=== PATIENT | male | born 1990 | race Caucasian/White ===

== ENCOUNTER 2021-01-02 14:28 | Observation (INO) ==
[2021-01-02 15:22] LABS: Appearance Urine Clear (Clear); Bilirubin Urine Negative (Negative); Blood Urine Negative (Negative); Color Urine Yellow; Glucose Urine UA Negative (Negative); Ketones Urine Trace (Negative); Leukocyte Esterase Urine Negative (Negative); Nitrite Urine Negative (Negative); Protein Urine Negative (Negative); Specific Gravity Urine 1.026 (1.000-1.030); Urobilinogen Urine Negative (Negative)
[2021-01-02 15:42] LABS: Basophils # (auto) 0.02 K/uL (0-0.2); Basophils % (auto) 0.4 %; Eosinophils # (auto) 0.08 K/uL (0-0.5); Eosinophils % (auto) 1.5 %; Hematocrit (blood only) 41.9 % (42-52); Hemoglobin 14.7 g/dL (14.0-18.0); Immature Granulocytes # (auto) 0.01 K/uL (0.00-0.02); Immature Granulocytes % (auto) 0.2 %; Lymphocytes # (auto) 1.57 K/uL (1.2-3.4); Lymphocytes % (auto) 28.7 %; Mean Corpuscular Hemoglobin 30.2 pg (25-34); Mean Corpuscular Hgb Conc 35.1 g/dL (32-36); Mean Corpuscular Volume 86.2 fL (80-100); Mean Platelet Volume 9.2 fL (7.4-10.4); Monocytes # (auto) 0.87 K/uL (0.11-0.59); Monocytes % (auto) 15.9 %; Neutrophils # (auto) 2.92 K/uL (1.4-6.5); Neutrophils % (auto) 53.3 %; Platelet Count 277 K/uL (130-400); RDW Coefficient of Variation 12.8 % (11.5-14.5); RDW Standard Deviation 40.9 fL (36.4-46.3); Red Blood Count 4.86 M/uL (4.7-6.1); White Blood Count 5.47 K/uL (4.8-10.8)
[2021-01-02 16:04] LABS: Acetaminophen < 2 ug/ml (10-30); Albumin Level 3.9 gm/dl (3.4-5.0); BUN Creatinine Ratio 17.7 (10-20); Calcium 8.7 mg/dl (8.5-10.1); Creatinine Clr Calc Pharmacy 104.3 ml/min; Est GFR (African American) 115.4; Est GFR (Non-African American) 99.6; Potassium 3.7 mmol/L (3.5-5.1); Salicylate < 1.7 mg/dl (2.8-20)
[2021-01-02 16:14] LABS: Albumin Globulin Ratio 1.2 (0.9-2); Bilirubin,Total 0.6 mg/dl (0.2-1); Globulin 3.2 gm/dl (2.5-4.0); Thyroid Stimulating Hormone 1.73 uIu/ml (0.300-4.500); Total Protein 7.1 gm/dl (6.4-8.2)
[2021-01-02 16:17] LABS: Amphetamines+Metham, Urine Neg (Neg); Barbiturates, Urine Neg (Neg); Benzodiazepine, Urine Neg (Neg); Cocaine, Urine Neg (Neg); MDMA (Ecstacy), Urine Neg (Neg); Methadone, Urine Neg (Neg); Opiate, Urine Neg (Neg); Phencyclidine, Urine Neg (Neg)
[2021-01-02 16:59] LABS: Influenza A virus by PCR Negative (Neg); Influenza B virus by PCR Negative (Neg); RSV by PCR Negative (Neg)
[2021-01-02 17:05] LABS: SARS CoV2 RNA(COVID-19) InHosp POSITIVE (Negative)
[2021-01-02] MEDS ORDERED: POLYETHYLENE (MIRALAX) 17 GM PACK PO PRN (22:43)
[2021-01-02] MEDS ORDERED: ONDANSETRON INJ 2 MG/ML 2 ML VIAL IV PRN (22:43)
[2021-01-02] MEDS ORDERED: LORazepam 1 MG/2 ML VIAL IV PRN (22:43)
[2021-01-02] MEDS ORDERED: ACETAMINOPHEN 325 MG TAB PO PRN (22:43)
[2021-01-03] MEDS: DOXYCYCLINE HYCLATE 100 MG CAP PO SCH ×2 (05:54→08:35)
--- NOTE | 2021-01-03 05:57 | History and Physical Report ---
DATE OF ADMISSION: 01/02/2021 CHIEF COMPLAINT: COVID-19 and improper behavior. HISTORY OF PRESENT ILLNESS: This is a 30-year-old male with past medical history significant for schizoaffective disorder bipolar type, altered thought process was brought in because he was exposing himself on the streets and in the hospital, he was found to be COVID positive. The patient is currently resting comfortably and hemodynamically stable. Denies any chest pain. No cough, no fever, no chills, no shortness of breath, no headache, no blurred vision, no earache, no runny nose, no sore throat, no nausea, no abdominal pain, no diarrhea. Appetite is okay. Denies any complaints. The patient does not know how he got COVID. No known exposures. Afebrile. ALLERGIES: RISPERIDONE, BEE VENOM. PAST MEDICAL HISTORY: As mentioned above. PAST SURGICAL HISTORY: None. MEDICATIONS: Currently the patient is not taking any medications. FAMILY HISTORY: No significant family history on file. SOCIAL HISTORY: Lives with his parents. No smoking as per the records. A 0.8 standard drinks of alcohol per week as per records. No drug use as per records. REVIEW OF SYSTEMS: As per HPI. Rest of the review of systems negative. PHYSICAL EXAMINATION: GENERAL: The patient is of moderate build, not in acute distress. VITAL SIGNS: Temperature 36.8, pulse 75, respiratory rate 20, blood pressure 103/65, oxygen 97% on room air. HEENT: Head atraumatic. Oral mucosa moist. NECK: No neck masses. Supple. CARDIOVASCULAR: S1, S2 heard. Regular rate and rhythm. No murmur, no gallop. RESPIRATORY SYSTEM: Normal AP diameter. No accessory muscle use. No wheezing, no crackles. ABDOMEN: Soft, bowel sounds present, nontender. No distention. CENTRAL NERVOUS SYSTEM: Cranial nerves II-XII grossly intact. Nonfocal. EXTREMITIES: No edema, no erythema. LABORATORY DATA: WBC 5.4, hemoglobin 14.7, hematocrit 41.9, platelets 277. Sodium 139, potassium 3.7, chloride 108, bicarbonate 29, BUN 18, creatinine 1.02, serum glucose 97, calcium 8.7, total bilirubin 0.6, AST 19, ALT 23, alkaline phosphatase 73. TSH 1.7. Urinalysis negative, salicylates less than 1.7, acetaminophen less than 2, ethyl alcohol less than 3. SARS-CoV-2 PCR positive. Influenza A and B PCR negative. RSV PCR negative. ASSESSMENT AND PLAN: This is a 30-year-old male, who was brought in because of improper behavior and found to be COVID positive. 1. COVID positive on the PCR: The patient is asymptomatic, hemodynamically stable, saturating fine on room air. We will follow chest x-ray. Follow in the medical floor. COVID precautions, air-borne precautions. 2. Improper behavior: One-on-one for now. Psych consult in the a.m. 3. History of schizoaffective bipolar disorder and altered thought process: Currently not taking any medications. Await psych input. 4. Deep venous thrombosis prophylaxis: We will place on Lovenox. 5. Disposition: Monitor in the hospital. Once stable, further management as per psychiatry. Level 1 full code. Addendum: On the floor patient complained of tick on his penile shaft. Tick was taken out and doesn't seemed engorged. Patient seems to have rolled on grass naked. Ordered lyme test most likely will be negative unless he had any more tick bites in the recent past. Empirically started on Doxycycline. MTDD
[2021-01-03 06:10] LABS: Basophils # (auto) 0.03 K/uL (0-0.2); Basophils % (auto) 0.7 %; Eosinophils # (auto) 0.09 K/uL (0-0.5); Eosinophils % (auto) 2.1 %; Hematocrit (blood only) 40.8 % (42-52); Hemoglobin 14.3 g/dL (14.0-18.0); Immature Granulocytes # (auto) 0.01 K/uL (0.00-0.02); Immature Granulocytes % (auto) 0.2 %; Lymphocytes # (auto) 1.72 K/uL (1.2-3.4); Lymphocytes % (auto) 39.6 %; Mean Corpuscular Hemoglobin 30.7 pg (25-34); Mean Corpuscular Volume 87.6 fL (80-100); Mean Platelet Volume 8.8 fL (7.4-10.4); Monocytes % (auto) 16.1 %; Neutrophils # (auto) 1.79 K/uL (1.4-6.5); Neutrophils % (auto) 41.3 %; Platelet Count 232 K/uL (130-400); RDW Coefficient of Variation 12.9 % (11.5-14.5); RDW Standard Deviation 41.4 fL (36.4-46.3); Red Blood Count 4.66 M/uL (4.7-6.1); White Blood Count 4.34 K/uL (4.8-10.8)
[2021-01-03 06:20] LABS: D Dimer 310 ug/L FEU (0-500)
[2021-01-03 06:42] LABS: BUN Creatinine Ratio 14.7 (10-20); Blood Urea Nitrogen 14 mg/dl (7-18); Calcium 8.4 mg/dl (8.5-10.1); Carbon Dioxide 30 mmol/L (21-32); Chloride 108 mmol/L (98-107); Creatinine Clr Calc Pharmacy 112.2 ml/min; Est GFR (African American) 125.8; Est GFR (Non-African American) 108.5; Glucose 86 mg/dl (70-99); Magnesium 2.2 mg/dl (1.8-2.4); Sodium 139 mmol/L (136-145)
[2021-01-03 06:47] LABS: C Reactive Protein < 0.29 mg/dl (0-0.29); Ferritin 140.9 ng/ml (8-388); Troponin I < 0.015 ng/ml (0-0.045)
[2021-01-03 07:14] LABS: Lyme Ab IgG w/WB Rflx Negative (Negative); Lyme Ab IgM w/WB Rflx Negative (Negative)
--- NOTE | 2021-01-03 08:30 | XRay Report ---
XR chest 1V portable HISTORY: 30 years-old Male covid acute cough with shortness of breath. COVID Positive. COMPARISON: None TECHNIQUE: Portable AP view of the chest FINDINGS: Cardiomediastinal and hilar silhouettes are within normal limits. No pneumothorax, pleural effusion, airspace consolidation or overt pulmonary edema. Bones of the chest appear grossly intact. IMPRESSION: No acute process. ACT 112: Negative or not required by law. The above report was generated using voice recognition software. It may contain grammatical, syntax o r spelling errors. Electronically signed by: Fadi Eubanks M.D. 01/03/2021 8:28 AM
[2021-01-03] MEDS: ENOXAPARIN INJ 40 MG/0.4 ML SYR SQ SCH (08:35)
--- NOTE | 2021-01-03 09:27 | Psychiatric Consultation ---
Date of Consultation January 03, 2021 Impression / Recommendations Impression 30-year-old single male who lives with parents in [place], has a history of psychosis NOS and substance abuse, who presented on a 302 yesterday after he was found in public, nude, and masturbating. He is endorsing psychotic symptoms including command auditory hallucinations and delusions and demonstrates extremely poor insight and judgment. He does not believe he has a mental illness or needs treatment, despite just being released from a psychiatric facility in [place] within the past couple of weeks, and multiple previous hospitalizations. He reports he has been noncompliant with medications and is a very poor historian and we will need additional information from the facility in [place] as well as his outpatient psychiatrist. Inpatient treatment is medically necessary due to the severity of symptoms and risk of harm to both himself and others as a result, as he is unable to provide for his own basic needs without the care and assistance of others, and those around him are at risk of sexual assault given his sexual preoccupation, acting out behavior, and disinhibition. He has already engaged in sexually inappropriate behavior in the community. We will give consideration to the need for long-term hospitalization at the [facility] versus an involuntary outpatient commitment, and I have filed for 303 hearing to be held on Thursday. (1) Acute psychosis: 01/03 -patient is a poor historian, reports indicate he may have been started on Abilify Maintena while hospitalized in [place], but timeline unknown. He is agreed to sign a release and I have asked the nurse on the floor to obtain that so that we can get those records. We will also attempt to get records from his outpatient psychiatrist, Dr. Price. -If he is refusing to take antipsychotic medications, recommend medications over objection, as he has responded to antipsychotic medication in the past, and psychotic symptoms are unlikely to remit without antipsychotic treatment. Additionally, he is severely disabled as a result of his psychosis, is unable to provide for his own basic needs, and places both himself and others at risk of harm if his symptoms remain untreated. -Given his history of nonadherence and severity of symptoms with untreated mental illness, will recommend ongoing involuntary commitment with transition to an IOC at discharge. He would benefit from case management and therapy as well. -Offer olanzapine 10 mg p.o./IM as needed for acute psychosis, as he has been on this medication before and tolerated it. -Consider initiation of a mood stabilizer such as Depakote, which can be given IV over objection if he remains unwilling for medications. (2) Noncompliance with medication regimen: Recommend an [facility] [place] due to nonadherence with oral medication, need to obtain additional information about recent treatment before we can explore options. 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 He was placed on a 302 involuntary commitment in the ER, and was then found to be Covid positive, so was admitted to the Covid unit. Chief Complaint "I started having these strange feelings". History of Present Illness Patient is known to us from a previous hospitalization on our unit in 2013, also on an involuntary commitment for psychosis. He was confused, disorganized, hallucinating, with ideas of reference, thought insertion and withdrawal, and thought blocking. He had a brain MRI which was negative, and was started on risperidone. He was a senior in college at the time, and was at home living with parents over the summer break. He was discharged to outpatient treatment at [facility]. He presented to the ER after he was found outside naked, masturbating, with hypersexual thoughts and behavior. He said he was not taking medications because he does not need them, and did not feel he needed inpatient treatment. His parents state that he was recently discharged from [facility] in [place] after he "took off" and police were looking for him. He returned home and was living with his parents on their farm, but left the farm yesterday and was found in town, openly masturbating in front of a neighbor, who called the police. His mother reported he had exposed himself to her that morning, and said he was told that she wanted him to do that. She believes he was having command auditory hallucinations, although he denied them. He had not been sleeping and had demonstrated poor appetite, was extremely impulsive and appeared to be responding to internal stimuli. Parents believe his psychiatric symptoms started years ago when he was in college after he was diagnosed with Lyme's disease. He was placed on an involuntary commitment, and was then found to be Covid +, so was admitted to the Covid unit. He has been sexually preoccupied and inappropriate with hospital staff, asking them if they need semen samples, and a tick was found embedded in the side of his penis and was removed. Lovenox and doxycycline were ordered, but he is refusing to take them. My assessment was done by phone due to patient's COVID + status and lack of appropriate PPE for [facility] staff. He reports he started having "strange feelings" that he "needed to open myself back up," referencing his anus and needing to be naked. Yesterday he was "feeling extreme tightness in my body, and felt the need to be outside doing that." He states he "went outside, took my pants off, went out and masturbated in the street" in "[facility] in the middle of the street." He says a bystander saw him and "called for help," during which time he continued to masturbate. He says he was hospitalized psychiatrically in [place] "for a similar thing" in December, because of "an idea came up, that I had to do it again, that I didn't do it quite right." He says he understands that masturbating in public is illegal but denies that he has any criminal charges. Says he was prescribed Zyprexa and Abilify in [place] and received an "Abilify shot," but thinks he is allergic to Abilify. He doesn't know if he has any outpatient providers, then says he "decided not to" follow up with outpatient treatment. He says he heard someone telling him to expose himself, but denies AVH currently. He reports good sleep, appetite and denies depressive and anxiety symptoms. He says he "messed up my understanding of who am I and what I want to do with myself, I still feel capable of being off medications." Staff contacted his father for collateral and he reported that the patient was relatively stable from [id number] while on aripiprazole. He returned to college and was able to complete his degree, and was seeing a psychiatrist named Dr. Jenkins. He decompensated in 2019, and was started on lithium. He was noncompliant with treatment and ultimately stopped all of his medications, and was discharged from care due to nonadherence. He later started seeing Dr. Price, who started him on Latuda. He often become sleep deprived and then psychotic, often with paranoia involving his parents, and often travels across the country while psychotic. In April 2020, he went to [place], abandoned his car, and was trying to break into homes. In November 2020 he wound up in [place], and then [place]. Parents filed a missing persons report and were ultimately able to locate him based on his debit card use. At some point he went to [place], was found walking naked in the [place], and was then hospi talized there from 12/04/2020-12/21/2020. They were told that he received Abilify Maintena on 12/19/2020, but question whether he actually got it, as he does not appear to be medicated and continues to have psychotic symptoms. Past Psychiatric History Previous Psych History: History of psychosis not otherwise specified and canna bis abuse (diagnoses during 2014 hospitalization here). At that time, he denied any previous psychiatric treatment, but reported a history of concussions from playing football and treatment for Lyme disease 1-2 years prior. Current Psychiatric Diagnosis: Schizoaffective disorder; depressed type per patient Outpatient Services: Parents report he has an appointment with Dr. Price for outpatient treatment. Previously saw Dr. Gonzales at [facility] after 2014 hospitalization here, but was only seen briefly before he left the area to return to college. Previous Psych Admissions: [facility] 2014 for psychosis NOS on an involuntary commitment Reportedly released from an inpatient facility in [place] last week Patient reports multiple other inpatient hospitalizations in various states History of Previous Suicide Attempt: No Describe Attempts in the Past: Admits to "beliving I don't deserve to live" in the past Past Medication Trials: Per EMR: Haloperidol -used as needed when in the hospital in the past Risperidone -Per outpatient records this was stopped shortly after hospital discharge due to fatigue, allergy list states it caused a rash (although patient was on it while in the hospital in 2013 and appeared to tolerate it well) Lamotrigine -started in [address] Gonzales after discharge from the hospital, and was stopped after his acne worsened Abilify -reportedly the patient was stable on this medication for several years [place] -nonadherent Latuda-nonadherent Abilify Maintena - possibly started in [place] ?Zyprexa in [place] Allergies Allergy/AdvReac Type Severity Reaction Status Date / Time bee venom protein (honey bee) Allergy Severe ANAPHYLAXIS Verified 01/02/21 15:46 risperidone Allergy Rash Verified 01/02/21 15:46 Home Medications Medication Instructions Recorded Confirmed Type No Known Home Medications 03/18/20 01/02/21 History Family History The patient's father reports that both his mother and maternal uncle have bipolar disorder. Substance Abuse History History of cannabis and shroom use, recent use unknown Personal History Living Arrangements: Home Living Arrangements Comments: with parents in [place] Employment Status: Unemployed Marital Status: Single Beliefs That Will Affect Care: None Patient History Medical History (Updated 01/03/21 @ 12:04 by Saskia Russ MD) Schizoaffective disorder Social History Smoking Status: Current some day smoker Tobacco Type: Cigarettes Second Hand Exposure: No; Do You Dip or Chew Tobacco: No; Tobacco Cessation Education Requested by Patient: No Hx Alcohol Use: Yes Alcohol type: beer, wine and hard liquor Hx Substance Use: No Communication Ability: Effective Fabrication Operator Required: No Beliefs That Will Affect Care: None Current Living Situation: Parent Other Information That Helps Us Care for You: No Feels Safe at Home: Yes Safety Concerns: Feels Safe At This Time Assistive Devices: Glasses Physical Exam Psychiatric: MSE limited due to phone interview. Patient's voice is slightly slowed, delayed responses, rambling quality to speech, vague and difficult to understand answers. He endorses auditory hallucinations of a command nature telling him to expose himself to others. He reports what may be somatic delusions of tightness in his anus, and thought processes are rational and not reality based. Denies SI and HI. Very poor insight and judgment. Vital Signs (Past 24 Hours): Last Vital Signs Temp 36.5 C 01/03/21 07:15 Pulse 74 01/03/21 07:15 Resp 16 01/03/21 07:15 BP 102/65 01/03/21 07:15 Pulse Ox 96 01/03/21 07:15 Review of Systems All systems reviewed & are unremarkable except as noted in Subjective Results & Data (PSY) Medications Administered Doxycycline Hyclate (Doxycycline Hyclate 100 Mg Cap) 100 mg PO BID MATT Stop: 01/13/21 05:09 Last Admin: 01/03/21 08:35 Dose: Not Given Documented by: [id number] Admin: 01/03/21 05:54 Dose: 100 mg Documented by: [id number] Enoxaparin Sodium (Enoxaparin Inj 40 Mg/0.4 Ml Syr) 40 mg SQ Q24H MATT Stop: 02/02/21 08:59 Last Admin: 01/03/21 08:35 Dose: Not Given Documented by: [id number] Coding Level of Care Code 91101 [facility] Intl Hosp Care Lvl 3 Diagnoses Acute psychosis F23 Noncompliance with medication regimen Z91.14
[2021-01-03] MEDS ORDERED: OLANZapine 10 MG/2.1 ML SDV IM PRN (09:45)
[2021-01-03] MEDS ORDERED: OLANZapine 10 MG TAB PO PRN (09:45)
--- NOTE | 2021-01-03 11:46 | Emergency Department Note ---
History of Present Illness General Chief complaint: Mental Health Evaluation Stated complaint: ANXIETY/MENTAL HEALTH EVALUATION Time Seen by Provider: 01/02/21 15:22 Source: patient Mode of arrival: other (Police) Limitations: no limitations History of Present Illness Provider complaint: Public nudity, public masturbation, exposure of genitals to his mother This pt is a 30 yo male who presents to the ED by police after walking in [facility] nude and masturbating. Pt apparently exposed his genitals to his mother this morning and told her that he "got the idea that she wanted him to do that.". PT was in a facility in [place], [place] last week and was recently released to his parents. Pt states he was arrested in [place] and inpt in [place] for similar public nudity and indecent behaviors. He has refused medications as he feels they are poison. He has denied command hallucinations, although his parents have concerns that this maybe the case. Pt states he "was previously sexually active with his rectum" and was unable to "open" the rectum. He was "feeling tight" in his body, and this is the way he feels he needs to release. He denies recent illness, ETOG, substance abuse. He denies SI, HI. Home Medications Medication Instructions Recorded Confirmed Type No Known Home Medications 03/18/20 01/02/21 History Allergies Allergy/AdvReac Type Severity Reaction Status Date / Time bee venom protein (honey bee) Allergy Severe ANAPHYLAXIS Verified 01/02/21 15:46 risperidone Allergy Rash Verified 01/02/21 15:46 Past Med/Surg History Medical History Schizoaffective disorder Social History Smoking Status: Current some day smoker Tobacco Type: Cigarettes Second Hand Exposure: No; Do You Dip or Chew Tobacco: No; Tobacco Cessation Education Requested by Patient: No Hx Alcohol Use: Yes Alcohol type: beer, wine and hard liquor Hx Substance Use: No Communication Ability: Effective Post Manager Required: No Beliefs That Will Affect Care: None Current Living Situation: Parent Other Information That Helps Us Care for You: No Feels Safe at Home: Yes Safety Concerns: Feels Safe At This Time Assistive Devices: Glasses Review of Systems A total of 10 systems reviewed and were otherwise negative Physical Exam Vital Signs Vital Signs - 24 hr 01/02/21 14:40 Temperature 36.5 C Temperature Source Oral Pulse Rate 97 H Pulse Rhythm Regular Pulse Strength Normal Respiratory Rate 18 Respiratory Effort / Characteristics Non-Labored Respiratory Depth Normal Respiratory Pattern Regular Blood Pressure 125/81 Blood Pressure Mean 95 Blood Pressure Position Sitting Pulse Oximetry 97 Oxygen Delivery Method Room Air Sepsis Recent Fever Within 48 Hours No Sepsis New/Unexplained Change in Mental Status No Sepsis Action Taken by Nursing No Action Required Vital signs reviewed. General: Well-appearing 30 yo male, in no significant distress. HEENT: No scleral icterus, PERRLA, neck supple. Atraumatic. Cardiovascular: Regular rate and rhythm, no extra sounds. Pulmonary: Clear to auscultation bilaterally, normal work of breathing. Abdomen: Soft, nontender, nondistended, positive bowel sounds. Musculoskeletal: Atraumatic, no peripheral edema. Neurologic: Patient awake alert and oriented x 3 Psych: Neg SI, neg HI Skin: Warm, dry, no rash Course Administered Medications Doxycycline Hyclate (Doxycycline Hyclate 100 Mg Cap) 100 mg PO BID [facility] Stop: 01/13/21 05:09 Last Admin: 01/03/21 08:35 Dose: Not Given Documented by: [id number] Admin: 01/03/21 05:54 Dose: 100 mg Documented by: [id number] Enoxaparin Sodium (Enoxaparin Inj 40 Mg/0.4 Ml Syr) 40 mg SQ Q24H [facility] Stop: 02/02/21 08:59 Last Admin: 01/03/21 08:35 Dose: Not Given Documented by: [id number] Medical Decision Making Differential Diagnosis Mood disorder, infection, hypoglycemia, electrolyte abnormalities, cardiac sources, intracerebral event, toxicologic, trauma, neurologic, as well as other pathologies. Home Medications Current Medication List: was personally reviewed by me (Noncompliant) Laboratory Data Attestation: I reviewed the patient's lab results. Result diagrams: 01/03/21 05:52 01/03/21 05:52 Lab Results 01/02/21 01/02/21 01/02/21 Range/Units 15:03 15:03 15:21 WBC 5.47 (4.8-10.8) K/uL RBC 4.86 (4.7-6.1) M/uL Hgb 14.7 (14.0-18.0) g/dL Hct 41.9 L (42-52) % MCV 86.2 (80-100) fL MCH 30.2 (25-34) pg MCHC 35.1 (32-36) g/dL RDW Std Deviation 40.9 (36.4-46.3) fL RDW Coeff of [place] 12.8 (11.5-14.5) % Plt Count 277 (130-400) K/uL MPV 9.2 (7.4-10.4) fL Immature Gran % (Auto) 0.2 % Neut % (Auto) 53.3 % Lymph % (Auto) 28.7 % [place] % (Auto) 15.9 % Eos % (Auto) 1.5 % Baso % (Auto) 0.4 % Neut # (Auto) 2.92 (1.4-6.5) K/uL Lymph # (Auto) 1.57 (1.2-3.4) K/uL [place] # (Auto) 0.87 H (0.11-0.59) K/uL Eos # (Auto) 0.08 (0-0.5) K/uL Baso # (Auto) 0.02 (0-0.2) K/uL Immature Gran # (Auto) 0.01 (0.00-0.02) K/uL Sodium (136-145) mmol/L Potassium (3.5-5.1) mmol/L Chloride (98-107) mmol/L Carbon Dioxide (21-32) mmol/L Anion Gap (3-11) BUN (7-18) mg/dl Creatinine (0.6-1.4) mg/dl Est Cr Clr Drug Dosing ml/min Est GFR ( Amer) Est GFR (Non-Af Amer) BUN/Creatinine Ratio (10-20) Glucose (70-99) mg/dl Calcium (8.5-10.1) mg/dl Total Bilirubin (0.2-1) mg/dl AST (15-37) U/L ALT (12-78) U/L Alkaline Phosphatase (45-117) U/L Total Protein (6.4-8.2) gm/dl Albumin (3.4-5.0) gm/dl Globulin (2.5-4.0) gm/dl Albumin/Globulin Ratio (0.9-2) TSH (0.300-4.500) uIu/ml Urine Color Yellow Urine Appearance Clear (Clear) Urine pH 7.0 (4.5-7.5) Ur Specific [place] 1.026 (1.000-1.030) Urine Protein Negative (Negative) Urine Glucose (UA) Negative (Negative) Urine Ketones Trace H (Negative) Urine Blood Negative (Negative) Urine Nitrite Negative (Negative) Urine Bilirubin Negative (Negative) Urine Urobilinogen Negative (Negative) Ur Leukocyte Esterase Negative (Negative) Salicylates (2.8-20) mg/dl Urine Opiates Screen Neg (Neg) Ur Methadone, Qual Neg (Neg) Acetaminophen (10-30) ug/ml Urine Barbiturates Neg (Neg) Ur Phencyclidine (PCP) Neg (Neg) U Amphetamin/Meth Scrn Neg (Neg) MDMA (Ecstasy) Screen Neg (Neg) U Benzodiazepines Scrn Neg (Neg) Ur Cocaine Metabolite Neg (Neg) U Marijuana (THC) Screen Neg (Neg) Ethyl Alcohol mg/dL (0-3) mg/dl COVID-19 Eval Order SARS-CoV-2 (PCR) (Negative) Influenza Type A (PCR) (Neg) Influenza Type B (PCR) (Neg) RSV (RT-PCR) (Neg) 01/02/21 01/02/21 01/02/21 Range/Units 15:21 15:21 15:21 WBC (4.8-10.8) K/uL RBC (4.7-6.1) M/uL Hgb (14.0-18.0) g/dL Hct (42-52) % MCV (80-100) fL MCH (25-34) pg MCHC (32-36) g/dL RDW Std Deviation (36.4-46.3) fL RDW Coeff of [place] (11.5-14.5) % Plt Count (130-400) K/uL MPV (7.4-10.4) fL Immature Gran % (Auto) % Neut % (Auto) % Lymph % (Auto) % [place] % (Auto) % Eos % (Auto) % Baso % (Auto) % Neut # (Auto) (1.4-6.5) K/uL Lymph # (Auto) (1.2-3.4) K/uL [place] # (Auto) (0.11-0.59) K/uL Eos # (Auto) (0-0.5) K/uL Baso # (Auto) (0-0.2) K/uL Immature Gran # (Auto) (0.00-0.02) K/uL Sodium 139 (136-145) mmol/L Potassium 3.7 (3.5-5.1) mmol/L Chloride 108 H (98-107) mmol/L Carbon Dioxide 29 (21-32) mmol/L Anion Gap 2.0 L (3-11) BUN 18 (7-18) mg/dl Creatinine 1.02 (0.6-1.4) mg/dl Est Cr Clr Drug Dosing 104.3 ml/min Est GFR ( Amer) 115.4 Est GFR (Non-Af Amer) 99.6 BUN/Creatinine Ratio 17.7 (10-20) Glucose 97 (70-99) mg/dl Calcium 8.7 (8.5-10.1) mg/dl Total Bilirubin 0.6 (0.2-1) mg/dl AST 19 (15-37) U/L ALT 23 (12-78) U/L Alkaline Phosphatase 73 (45-117) U/L Total Protein 7.1 (6.4-8.2) gm/dl Albumin 3.9 (3.4-5.0) gm/dl Globulin 3.2 (2.5-4.0) gm/dl Albumin/Globulin Ratio 1.2 (0.9-2) TSH 1.730 (0.300-4.500) uIu/ml Urine Color Urine Appearance (Clear) Urine pH (4.5-7.5) Ur Specific [place] (1.000-1.030) Urine Protein (Negative) Urine Glucose (UA) (Negative) Urine Ketones (Negative) Urine Blood (Negative) Urine Nitrite (Negative) Urine Bilirubin (Negative) Urine Urobilinogen (Negative) Ur Leukocyte Esterase (Negative) Salicylates < 1.7 L (2.8-20) mg/dl Urine Opiates Screen (Neg) Ur Methadone, Qual (Neg) Acetaminophen < 2 L (10-30) ug/ml Urine Barbiturates (Neg) Ur Phencyclidine (PCP) (Neg) U Amphetamin/Meth Scrn (Neg) MDMA (Ecstasy) Screen (Neg) U Benzodiazepines Scrn (Neg) Ur Cocaine Metabolite (Neg) U Marijuana (THC) Screen (Neg) Ethyl Alcohol mg/dL < 3.0 (0-3) mg/dl COVID-19 Eval Order SARS-CoV-2 (PCR) (Negative) Influenza Type A (PCR) (Neg) Influenza Type B (PCR) (Neg) RSV (RT-PCR) (Neg) 01/02/21 01/02/21 Range/Units 15:45 15:45 WBC (4.8-10.8) K/uL RBC (4.7-6.1) M/uL Hgb (14.0-18.0) g/dL Hct (42-52) % MCV (80-100) fL MCH (25-34) pg MCHC (32-36) g/dL RDW Std Deviation (36.4-46.3) fL RDW Coeff of [place] (11.5-14.5) % Plt Count (130-400) K/uL MPV (7.4-10.4) fL Immature Gran % (Auto) % Neut % (Auto) % Lymph % (Auto) % [place] % (Auto) % Eos % (Auto) % Baso % (Auto) % Neut # (Auto) (1.4-6.5) K/uL Lymph # (Auto) (1.2-3.4) K/uL [place] # (Auto) (0.11-0.59) K/uL Eos # (Auto) (0-0.5) K/uL Baso # (Auto) (0-0.2) K/uL Immature Gran # (Auto) (0.00-0.02) K/uL Sodium (136-145) mmol/L Potassium (3.5-5.1) mmol/L Chloride (98-107) mmol/L Carbon Dioxide (21-32) mmol/L Anion Gap (3-11) BUN (7-18) mg/dl Creatinine (0.6-1.4) mg/dl Est Cr Clr Drug Dosing ml/min Est GFR ( Amer) Est GFR (Non-Af Amer) BUN/Creatinine Ratio (10-20) Glucose (70-99) mg/dl Calcium (8.5-10.1) mg/dl Total Bilirubin (0.2-1) mg/dl AST (15-37) U/L ALT (12-78) U/L Alkaline Phosphatase (45-117) U/L Total Protein (6.4-8.2) gm/dl Albumin (3.4-5.0) gm/dl Globulin (2.5-4.0) gm/dl Albumin/Globulin Ratio (0.9-2) TSH (0.300-4.500) uIu/ml Urine Color Urine Appearance (Clear) Urine pH (4.5-7.5) Ur Specific [place] (1.000-1.030) Urine Protein (Negative) Urine Glucose (UA) (Negative) Urine Ketones (Negative) Urine Blood (Negative) Urine Nitrite (Negative) Urine Bilirubin (Negative) Urine Urobilinogen (Negative) Ur Leukocyte Esterase (Negative) Salicylates (2.8-20) mg/dl Urine Opiates Screen (Neg) Ur Methadone, Qual (Neg) Acetaminophen (10-30) ug/ml Urine Barbiturates (Neg) Ur Phencyclidine (PCP) (Neg) U Amphetamin/Meth Scrn (Neg) MDMA (Ecstasy) Screen (Neg) U Benzodiazepines Scrn (Neg) Ur Cocaine Metabolite (Neg) U Marijuana (THC) Screen (Neg) Ethyl Alcohol mg/dL (0-3) mg/dl COVID-19 Eval Order [facility] at [facility] SARS-CoV-2 (PCR) POSITIVE A* (Negative) Influenza Type A (PCR) Negative (Neg) Influenza Type B (PCR) Negative (Neg) RSV (RT-PCR) Negative (Neg) MDM Narrative Pt was medically cleared and referred to the medical case manager for evaluation. He tested COVID positive. Information was gathered from family, apparently patient seems to be responding to external stimuli at some points. He refuses medication and states he has been poisoned, but also admits he feels better in an 'institutionalized' situation. Pt has been petitioned and is felt to be in able to care for himself safely. The nudity and indecent behavior is recurrent and will require advanced psych consult, case management and outpatient coordination for patient and community safety. Hospitalist has been consulted d/t to COVID positive status w psych consult on a 302. Impression & Plan Schizoaffective disorder, Noncompliance with medication regimen, Exhibitionist behavior Discharge Plan Visit Data Chief Complaint: Mental Health Evaluation Stated Complaint: ANXIETY/MENTAL HEALTH EVALUATION ED Provider: Saskia Russ Discharge Problem: Schizoaffective disorder, Noncompliance with medication regimen, Exhibitionist behavior Patient Disposition: Admitted As Inpatient Discharge Instructions Interventions: ED Discharge Assessment Last Done: 01/02/21 21:53 Discharge Problem: Schizoaffective disorder Qualifiers: Schizoaffective disorder type: unspecified Qualified Code(s): F25.9 - Schizoaffective disorder, unspecified
--- NOTE | 2021-01-03 15:09 | Hospitalist Progress Note ---
Date of Service January 03, 2021 Assessment & Plan (1) Bipolar mood disorder: (2) Schizoaffective disorder: disorganized Schizoaffective disorder-acute episode with bipolar mood disorder -main reason for hospital admission hx of Psychiatric illness -Schizophrenia /Bipolar mood disorder -not currently taking any medications hx of inpatient psych admissions in past admits of auditory hallucination Psych consult appreciated pt is ordered Zyprexa -PRN 302 for involuntary commitment ordered -as pt is not safe to be discharged to home needs inpatient Psych admission for continued care and therapy (3) SARS-CoV-2 positive: asymptomatic -no cough , SOB , no hypoxia , no GI complain no active treatment needed monitor contact and airborne isolation per protocol hx of Lyme disease : noted to have a tick bite lyme titer negative d/c PO Doxycycline\ Disposition : 302 petition will be ordered pt can not sign out AMA at present no active medical issues noted will remain under hospitalist service till appropriate inpatient Psych admission is available Admission and Anticipated Discharge Date Admission Date: January 02, 2021 Subjective Follow up visit for Schizophrenia /abnormal /bizarre behavior /auditory hallucination /COVID 19 positive status : pt slept most part of the day -per nursing calm and co operative no agitation or combativeness denies of any discomfort no fever or chills , no cough or SOB Review of Systems Review of Systems: All systems reviewed & are unremarkable except as noted in Subjective Physical Exam Physical Exam: Physical exam: General: No acute distress, alert awake oriented x3 HEENT: PERRLA, EOMI, Heart: Regular S1-S2, no carotid bruit, no JVD, no lower extremity edema Lungs: Clear to auscultate, no wheeze or rales Abdomen: Soft nontender, no organomegaly Extremity: No cyanosis, no deformity, normal strength 5 out of 5 with upper and lower Neuro: No focal neurological deficit normal speech, normal visual field, Motor strength : normal both upper and lower extremity, sensation intact Psych: Alert awake oriented x3, normal affect Results & Data Results & Data ([facility]) Vital Signs (Past 12 Hours) Vital Signs Temp Pulse Resp BP Pulse Ox 01/03/21 11:17 36.6 C 82 16 99/65 L 97 01/03/21 07:15 36.5 C 74 16 102/65 96 01/03/21 03:14 37.1 C 71 12 105/71 98 (1) Schizoaffective disorder Schizoaffective disorder type: unspecified Qualified Code(s): F25.9 - Schizoaffective disorder, unspecified
[2021-01-04] MEDS: ENOXAPARIN INJ 40 MG/0.4 ML SYR SQ SCH (08:19)
--- NOTE | 2021-01-04 12:50 | Psychiatric Progress Note ---
Date of Service January 04, 2021 Impression / Recommendations Impression 30-year-old single male who lives with parents in [place], has a history of psychosis NOS and substance abuse, who presented on a 302 yesterday after he was found in public, nude, and masturbating. He is endorsing psychotic symptoms including command auditory hallucinations and delusions and demonstrates extremely poor insight and judgment. He does not believe he has a mental illness or needs treatment, despite just being released from a psychiatric facility in [place] within the past couple of weeks, and multiple previous hospitalizations. He reports he has been noncompliant with medications and is a very poor historian and we will need additional information from the facility in [place] as well as his outpatient psychiatrist. Inpatient treatment is medically necessary due to the severity of symptoms and risk of harm to both himself and others as a result, as he is unable to provide for his own basic needs without the care and assistance of others, and those around him are at risk of sexual assault given his sexual preoccupation, acting out behavior, and disinhibition. He has already engaged in sexually inappropriate behavior in the community. We will give consideration to the need for long-term hospitalization at [facility] versus an involuntary outpatient commitment, and I have filed for 303 hearing to be held on Thursday. (1) Acute psychosis: 01/03 -patient is a poor historian, reports indicate he may have been started on Abilify Maintena while hospitalized in [place], but timeline unknown. He is agreed to sign a release and I have asked the nurse on the floor to obtain that so that we can get those records. We will also attempt to get records from his outpatient psychiatrist, Dr. Price. -If he is refusing to take antipsychotic medications, recommend medications over objection, as he has responded to antipsychotic medication in the past, and psychotic symptoms are unlikely to remit without antipsychotic treatment. Add itionally, he is severely disabled as a result of his psychosis, is unable to provide for his own basic needs, and places both himself and others at risk of harm if his symptoms remain untreated. -Given his history of nonadherence and severity of symptoms with untreated mental illness, will recommend ongoing involuntary commitment with transition to an IOC at discharge. He would benefit from case management and therapy as well. -Offer olanzapine 10 mg p.o./IM as needed for acute psychosis, as he has been on this medication before and tolerated it. -Consider initiation of a mood stabilizer such as Depakote, which can be given IV over objection if he remains unwilling for medications. 01/04 -The patient has stated that he was given Abilify Maintena intramuscularly fairly recently, but there is some reason to believe that this may not be accurate. It is noted that the patient's father said that he has not observed any changes in the patient's behaviors and other symptoms subsequent to the reported dose of Abilify. -Although the patient says that he has not been using neither cannabis nor hallucinogenic mushrooms recently, he is not considered a reliable sustainability manager. His tox screen at admission was negative for occult blood, but the test was not specific for hallucinogens. Accordingly, while I would doubt that the entire constellation of problems observed are related to substance use, this cannot be ruled out as a mitigating factor. -Today, the patient reports that he will refuse to take Abilify because he says that he is "allergic" to it. When asked to describe the allergy, he replied by saying that Abilify makes him feel "weird," and he says that he feels certain that it interferes with his sleep. The patient reports that he has taken olanzapine (Zyprexa) and has tolerated that well. He also suggest that he thinks that it "helps." However, he cannot exactly say how it helps. -Today, the patient says that he is embarrassed about the fact that he was "running around outside" while naked, and that he was masturbating in public. However, he has difficulty saying why that should be an issue, other than to repeatedly say, "it is bad." At the same time, and the period of time that immediately proceeded our telephonic contact the patient was reportedly openly masturbating in front of his one-to-one education administrative assistant and, also reportedly, the patient had invited the one-to-one education administrative assistant to either masturbate together with the patient or to allow the patient to masturbate him. Furthermore, the patient indicated that he felt this behavior was reconciled because he had awakened in a "sexual place." Accordingly, what initially had suggested improving insight is abrogated by his ongoing inappropriate and dyscontrol behaviors. -Given the fact the patient may have an unspecified dose of Abilify Maintena on board, reportedly administered on 12/19/2020, and given that the patient may need to receive his olanzapine by intramuscular injection if he continues to periodic ally refused to take it voluntarily (see med over objection first and second opinions), will reduce the dose of olanzapine from 10 mg 3 times a day to olanzapine 10 mg twice a day by mouth, and will order medications over objection in the form of olanzapine 10 mg IM twice a day. The dose can be titrated as indicated. (2) Noncompliance with medication regimen: Recommend an DE [facility] due to nonadherence with oral medication, need to obtain additional information about recent treatment before we can explore options. Father reports they were told he got Abilify Maintena on 12/19/2020, and due to tight receptor binding it may be difficult to get an adequate response from other dopaminergic medications until it is out of his system 01/04/21 -The patient is saying that he will refuse to take Abilify either orally or by injection of a depot form of aripiprazole. The plan is to stabilize the patient on olanzapine, and at that point we may be able to asked the patient to reconsider Abilify given reports that he has responded favorably to Abilify in the past. 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 I forgot that I was naked." Subjective Subjective Patient was evaluated telephonically due to safety concerns within the context of the patient's active COVID-19 infection. He was assessed assessed and interval progress reviewed with the treatment team. After speaking at some length with the nurse that has been assigned to his care on the COVID-19 unit, [place], I spoke individually with the patient by telephone in order to assess his current mental status, evaluate his response to treatment, coordinate any necessary changes in his treatment regimen with the patient, and address questions issues and concerns that may arise. The patient began by telling me that he is not sure why he is in the hospital, but when I mentioned that I had heard that there were some concerns because he was masturbating in public the patient acknowledges that he had been doing this and said that he understood that it was an appropriate. He also reports that he had forgotten that he was naked when he went outside. Eventually, he revealed that he believes that God, or one of God's "intermediaries" had instructed him to do so. Reports from the individual who has been assigned to provide one-to-one observation with the patient include a report that the patient has been masturbating in the one-to-one's presence off and on all morning and, in fact, the patient reportedly asked the one-to-one if he [the one-to-one] would like to masturbate or be masturbated while the patient continued to masturbate. As part of today's assessment, I asked the patient about that reported circumstance, and the patient replied, "I woke up this morning and a sexual place." He was asked if he thought there was any particular problem with masturbating openly in the hospital setting in the presence of a staff member, and he replied, "not really. I was feeling sexual." When the patient was asked how he came to understand that God wanted him to go outside and masturbate (in public) he replied that he hears the voice of God speaking to him and giving him commands, although he adds that he suspects that the voice he hears may not actually be God, himself, but, instead, one of God's intermediaries; i.e., an individual who has been assigned by God to relay messages and to serve as God's surrogate. The patient also said that he had, in fact, received an injection of Abilify Maintena approximately a week ago, but then explained that he does not want to take Abilify either orally or through intramuscular injection because it causes him to feel "strange," and because he is convinced that it prevents him from sleeping. When asked if he had been having trouble sleeping, he said that was having trouble falling to sleep and staying asleep immediately after receiving the Abilify Maintena dose, but that this problem seems to have resolved in the hospital and he is sleeping better. The patient was also ask about his response to Zyprexa (olanzapine), and he responded by saying that he does not seem to have any adverse effects from it and spontaneously adds that he thinks he is feeling "better" today than he had been feeling yesterday. He was ask about reports that he had been r efusing certain doses of medications here in the hospital and that he had been nonadherent with outpatient treatment, including outpatient medications and he responded by explaining that he does not believe that he truly has a psychiatric problem and does not really think he needs to take medications. Today, the patient added some additional information about his drug/alcohol use. He acknowledges that he has continued to periodically use alcohol and, for example, says that he had recently had "a Ernst (beer)." He also acknowledges that he has had a history of fairly regular use of marijuana, hallucinogenic mushrooms, and alcohol. His report today is that he has not used marijuana or "shrooms" recently, but, he has continued to drink periodically. Today, the patient reports that he does not have a history of flight of ideas when this was described to him in some detail. He also notes that he does not feel that his mood swings particularly, although he notes that sometimes he does get depressed. Currently, he does not report increased energy, but acknowledges his hypersexuality. Physical Exam Psychiatric Orientation: alert, oriented to person, oriented to place and oriented to time Appearance was not directly observed because this was a telephonic encounter made necessary due to safety concerns related to the patient's COVID-19 status. Eye contact was not directly observed. See above. Motor activity was not directly observed. See above. The patient's speech was somewhat soft, slowed, and slightly monotonous. However, he did answer questions in complete sentences, and he responded to follow-up questions as well. The patient's affect is not observed. His voice came across as subdued. Of note is the fact that nurse today, a male, observes that the patient tends to be much more animated with female staff members that he is with male staff members. "Kind of sad that I am here. My mood is okay." Thought Process: + concrete thought process Thought Content: + delusions (The patient believes that God had directed him to go outside and masturbate) The patient also believes that God must of intended for him to go outside naked and walk around in public because the aural command the patient heard was to go outside, immediately, and at the time the patient was indoors and naked so he simply walked outside and continue masturbating. Suicidal Thoughts: denies suicidal thoughts Homicidal Thoughts: denies homicidal thoughts Hallucinations: + auditory hallucinations References to the voice of God, or the voice of God's "intermediares." The patient is not considered a reliable sustainability manager with regard to memory. He is able to tell me that he had been recently living in [place], [place], and had also temporarily lived in several other places across the [facility]. When asked towards the end of our conversation if he remembered my role here at the hospital he remembered that I am a psychiatrist. Estimated Intelligence: + above average estimated intelligence Insight: + poor insight Judgement: + severely impaired judgement Vital Signs (Past 24 Hours) Last Vital Signs Temp 36.5 C 01/04/21 11:07 Pulse 75 01/04/21 11:07 Resp 14 01/04/21 11:07 BP 103/65 01/04/21 11:07 Pulse Ox 97 01/04/21 11:07 Results & Data ([facility]) Current Inpatient Medications Current Inpatient Medications: Current Inpatient Medications Acetaminophen (Acetaminophen 325 Mg Tab) 650 mg PO Q4H PRN PRN Reason: pain/fever Stop: 02/01/21 22:42 Enoxaparin Sodium (Enoxaparin Inj 40 Mg/0.4 Ml Syr) 40 mg SQ Q24H MATT Stop: 02/02/21 08:59 Last Admin: 01/04/21 08:19 Dose: 40 mg Documented by: Olanzapine (Olanzapine 10 Mg Tab) 10 mg PO TID PRN PRN Reason: psychosis Stop: 02/02/21 09:44 Last Admin: 01/04/21 08:20 Dose: 10 mg Documented by: Olanzapine (Olanzapine 10 Mg/2.1 Ml Sdv) 10 mg IM Q8H PRN PRN Reason: psychosis Stop: 02/02/21 09:44 Ondansetron HCl (Ondansetron Inj 2 Mg/Ml 2 Ml Vial) 4 mg IV Q6H PRN PRN Reason: Nausea Stop: 02/01/21 22:42 Polyethylene Glycol (Polyethylene (Miralax) 17 Gm Pack) 17 gm PO DAILY PRN PRN Reason: Constipation Stop: 02/01/21 22:42 Mental Health & Subst Abuse Tx Therapist Name of Therapist: None Assembling Machine Operator Name of Assembling Machine Operator: None Post Discharge Appointments Primary Care Physician Name Of Family Doctor: Dr. Penn
--- NOTE | 2021-01-04 13:18 | Communication Note ---
Date of Service: January 04, 2021 MEDICATIONS OVER OBJECTION SECOND OPINION: I have personally examined the patient today and, in addition, have carefully reviewed his medical record. I have also consulted with other members of his treatment team, including his treatment team on the [place] [id number] unit as well as his inpatient psychiatric providers. It is my finding that the patient is suffering from a mental illness which, at this point, is best diagnosed as unspecified psychosis. He is floridly psychotic and, within the context of his psychosis, represents an immediate danger to self and, potentially to others, as a function of his belief that God has commanded (either directly or indirectly through "intermediaries") that he should masturbate publicly. There is also noted that the patient has a recent history of wandering naked in the [facility] without provisions. He has no functional insight into his illness, has stated that he does not believe that he has a mental illness, and has indicated that his intent is to "not take them (psychiatric) medications." Accordingly, with a reasonable degree of medical certainty I conclude that the patient is mentally ill, p sychotic, dangerous to self and others as a function of his mental illness, and is in need of treatment with antipsychotic medications, if necessary against the patient's expressed well. No less restrictive or intrusive form of treatment can be expected to treat the patient's psychiatric illness.
[2021-01-04] MEDS ORDERED: OLANZapine 10 MG/2.1 ML SDV IM PRN ×2 (13:21→13:25)
[2021-01-04] MEDS ORDERED: OLANZapine 10 MG TAB PO PRN (13:30)
--- NOTE | 2021-01-04 16:18 | Hospitalist Progress Note ---
Date of Service January 04, 2021 Assessment & Plan (1) Bipolar mood disorder: (2) Schizoaffective disorder: disorganized Schizoaffective disorder-acute episode with bipolar mood disorder -main reason for hospital admission hx of Psychiatric illness -Schizophrenia /Bipolar mood disorder was not taking any medications ( due to mental illness -per Psych : he had voice commanding not to take any meds ) presented with disorganized /disinhibited Psychosis / auditory hallucination hx of inpatient psych admissions in past Psych consulted /Psychiatry been following patient closely since admission pt is ordered Zyprexa -PRN for agitation , adjustment of meds for Schizophrenia per Psych 302 for involuntary commitment ordered -as pt is not safe to be discharged to home needs inpatient Psych admission for continued care and therapy (3) SARS-CoV-2 positive: incidental finding during routine testing on admission remains asymptomatic from COVID 19 illness -no cough , SOB , no hypoxia , no GI complain no active treatment needed monitor contact and airborne isolation per protocol hx of Lyme disease : reports of tick bite lyme titer negative d/c PO Doxycycline\\ Disposition : 302 petition placed , appreciate help and input from Psych team pt can not sign out AMA at present no active medical issues noted will remain under hospitalist service till appropriate inpatient Psych admission is available Admission and Anticipated Discharge Date Admission Date: January 02, 2021 Subjective Follow up visit for Schizophrenia /abnormal /bizarre behavior /auditory hallucination /COVID 19 positive status : offers no new complain no fever or chills no cough or SOB or hypoxia no GI or issues calm and co operative during my interview , says he " feels fine " 1:1 observer present Review of Systems Review of Systems: All systems reviewed & are unremarkable except as noted in Subjective Physical Exam Physical Exam: Physical exam: General: No acute distress, alert awake oriented x3 HEENT: PERRLA, EOMI, Heart: Regular S1-S2, no carotid bruit, no JVD, no lower extremity edema Lungs: Clear to auscultate, no wheeze or rales Abdomen: Soft nontender, no organomegaly Extremity: No cyanosis, no deformity, normal strength 5 out of 5 with upper and lower Neuro: No focal neurological deficit normal speech, normal visual field, Motor strength : normal both upper and lower extremity, sensation intact Psych: Alert awake oriented x3, normal affect Results & Data Results & Data ([facility]) Vital Signs (Past 12 Hours) Vital Signs Temp Pulse Resp BP Pulse Ox 01/04/21 15:10 36.5 C 68 16 114/66 99 01/04/21 11:07 36.5 C 75 14 103/65 97 01/04/21 07:23 36.4 C L 69 16 101/69 99 (1) Schizoaffective disorder Schizoaffective disorder type: unspecified Qualified Code(s): F25.9 - Schizoaffective disorder, unspecified
[2021-01-04] MEDS: OLANZapine 10 MG TAB PO SCH (20:46)
[2021-01-05] MEDS: ENOXAPARIN INJ 40 MG/0.4 ML SYR SQ SCH (08:21)
[2021-01-05] MEDS: OLANZapine 10 MG TAB PO SCH ×2 (08:21→20:51)
--- NOTE | 2021-01-05 11:39 | Psychiatric Progress Note ---
Date of Service January 05, 2021 Impression / Recommendations Impression 30-year-old single male who lives with parents in [place], has a history of psychosis NOS and substance abuse, who presented on a 302 yesterday after he was found in public, nude, and masturbating. He is endorsing psychotic symptoms including command auditory hallucinations and delusions and demonstrates extremely poor insight and judgment. He does not believe he has a mental illness or needs treatment, despite just being released from a psychiatric facility in [place] within the past couple of weeks, and multiple previous hospitalizations. He reports he has been noncompliant with medications and is a very poor historian and we will need additional information from the facility in [place] as well as his outpatient psychiatrist. Inpatient treatment is medically necessary due to the severity of symptoms and risk of harm to both himself and others as a result, as he is unable to provide for his own basic needs without the care and assistance of others, and those around him are at risk of sexual assault given his sexual preoccupation, acting out behavior, and disinhibition. He has already engaged in sexually inappropriate behavior in the community. We will give consideration to the need for long-term hospitalization at the [facility] versus an involuntary outpatient commitment, and I have filed for 303 hearing to be held on Thursday. 01/05--reviewed. (1) Acute psychosis: 01/03 -patient is a poor historian, reports indicate he may have been started on Abilify Maintena while hospitalized in [place], but timeline unknown. He is agreed to sign a release and I have asked the nurse on the floor to obtain that so that we can get those records. We will also attempt to get records from his outpatient psychiatrist, Dr. Price. -If he is refusing to take antipsychotic medications, recommend medications over objection, as he has responded to antipsychotic medication in the past, and psychotic symptoms are unlikely to remit without antipsychotic treatment. Additionally, he is severely disabled as a result of his psychosis, is unable to provide for his own basic needs, and places both himself and others at risk of harm if his symptoms remain untreated. -Given his history of nonadherence and severity of symptoms with untreated mental illness, will recommend ongoing involuntary commitment with transition to an IOC at discharge. He would benefit from case management and therapy as well. -Offer olanzapine 10 mg p.o./IM as needed for acute psychosis, as he has been on this medication before and tolerated it. -Consider initiation of a mood stabilizer such as Depakote, which can be given IV over objection if he remains unwilling for medications. 01/04 -The patient has stated that he was given Abilify Maintena intramuscularly fairly recently, but there is some reason to believe that this may not be accurate. It is noted that the patient's father said that he has not observed any changes in the patient's behaviors and other symptoms subsequent to the reported dose of Abilify. 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 His tox screen at admission was negative for occult blood, but the test was not specific for hallucinogens. Accordingly, while I would doubt that the entire constellation of problems observed are related to substance use, this cannot be ruled out as a mitigating factor. -Today, the patient reports that he will refuse to take Abilify because he says that he is "allergic" to it. When asked to describe the allergy, he replied by saying that Abilify makes him feel "weird," and he says that he feels certain that it interferes with his sleep. The patient reports that he has taken olanzapine (Zyprexa) and has tolerated that well. He also suggest that he thinks that it "helps." However, he cannot exactly say how it helps. -Today, the patient says that he is embarrassed about the fact that he was "running around outside" while naked, and that he was masturbating in public. However, he has difficulty saying why that should be an issue, other than to repeatedly say, "it is bad." At the same time, and the period of time that immediately proceeded our telephonic contact the patient was reportedly openly masturbating in front of his one-to-one product development assistant and, also reportedly, the patient had invited the one-to-one product development assistant to either masturbate together with the patient or to allow the patient to masturbate him. Furthermore, the patient indicated that he felt this behavior was reconciled because he had awakened in a "sexual place." Accordingly, what initially had suggested improving insight is abrogated by his ongoing inappropriate and dyscontrol behaviors. -Given the fact the patient may have an unspecified dose of Abilify Maintena on board, reportedly administered on 12/19/2020, and given that the patient may need to receive his olanzapine by intramuscular injection if he continues to periodically refused to take it voluntarily (see med over objection first and second opinions), will reduce the dose of olanzapine from 10 mg 3 times a day to olanzapine 10 mg twice a day by mouth, and will order medications over objection in the form of olanzapine 10 mg IM twice a day. The dose can be titrated as indicated. 01/05--review of available records (most recent [place] pending) note dx of bipolar and/or schizoaffective bipolar type. Records state concussion/no head injuries so family was contacted as amount of preoccupation with masturbating seemed out of proportion to hypersexuality from becca. No hx of hyperorality so doubt [facility] Dean. Had multiple concussions in high school had to leave football and switched to soccer. symptom onset in college so doubt orbitofrontal syndrome. (2) Noncompliance with medication regimen: Recommend an DE [facility] due to nonadherence with oral medication, need to obtain additional information about recent treatment before we can explore options. Father reports they were told he got Abilify Maintena on 12/19/2020, and due to tight receptor binding it may be difficult to get an adequate response from other dopaminergic medications until it is out of his system 01/04/21 -The patient is saying that he will refuse to take Abilify either orally or by injection of a depot form of aripiprazole. The plan is to stabilize the patient on olanzapine, and at that point we may be able to asked the patient to reconsider Abilify given reports that he has responded favorably to Abilify in the past. Alternatively, he could be converted to Invega Sustenna or Haldol decanoate, in view of his acknowledge long history of medication nonadherence 01/05/21--offered zydus, prefers pills and is compliant last 2 doses. 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 Chief Complaint "I guess I screwed up but I didn't know things were wrong until someone told me they were wrong, I said too much". additional time spent in records review and discussion with staff (liaison and floor nurse) 25 minutes. Review of Systems Notes patient unable to complete due to MS, denies muscle tightness. Telehealth Telehealth Telehealth Options: Telephone only For the duration of the visit, provider was performing the assessment from: The same facility as the patient After establishing a telemedicine visit, patient was: Patient was verified with two unique identifiers and Patient/authorized rep acknowledged consent and understanding Total Time Spent (minutes): 15 Subjective Subjective Patient was seen & assessed and interval progress reviewed with nursing and social work. Patient did take 2 doses of oral Zyprexa. He has been calmer and only masturbated once last night. The patient is rather short in answers and it's not clear how much he recalls re: behavior vs thought blocking. Reviewed family concerns re: his past lyme, he clearly states he doesn't want additional lyme titers or blood work at this time. Voiced understanding of his 302 status but only misunderstands why on medical f tre, feels it is a punishment. Physical Exam Psychiatric Orientation: oriented to place, oriented to time and + guarded non-sponatneous Mood: + depressed mood Thought Process: + concrete thought process Thought Content: + delusions Suicidal Thoughts: denies suicidal thoughts Homicidal Thoughts: denies homicidal thoughts Hallucinations: no auditory hallucinations and no visual hallucinations Cognition: language grossly intact Insight: + poor insight Judgement: + poor judgement Vital Signs (Past 24 Hours) Last Vital Signs Temp 36.3 C L 01/05/21 08:19 Pulse 54 L 01/05/21 08:19 Resp 14 01/05/21 08:19 BP 94/57 L 01/05/21 08:19 Pulse Ox 99 01/05/21 08:19 Results & Data (U) Current Inpatient Medications Current Inpatient Medications: Current Inpatient Medications Acetaminophen (Acetaminophen 325 Mg Tab) 650 mg PO Q4H PRN PRN Reason: pain/fever Stop: 02/01/21 22:42 Enoxaparin Sodium (Enoxaparin Inj 40 Mg/0.4 Ml Syr) 40 mg SQ Q24H MATT Stop: 02/02/21 08:59 Last Admin: 01/05/21 08:21 Dose: 40 mg Documented by: Olanzapine (Olanzapine 10 Mg Tab) 10 mg PO BID MATT Stop: 02/03/21 20:59 Last Admin: 01/05/21 08:21 Dose: 10 mg Documented by: Olanzapine (Olanzapine 10 Mg/2.1 Ml Sdv) 10 mg IM Q8H PRN PRN Reason: agitation or dyscontrolled behavior Stop: 02/03/21 13:29 Olanzapine (Olanzapine 10 Mg Tab) 10 mg PO Q8H PRN PRN Reason: agitation or dyscontrolled beh Stop: 02/03/21 13:29 Ondansetron HCl (Ondansetron Inj 2 Mg/Ml 2 Ml Vial) 4 mg IV Q6H PRN PRN Reason: Nausea Stop: 02/01/21 22:42 Polyethylene Glycol (Polyethylene (Miralax) 17 Gm Pack) 17 gm PO DAILY PRN PRN Reason: Constipation Stop: 02/01/21 22:42 Mental Health & Subst Abuse Tx Therapist Name of Therapist: None Hay Stacker Operator Name of Hay Stacker Operator: None Post Discharge Appointments Primary Care Physician Name Of Family Doctor: Dr. Penn
[2021-01-05] MEDS ORDERED: PROMETHAZINE HCL 12.5 MG in SODIUM CHLORIDE 0.9% 50 ML IV PRN (16:43)
--- NOTE | 2021-01-05 18:42 | Hospitalist Progress Note ---
Date of Service January 05, 2021 Assessment & Plan (1) Bipolar mood disorder: (2) Schizoaffective disorder: disorganized Schizoaffective disorder-acute episode with bipolar mood disorder -main reason for hospital admission hx of Psychiatric illness -Schizophrenia /Bipolar mood disorder was not taking any medications ( due to mental illness -per Psych : he had voice commanding not to take any meds ) presented with disorganized /disinhibited Psychosis / auditory hallucination hx of inpatient psych admissions in past Psych consulted /Psychiatry been following patient closely since admission pt is ordered Zyprexa -PRN for agitation , adjustment of meds for Schizophrenia per Psych 302 for involuntary commitment ordered -as pt is not safe to be discharged to home needs inpatient Psych admission for continued care and therapy (3) SARS-CoV-2 positive: incidental finding during routine testing on admission remains asymptomatic from COVID 19 illness -no cough , SOB , no hypoxia , no GI complain no active treatment needed monitor contact and airborne isolation per protocol hx of Lyme disease : reports of tick bite lyme titer negative d/c PO Doxycycline\\ Disposition : 302 petition placed , appreciate help and input from Psych team pt can not sign out AMA at present no active medical issues noted will remain under hospitalist service till appropriate inpatient Psych admission is available Admission and Anticipated Discharge Date Admission Date: January 02, 2021 Subjective Follow up visit for Schizophrenia /abnormal /bizarre behavior /auditory hallucination /COVID 19 positive status : stable vitals , no fever no cough or SOB asymptomatic from COVID 19 infection pt states " he feels fine , offers no complain Physical Exam Physical Exam: Physical exam: General: No acute distress, alert awake oriented x3 HEENT: PERRLA, EOMI, Heart: Regular S1-S2, no carotid bruit, no JVD, no lower extremity edema Lungs: Clear to auscultate, no wheeze or rales Abdomen: Soft nontender, no organomegaly Extremity: No cyanosis, no deformity, normal strength 5 out of 5 with upper and lower Neuro: No focal neurological deficit normal speech, normal visual field, Motor strength : normal both upper and lower extremity, sensation intact Psych: Alert awake oriented x3, normal affect Results & Data Results & Data ([facility]) Vital Signs (Past 12 Hours) Vital Signs Temp Pulse Resp BP Pulse Ox 01/05/21 08:19 36.3 C L 54 L 14 94/57 L 99 (1) Schizoaffective disorder Schizoaffective disorder type: unspecified Qualified Code(s): F25.9 - Schizoaffective disorder, unspecified
[2021-01-06] MEDS: ENOXAPARIN INJ 40 MG/0.4 ML SYR SQ SCH (08:09)
[2021-01-06] MEDS: OLANZapine 10 MG TAB PO SCH ×2 (08:10→21:04)
--- NOTE | 2021-01-06 11:35 | Communication Note ---
Date of Service: January 06, 2021 seen by phone due to technical issues with zoom meeting/holiday. patient remains on COVID isolation. No acute issues overnight. No longer sexually inappropriate and denies urge to masturbate, "I know what's appropriate". less slowing of thought processes today, states "I took a trip to find work" re: his abrupt behavior/hospitalization in [place]. Related his parents picking him up and desire to live with them after hospitalization. "I'm OK with staying here a bit longer but I know what to do now". Reviewed that need family session, outpatient care, likely conversion to long acting injectable (different from Zyprexa) and repeated info re: 303 hearing tomorrow. Although patient denies hyperreligiosity and behavior is improving in the structure of the hospital, he has a history of impulsive and grossly inappropriate behaviors and needs ongoing care for stabilization as above.
--- NOTE | 2021-01-06 12:58 | Hospitalist Progress Note ---
Date of Service January 06, 2021 Assessment & Plan (1) Bipolar mood disorder: (2) Schizoaffective disorder: disorganized Schizoaffective disorder-acute episode with bipolar mood disorder -main reason for hospital admission hx of Psychiatric illness -Schizophrenia /Bipolar mood disorder was not taking any medications ( due to mental illness -per Psych : he had voice commanding not to take any meds ) presented with disorganized Schizophrenia /disinhibited Psychosis / auditory hallucination hx of inpatient psych admissions in past for similar episodes Psychiatry been following patient closely since admission pt is ordered Zyprexa 10 mg PO BID scheduled and 8 hrs -PRN for agitation , has 1:1 sitter for safety concern pt has been in stable mood so far 302 involuntary commitment ordered -as pt is not safe to be discharged to home needs inpatient Psych admission for continued care and therapy (3) SARS-CoV-2 positive: incidental finding during routine testing on admission remains asymptomatic from COVID 19 illness -no cough , SOB , no hypoxia , no GI complain no active treatment needed monitor contact and airborne isolation per protocol Disposition : 302 petition placed , appreciate help and input from Psych team pt can not sign out AMA at present no active medical issues noted will remain under hospitalist service till appropriate inpatient Psych admission is available Admission and Anticipated Discharge Date Admission Date: January 02, 2021 Subjective Follow up visit for Schizophrenia /abnormal /bizarre behavior /auditory hallucination /COVID 19 positive status : pt remains asymptomatic from COVID 19 infection offers no new complain stable vitals, no fever , no cough or SOB Physical Exam Physical Exam: Physical exam: General: No acute distress, alert awake oriented x3 HEENT: PERRLA, EOMI, Heart: Regular S1-S2, no carotid bruit, no JVD, no lower extremity edema Lungs: Clear to auscultate, no wheeze or rales Abdomen: Soft nontender, no organomegaly Extremity: No cyanosis, no deformity, normal strength 5 out of 5 with upper and lower Neuro: No focal neurological deficit normal speech, normal visual field, Motor strength : normal both upper and lower extremity, sensation intact Psych: Alert awake oriented x3, normal affect Results & Data Results & Data ([facility]) Vital Signs (Past 12 Hours) Vital Signs Temp Pulse Resp BP Pulse Ox 01/06/21 07:00 36.6 C 69 18 104/69 98 (1) Schizoaffective disorder Schizoaffective disorder type: unspecified Qualified Code(s): F25.9 - Schizoaffective disorder, unspecified
[2021-01-07] MEDS: ENOXAPARIN INJ 40 MG/0.4 ML SYR SQ SCH (08:53)
[2021-01-07] MEDS: OLANZapine 10 MG TAB PO SCH ×2 (11:01→21:28)
--- NOTE | 2021-01-07 12:22 | Psychiatric Progress Note ---
Date of Service January 07, 2021 Impression / Recommendations Impression 30-year-old single male who lives with parents in [place], has a history of psychosis NOS and substance abuse, who presented on a 302 yesterday after he was found in public, nude, and masturbating. He is endorsing psychotic symptoms including command auditory hallucinations and delusions and demonstrates extremely poor insight and judgment. He does not believe he has a mental illness or needs treatment, despite just being released from a psychiatric facility in [place] within the past couple of weeks, and multiple previous hospitalizations. He reports he has been noncompliant with medications and is a very poor historian and we will need additional information from the facility in [place] as well as his outpatient psychiatrist. Inpatient treatment is medically necessary due to the severity of symptoms and risk of harm to both himself and others as a result, as he is unable to provide for his own basic needs without the care and assistance of others, and those around him are at risk of sexual assault given his sexual preoccupation, acting out behavior, and disinhibition. He has already engaged in sexually inappropriate behavior in the community. We will give consideration to the need for long-term hospitalization at the [facility] versus an involuntary outpatient commitment, 01/06--303 hearing granted. (1) Acute psychosis: 01/03 -patient is a poor historian, reports indicate he may have been started on Abilify Maintena while hospitalized in [place], but timeline unknown. He is agreed to sign a release and I have asked the nurse on the floor to obtain that so that we can get those records. We will also attempt to get records from his outpatient psychiatrist, Dr. Price. -If he is refusing to take antipsychotic medications, recommend medications over objection, as he has responded to antipsychotic medication in the past, and psychotic symptoms are unlikely to remit without antipsychotic treatment. Jarret tionally, he is severely disabled as a result of his psychosis, is unable to provide for his own basic needs, and places both himself and others at risk of harm if his symptoms remain untreated. -Given his history of nonadherence and severity of symptoms with untreated mental illness, will recommend ongoing involuntary commitment with transition to an IOC at discharge. He would benefit from case management and therapy as well. -Offer olanzapine 10 mg p.o./IM as needed for acute psychosis, as he has been on this medication before and tolerated it. -Consider initiation of a mood stabilizer such as Depakote, which can be given IV over objection if he remains unwilling for medications. 01/04 -The patient has stated that he was given Abilify Maintena intramuscularly fairly recently, but there is some reason to believe that this may not be accurate. It is noted that the patient's father said that he has not observed any changes in the patient's behaviors and other symptoms subsequent to the reported dose of Abilify. 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 His tox screen at admission was negative for occult blood, but the test was not specific for hallucinogens. Accordingly, while I would doubt that the entire constellation of problems observed are related to substance use, this cannot be ruled out as a mitigating factor. -Today, the patient reports that he will refuse to take Abilify because he says that he is "allergic" to it. When asked to describe the allergy, he replied by saying that Abilify makes him feel "weird," and he says that he feels certain that it interferes with his sleep. The patient reports that he has taken olanzapine (Zyprexa) and has tolerated that well. He also suggest that he thinks that it "helps." However, he cannot exactly say how it helps. -Today, the patient says that he is embarrassed about the fact that he was "running around outside" while naked, and that he was masturbating in public. However, he has difficulty saying why that should be an issue, other than to repeatedly say, "it is bad." At the same time, and the period of time that immediately proceeded our telephonic contact the patient was reportedly openly masturbating in front of his one-to-one anesthesia assistant and, also reportedly, the patient had invited the one-to-one anesthesia assistant to either masturbate together with the patient or to allow the patient to masturbate him. Furthermore, the patient indicated that he felt this behavior was reconciled because he had awakened in a "sexual place." Accordingly, what initially had suggested improving insight is abrogated by his ongoing inappropriate and dyscontrol behaviors. -Given the fact the patient may have an unspecified dose of Abilify Maintena on board, reportedly administered on 12/19/2020, and given that the patient may need to receive his olanzapine by intramuscular injection if he continues to periodically refused to take it voluntarily (see med over objection first and second opinions), will reduce the dose of olanzapine from 10 mg 3 times a day to olanzapine 10 mg twice a day by mouth, and will order medications over objection in the form of olanzapine 10 mg IM twice a day. The dose can be titrated as indicated. 01/05--review of available records (most recent [place] pending) note dx of bipolar and/or schizoaffective bipolar type. Records state concussion/no head injuries so family was contacted as amount of preoccupation with masturbating seemed out of proportion to hypersexuality from becca. No hx of hyperorality so doubt [facility]. Had multiple concussions in high school had to leave football and switched to soccer. symptom onset in college so doubt orbitofrontal syndrome. 01/06--303 granted. still trying to confirm date of Abilify injection (or if received). Invega seemed more amenable option than Haldol dec but family confirms poor response to Risperdal and preference toward Abilify. For now Zyprexa is stabilizing patient. Reviewed with family that no local clinics administer the IM. (2) Noncompliance with medication regimen: Recommend an [facility] due to nonadherence with oral medication, need to obtain additional information about recent treatment before we can explore options. Father reports they were told he got Abilify Maintena on 12/19/2020, and due to tight receptor binding it may be difficult to get an adequate response from other dopaminergic medications until it is out of his system 01/04/21 -The patient is saying that he will refuse to take Abilify either orally or by injection of a depot form of aripiprazole. The plan is to stabilize the patient on olanzapine, and at that point we may be able to asked the patient to reconsider Abilify given reports that he has responded favorably to Abilify in the past. Alternatively, he could be converted to Invega Sustenna or Haldol decanoate, in view of his acknowledge long history of medication nonadherence 01/05/21--offered zydus, prefers pills and is compliant last 2 doses. 01/06--father states that he was trying to put Abilify in patient's cereal in days leading up to admission. 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 Chief Complaint "I'm getting better but I think most of this was related to COVID-19". Review of Systems Notes patient denied across 10 systems other than stated above. states eating and sleeping well. Telehealth Telehealth Telehealth Options: Telephone only For the duration of the visit, provider was performing the assessment from: The same facility as the patient After establishing a telemedicine visit, patient was: Patient was verified with two unique identifiers Subjective Subjective Patient was seen & assessed and interval progress reviewed with treatment team. Patient has been cooperative on med floor, no longer masturbating, and is taking his medication as ordered. Willing to continue treatment but also minimizing his psychiatric condition stating that "COVID made me do it." He participated in 303 hearing, seemed to have some thought blocking in expressing himself around needs. Hearing was 15 min, additional 15 min in staff coordination/review and 15 min on phone with father ([phone]). Father expressed family desire to see a Lyme specialist in [place] following discharge and was hoping that son would be well enough to sign into hospital. Reviewed that symptoms have only improved for past 2 days and that continues to lack insight into treatment needs/severity of symptoms and is not on a secure floor as not in U due to COVID. He added that Risperdal was not helpful for patient and Abilify did help until "it didn't", hoping he can resume care with Dr. Price. Still awaiting records from [place] treatment do determine Abilify injection. Father does not feel received it. They do not want haldol dec. Physical Exam Psychiatric Speech: normal rate/rhythm/volume of speech Mood: + anxious mood Thought Process: + concrete thought process Thought Content: + delusions Suicidal Thoughts: denies suicidal thoughts Homicidal Thoughts: denies homicidal thoughts Hallucinations: no auditory hallucinations and no visual hallucinations Cognition: language grossly intact Estimated Intelligence: consistent with education level Insight: + poor insight Judgement: + poor judgement Vital Signs (Past 24 Hours) Last Vital Signs Temp 36.4 C L 01/07/21 08:17 Pulse 74 01/07/21 08:17 Resp 16 01/07/21 08:17 BP 100/65 01/07/21 08:17 Pulse Ox 97 01/07/21 08:17 Results & Data ([facility]) Current Inpatient Medications Current Inpatient Medications: Current Inpatient Medications Acetaminophen (Acetaminophen 325 Mg Tab) 650 mg PO Q4H PRN PRN Reason: pain/fever Stop: 02/01/21 22:42 Enoxaparin Sodium (Enoxaparin Inj 40 Mg/0.4 Ml Syr) 40 mg SQ Q24H MATT Stop: 02/02/21 08:59 Last Admin: 01/07/21 08:53 Dose: Not Given Documented by: Promethazine HCl 12.5 mg/ (Sodium Chloride) 50.5 mls @ 202 mls/hr IV Q6H PRN PRN Reason: Nausea And Vomiting Stop: 02/04/21 16:42 Olanzapine (Olanzapine 10 Mg Tab) 10 mg PO BID [facility] Stop: 02/03/21 20:59 Last Admin: 01/07/21 11:01 Dose: 10 mg Documented by: Olanzapine (Olanzapine 10 Mg/2.1 Ml Sdv) 10 mg IM Q8H PRN PRN Reason: agitation or dyscontrolled behavior Stop: 02/03/21 13:29 Olanzapine (Olanzapine 10 Mg Tab) 10 mg PO Q8H PRN PRN Reason: agitation or dyscontrolled beh Stop: 02/03/21 13:29 Polyethylene Glycol (Polyethylene (Miralax) 17 Gm Pack) 17 gm PO DAILY PRN PRN Reason: Constipation Stop: 02/01/21 22:42 Mental Health & Subst Abuse Tx Psychiatrist Name of Psychiatrist: Dr. Price - [facility] Psychiatrist's Date of Appointment with Psychiatrist: 01/28/21 Time of Appointment with Psychiatrist: 4:20 pm Psychiatrist Release of Information: Obtained, Reviewed and Signed Therapist Name of Therapist: None Truck Shop Supervisor Name of Truck Shop Supervisor: None Post Discharge Appointments Primary Care Physician Name Of Family Doctor: Dr. Penn
--- NOTE | 2021-01-07 16:40 | Communication Note ---
Date of Service: January 07, 2021 pt is positive for COVID 19 pn 01/02/21 -as a part of screening process during admission -remains asymptomatic had no S/S of viral infection since admission STRICT QUARANTINE( DC AIRBORNE AND CONTACT PRECAUTION ) CAN BE DISCONTINUED 10 DAYS FROM POSITIVE COVID 19 TEST DATE : 01/12/21 if pt remains asymptomatic -no fever for 24 hrs without fever reducing meds,no cough Tiffani Cai MD
[2021-01-08] MEDS: ENOXAPARIN INJ 40 MG/0.4 ML SYR SQ SCH ×2 (08:35→08:39)
[2021-01-08] MEDS: OLANZapine 10 MG TAB PO SCH ×2 (08:35→21:15)
--- NOTE | 2021-01-08 13:58 | Psychiatric Progress Note ---
Date of Service January 08, 2021 Impression / Recommendations Impression 30-year-old single male who lives with parents in [place], has a history of psychosis NOS and substance abuse, who presented on a 302 after he was found in public, nude, and masturbating. He endorsed psychotic symptoms including command auditory hallucinations and delusions and demonstrates extremely poor insight and judgment. He does not believe he has a mental illness or needs treatment, despite just being released from a psychiatric facility in [place] within the past couple of weeks, and multiple previous hospitalizations. He reports he has been noncompliant with medications and is a very poor historian and we will need additional information from the facility in [place] as well as his outpatient psychiatrist. Inpatient treatment is medically necessary due to the severity of symptoms and risk of harm to both himself and others as a result, as he is unable to provide for his own basic needs without the care and assistance of others, and those around him are at risk of sexual assault given his sexual preoccupation, acting out behavior, and disinhibition. He has already engaged in sexually inappropriate behavior in the community. We will give consideration to the need for long-term hospitalization at the [facility] versus an involuntary outpatient commitment. (1) Acute psychosis: 01/03 -patient is a poor historian, reports indicate he may have been started on Abilify Maintena while hospitalized in [place], but timeline unknown. He is agreed to sign a release and I have asked the nurse on the floor to obtain that so that we can get those records. We will also attempt to get records from his outpatient psychiatrist, Dr. Price. -If he is refusing to take antipsychotic medications, recommend medications over objection, as he has responded to antipsychotic medication in the past, and psychotic symptoms are unlikely to remit without antipsychotic treatment. Additionally, he is severely disabled as a result of his psychosis, is unable to provide for his own basic needs, and places both himself and others at risk of harm if his symptoms remain untreated. -Given his history of nonadherence and severity of symptoms with untreated mental illness, will recommend ongoing involuntary commitment with transition to an IOC at discharge. He would benefit from case management and therapy as well. -Offer olanzapine 10 mg p.o./IM as needed for acute psychosis, as he has been on this medication before and tolerated it. -Consider initiation of a mood stabilizer such as Depakote, which can be given IV over objection if he remains unwilling for medications. 01/04 -The patient has stated that he was given Abilify Maintena intramuscularly fairly recently, but there is some reason to believe that this may not be accurate. It is noted that the patient's father said that he has not observed any changes in the patient's behaviors and other symptoms subsequent to the reported dose of Abilify. 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 His tox screen at admission was negative for occult blood, but the test was not specific for hallucinogens. Accordingly, while I would doubt that the entire constellation of problems observed are related to substance use, this cannot be ruled out as a mitigating factor. -Today, the patient reports that he will refuse to take Abilify because he says that he is "allergic" to it. When asked to describe the allergy, he replied by saying that Abilify makes him feel "weird," and he says that he feels certain that it interferes with his sleep. The patient reports that he has taken olanzapine (Zyprexa) and has tolerated that well. He also suggest that he thinks that it "helps." However, he cannot exactly say how it helps. -Today, the patient says that he is embarrassed about the fact that he was "running around outside" while naked, and that he was masturbating in public. However, he has difficulty saying why that should be an issue, other than to repeatedly say, "it is bad." At the same time, and the period of time that immediately proceeded our telephonic contact the patient was reportedly openly masturbating in front of his one-to-one medical administrative assistant and, also reportedly, the patient had invited the one-to-one medical administrative assistant to either masturbate together with the patient or to allow the patient to masturbate him. Furthermore, the patient indicated that he felt this behavior was reconciled because he had awakened in a "sexual place." Accordingly, what initially had suggested improving insight is abrogated by his ongoing inappropriate and dyscontrol behaviors. -Given the fact the patient may have an unspecified dose of Abilify Maintena on board, reportedly administered on 12/19/2020, and given that the patient may need to receive his olanzapine by intramuscular injection if he continues to periodically refused to take it voluntarily (see med over objection first and second opinions), will reduce the dose of olanzapine from 10 mg 3 times a day to olanzapine 10 mg twice a day by mouth, and will order medications over objection in the form of olanzapine 10 mg IM twice a day. The dose can be titrated as indicated. 01/05--review of available records (most recent [place] pending) note dx of bipolar and/or schizoaffective bipolar type. Records state concussion/no head injuries so family was contacted as amount of preoccupation with masturbating seemed out of proportion to hypersexuality from becca. No hx of hyperorality so doubt [facility]. Had multiple concussions in high school had to leave football and switched to soccer. symptom onset in college so doubt orbitofrontal syndrome. 01/06--303 granted. still trying to confirm date of Abilify injection (or if received). Invega seemed more amenable option than Haldol dec but family confirms poor response to Risperdal and preference toward Abilify. For now Zyprexa is stabilizing patient. Reviewed with family that no local clinics administer the IM. 01/08 - Pt is religiously preoccupied and reporting thoughts that are consistent with ongoing delusions. He is now reporting he thinks he can "do things on my own" and is not particularly interested in outpatient treatment - Pt is declining medication changes. Although it is helpful that he is tolerating olanzapine and denies concerning side effects, he is unfortunately very resistant to adjusting medications to allow for an DE LOS SANTOS option. He is unable to formulate a plan for how he plans to ensure compliance with an oral medication and therefore remains at risk of noncompliance, destabilization, frequent hospitalizations or injury/ as a result of psychosis. - Pt strongly encouraged to consider therapy and case management services. (2) Noncompliance with medication regimen: Recommend an DE [place] SANTOS due to nonadherence with oral medication, need to obtain additional information about recent treatment before we can explore options. Father reports they were told he got Abilify Maintena on 12/19/2020, and due to tight receptor binding it may be difficult to get an adequate response from other dopaminergic medications until it is out of his system 01/04/21 -The patient is saying that he will refuse to take Abilify either orally or by injection of a depot form of aripiprazole. The plan is to stabilize the patient on olanzapine, and at that point we may be able to asked the patient to reconsider Abilify given reports that he has responded favorably to Abilify in the past. Alternatively, he could be converted to Invega Sustenna or Haldol decanoate, in view of his acknowledge long history of medication nonadherence 01/05/21--offered zydus, prefers pills and is compliant last 2 doses. 01/06--father states that he was trying to put Abilify in patient's cereal in days leading up to admission. 01/08 - Has been taking scheduled doses of olanzapine BID; however, unwilling for medication changes or to explore options for Suraj. Protective Factors Assessment Employed: No (works on [employer]; invests in stocks) Interval History Identifying Information 30 yo male with 1 prior admit to [facility] behavioral health 2014 for psychosis, currently on 303 on medical floor as COVID+. Chief Complaint "Um, I'm ok. Feeling pretty good." Review of Systems Notes Constitutional: denied Cardiovascular: denied Respiratory: denied Gastrointestinal: denied Neurological: denied Psychiatric: denies symptoms other than stated above Total of at least 10 systems reviewed, pertinent positives as above and in HPI. Telehealth Telehealth Telehealth Options: Telephone only For the duration of the visit, provider was performing the assessment from: The same facility as the patient After establishing a telemedicine visit, patient was: Patient/authorized rep acknowledged consent and understanding and Gave permission to continue telehealth session Subjective Subjective Patient's case was reviewed and discussed during morning report with supervising psychiatrist, nurse liaison and social work team. Staff report the patient has been compliant with oral medications, but goal is to work toward changes that would allow for an DE LOS SANTOS. Pt reportedly did not respond to risperidone in the past. We are still awaiting records from his recent psychiatric hospitalization in [place] despite numerous attempts, so it remains unclear if patient received Abilify Maintena. Pt agreed to telephone call to assess progress since admission. he reports he is feeling "ok. Feeling pretty good." Pt shares that "I initially did not want to have medication of part of my daily routine, but I like the way I feel on this stuff better than anything else I tried." This provider express that she was happy to hear this, but that she was also concerned with inability to receive olanzapine in an DE LOS SANTOS. We reviewed history of concern for medication noncompliance. Pt was asked how he felt compliance would be different this time, and he states only "I think I can do it." In attempts to illustrate patient's pattern of noncompliance, this provider refe renced his numerous psychiatric admissions and concern that this pattern would continue. Pt states that he does not feel lack of medications played a role in his behavior prior to admission. Pt states "my past was just catching up to me. I need to deal with the past and find appropriate ways to deal with it." When this provider attempted again to suggest an DE [place] SANTOS, the patient states "It's just t hat I can tell that God's not wanting me to do that right now. I'm trying to get more in touch with the person God wants me to be, and that's not going to help. I really don't think I'm going to act out again." Pt continued to be unable to explain how he felt he could achieve this, and is now also declining to consider therapy or case management services. Pt denies SI/HI and hallucinations, but does not seem to have insight into the severity of his current condition. Pt denied other questions or concerns at this time and is agreeable with continuing to engage with our service. Physical Exam Psychiatric Orientation: alert, oriented x 3 and + guarded (superficially cooperative ) Mood: no depressed mood and no anxious mood "pretty good" Thought Process: + looseness of associations; + thought process not clear or coherent Thought Content: + preoccupation (restoration) and + delusions Suicidal Thoughts: denies suicidal thoughts and denies suicidal intent Homicidal Thoughts: denies homicidal thoughts Hallucinations: no auditory hallucinations and no visual hallucinations Cognition: attention grossly intact and language grossly intact Insight: + impaired insight Judgement: + impaired judgement Unable to assess visual portions of physical examination - assessment took place via phone call as patient is positive for COVID-19. Vital Signs (Past 24 Hours) Last Vital Signs Temp 36.4 C L 01/08/21 07:18 Pulse 65 01/08/21 07:18 Resp 16 01/08/21 07:18 BP 107/67 01/08/21 07:18 Pulse Ox 98 01/08/21 07:18 Results & Data ([facility]) Current Inpatient Medications Current Inpatient Medications: Current Inpatient Medications Acetaminophen (Acetaminophen 325 Mg Tab) 650 mg PO Q4H PRN PRN Reason: pain/fever Stop: 02/01/21 22:42 Enoxaparin Sodium (Enoxaparin Inj 40 Mg/0.4 Ml Syr) 40 mg SQ Q24H MATT Stop: 02/02/21 08:59 Last Admin: 01/08/21 08:39 Dose: Not Given Documented by: Promethazine HCl 12.5 mg/ (Sodium Chloride) 50.5 mls @ 202 mls/hr IV Q6H PRN PRN Reason: Nausea And Vomiting Stop: 02/04/21 16:42 Olanzapine (Olanzapine 10 Mg Tab) 10 mg PO BID [facility] Stop: 02/03/21 20:59 Last Admin: 01/08/21 08:35 Dose: 10 mg Documented by: Olanzapine (Olanzapine 10 Mg/2.1 Ml Sdv) 10 mg IM Q8H PRN PRN Reason: agitation or dyscontrolled behavior Stop: 02/03/21 13:29 Olanzapine (Olanzapine 10 Mg Tab) 10 mg PO Q8H PRN PRN Reason: agitation or dyscontrolled beh Stop: 02/03/21 13:29 Polyethylene Glycol (Polyethylene (Miralax) 17 Gm Pack) 17 gm PO DAILY PRN PRN Reason: Constipation Stop: 02/01/21 22:42 Mental Health & Subst Abuse Tx Psychiatrist Name of Psychiatrist: Dr. Price - [facility] Psychiatry Psychiatrist's Date of Appointment with Psychiatrist: 01/28/21 Time of Appointment with Psychiatrist: 4:20 pm Psychiatrist Release of Information: Obtained, Reviewed and Signed Therapist Name of Therapist: None Housekeeping Lead Name of Housekeeping Lead: None Post Discharge Appointments Primary Care Physician Name Of Family Doctor: Dr. Penn
--- NOTE | 2021-01-08 15:24 | Hospitalist Progress Note ---
Date of Service January 08, 2021 Assessment & Plan (1) Bipolar mood disorder: (2) Schizoaffective disorder: disorganized Schizoaffective disorder-acute episode with bipolar mood disorder -main reason for hospital admission hx of Psychiatric illness -Schizophrenia /Bipolar mood disorder was not taking any medications ( due to mental illness -per Psych : he had voice commanding not to take any meds ) presented with disorganized Schizophrenia /disinhibited Psychosis / auditory hallucination hx of inpatient psych admissions in past for similar episodes Psychiatry been following patient closely since admission pt is ordered Zyprexa 10 mg PO BID scheduled and 8 hrs -PRN for agitation , has 1:1 sitter for safety concern pt has been in stable mood so far 302 involuntary commitment ordered -as pt is not safe to be discharged to home needs inpatient Psych admission for continued care and therapy (3) SARS-CoV-2 positive: incidental finding during routine testing on admission remains asymptomatic from COVID 19 illness -no cough , SOB , no hypoxia , no GI complain no active treatment needed pt is positive for COVID 19 pn 01/02/21 -as a part of screening process during admission -remains asymptomatic had no S/S of viral infection since admission STRICT QUARANTINE( AIRBORNE AND CONTACT PRECAUTION ) CAN BE DISCONTINUED 10 DAYS FROM POSITIVE COVID 19 TEST DATE ( patient has been asymptomatic ) per Current CDC guideline , will not need isolation negative pressure room /airborne /contact precaution can be d/benny after 01/12/21 Disposition : 302 petition placed , appreciate help and input from Psych team pt can not sign out AMA at present no active medical issues noted will remain under hospitalist service till appropriate inpatient Psych admission is available Admission and Anticipated Discharge Date Admission Date: January 02, 2021 Subjective Follow up visit for Schizophrenia /abnormal /bizarre behavior /auditory hallucination /COVID 19 positive status : no fever or chills no cough or hypoxia asymptomatic COVID 19 infection Physical Exam Physical Exam: Physical exam: General: No acute distress, alert awake oriented x3 HEENT: PERRLA, EOMI, Heart: Regular S1-S2, no carotid bruit, no JVD, no lower extremity edema Lungs: Clear to auscultate, no wheeze or rales Abdomen: Soft nontender, no organomegaly Extremity: No cyanosis, no deformity, normal strength 5 out of 5 with upper and lower Neuro: No focal neurological deficit normal speech, normal visual field, Motor strength : normal both upper and lower extremity, sensation intact Psych: Alert awake oriented x3, normal affect Results & Data Results & Data ([facility]) Vital Signs (Past 12 Hours) Vital Signs Temp Pulse Resp BP Pulse Ox 01/08/21 07:18 36.4 C L 65 16 107/67 98 (1) Schizoaffective disorder Schizoaffective disorder type: unspecified Qualified Code(s): F25.9 - Schizoaffective disorder, unspecified
[2021-01-09] MEDS: ENOXAPARIN INJ 40 MG/0.4 ML SYR SQ SCH (08:31)
[2021-01-09] MEDS: OLANZapine 10 MG TAB PO SCH ×2 (08:31→19:46)
--- NOTE | 2021-01-09 12:31 | Hospitalist Progress Note ---
Date of Service January 09, 2021 Assessment & Plan (1) Bipolar mood disorder: (2) Schizoaffective disorder: Presented with disinhibited psychosis off medications endorsing auditory hallucinations. Cont 1:1 observation. Cont psych treatment medically as needed. (3) SARS-CoV-2 positive: asymptomatic, dc isolation after 10 days. (4) DVT prophylaxis: SCDs, ambulation Full COde Dispo-to inpatient mental health care at time of dsischarge. DO Nafisa Malloy Hospitalist Admission and Anticipated Discharge Date Admission Date: January 02, 2021 Subjective 30 yo M with h/o psychosis was admitted on 302 warrant after being found in public nude and masturbating. REcords reflect release from a psychiatric facility in [place] in the past couple of weeks and multiple previous hospitalizations. Psychiatry here has deemed him a risk to himself and others and is requiring inpatient mental health treatment. However, he is currently detained in the COVID-19 unit asymptomatic with novel coronavirus. He denies any respiratory symptoms at this time. Review of Systems Review of Systems: All systems reviewed & are unremarkable except as noted in Subjective Physical Exam Physical Exam: CONSTITUTIONAL: WNWD, vitals as above, generally well- appearing EYES: normal conjunctivae, no scleral icterus ENT: external ear and nose normal, MMM RESPIRATORY: clear to auscultation bilaterally, no crackles, rales or wheezes, normal respiratory effort CARDIOVASCULAR: regular rate and rhythm, S1 and 2 heard without murmurs, gallops or rubs, no JVD, no peripheral edema MUSCULOSKELETAL: strength 5/5 throughout, head is normocephalic and atraumatic SKIN: warm and dry NEUROLOGIC: CN 2-12 grossly intact, normal cognition, normal speech PSYCHIATRIC: alert cooperative and oriented. Results & Data Results & Data ([facility]) Vital Signs (Past 12 Hours) Vital Signs Temp Pulse Resp BP Pulse Ox 01/09/21 08:27 36.7 C 69 18 128/74 98 Medications Administered Current Inpatient Medications Acetaminophen (Acetaminophen 325 Mg Tab) 650 mg PO Q4H PRN PRN Reason: pain/fever Stop: 02/01/21 22:42 Last Admin: 01/09/21 02:26 Dose: 650 mg Documented by: Enoxaparin Sodium (Enoxaparin Inj 40 Mg/0.4 Ml Syr) 40 mg SQ Q24H [facility] Stop: 02/02/21 08:59 Last Admin: 01/09/21 08:31 Dose: 40 mg Documented by: Promethazine HCl 12.5 mg/ (Sodium Chloride) 50.5 mls @ 202 mls/hr IV Q6H PRN PRN Reason: Nausea And Vomiting Stop: 02/04/21 16:42 Olanzapine (Olanzapine 10 Mg Tab) 10 mg PO BID [facility] Stop: 02/03/21 20:59 Last Admin: 01/09/21 08:31 Dose: 10 mg Documented by: Olanzapine (Olanzapine 10 Mg/2.1 Ml Sdv) 10 mg IM Q8H PRN PRN Reason: agitation or dyscontrolled behavior Stop: 02/03/21 13:29 Olanzapine (Olanzapine 10 Mg Tab) 10 mg PO Q8H PRN PRN Reason: agitation or dyscontrolled beh Stop: 02/03/21 13:29 Polyethylene Glycol (Polyethylene (Miralax) 17 Gm Pack) 17 gm PO DAILY PRN PRN Reason: Constipation Stop: 02/01/21 22:42 (1) Schizoaffective disorder Schizoaffective disorder type: unspecified Qualified Code(s): F25.9 - Schizoaffective disorder, unspecified
--- NOTE | 2021-01-09 13:52 | Psychiatric Progress Note ---
Date of Service January 09, 2021 Impression / Recommendations Impression 30-year-old single male who lives with parents in [place], has a history of psychosis NOS and substance abuse, who presented on a 302 after he was found in public, nude, and masturbating. He endorsed psychotic symptoms including command auditory hallucinations and delusions and demonstrates extremely poor insight and judgment. He does not believe he has a mental illness or needs treatment, despite just being released from a psychiatric facility in [place] within the past couple of weeks, and multiple previous hospitalizations. He reports he has been noncompliant with medications and is a very poor historian and we will need additional information from the facility in [place] as well as his outpatient psychiatrist. Inpatient treatment is medically necessary due to the severity of symptoms and risk of harm to both himself and others as a result, as he is unable to provide for his own basic needs without the care and assistance of others, and those around him are at risk of sexual assault given his sexual preoccupation, acting out behavior, and disinhibition. He has already engaged in sexually inappropriate behavior in the community. We will give consideration to the need for long-term hospitalization at the [facility] versus an involuntary outpatient commitment. (1) Acute psychosis: 01/03 -patient is a poor historian, reports indicate he may have been started on Abilify Maintena while hospitalized in [place], but timeline unknown. He is agreed to sign a release and I have asked the nurse on the floor to obtain that so that we can get those records. We will also attempt to get records from his outpatient psychiatrist, Dr. Price. -If he is refusing to take antipsychotic medications, recommend medications over objection, as he has responded to antipsychotic medication in the past, and psychotic symptoms are unlikely to remit without antipsychotic treatment. Additionally, he is severely disabled as a result of his psychosis, is unable to provide for his own basic needs, and places both himself and others at risk of harm if his symptoms remain untreated. -Given his history of nonadherence and severity of symptoms with untreated mental illness, will recommend ongoing involuntary commitment with transition to an IOC at discharge. He would benefit from case management and therapy as well. -Offer olanzapine 10 mg p.o./IM as needed for acute psychosis, as he has been on this medication before and tolerated it. -Consider initiation of a mood stabilizer such as Depakote, which can be given IV over objection if he remains unwilling for medications. 01/04 -The patient has stated that he was given Abilify Maintena intramuscularly fairly recently, but there is some reason to believe that this may not be accurate. It is noted that the patient's father said that he has not observed any changes in the patient's behaviors and other symptoms subsequent to the reported dose of Abilify. 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 His tox screen at admission was negative for occult blood, but the test was not specific for hallucinogens. Accordingly, while I would doubt that the entire constellation of problems observed are related to substance use, this cannot be ruled out as a mitigating factor. -Today, the patient reports that he will refuse to take Abilify because he says that he is "allergic" to it. When asked to describe the allergy, he replied by saying that Abilify makes him feel "weird," and he says that he feels certain that it interferes with his sleep. The patient reports that he has taken olanzapine (Zyprexa) and has tolerated that well. He also suggest that he thinks that it "helps." However, he cannot exactly say how it helps. -Today, the patient says that he is embarrassed about the fact that he was "running around outside" while naked, and that he was masturbating in public. However, he has difficulty saying why that should be an issue, other than to repeatedly say, "it is bad." At the same time, and the period of time that immediately proceeded our telephonic contact the patient was reportedly openly masturbating in front of his one-to-one technical staff assistant and, also reportedly, the patient had invited the one-to-one technical staff assistant to either masturbate together with the patient or to allow the patient to masturbate him. Furthermore, the patient indicated that he felt this behavior was reconciled because he had awakened in a "sexual place." Accordingly, what initially had suggested improving insight is abrogated by his ongoing inappropriate and dyscontrol behaviors. -Given the fact the patient may have an unspecified dose of Abilify Maintena on board, reportedly administered on 12/19/2020, and given that the patient may need to receive his olanzapine by intramuscular injection if he continues to periodically refused to take it voluntarily (see med over objection first and second opinions), will reduce the dose of olanzapine from 10 mg 3 times a day to olanzapine 10 mg twice a day by mouth, and will order medications over objection in the form of olanzapine 10 mg IM twice a day. The dose can be titrated as indicated. 01/05--review of available records (most recent [place] pending) note dx of bipolar and/or schizoaffective bipolar type. Records state concussion/no head injuries so family was contacted as amount of preoccupation with masturbating seemed out of proportion to hypersexuality from becca. No hx of hyperorality so doubt [facility]. Had multiple concussions in high school had to leave football and switched to soccer. symptom onset in college so doubt orbitofrontal syndrome. 01/06--303 granted. still trying to confirm date of Abilify injection (or if received). Invega seemed more amenable option than Haldol dec but family confirms poor response to Risperdal and preference toward Abilify. For now Zyprexa is stabilizing patient. Reviewed with family that no local clinics administer the IM. 01/08 - Pt is religiously preoccupied and reporting thoughts that are consistent with ongoing delusions. He is now reporting he thinks he can "do things on my own" and is not particularly interested in outpatient treatment - Pt is declining medication changes. Although it is helpful that he is tolerating olanzapine and denies concerning side effects, he is unfortunately very resistant to adjusting medications to allow for an DE [place] S[place]OS option. He is unable to formulate a plan for how he plans to ensure compliance with an oral medication and therefore remains at risk of noncompliance, destabilization, frequent hospitalizations or injury/ as a result of psychosis. - Pt strongly encouraged to consider therapy and case management services. 01/09 - Continue current medication regimen, though consider need for further titration of olanzapine. Patient is not clearly verbalizing any anglican preoccupation but seems to still be disorganized and mildly thought blocked. He continues to demonstrate poor insight into his mental health condition and need for treatment. - Will plan to schedule a family meeting to involve parents - as we will need to begin discussing safety recommendations and outpatient supports - Considering 304 IOC due to poor insight, history of medication noncompliance, and seriousness of patient's condition (2) Noncompliance with medication regimen: Recommend an [place] [facility] due to nonadherence with oral medication, need to obtain additional information about recent treatment before we can explore options. Father reports they were told he got Abilify Maintena on 12/19/2020, and due to tight receptor binding it may be difficult to get an adequate response from other dopaminergic medications until it is out of his system 01/04/21 -The patient is saying that he will refuse to take Abilify either orally or by injection of a depot form of aripiprazole. The plan is to stabilize the patient on olanzapine, and at that point we may be able to asked the patient to reconsider Abilify given reports that he has responded favorably to Abilify in the past. Alternatively, he could be converted to Invega Sustenna or Haldol decanoate, in view of his acknowledge long history of medication nonadherence 01/05/21--offered zydus, prefers pills and is compliant last 2 doses. 01/06--father states that he was trying to put Abilify in patient's cereal in days leading up to admission. 01/08 - Has been taking scheduled doses of olanzapine BID; however, unwilling for medication changes or to explore options for Suraj. 01/09 - Remains unwilling to consider DE [place] [facility] options to promote medication compliance - Considering a 304 [facility] Protective Factors Assessment Employed: No (works on [employer]; invests in stocks) Interval History Identifying Information 30 yo male with 1 prior admit to [facility] behavioral health 2014 for psychosis, currently on 303 on medical floor as COVID+. Chief Complaint "I'm fine. Doing ok." Review of Systems Notes Constitutional: denied Cardiovascular: denied Respiratory: denied Gastrointestinal: denied Neurological: denied Psychiatric: denies symptoms other than stated above Total of at least 10 systems reviewed, pertinent positives as above and in HPI. Telehealth Telehealth Telehealth Options: Telephone only For the duration of the visit, provider was performing the assessment from: The same facility as the patient After establishing a telemedicine visit, patient was: Patient/authorized rep acknowledged consent and understanding and Gave permission to continue telehealth session Subjective Subjective Patient's case was reviewed and discussed during treatment team. Staff report patient's behavior has been more appropriate overall but he continues to be religiously preoccupied and resistant to recommendations for additional outpatient supports. Call was placed to patient's room today to review progress since admission. Pt states he is "fine" and "doing ok." Pt reports that he has been keeping busy during the day and denies any acute concerns. Pt denies any concerns related to his thought process and denies confusion, though there are noticeable delays in patient's speech and he does seem to still be somewhat disorganized. Pt does not verbalize any delusional statement and is not overtly religiously preoccupied during conversation. He remains resistant to an DE [place] without clear reasoning. He continues to be somewhat resistant to recommendations for outpatient psychiatric treatment, but did state he may consider following up with a therapist he saw more than a year and a half ago. He continues to seem to lack insight into the severity of his condition. Pt de nied SI/HI as well as other needs or concerns today. Physical Exam Psychiatric Orientation: alert and oriented x 3 Speech: + abnormal rate/rhythm/volume of speech (speech is somewhat slowed, occasional delays prior to answering questions) Mood: no depressed mood ("fine") Thought Process: goal directed thought process (in general, though information provided today is rather superficial), + thought blocking (mildly so, some delays prior to answering questions) and + concrete thought process Thought Content: no obvious delusional thought content verbalized today, though likely to be ongoing Suicidal Thoughts: denies suicidal thoughts and denies suicidal intent Homicidal Thoughts: denies homicidal thoughts Hallucinations: no auditory hallucinations and no visual hallucinations Insight: + impaired insight Judgement: + impaired judgement Unable to assess visual aspects of physical exam - assessment completed via phone as patient is on COVID-19 isolation precautions. Vital Signs (Past 24 Hours) Last Vital Signs Temp 36.7 C 01/09/21 08:27 Pulse 69 01/09/21 08:27 Resp 18 01/09/21 08:27 BP 128/74 01/09/21 08:27 Pulse Ox 98 01/09/21 08:27 Results & Data ([facility]) Current Inpatient Medications Current Inpatient Medications: Current Inpatient Medications Acetaminophen (Acetaminophen 325 Mg Tab) 650 mg PO Q4H PRN PRN Reason: pain/fever Stop: 02/01/21 22:42 Last Admin: 01/09/21 02:26 Dose: 650 mg Documented by: Enoxaparin Sodium (Enoxaparin Inj 40 Mg/0.4 Ml Syr) 40 mg SQ Q24H MATT Stop: 02/02/21 08:59 Last Admin: 01/09/21 08:31 Dose: 40 mg Documented by: Promethazine HCl 12.5 mg/ (Sodium Chloride) 50.5 mls @ 202 mls/hr IV Q6H PRN PRN Reason: Nausea And Vomiting Stop: 02/04/21 16:42 Olanzapine (Olanzapine 10 Mg Tab) 10 mg PO BID MATT Stop: 02/03/21 20:59 Last Admin: 01/09/21 08:31 Dose: 10 mg Documented by: Olanzapine (Olanzapine 10 Mg/2.1 Ml Sdv) 10 mg IM Q8H PRN PRN Reason: agitation or dyscontrolled behavior Stop: 02/03/21 13:29 Olanzapine (Olanzapine 10 Mg Tab) 10 mg PO Q8H PRN PRN Reason: agitation or dyscontrolled beh Stop: 02/03/21 13:29 Polyethylene Glycol (Polyethylene (Miralax) 17 Gm Pack) 17 gm PO DAILY PRN PRN Reason: Constipation Stop: 02/01/21 22:42 Mental Health & Subst Abuse Tx Psychiatrist Name of Psychiatrist: Dr. Price - [facility] Psychiatrist's Date of Appointment with Psychiatrist: 01/28/21 Time of Appointment with Psychiatrist: 4:20 pm Psychiatrist Release of Information: Obtained, Reviewed and Signed Therapist Name of Therapist: Declining Automatic Car Wash Attendant Name of Automatic Car Wash Attendant: Declining Post Discharge Appointments Primary Care Physician Name Of Family Doctor: Dr. Penn Contact Information Discharge Discharge Address: [address] [address]
[2021-01-10] MEDS: ENOXAPARIN INJ 40 MG/0.4 ML SYR SQ SCH (09:16)
[2021-01-10] MEDS: OLANZapine 10 MG TAB PO SCH ×2 (09:17→20:34)
--- NOTE | 2021-01-10 10:27 | Psychiatric Progress Note ---
Date of Service January 10, 2021 Impression / Recommendations Impression 30-year-old single male who lives with parents in [place], has a history of psychosis NOS and substance abuse, who presented on a 302 after he was found in public, nude, and masturbating. He endorsed psychotic symptoms including command auditory hallucinations and delusions and demonstrates extremely poor insight and judgment. He does not believe he has a mental illness or needs treatment, despite just being released from a psychiatric facility in [place] within the past couple of weeks, and multiple previous hospitalizations. He reports he has been noncompliant with medications and is a very poor historian and we will need additional information from the facility in [place] as well as his outpatient psychiatrist. Inpatient treatment is medically necessary due to the severity of symptoms and risk of harm to both himself and others as a result, as he is unable to provide for his own basic needs without the care and assistance of others, and those around him are at risk of sexual assault given his sexual preoccupation, acting out behavior, and disinhibition. He has already engaged in sexually inappropriate behavior in the community. We will give consideration to the need for long-term hospitalization at the [facility] versus an involuntary outpatient commitment. (1) Acute psychosis: 01/03 -patient is a poor historian, reports indicate he may have been started on Abilify Maintena while hospitalized in [place], but timeline unknown. He is agreed to sign a release and I have asked the nurse on the floor to obtain that so that we can get those records. We will also attempt to get records from his outpatient psychiatrist, Dr. Price. -If he is refusing to take antipsychotic medications, recommend medications over objection, as he has responded to antipsychotic medication in the past, and psychotic symptoms are unlikely to remit without antipsychotic treatment. Additionally, he is severely disabled as a result of his psychosis, is unable to provide for his own basic needs, and places both himself and others at risk of harm if his symptoms remain untreated. -Given his history of nonadherence and severity of symptoms with untreated mental illness, will recommend ongoing involuntary commitment with transition to an IOC at discharge. He would benefit from case management and therapy as well. -Offer olanzapine 10 mg p.o./IM as needed for acute psychosis, as he has been on this medication before and tolerated it. -Consider initiation of a mood stabilizer such as Depakote, which can be given IV over objection if he remains unwilling for medications. 01/04 -The patient has stated that he was given Abilify Maintena intramuscularly fairly recently, but there is some reason to believe that this may not be accurate. It is noted that the patient's father said that he has not observed any changes in the patient's behaviors and other symptoms subsequent to the reported dose of Abilify. 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 His tox screen at admission was negative for occult blood, but the test was not specific for hallucinogens. Accordingly, while I would doubt that the entire constellation of problems observed are related to substance use, this cannot be ruled out as a mitigating factor. -Today, the patient reports that he will refuse to take Abilify because he says that he is "allergic" to it. When asked to describe the allergy, he replied by saying that Abilify makes him feel "weird," and he says that he feels certain that it interferes with his sleep. The patient reports that he has taken olanzapine (Zyprexa) and has tolerated that well. He also suggest that he thinks that it "helps." However, he cannot exactly say how it helps. -Today, the patient says that he is embarrassed about the fact that he was "running around outside" while naked, and that he was masturbating in public. However, he has difficulty saying why that should be an issue, other than to repeatedly say, "it is bad." At the same time, and the period of time that immediately proceeded our telephonic contact the patient was reportedly openly masturbating in front of his one-to-one certified anesthesiologist assistant and, also reportedly, the patient had invited the one-to-one certified anesthesiologist assistant to either masturbate together with the patient or to allow the patient to masturbate him. Furthermore, the patient indicated that he felt this behavior was reconciled because he had awakened in a "sexual place." Accordingly, what initially had suggested improving insight is abrogated by his ongoing inappropriate and dyscontrol behaviors. -Given the fact the patient may have an unspecified dose of Abilify Maintena on board, reportedly administered on 12/19/2020, and given that the patient may need to receive his olanzapine by intramuscular injection if he continues to periodically refused to take it voluntarily (see med over objection first and second opinions), will reduce the dose of olanzapine from 10 mg 3 times a day to olanzapine 10 mg twice a day by mouth, and will order medications over objection in the form of olanzapine 10 mg IM twice a day. The dose can be titrated as indicated. 01/05--review of available records (most recent [place] pending) note dx of bipolar and/or schizoaffective bipolar type. Records state concussion/no head injuries so family was contacted as amount of preoccupation with masturbating seemed out of proportion to hypersexuality from becca. No hx of hyperorality so doubt [facility] Dean. Had multiple concussions in high school had to leave football and switched to soccer. symptom onset in college so doubt orbitofrontal syndrome. 01/06--303 granted. still trying to confirm date of Abilify injection (or if received). Invega seemed more amenable option than Haldol dec but family confirms poor response to Risperdal and preference toward Abilify. For now Zyprexa is stabilizing patient. Reviewed with family that no local clinics administer the IM. 01/08 - Pt is religiously preoccupied and reporting thoughts that are consistent with ongoing delusions. He is now reporting he thinks he can "do things on my own" and is not particularly interested in outpatient treatment - Pt is declining medication changes. Although it is helpful that he is tolerating olanzapine and denies concerning side effects, he is unfortunately very resistant to adjusting medications to allow for an DE LOS SANTOS option. He is unable to formulate a plan for how he plans to ensure compliance with an oral medication and therefore remains at risk of noncompliance, destabilization, frequent hospitalizations or injury/ as a result of psychosis. - Pt strongly encouraged to consider therapy and case management services. 01/09 - Continue current medication regimen, though consider need for further titration of olanzapine. Patient is not clearly verbalizing any muslim preoccupation but seems to still be disorganized and mildly thought blocked. He continues to demonstrate poor insight into his mental health condition and need for treatment. - Will plan to schedule a family meeting to involve parents - as we will need to begin discussing safety recommendations and outpatient supports - Considering 304 IOC due to poor insight, history of medication noncompliance, and seriousness of patient's condition 01/10 - Infection control reporting patient could be cleared for referral to a psychiatric unit as soon as 01/13/21. - Continue as above - thoughts continue to be disorganized, ongoing muslim preoccupation. Pt continues to have poor insight into the severity of his condition and on a few occasions indicated that he may begin refusing his oral medications (2-physician opinions documented on chart for medications over objection if this should occur). - Offered to adjust dosing of olanzapine due to reports of daytime fatigue, patient declining at this time. Consider need for titration of the medication if thoughts do not continue to clear. - Anticipate need for inpatient psychiatric treatment once cleared medically to join the inpatient milieu setting - Considering 304 IO, meeting scheduled with [facility] to discuss case on 01/16 (2) Noncompliance with medication regimen: Recommend an DE LOS SANTOS due to nonadherence with oral medication, need to obtain additional information about recent treatment before we can explore options. Father reports they were told he got Abilify Maintena on 12/19/2020, and due to tight receptor binding it may be difficult to get an adequate response from other dopaminergic medications until it is out of his system 01/04/21 -The patient is saying that he will refuse to take Abilify either orally or by injection of a depot form of aripiprazole. The plan is to stabilize the patient on olanzapine, and at that point we may be able to asked the patient to reconsider Abilify given reports that he has responded favorably to Abilify in the past. Alternatively, he could be converted to Invega Sustenna or Haldol decanoate, in view of his acknowledge long history of medication nonadherence 01/05/21--offered zydus, prefers pills and is compliant last 2 doses. 01/06--father states that he was trying to put Abilify in patient's cereal in days leading up to admission. 01/08 - Has been taking scheduled doses of olanzapine BID; however, unwilling for medication changes or to explore options for Suraj. 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 Chief Complaint "Um, I'm ok." Review of Systems Notes Constitutional: initially denied, then reported daytime fatigue he believes is related to olanzapine Cardiovascular: denied Respiratory: denied Gastrointestinal: denied Neurological: denied Psychiatric: denies symptoms other than stated above Total of at least 10 systems reviewed, pertinent positives as above and in HPI. Telehealth Telehealth Telehealth Options: Telephone only For the duration of the visit, provider was performing the assessment from: The same facility as the patient After establishing a telemedicine visit, patient was: Patient/authorized rep acknowledged consent and understanding and Gave permission to continue telehealth session Subjective Subjective Patient's case was reviewed and discussed during morning report with psychiatric nurse liaison and our social work team. Staff report the patient had been cooperative with conversations with staff and denying hallucinations. Phone call placed to patient's room today to assess progress since admission. Pt reports "I'm ok" and denied concerns, keeping introductory conversation rather superficial. When asked more in-depth questions regarding his perceived progress, patient gave a series of somewhat conflicting statements - "I think I just needed to express that I don't think medications need to be a part of my plan, but I'm happy that you guys are giving me something that is better than what I've had before." Attempts to clarify patient's willingness to continue oral medications were not productive, as patient's thoughts still seem disorganized. Pt did admit liking the olanzapine as "the medications is not too strenuous to my mind." Pt could not provide any specific examples of ways he feels the medication is helping. Pt continues to be unwilling to consider an DE LOS SANTOS and cites "I guess just spiritual reasons; cultural understandings - things set in stone by race and society" as to why he is unwilling. Pt answered a lot of simple questions by saying "I'm not sure - I don't know what to say." He did admit to feeling tired during the day, but declined initial offer to adjust his dosing of olanzapine to improve this. Pt denies feeling confused or concerns related to his thoughts. When asked what has been on his mind recently, he states "clocks and my friends" - but is unable to provide additional commentary about this. We discussed anticipated timeline of medical clearance and recommendation for subsequent transfer to complete inpatient psychiatric treatment. Pt states "I'd rather just go to skilled nursing if I have to, don't want to be on a psychiatric unit again." Pt did state he is concerned about "being injected" and shares "I just wish that I could be trusted." Attempts were made to explain to the patient the concern of the treatment team regarding his psychotic presentation and frequent hospitalizations. The patient believes "I feel that I am capable of returning to the workforce and I don't need anything else." Pt denied SI and hallucinations. He denied other needs or concerns today, but remains resistant to recommendations outlined. Physical Exam Psychiatric Orientation: alert, oriented x 3 and + guarded (intermittently uncooperative) Speech: normal rate/rhythm/volume of speech (though continues to have pauses before responding to questions) Mood: no depressed mood ("ok") Thought Process: + thought blocking and + tangential thought process Often speaking in sentence fragments, frequently contradicting himself, thoughts continue to be disorganized Thought Content: + preoccupation (muslim) and + delusions; no hopelessness Suicidal Thoughts: denies suicidal thoughts and denies suicidal intent Homicidal Thoughts: denies homicidal thoughts Hallucinations: no auditory hallucinations and no visual hallucinations Cognition: language grossly intact; + attention not intact Insight: + impaired insight Judgement: + impaired judgement Unable to assess visual aspects of mental status examination - patient is COVID positive and on isolation precautions. Vital Signs (Past 24 Hours) Last Vital Signs Temp 36.6 C 01/10/21 09:43 Pulse 81 01/10/21 09:43 Resp 18 01/10/21 09:43 BP 114/69 01/10/21 09:43 Pulse Ox 95 01/10/21 09:43 Results & Data ([facility]) Current Inpatient Medications Current Inpatient Medications: Current Inpatient Medications Acetaminophen (Acetaminophen 325 Mg Tab) 650 mg PO Q4H PRN PRN Reason: pain/fever Stop: 02/01/21 22:42 Last Admin: 01/09/21 02:26 Dose: 650 mg Documented by: Enoxaparin Sodium (Enoxaparin Inj 40 Mg/0.4 Ml Syr) 40 mg SQ Q24H MATT Stop: 02/02/21 08:59 Last Admin: 01/10/21 09:16 Dose: 40 mg Documented by: Promethazine HCl 12.5 mg/ (Sodium Chloride) 50.5 mls @ 202 mls/hr IV Q6H PRN PRN Reason: Nausea And Vomiting Stop: 02/04/21 16:42 Olanzapine (Olanzapine 10 Mg Tab) 10 mg PO BID MATT Stop: 02/03/21 20:59 Last Admin: 01/10/21 09:17 Dose: 10 mg Documented by: Olanzapine (Olanzapine 10 Mg/2.1 Ml Sdv) 10 mg IM Q8H PRN PRN Reason: agitation or dyscontrolled behavior Stop: 02/03/21 13:29 Olanzapine (Olanzapine 10 Mg Tab) 10 mg PO Q8H PRN PRN Reason: agitation or dyscontrolled beh Stop: 02/03/21 13:29 Polyethylene Glycol (Polyethylene (Miralax) 17 Gm Pack) 17 gm PO DAILY PRN PRN Reason: Constipation Stop: 02/01/21 22:42 Mental Health & Subst Abuse Tx Psychiatrist Name of Psychiatrist: Dr. Price - [facility] Psychiatrist's Date of Appointment with Psychiatrist: 01/28/21 Time of Appointment with Psychiatrist: 4:20 pm Psychiatrist Release of Information: Obtained, Reviewed and Signed Therapist Name of Therapist: Declining Top Precipitator Operator Name of Top Precipitator Operator: Declining Post Discharge Appointments Primary Care Physician Name Of Family Doctor: Nafisa Penn Provider Appointment Comment: [place] [address] Contact Information Discharge Discharge Address: [address] [address]
--- NOTE | 2021-01-10 18:24 | Hospitalist Progress Note ---
Date of Service January 10, 2021 Assessment & Plan (1) Bipolar mood disorder: (2) Schizoaffective disorder: Presented with disinhibited psychosis off medications endorsing auditory hallucinations. Cont 1:1 observation. Cont psych treatment medically as needed. He is doing well on current therapy (3) SARS-CoV-2 positive: asymptomatic, dc isolation after 10 days. (4) Tick bite: Received doxy prophylaxis during beginning of admission when tick was removed. Monitor for rickettsial illness. Will screen labs in am. (5) DVT prophylaxis: SCDs, ambulation Full COde Dispo-to inpatient mental health care at time of dsischarge. Debo Abdi DO [facility] Hospitalist Admission and Anticipated Discharge Date Admission Date: January 02, 2021 Subjective 30 yo M with h/o psychosis was admitted on 302 warrant after being found in public nude and masturbating. Records reflect release from a psychiatric facility in [place] in the past couple of weeks and multiple previous hospitalizations. Psychiatry here has deemed him a risk to himself and others and is requiring inpatient mental health treatment. However, he is currently detained in the COVID-19 unit asymptomatic with novel coronavirus. He denies any respiratory symptoms at this time. There was a flat tick found in his room and this prompted concern that he may have been bitten. Although the tick was previously engorged, it was and not found on the patient. He was found to have a tick attached to his penile shaft on 01/03 and was given doxycycline prophylaxis for this when it was removed. Would continue to monitor for any rash or other symptoms of rickkettsial illness moving forward. Review of Systems Review of Systems: All systems reviewed & are unremarkable except as noted in Subjective Physical Exam Physical Exam: CONSTITUTIONAL: WNWD, vitals as above, generally well-appe aring EYES: normal conjunctivae, no scleral icterus ENT: external ear and nose normal, MMM RESPIRATORY: clear to auscultation bilaterally, no crackles, rales or wheezes, normal respiratory effort CARDIOVASCULAR: regular rate and rhythm, S1 and 2 heard without murmurs, gallops or rubs, no JVD, no peripheral edema MUSCULOSKELETAL: strength 5/5 throughout, head is normocephalic and atraumatic SKIN: warm and dry NEUROLOGIC: CN 2-12 grossly intact, normal cognition, normal speech PSYCHIATRIC: alert cooperative and oriented. Results & Data Results & Data ([facility]) Vital Signs (Past 12 Hours) Vital Signs Temp Pulse Resp BP Pulse Ox 01/10/21 09:43 36.6 C 81 18 114/69 95 (1) Schizoaffective disorder Schizoaffective disorder type: unspecified Qualified Code(s): F25.9 - Schizoaffective disorder, unspecified
[2021-01-11 07:20] LABS: Hematocrit (blood only) 43.5 % (42-52); Hemoglobin 15.4 g/dL (14.0-18.0); Mean Corpuscular Hemoglobin 30.9 pg (25-34); Mean Corpuscular Hgb Conc 35.4 g/dL (32-36); Mean Corpuscular Volume 87.2 fL (80-100); Mean Platelet Volume 9.2 fL (7.4-10.4); Platelet Count 240 K/uL (130-400); RDW Coefficient of Variation 13.1 % (11.5-14.5); RDW Standard Deviation 41.4 fL (36.4-46.3); Red Blood Count 4.99 M/uL (4.7-6.1); White Blood Count 5.27 K/uL (4.8-10.8)
[2021-01-11 07:48] LABS: BUN Creatinine Ratio 10.4 (10-20); Calcium 8.6 mg/dl (8.5-10.1); Creatinine Clr Calc Pharmacy 108.7 ml/min; Est GFR (African American) 121.1; Est GFR (Non-African American) 104.5; Potassium 4.7 mmol/L (3.5-5.1)
[2021-01-11] MEDS: ENOXAPARIN INJ 40 MG/0.4 ML SYR SQ SCH (09:39)
[2021-01-11] MEDS: OLANZapine 10 MG TAB PO SCH ×2 (09:39→20:36)
--- NOTE | 2021-01-11 12:34 | Psychiatric Progress Note ---
Date of Service January 11, 2021 Impression / Recommendations Impression 30-year-old single male who lives with parents in [place], has a history of psychosis NOS and substance abuse, who presented on a 302 after he was found in public, nude, and masturbating. He endorsed psychotic symptoms including command auditory hallucinations and delusions and demonstrates extremely poor insight and judgment. He does not believe he has a mental illness or needs treatment, despite just being released from a psychiatric facility in [place] within the past couple of weeks, and multiple previous hospitalizations. He reports he has been noncompliant with medications and is a very poor historian and we will need additional information from the facility in [place] as well as his outpatient psychiatrist. Inpatient treatment is medically necessary due to the severity of symptoms and risk of harm to both himself and others as a result, as he is unable to provide for his own basic needs without the care and assistance of others, and those around him are at risk of sexual assault given his sexual preoccupation, acting out behavior, and disinhibition. He has already engaged in sexually inappropriate behavior in the community. We will give consideration to the need for long-term hospitalization at the [facility] versus an involuntary outpatient commitment. (1) Acute psychosis: 01/03 -patient is a poor historian, reports indicate he may have been started on Abilify Maintena while hospitalized in [place], but timeline unknown. He is agreed to sign a release and I have asked the nurse on the floor to obtain that so that we can get those records. We will also attempt to get records from his outpatient psychiatrist, Dr. Price. -If he is refusing to take antipsychotic medications, recommend medications over objection, as he has responded to antipsychotic medication in the past, and psychotic symptoms are unlikely to remit without antipsychotic treatment. Additionally, he is severely disabled as a result of his psychosis, is unable to provide for his own basic needs, and places both himself and others at risk of harm if his symptoms remain untreated. -Given his history of nonadherence and severity of symptoms with untreated mental illness, will recommend ongoing involuntary commitment with transition to an IOC at discharge. He would benefit from case management and therapy as well. -Offer olanzapine 10 mg p.o./IM as needed for acute psychosis, as he has been on this medication before and tolerated it. -Consider initiation of a mood stabilizer such as Depakote, which can be given IV over objection if he remains unwilling for medications. 01/04 -The patient has stated that he was given Abilify Maintena intramuscularly fairly recently, but there is some reason to believe that this may not be accurate. It is noted that the patient's father said that he has not observed any changes in the patient's behaviors and other symptoms subsequent to the reported dose of Abilify. 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 His tox screen at admission was negative for occult blood, but the test was not specific for hallucinogens. Accordingly, while I would doubt that the entire constellation of problems observed are related to substance use, this cannot be ruled out as a mitigating factor. -Today, the patient reports that he will refuse to take Abilify because he says that he is "allergic" to it. When asked to describe the allergy, he replied by saying that Abilify makes him feel "weird," and he says that he feels certain that it interferes with his sleep. The patient reports that he has taken olanzapine (Zyprexa) and has tolerated that well. He also suggest that he thinks that it "helps." However, he cannot exactly say how it helps. -Today, the patient says that he is embarrassed about the fact that he was "running around outside" while naked, and that he was masturbating in public. However, he has difficulty saying why that should be an issue, other than to repeatedly say, "it is bad." At the same time, and the period of time that immediately proceeded our telephonic contact the patient was reportedly openly masturbating in front of his one-to-one surgical services assistant and, also reportedly, the patient had invited the one-to-one surgical services assistant to either masturbate together with the patient or to allow the patient to masturbate him. Furthermore, the patient indicated that he felt this behavior was reconciled because he had awakened in a "sexual place." Accordingly, what initially had suggested improving insight is abrogated by his ongoing inappropriate and dyscontrol behaviors. -Given the fact the patient may have an unspecified dose of Abilify Maintena on board, reportedly administered on 12/19/2020, and given that the patient may need to receive his olanzapine by intramuscular injection if he continues to periodically refused to take it voluntarily (see med over objection first and second opinions), will reduce the dose of olanzapine from 10 mg 3 times a day to olanzapine 10 mg twice a day by mouth, and will order medications over objection in the form of olanzapine 10 mg IM twice a day. The dose can be titrated as indicated. 01/05--review of available records (most recent [place] pending) note dx of bipolar and/or schizoaffective bipolar type. Records state concussion/no head injuries so family was contacted as amount of preoccupation with masturbating seemed out of proportion to hypersexuality from becca. No hx of hyperorality so doubt [facility]. Had multiple concussions in high school had to leave football and switched to soccer. symptom onset in college so doubt orbitofrontal syndrome. 01/06--303 granted. still trying to confirm date of Abilify injection (or if received). Invega seemed more amenable option than Haldol dec but family confirms poor response to Risperdal and preference toward Abilify. For now Zyprexa is stabilizing patient. Reviewed with family that no local clinics administer the IM. 01/08 - Pt is religiously preoccupied and reporting thoughts that are consistent with ongoing delusions. He is now reporting he thinks he can "do things on my own" and is not particularly interested in outpatient treatment - Pt is declining medication changes. Although it is helpful that he is tolerating olanzapine and denies concerning side effects, he is unfortunately very resistant to adjusting medications to allow for an DE LOS SANTOS option. He is unable to formulate a plan for how he plans to ensure compliance with an oral medication and therefore remains at risk of noncompliance, destabilization, frequent hospitalizations or injury/ as a result of psychosis. - Pt strongly encouraged to consider therapy and case management services. 01/09 - Continue current medication regimen, though consider need for further titration of olanzapine. Patient is not clearly verbalizing any faith preoccupation but seems to still be disorganized and mildly thought blocked. He continues to demonstrate poor insight into his mental health condition and need for treatment. - Will plan to schedule a family meeting to involve parents - as we will need to begin discussing safety recommendations and outpatient supports - Considering 304 IOC due to poor insight, history of medication noncompliance, and seriousness of patient's condition 01/10 - Infection control reporting patient could be cleared for referral to a psychiatric unit as soon as 01/13/21. - Continue as above - thoughts continue to be disorganized, ongoing faith preoccupation. Pt continues to have poor insight into the severity of his condition and on a few occasions indicated that he may begin refusing his oral medications (2-physician opinions documented on chart for medications over objection if this should occur). - Offered to adjust dosing of olanzapine due to reports of daytime fatigue, patient declining at this time. Consider need for titration of the medication if thoughts do not continue to clear. - Anticipate need for inpatient psychiatric treatment once cleared medically to join the inpatient milieu setting - Considering 304 IOC, meeting scheduled with [facility] to discuss case on 01/16 01/11 - Continue as above. We did receive reports that patient does continue to engage in sexually inappropriate behavior. We are encouraging staff to redirect patient in these situations and offer alternative activities. Pt reports feeling some control over this behavior and express apologies. - Continue olanzapine - consider need for further titration - Anticipate clearance from isolation precautions on 01/16, and then will consider for admission to our unit for continued psychiatric treatment - Likely will require 304 IOC. (2) Noncompliance with medication regimen: Recommend an DE [facility] due to nonadherence with oral medication, need to obtain additional information about recent treatment before we can explore options. Father reports they were told he got Abilify Maintena on 12/19/2020, and due to tight receptor binding it may be difficult to get an adequate response from other dopaminergic medications until it is out of his system 01/04/21 -The patient is saying that he will refuse to take Abilify either orally or by injection of a depot form of aripiprazole. The plan is to stabilize the patient on olanzapine, and at that point we may be able to asked the patient to reconsider Abilify given reports that he has responded favorably to Abilify in the past. Alternatively, he could be converted to Invega Sustenna or Haldol decanoate, in view of his acknowledge long history of medication nonadherence 01/05/21--offered zydus, prefers pills and is compliant last 2 doses. 01/06--father states that he was trying to put Abilify in patient's cereal in days leading up to admission. 01/08 - Has been taking scheduled doses of olanzapine BID; however, unwilling for medication changes or to explore options for Suraj. 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 Chief Complaint "Doing well." Review of Systems Notes Constitutional: denied Cardiovascular: denied Respiratory: denied Gastrointestinal: denied Neurological: denied Psychiatric: denies symptoms other than stated above Total of at least 10 systems reviewed, pertinent positives as above and in HPI. Telehealth Telehealth Telehealth Options: Telephone only For the duration of the visit, provider was performing the assessment from: The same facility as the patient After establishing a telemedicine visit, patient was: Patient/authorized rep acknowledged consent and understanding and Gave permission to continue telehealth session Subjective Subjective Patient's case was reviewed and discussed with treatment team. Staff report to our team that the patient is continuing to routine engage in exposing himself and masturbating. We are encouraging staff to redirect the patient when this behavior occurs and offer alternative activities. Phone call placed to jesse cisneros's room today to assess progress since admission. Pt reports he is "doing well", he denies acute concerns since yesterday's call. Pt states he is sleeping well, keeping busy by looking out the window and watching television. Pt denies the perception of any confused or disorganized thoughts. He was asked what has been on his mind lately, and expresses concern that his friends "may want some space." Pt states that he is sure the "won't have the same trust for me now that I've acted out like this." The patient, however, does not believe that any of his friends are aware of these events and states he has not communicated with them. When asked why he is feeling concerned about this he stated, "well, I guess they'll probably find out." Pt denies SI/HI, SIB, A/V hallucinations and acute safety concerns. This provider did inquire into the patient's sexually inappropriate behavior - stating the intent was not to embarrass him but to ensure comfort of the patient and staff. Pt did admit that he continues to engage in this behavior, but states he believes "I was asleep and must have been dreaming about something. It is inappropriate, I'm sorry." This provider reiterated that the conversation was not to embarrass him, but to remind him that that behavior is not appropriate and to encourage him to explore more appropriate coping skills, at least in the hospital setting. Pt verbalized understanding and denied any other needs or concerns today. Physical Exam Psychiatric Orientation: alert, oriented x 3 and cooperative (superficially ) Speech: normal rate/rhythm/volume of speech (sounding somewhat slowed) Mood: no depressed mood and no anxious mood Thought Process: goal directed thought process and + concrete thought process Thought Content: + preoccupation (faith, sexual) and + delusions; no hopelessness Suicidal Thoughts: denies suicidal thoughts Homicidal Thoughts: denies homicidal thoughts Hallucinations: no auditory hallucinations and no visual hallucinations Cognition: attention grossly intact and language grossly intact Estimated Intelligence: consistent with education level Insight: + impaired insight Judgement: + impaired judgement Unable to assess visual aspects of mental status examination due to visit being conducted via telephone call - patient on isolation precautions related to COVID-19 infection. Vital Signs (Past 24 Hours) Last Vital Signs Temp 36.6 C 01/11/21 08:41 Pulse 71 01/11/21 08:41 Resp 18 01/11/21 08:41 BP 103/66 01/11/21 08:41 Pulse Ox 97 01/11/21 08:41 Results & Data ([facility]) Laboratory Results Laboratory Results - last 24 hr 01/11/21 01/11/21 06:45 06:45 WBC 5.27 RBC 4.99 Hgb 15.4 Hct 43.5 MCV 87.2 MCH 30.9 MCHC 35.4 RDW Std Deviation 41.4 RDW Coeff of [place] 13.1 Plt Count 240 MPV 9.2 Sodium 141 Potassium 4.7 Chloride 110 H Carbon Dioxide 27 Anion Gap 4.0 BUN 10 Creatinine 0.98 Est Cr Clr Drug Dosing 108.7 Est GFR ( Amer) 121.1 Est GFR (Non-Af Amer) 104.5 BUN/Creatinine Ratio 10.4 Glucose 94 Calcium 8.6 Current Inpatient Medications Current Inpatient Medications: Current Inpatient Medications Acetaminophen (Acetaminophen 325 Mg Tab) 650 mg PO Q4H PRN PRN Reason: pain/fever Stop: 02/01/21 22:42 Last Admin: 01/09/21 02:26 Dose: 650 mg Documented by: Enoxaparin Sodium (Enoxaparin Inj 40 Mg/0.4 Ml Syr) 40 mg SQ Q24H MATT Stop: 02/02/21 08:59 Last Admin: 01/11/21 09:39 Dose: 40 mg Documented by: Promethazine HCl 12.5 mg/ (Sodium Chloride) 50.5 mls @ 202 mls/hr IV Q6H PRN PRN Reason: Nausea And Vomiting Stop: 02/04/21 16:42 Olanzapine (Olanzapine 10 Mg Tab) 10 mg PO BID [facility] Stop: 02/03/21 20:59 Last Admin: 01/11/21 09:39 Dose: 10 mg Documented by: Olanzapine (Olanzapine 10 Mg/2.1 Ml Sdv) 10 mg IM Q8H PRN PRN Reason: agitation or dyscontrolled behavior Stop: 02/03/21 13:29 Olanzapine (Olanzapine 10 Mg Tab) 10 mg PO Q8H PRN PRN Reason: agitation or dyscontrolled beh Stop: 02/03/21 13:29 Polyethylene Glycol (Polyethylene (Miralax) 17 Gm Pack) 17 gm PO DAILY PRN PRN Reason: Constipation Stop: 02/01/21 22:42 Mental Health & Subst Abuse Tx Psychiatrist Name of Psychiatrist: Dr. Price - [facility] Psychiatry Psychiatrist's Date of Appointment with Psychiatrist: 01/28/21 Time of Appointment with Psychiatrist: 4:20 pm Psychiatrist Release of Information: Obtained, Reviewed and Signed Therapist Name of Therapist: Declining Pharmacy Graduate Intern Name of Pharmacy Graduate Intern: Declining Post Discharge Appointments Primary Care Physician Name Of Family Doctor: N[facility] Date of Appointment with PCP: 02/01/21 Time of Appointment with PCP: 11:20 a.m. Provider Appointment Comment: [place] [id number] Contact Information Discharge Discharge Address: [address] [address]
--- NOTE | 2021-01-11 15:56 | Hospitalist Progress Note ---
Date of Service January 11, 2021 Assessment & Plan (1) Bipolar mood disorder: (2) Schizoaffective disorder: Presented with disinhibited psychosis off medications endorsing auditory hallucinations. Cont 1:1 observation. Cont psych treatment medically as needed. He is doing well on current therapy (3) SARS-CoV-2 positive: asymptomatic, dc isolation after 10 days. (4) Tick bite: Received doxy prophylaxis during beginning of admission when tick was removed. Monitor for rickettsial illness. Will screen labs in am. (5) DVT prophylaxis: SCDs, ambulation Full Code Dispo-to inpatient mental health care at time of discharge. Debo Abdi DO [facility] Hospitalist Admission and Anticipated Discharge Date Admission Date: January 02, 2021 Subjective 30 yo M with h/o psychosis was admitted on 302 warrant after being found in public nude and masturbating. Records reflect release from a psychiatric facility in [place] in the past couple of weeks and multiple previous hospitalizations. Psychiatry here has deemed him a risk to himself and others and is requiring inpatient mental health treatment. However, he is currently detained in the COVID-19 unit asymptomatic with novel coronavirus. He denies any respiratory symptoms at this time. There was a flat tick found in his room and this prompted concern that he may have been bitten. Although the tick was previously engorged, it was and not found on the patient. He was found to have a tick attached to his penile shaft on 01/03 and was given doxycycline prophylaxis for this when it was removed. Would continue to monitor for any rash or other symptoms of rickettsial illness moving forward. Review of Systems Review of Systems: All systems reviewed & are unremarkable except as noted in Subjective Physical Exam Physical Exam: CONSTITUTIONAL: WNWD, vitals as above, generally well-appear ing EYES: normal conjunctivae, no scleral icterus ENT: external ear and nose normal, MMM RESPIRATORY: clear to auscultation bilaterally, no crackles, rales or wheezes, normal respiratory effort CARDIOVASCULAR: regular rate and rhythm, S1 and 2 heard without murmurs, gallops or rubs, no JVD, no peripheral edema MUSCULOSKELETAL: strength 5/5 throughout, head is normocephalic and atraumatic SKIN: warm and dry NEUROLOGIC: CN 2-12 grossly intact, normal cognition, normal speech PSYCHIATRIC: alert cooperative and oriented. Results & Data Results & Data ([facility]) Vital Signs (Past 12 Hours) Vital Signs Temp Pulse Resp BP Pulse Ox 01/11/21 15:15 36.8 C 79 18 105/63 98 01/11/21 08:41 36.6 C 71 18 103/66 97 Laboratory Results Short CBC 01/11/21 Range/Units 06:45 WBC 5.27 (4.8-10.8) K/uL Hgb 15.4 (14.0-18.0) g/dL Hct 43.5 (42-52) % Plt Count 240 (130-400) K/uL BMP 01/11/21 06:45 Sodium 141 Potassium 4.7 Chloride 110 H Carbon Dioxide 27 BUN 10 Creatinine 0.98 Glucose 94 Calcium 8.6 Medications Administered Current Inpatient Medications Acetaminophen (Acetaminophen 325 Mg Tab) 650 mg PO Q4H PRN PRN Reason: pain/fever Stop: 02/01/21 22:42 Last Admin: 01/09/21 02:26 Dose: 650 mg Documented by: Enoxaparin Sodium (Enoxaparin Inj 40 Mg/0.4 Ml Syr) 40 mg SQ Q24H [facility] Stop: 02/02/21 08:59 Last Admin: 01/11/21 09:39 Dose: 40 mg Documented by: Promethazine HCl 12.5 mg/ (Sodium Chloride) 50.5 mls @ 202 mls/hr IV Q6H PRN PRN Reason: Nausea And Vomiting Stop: 02/04/21 16:42 Olanzapine (Olanzapine 10 Mg Tab) 10 mg PO BID [facility] Stop: 02/03/21 20:59 Last Admin: 01/11/21 09:39 Dose: 10 mg Documented by: Olanzapine (Olanzapine 10 Mg/2.1 Ml Sdv) 10 mg IM Q8H PRN PRN Reason: agitation or dyscontrolled behavior Stop: 02/03/21 13:29 Olanzapine (Olanzapine 10 Mg Tab) 10 mg PO Q8H PRN PRN Reason: agitation or dyscontrolled beh Stop: 02/03/21 13:29 Polyethylene Glycol (Polyethylene (Miralax) 17 Gm Pack) 17 gm PO DAILY PRN PRN Reason: Constipation Stop: 02/01/21 22:42 (1) Schizoaffective disorder Schizoaffective disorder type: unspecified Qualified Code(s): F25.9 - Schizoaffective disorder, unspecified
[2021-01-12] MEDS: ENOXAPARIN INJ 40 MG/0.4 ML SYR SQ SCH (08:28)
[2021-01-12] MEDS: OLANZapine 10 MG TAB PO SCH ×2 (08:28→19:49)
--- NOTE | 2021-01-12 14:24 | Psychiatric Progress Note ---
Date of Service January 12, 2021 Impression / Recommendations Impression 30-year-old single male who lives with parents in [place], has a history of psychosis NOS and substance abuse, who presented on a 302 after he was found in public, nude, and masturbating. He endorsed psychotic symptoms including command auditory hallucinations and delusions and demonstrates extremely poor insight and judgment. He does not believe he has a mental illness or needs treatment, despite just being released from a psychiatric facility in [place] within the past couple of weeks, and multiple previous hospitalizations. He reports he has been noncompliant with medications and is a very poor historian and we will need additional information from the facility in [place] as well as his outpatient psychiatrist. Inpatient treatment is medically necessary due to the severity of symptoms and risk of harm to both himself and others as a result, as he is unable to provide for his own basic needs without the care and assistance of others, and those around him are at risk of sexual assault given h is sexual preoccupation, acting out behavior, and disinhibition. He has already engaged in sexually inappropriate behavior in the community. We will give consideration to the need for long-term hospitalization at the [facility] versus an involuntary outpatient commitment. (1) Acute psychosis: 01/03 -patient is a poor historian, reports indicate he may have been started on Abilify Maintena while hospitalized in [place], but timeline unknown. He is agreed to sign a release and I have asked the nurse on the floor to obtain that so that we can get those records. We will also attempt to get records from his outpatient psychiatrist, Dr. Price. -If he is refusing to take antipsychotic medications, recommend medications over objection, as he has responded to antipsychotic medication in the past, and psychotic symptoms are unlikely to remit without antipsychotic treatment. Additionally, he is severely disabled as a result of his psychosis, is unable to provide for his own basic needs, and places both himself and others at risk of harm if his symptoms remain untreated. -Given his history of nonadherence and severity of symptoms with untreated mental illness, will recommend ongoing involuntary commitment with transition to an IOC at discharge. He would benefit from case management and therapy as well. -Offer olanzapine 10 mg p.o./IM as needed for acute psychosis, as he has been on this medication before and tolerated it. -Consider initiation of a mood stabilizer such as Depakote, which can be given IV over objection if he remains unwilling for medications. 01/04 -The patient has stated that he was given Abilify Maintena intramuscularly fairly recently, but there is some reason to believe that this may not be accurate. It is noted that the patient's father said that he has not observed any changes in the patient's behaviors and other symptoms subsequent to the reported dose of Abilify. 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 His tox screen at admission was negative for occult blood, but the test was not specific for hallucinogens. Accordingly, while I would doubt that the entire constellation of problems observed are related to substance use, this cannot be ruled out as a mitigating factor. -Today, the patient reports that he will refuse to take Abilify because he says that he is "allergic" to it. When asked to describe the allergy, he replied by saying that Abilify makes him feel "weird," and he says that he feels certain that it interferes with his sleep. The patient reports that he has taken olanzapine (Zyprexa) and has tolerated that well. He also suggest that he thinks that it "helps." However, he cannot exactly say how it helps. -Today, the patient says that he is embarrassed about the fact that he was "running around outside" while naked, and that he was masturbating in public. H owever, he has difficulty saying why that should be an issue, other than to repeatedly say, "it is bad." At the same time, and the period of time that immediately proceeded our telephonic contact the patient was reportedly openly masturbating in front of his one-to-one assistant women's soccer coach and, also reportedly, the patient had invited the one-to-one assistant women's soccer coach to either masturbate together with the patient or to allow the patient to masturbate him. Furthermore, the patient indicated that he felt this behavior was reconciled because he had awakened in a "sexual place." Accordingly, what initially had suggested improving insight is abrogated by his ongoing inappropriate and dyscontrol behaviors. -Given the fact the patient may have an unspecified dose of Abilify Maintena on board, reportedly administered on 12/19/2020, and given that the patient may need to receive his olanzapine by intramuscular injection if he continues to periodically refused to take it voluntarily (see med over objection first and second opinions), will reduce the dose of olanzapine from 10 mg 3 times a day to olanzapine 10 mg twice a day by mouth, and will order medications over objection in the form of olanzapine 10 mg IM twice a day. The dose can be titrated as indicated. 01/05--review of available records (most recent [place] pending) note dx of bipolar and/or schizoaffective bipolar type. Records state concussion/no head injuries so family was contacted as amount of preoccupation with masturbating seemed out of proportion to hypersexuality from becca. No hx of hyperorality so doubt [place] [facility]. Had multiple concussions in high school had to leave football and switched to soccer. symptom onset in college so doubt orbitofrontal syndrome. 01/06--303 granted. still trying to confirm date of Abilify injection (or if received). Invega seemed more amenable option than Haldol dec but family confirms poor response to Risperdal and preference toward Abilify. For now Zyprexa is stabilizing patient. Reviewed with family that no local clinics administer the IM. 01/08 - Pt is religiously preoccupied and reporting thoughts that are consistent with ongoing delusions. He is now reporting he thinks he can "do things on my own" and is not particularly interested in outpatient treatment - Pt is declining medication changes. Although it is helpful that he is tolerating olanzapine and denies concerning side effects, he is unfortunately very resistant to adjusting medications to allow for an DE LOS SANTOS option. He is unable to formulate a plan for how he plans to ensure compliance with an oral medication and therefore remains at risk of noncompliance, destabilization, frequent hospitalizations or injury/ as a result of psychosis. - Pt strongly encouraged to consider therapy and case management services. 01/09 - Continue current medication regimen, though consider need for further titration of olanzapine. Patient is not clearly verbalizing any bahai preoccupation but seems to still be disorganized and mildly thought blocked. He continues to demonstrate poor insight into his mental health condition and need for treatment. - Will plan to schedule a family meeting to involve parents - as we will need to begin discussing safety recommendations and outpatient supports - Considering 304 IOC due to poor insight, history of medication noncompliance, and seriousness of patient's condition 01/10 - Infection control reporting patient could be cleared for referral to a psychiatric unit as soon as 01/13/21. - Continue as above - thoughts continue to be disorganized, ongoing bahai preoccupation. Pt continues to have poor insight into the severity of his condition and on a few occasions indicated that he may begin refusing his oral medications (2-physician opinions documented on chart for medications over objection if this should occur). - Offered to adjust dosing of olanzapine due to reports of daytime fatigue, patient declining at this time. Consider need for titration of the medication if thoughts do not continue to clear. - Anticipate need for inpatient psychiatric treatment once cleared medically to join the inpatient milieu setting - Considering 304 IOC, meeting scheduled with [facility] to discuss case on 01/16 01/11 - Continue as above. We did receive reports that patient does continue to engage in sexually inappropriate behavior. We are encouraging staff to redirect patient in these situations and offer alternative activities. Pt reports feeling some control over this behavior and express apologies. - Continue olanzapine - consider need for further titration - Anticipate clearance from isolation precautions on 01/16, and then will consider for admission to our unit for continued psychiatric treatment - Likely will require 304 IOC. 01/12 - Continue as above - anticipate discharge from the medical floor tomorrow, with subsequent admission to our unit to continue psychiatric treatment. - Pt reports appropriate behavior, reviewed some of the expectations regarding behavior on our unit as well. (2) Noncompliance with medication regimen: Recommend an DE LOS SANTOS due to nonadherence with oral medication, need to obtain additional information about recent treatment before we can explore options. Father reports they were told he got Abilify Maintena on 12/19/2020, and due to tight receptor binding it may be difficult to get an adequate response from other dopaminergic medications until it is out of his system 01/04/21 -The patient is saying that he will refuse to take Abilify either orally or by injection of a depot form of aripiprazole. The plan is to stabilize the patient on olanzapine, and at that point we may be able to asked the patient to reconsider Abilify given reports that he has responded favorably to Abilify in the past. Alternatively, he could be converted to Invega Sustenna or Haldol decanoate, in view of his acknowledge long history of medication nonadherence 01/05/21--offered zydus, prefers pills and is compliant last 2 doses. 01/06--father states that he was trying to put Abilify in patient's cereal in days leading up to admission. 01/08 - Has been taking scheduled doses of olanzapine BID; however, unwilling for medication changes or to explore options for Suraj. 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 Chief Complaint "I'm ok." Review of Systems Notes Constitutional: denied Cardiovascular: denied Respiratory: denied Gastrointestinal: denied Neurological: denied Psychiatric: denies symptoms other than stated above Total of at least 10 systems reviewed, pertinent positives as above and in HPI. Telehealth Telehealth Telehealth Options: Telephone only For the duration of the visit, provider was performing the assessment from: The same facility as the patient After establishing a telemedicine visit, patient was: Patient/authorized rep acknowledged consent and understanding and Gave permission to continue telehealth session Subjective Subjective Patient's case was reviewed and discussed during morning report. Phone call placed to patient's room to assess progress since admission and discuss plan for likely transfer to our unit as soon as tomorrow. Pt reports "I'm ok." He denies any acute concerns. Pt denies SI/HI, A/V hallucinations, and reports feeling as though his thoughts have been more clear - but is occasionally slow to respond to questions. He does not openly verbalize any delusional thoughts. Pt continues to inquire daily about whether this process will be involuntary. He states he has not had to be corrected for inappropriate behavior since we discussed the topic of his masturbation yesterday. We reviewed that this will be the expectation on our unit as well. Pt denied other needs at this time. Physical Exam Psychiatric Orientation: alert, oriented x 3 and cooperative (superficially ) Speech: normal rate/rhythm/volume of speech (occasional delayed responses) Mood: no depressed mood ("I'm ok") Thought Process: goal directed thought process and + concrete thought process Thought Content: no delusions (at least not openly verbalized during conversation) Suicidal Thoughts: denies suicidal thoughts and denies suicidal intent Homicidal Thoughts: denies homicidal thoughts Hallucinations: no auditory hallucinations and no visual hallucinations Cognition: attention grossly intact and language grossly intact Insight: + impaired insight Judgement: + impaired judgement Unable to assess visual aspects of mental status examination due to patient's COVID-19 status - assessment completed via telephone call. Vital Signs (Past 24 Hours) Last Vital Signs Temp 36.9 C 01/12/21 08:30 Pulse 72 01/12/21 08:30 Resp 16 01/12/21 08:30 BP 113/71 01/12/21 08:30 Pulse Ox 96 01/12/21 08:30 Results & Data ([facility]) Current Inpatient Medications Current Inpatient Medications: Current Inpatient Medications Acetaminophen (Acetaminophen 325 Mg Tab) 650 mg PO Q4H PRN PRN Reason: pain/fever Stop: 02/01/21 22:42 Last Admin: 01/09/21 02:26 Dose: 650 mg Documented by: Enoxaparin Sodium (Enoxaparin Inj 40 Mg/0.4 Ml Syr) 40 mg SQ Q24H MATT Stop: 02/02/21 08:59 Last Admin: 01/12/21 08:28 Dose: 40 mg Documented by: Promethazine HCl 12.5 mg/ (Sodium Chloride) 50.5 mls @ 202 mls/hr IV Q6H PRN PRN Reason: Nausea And Vomiting Stop: 02/04/21 16:42 Olanzapine (Olanzapine 10 Mg Tab) 10 mg PO BID MATT Stop: 02/03/21 20:59 Last Admin: 01/12/21 08:28 Dose: 10 mg Documented by: Olanzapine (Olanzapine 10 Mg/2.1 Ml Sdv) 10 mg IM Q8H PRN PRN Reason: agitation or dyscontrolled behavior Stop: 02/03/21 13:29 Olanzapine (Olanzapine 10 Mg Tab) 10 mg PO Q8H PRN PRN Reason: agitation or dyscontrolled beh Stop: 02/03/21 13:29 Polyethylene Glycol (Polyethylene (Miralax) 17 Gm Pack) 17 gm PO DAILY PRN PRN Reason: Constipation Stop: 02/01/21 22:42 Mental Health & Subst Abuse Tx Psychiatrist Name of Psychiatrist: Dr. Price - [facility] Psychiatrist's Date of Appointment with Psychiatrist: 01/28/21 Time of Appointment with Psychiatrist: 4:20 pm Psychiatrist Release of Information: Obtained, Reviewed and Signed Therapist Name of Therapist: Declining Literacy Coordinator Name of Literacy Coordinator: Declining Post Discharge Appointments Primary Care Physician Name Of Family Doctor: [facility] Date of Appointment with PCP: 02/01/21 Time of Appointment with PCP: 11:20 a.m. Provider Appointment Comment: [place] [id number] Contact Information Discharge Discharge Address: [place] [address], [facility] [place] [address]
--- NOTE | 2021-01-12 19:34 | Hospitalist Progress Note ---
Date of Service January 12, 2021 Assessment & Plan (1) Bipolar mood disorder: (2) Schizoaffective disorder: Presented with disinhibited psychosis off medications endorsing auditory hallucinations. Cont 1:1 observation. Cont psych treatment medically as needed. He is doing well on current therapy (3) SARS-CoV-2 positive: asymptomatic, dc isolation after 10 days. OK to transfer to MHU in am. (4) Tick bite: Received doxy prophylaxis during beginning of admission when tick was removed. Monitor for rickettsial illness.No issues at this time. (5) DVT prophylaxis: SCDs, ambulation Full Code Dispo-to inpatient mental health care at time of discharge, planned for am. DO Ace MalloyM[facility] campusist Admission and Anticipated Discharge Date Admission Date: January 02, 2021 Subjective 30 yo M with h/o psychosis was admitted on 302 warrant after being found in public nude and masturbating. Records reflect release from a psychiatric facility in [place] in the past couple of weeks and multiple previous hospitalizations. Psychiatry here has deemed him a risk to himself and others and is requiring inpatient mental health treatment. However, he is currently detained in the COVID-19 unit asymptomatic with novel coronavirus. He denies any respiratory symptoms at this time. Tolerating PO Afebrile Doing well on current antipsychotic medical therapy. Review of Systems Review of Systems: All systems reviewed & are unremarkable except as noted in Subjective Physical Exam 2 Physical Exam: CONSTITUTIONAL: WNWD, vitals as above, generally well- appearing EYES: normal conjunctivae, no scleral icterus ENT: external ear and nose normal, MMM RESPIRATORY: clear to auscultation bilaterally, no crackles, rales or wheezes, normal respiratory effort CARDIOVASCULAR: regular rate and rhythm, S1 and 2 heard without murmurs, gallops or rubs, no JVD, no peripheral edema MUSCULOSKELETAL: strength 5/5 throughout, head is normocephalic and atraumatic SKIN: warm and dry NEUROLOGIC: CN 2-12 grossly intact, normal cognition, normal speech PSYCHIATRIC: alert cooperative and oriented. Results & Data Results & Data ([facility]) Vital Signs (Past 12 Hours) Vital Signs Temp Pulse Resp BP Pulse Ox 01/12/21 19:04 36.6 C 71 18 119/73 97 01/12/21 08:30 36.9 C 72 16 113/71 96 Medications Administered Current Inpatient Medications Acetaminophen (Acetaminophen 325 Mg Tab) 650 mg PO Q4H PRN PRN Reason: pain/fever Stop: 02/01/21 22:42 Last Admin: 01/09/21 02:26 Dose: 650 mg Documented by: Enoxaparin Sodium (Enoxaparin Inj 40 Mg/0.4 Ml Syr) 40 mg SQ Q24H [facility] Stop: 02/02/21 08:59 Last Admin: 01/12/21 08:28 Dose: 40 mg Documented by: Promethazine HCl 12.5 mg/ (Sodium Chloride) 50.5 mls @ 202 mls/hr IV Q6H PRN PRN Reason: Nausea And Vomiting Stop: 02/04/21 16:42 Olanzapine (Olanzapine 10 Mg Tab) 10 mg PO BID [facility] Stop: 02/03/21 20:59 Last Admin: 01/12/21 08:28 Dose: 10 mg Documented by: Olanzapine (Olanzapine 10 Mg/2.1 Ml Sdv) 10 mg IM Q8H PRN PRN Reason: agitation or dyscontrolled behavior Stop: 02/03/21 13:29 Olanzapine (Olanzapine 10 Mg Tab) 10 mg PO Q8H PRN PRN Reason: agitation or dyscontrolled beh Stop: 02/03/21 13:29 Polyethylene Glycol (Polyethylene (Miralax) 17 Gm Pack) 17 gm PO DAILY PRN PRN Reason: Constipation Stop: 02/01/21 22:42 (1) Schizoaffective disorder Schizoaffective disorder type: unspecified Qualified Code(s): F25.9 - Schizoaffective disorder, unspecified
[2021-01-13] MEDS: OLANZapine 10 MG TAB PO SCH (10:29)
[2021-01-13] MEDS: ENOXAPARIN INJ 40 MG/0.4 ML SYR SQ SCH (10:29)
--- NOTE | 2021-01-13 12:08 | Hospitalist Progress Note ---
Date of Service January 13, 2021 Assessment & Plan (1) Bipolar mood disorder: (2) Schizoaffective disorder: Presented with disinhibited psychosis off medications endorsing auditory hallucinations. Cont 1:1 observation. Cont psych treatment medically as needed. He is doing well on current therapy (3) SARS-CoV-2 positive: asymptomatic, dc isolation after 10 days. Medically cleared for transfer to [facility] off isolation. (4) Tick bite: Received doxy prophylaxis during beginning of admission when tick was removed. Monitor for rickettsial illness.No issues at this time. Patient was counseled on signs and symptoms to watch for and verbalized understanding with intent to comply. (5) DVT prophylaxis: SCDs, ambulation Full Code Dispo-to inpatient mental health custody. DC from inpatient status now. DO Ace [facility]oyK[facility] Centerist Admission and Anticipated Discharge Date Admission Date: January 02, 2021 Subjective 30 yo M with h/o psychosis was admitted on 302 warrant after being found in public nude and masturbating. Records reflect release from a psychiatric facility in [place] in the past couple of weeks and multiple previous hospitalizations. Psychiatry here has deemed him a risk to himself and others and is requiring inpatient mental health treatment. However, he is currently detained in the COVID-19 unit asymptomatic with novel coronavirus. He denies any respiratory symptoms at this time. Tolerating PO Afebrile Doing well on current antipsychotic medical therapy. Review of Systems Review of Systems: All systems reviewed & are unremarkable except as noted in Subjective Physical Exam Physical Exam: CONSTITUTIONAL: WNWD, vitals as above, generally well- appearing EYES: normal conjunctivae, no scleral icterus ENT: external ear and nose normal, MMM RESPIRATORY: clear to auscultation bilaterally, no crackles, rales or wheezes, normal respiratory effort CARDIOVASCULAR: regular rate and rhythm, S1 and 2 heard without murmurs, gallops or rubs, no JVD, no peripheral edema MUSCULOSKELETAL: strength 5/5 throughout, head is normocephalic and atraumatic SKIN: warm and dry NEUROLOGIC: CN 2-12 grossly intact, normal cognition, normal speech PSYCHIATRIC: alert cooperative and oriented. Results & Data Results & Data ([facility]) Vital Signs (Past 12 Hours) Vital Signs Temp Pulse Resp BP Pulse Ox 01/13/21 08:56 36.5 C 81 18 103/66 96 Medications Administered Current Inpatient Medications Acetaminophen (Acetaminophen 325 Mg Tab) 650 mg PO Q4H PRN PRN Reason: pain/fever Stop: 02/01/21 22:42 Last Admin: 01/09/21 02:26 Dose: 650 mg Documented by: Enoxaparin Sodium (Enoxaparin Inj 40 Mg/0.4 Ml Syr) 40 mg SQ Q24H [facility] Stop: 02/02/21 08:59 Last Admin: 01/13/21 10:29 Dose: Not Given Documented by: Promethazine HCl 12.5 mg/ (Sodium Chloride) 50.5 mls @ 202 mls/hr IV Q6H PRN PRN Reason: Nausea And Vomiting Stop: 02/04/21 16:42 Olanzapine (Olanzapine 10 Mg Tab) 10 mg PO BID [facility] Stop: 02/03/21 20:59 Last Admin: 01/13/21 10:29 Dose: 10 mg Documented by: Olanzapine (Olanzapine 10 Mg/2.1 Ml Sdv) 10 mg IM Q8H PRN PRN Reason: agitation or dyscontrolled behavior Stop: 02/03/21 13:29 Olanzapine (Olanzapine 10 Mg Tab) 10 mg PO Q8H PRN PRN Reason: agitation or dyscontrolled beh Stop: 02/03/21 13:29 Polyethylene Glycol (Polyethylene (Miralax) 17 Gm Pack) 17 gm PO DAILY PRN PRN Reason: Constipation Stop: 02/01/21 22:42 (1) Schizoaffective disorder Schizoaffective disorder type: unspecified Qualified Code(s): F25.9 - S chizoaffective disorder, unspecified
--- NOTE | 2021-01-13 12:11 | Discharge Summary ---
Date of Service January 13, 2021 Admission HPI Per Admitting Provider HISTORY OF PRESENT ILLNESS: This is a 30-year-old male with past medical history significant for schizoaffective disorder bipolar type, altered thought process was brought in because he was exposing himself on the streets and in the hospital, he was found to be COVID positive. The patient is currently resting comfortably and hemodynamically stable. Denies any chest pain. No cough, no fever, no chills, no shortness of breath, no headache, no blurred vision, no earache, no runny nose, no sore throat, no nausea, no abdominal pain, no diarrhea. Appetite is okay. Denies any complaints. The patient does not know how he got COVID. No known exposures. Afebrile. Admission Exam Per Admitting Provider PHYSICAL EXAMINATION: GENERAL: The patient is of moderate build, not in acute distress. VITAL SIGNS: Temperature 36.8, pulse 75, respiratory rate 20, blood pressure 103/65, oxygen 97% on room air. HEENT: Head atraumatic. Oral mucosa moist. NECK: No neck masses. Supple. CARDIOVASCULAR: S1, S2 heard. Regular rate and rhythm. No murmur, no gallop. RESPIRATORY SYSTEM: Normal AP diameter. No accessory muscle use. No wheezing, no crackles. ABDOMEN: Soft, bowel sounds present, nontender. No distention. CENTRAL NERVOUS SYSTEM: Cranial nerves II-XII grossly intact. Nonfocal. EXTREMITIES: No edema, no erythema. 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 * bipolar mood disorder * COVID 19 positive status * tick bite Discharge Exam CONSTITUTIONAL: WNWD, vitals as above, generally well-appearing EYES: normal conjunctivae, no scleral icterus ENT: external ear and nose normal, MMM RESPIRATORY: clear to auscultation bilaterally, no crackles, rales or wheezes, normal respiratory effort CARDIOVASCULAR: regular rate and rhythm, S1 and 2 heard without murmurs, gallop s or rubs, no JVD, no peripheral edema MUSCULOSKELETAL: strength 5/5 throughout, head is normocephalic and atraumatic SKIN: warm and dry NEUROLOGIC: CN 2-12 grossly intact, normal cognition, normal speech PSYCHIATRIC: alert cooperative and oriented. Discharge Data Allergies Allergy/AdvReac Type Severity Reaction Status Date / Time bee venom protein (honey bee) Allergy Severe ANAPHYLAXIS Verified 01/02/21 15:46 risperidone Allergy Rash Verified 01/02/21 15:46 Consultations 01/02/21 18:57 ED Decision to Admit Stat 01/03/21 08:00 Consult Psychiatry Routine Ordered Studies Laboratory Results WBC 5.27 K/uL (4.8-10.8) 01/11/21 06:45 RBC 4.99 M/uL (4.7-6.1) 01/11/21 06:45 Hgb 15.4 g/dL (14.0-18.0) 01/11/21 06:45 Hct 43.5 % (42-52) 01/11/21 06:45 MCV 87.2 fL (80-100) 01/11/21 06:45 MCH 30.9 pg (25-34) 01/11/21 06:45 MCHC 35.4 g/dL (32-36) 01/11/21 06:45 RDW Std Deviation 41.4 fL (36.4-46.3) 01/11/21 06:45 RDW Coeff of [place] 13.1 % (11.5-14.5) 01/11/21 06:45 Plt Count 240 K/uL (130-400) 01/11/21 06:45 MPV 9.2 fL (7.4-10.4) 01/11/21 06:45 Immature Gran % (Auto) 0.2 % 01/03/21 05:52 Neut % (Auto) 41.3 % 01/03/21 05:52 Lymph % (Auto) 39.6 % 01/03/21 05:52 [place] % (Auto) 16.1 % 01/03/21 05:52 Eos % (Auto) 2.1 % 01/03/21 05:52 Baso % (Auto) 0.7 % 01/03/21 05:52 Neut # (Auto) 1.79 K/uL (1.4-6.5) 01/03/21 05:52 Lymph # (Auto) 1.72 K/uL (1.2-3.4) 01/03/21 05:52 [place] # (Auto) 0.70 K/uL (0.11-0.59) H 01/03/21 05:52 Eos # (Auto) 0.09 K/uL (0-0.5) 01/03/21 05:52 Baso # (Auto) 0.03 K/uL (0-0.2) 01/03/21 05:52 Immature Gran # (Auto) 0.01 K/uL (0.00-0.02) 01/03/21 05:52 D-Dimer 310 ug/L FEU (0-500) 01/03/21 05:52 Sodium 141 mmol/L (136-145) 01/11/21 06:45 Potassium 4.7 mmol/L (3.5-5.1) 01/11/21 06:45 Chloride 110 mmol/L (98-107) H 01/11/21 06:45 Carbon Dioxide 27 mmol/L (21-32) 01/11/21 06:45 Anion Gap 4.0 (3-11) 01/11/21 06:45 BUN 10 mg/dl (7-18) 01/11/21 06:45 Creatinine 0.98 mg/dl (0.6-1.4) 01/11/21 06:45 Est Cr Clr Drug Dosing 108.7 ml/min 01/11/21 06:45 Est GFR ( Amer) 121.1 01/11/21 06:45 Est GFR (Non-Af Amer) 104.5 01/11/21 06:45 BUN/Creatinine Ratio 10.4 (10-20) 01/11/21 06:45 Glucose 94 mg/dl (70-99) 01/11/21 06:45 Calcium 8.6 mg/dl (8.5-10.1) 01/11/21 06:45 Magnesium 2.2 mg/dl (1.8-2.4) 01/03/21 05:52 Ferritin 140.9 ng/ml (8-388) 01/03/21 05:52 Total Bilirubin 0.6 mg/dl (0.2-1) 01/02/21 15:21 AST 19 U/L (15-37) 01/02/21 15:21 ALT 23 U/L (12-78) 01/02/21 15:21 Alkaline Phosphatase 73 U/L (45-117) 01/02/21 15:21 Troponin I < 0.015 ng/ml (0-0.045) 01/03/21 05:52 C-Reactive Protein < 0.29 mg/dl (0-0.29) 01/03/21 05:52 Total Protein 7.1 gm/dl (6.4-8.2) 01/02/21 15:21 Albumin 3.9 gm/dl (3.4-5.0) 01/02/21 15:21 Globulin 3.2 gm/dl (2.5-4.0) 01/02/21 15: Albumin/Globulin Ratio 1.2 (0.9-2) 01/02/21 15:21 TSH 1.730 uIu/ml (0.300-4.500) 01/02/21 15:21 Urine Color Yellow 01/02/21 15:03 Urine Appearance Clear (Clear) 01/02/21 15:03 Urine pH 7.0 (4.5-7.5) 01/02/21 15:03 Ur Specific [place] 1.026 (1.000-1.030) 01/02/21 15:03 Urine Protein Negative (Negative) 01/02/21 15:03 Urine Glucose (UA) Negative (Negative) 01/02/21 15:03 Urine Ketones Trace (Negative) H 01/02/21 15:03 Urine Blood Negative (Negative) 01/02/21 15:03 Urine Nitrite Negative (Negative) 01/02/21 15:03 Urine Bilirubin Negative (Negative) 01/02/21 15:03 Urine Urobilinogen Negative (Negative) 01/02/21 15:03 Ur Leukocyte Esterase Negative (Negative) 01/02/21 15:03 Salicylates < 1.7 mg/dl (2.8-20) L 01/02/21 15:21 Urine Opiates Screen Neg (Neg) 01/02/21 15:03 Ur Methadone, Qual Neg (Neg) 01/02/21 15:03 Acetaminophen < 2 ug/ml (10-30) L 01/02/21 15:21 Urine Barbiturates Neg (Neg) 01/02/21 15:03 Ur Phencyclidine (PCP) Neg (Neg) 01/02/21 15:03 U Amphetamin/Meth Scrn Neg (Neg) 01/02/21 15:03 MDMA (Ecstasy) Screen Neg (Neg) 01/02/21 15:03 U Benzodiazepines Scrn Neg (Neg) 03/31/21 15:03 Ur Cocaine Metabolite Neg (Neg) 01/02/21 15:03 U Marijuana (THC) Screen Neg (Neg) 01/02/21 15:03 Ethyl Alcohol mg/dL < 3.0 mg/dl (0-3) 01/02/21 15:21 Lyme Disease IgG Ab Negative (Negative) 01/03/21 05:52 Lyme Disease IgM Ab Negative (Negative) 01/03/21 05:52 COVID-19 Eval Order [facility]FluRsv at [facility] 01/02/21 15:45 SARS-CoV-2 (PCR) POSITIVE (Negative) A* 01/02/21 15:45 Influenza Type A (PCR) Negative (Neg) 01/02/21 15:45 Influenza Type B (PCR) Negative (Neg) 01/02/21 15:45 RSV (RT-PCR) Negative (Neg) 01/02/21 15:45 Impressions Chest X-Ray 01/03/21 07:00 XR chest 1V portable HISTORY: 30 years-old Male covid acute cough with shortness of breath. COVID Positive. COMPARISON: None TECHNIQUE: Portable AP view of the chest FINDINGS: Cardiomediastinal and hilar silhouettes are within normal limits. No pneumothorax, pleural effusion, airspace consolidation or overt pulmonary edema. Bones of the chest appear grossly intact. IMPRESSION: No acute process. ACT 112: Negative or not required by law. The above report was generated using voice recognition software. It may contain grammatical, syntax or spelling errors. Electronically signed by: Fadi Eubanks M.D. 01/03/2021 8:28 AM Hospital Course (1) Bipolar mood disorder: (2) Schizoaffective disorder: (3) SARS-CoV-2 positive: (4) Tick bite: Patient is a 30-year-old man brought in by EMS with police after being found nude and masturbating in [facility]. He was recently undergoing treatment at a mental health facility in [facility] after which she was released to his parents custody. Evaluation in the ER revealed him to be Covid positive and he was admitted to the hospitalist service for monitoring and isolation. A 302 petition was filed and a psychiatry consult was requested. Olanzapine was offered and worked well for the patient throughout his hospital ization which included 10 days of isolation on the medical floor. He never developed respiratory symptoms or other symptoms consistent with an infection with novel coronavirus. He was found to have a tick on him early in the admission and was given doxycycline prophylaxis treatment. He remained afebrile hemodynamically stable and without any signs of developing rickettsial illness throughout his hospital stay. At time of discharge he was hemodynamically stable and afebrile and tolerating p.o. He was mentating well and oriented and ambulating normally. He was discharged in stable condition for further inpatient mental health treatment upstairs. Close primary care follow-up is recommended after discharged home to ensure he is still doing well after his exposure to COVID-19 virus. 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 * bipolar mood disorder * COVID 19 positive status * tick bite Condition on Discharge: Good Activity: Resume your previous activity Non-emergency contact: Primary Care Provider Call non-emergency contact if: you have any medication questions Follow-up/Referrals: Francisco Campos MD [Primary Care Provider] - Diet: Regular Addtl Attending Provider Instructions: Home Isolation COVID-19 Instructions The following information about Home Isolation is from the CDC Website: https://www.cdc.gov/coronavirus/2019-ncov/hcp/gfdrqhaf-shkzwoa-tbvlcn.html Stay home except to get medical care People who are mildly ill with COVID-19 are able to isolate at home during their illness. You should restrict activities outside your home, except for getting medical care. Do not go to work, school, or public areas. Avoid using public transportation, ride-sharing, or taxis. Separate yourself from other people and animals in your home People: As much as possible, you should stay in a specific room and away from other people in your home. Also, you should use a separate bathroom, if available. Animals: You should restrict contact with pets and other animals while you are sick with COVID-19, just like you would around other people. Although there have not been reports of pets or other animals becoming sick with COVID-19, it is still recommended that people sick with COVID-19 limit contact with animals until more information is known about the virus. When possible, have another member of your household care for your animals while you are sick. If you are sick with COVID-19, avoid contact with your pet, including petting, snuggling, being kissed or licked, and sharing food. If you must care for your pet or be around animals while you are sick, wash your hands before and after you interact with pets and wear a face mask. Call ahead before visiting your doctor If you have a medical appointment, call the healthcare provider and tell them that you have or may have COVID-19. This will help the healthcare providers office take steps to keep other people from getting infected or exposed. Wear a face mask You should wear a face mask when you are around other people (e.g., sharing a room or vehicle) or pets and before you enter a healthcare providers office. If you are not able to wear a face mask (for example, because it causes trouble breathing), then people who live with you should not stay in the same room with you, or they should wear a face mask if they enter your room. Cover your coughs and sneezes Cover your mouth and nose with a tissue when you cough or sneeze. Throw used tissues in a lined trash can. Immediately wash your hands with soap and water f or at least 20 seconds or, if soap and water are not available, clean your hands with an alcohol-based hand general neurologist that contains at least 60% alcohol. Clean your hands often Wash your hands often with soap and water for at least 20 seconds, especially after blowing your nose, coughing, or sneezing; going to the bathroom; and before eating or preparing food. If soap and water are not readily available, use an alcohol-based hand general neurologist with at least 60% alcohol, covering all surfaces of your hands and rubbing them together until they feel dry. Soap and water are the best option if hands are visibly dirty. Avoid touching your eyes, nose, and mouth with unwashed hands. Avoid sharing personal household items You should not share dishes, drinking glasses, cups, eating utensils, towels, or bedding with other people or pets in your home. After using these items, they should be washed thoroughly with soap and water. Clean all high-touch surfaces everyday High touch surfaces include counters, tabletops, doorknobs, bathroom fixtures, toilets, phones, keyboards, tablets, and bedside tables. Also, clean any patiño rfaces that may have blood, stool, or body fluids on them. Use a household cleaning spray or wipe, according to the label instructions. Labels contain instructions for safe and effective use of the cleaning product including precautions you should take when applying the product, such as wearing gloves and making sure you have good ventilation during use of the product. Monitor your symptoms Seek prompt medical attention if your illness is worsening (e.g., difficulty breathing).Beforeseeking care, call your healthcare provider and tell them t hat you have, or are being evaluated for, COVID-19. Put on a face mask before you enter the facility. These steps will help the healthcare providers office to keep other people in the office or waiting room from getting infected or exposed. Ask your healthcare provider to call the local or state health department. Persons who are placed under active monitoring or facilitated self- monitoring should follow instructions provided by their local health department or occupational health professionals, as appropriate. When working with your local health department check their available hours. If you have a medical emergency and need to call 911, notify the dispatch personnel that you have, or are being evaluated for COVID-19. If possible, put on a face mask before emergency medical services arrive. Discontinuing home isolation Patients with confirmed COVID-19 should remain under home isolation precautions until the risk of secondary transmission to others is thought to be low. The decision to discontinue home isolation precautions should be made on a [id number] basis, in consultation with healthcare providers and state and local health departments. Pending Studies at Discharge: No Stand-Alone Forms: My [facility] Medications and DC Order Prescriptions: New olanzapine 10 mg Tablet 10 mg PO BID Qty: 90 RF: 0 olanzapine 10 mg Tablet 10 mg PO Q8H PRNQty: 0 RF: 0 Discharge Orders: Discharge Order (Routine); Ordered 01/13/21 Ordered By: eDbo Abdi Admission Data Admit Date/Time: 01/02/21 20:29 Attending Provider: Debo Abdi Admit Provider: Yoel Cleary Primary Care Provider: Francisco Campos Other Providers: Yoel Cleary ; Gerri Miranda Other Interventions: PSY Interdisciplinary Discharge Planning Last Done: 01/10/21 12:57
== END 2021-01-13 14:05 | DRG 885 ==
LOC: ED 14:28 → INTOOBSV 20:29 → 2S 20:29 → SUATTDRO 20:29 → 2S 21:53

== ENCOUNTER 2021-01-13 12:29 | Inpatient (IN) ==
[2021-01-13] MEDS ORDERED: SODIUM CHLORIDE 0.65% NA SOLN 45 ML (OCEAN) PRN (13:09)
[2021-01-13] MEDS ORDERED: hydrOXYzine HCl 25 MG TAB PO PRN ×2 (13:09)
[2021-01-13] MEDS ORDERED: ACETAMINOPHEN 325 MG TAB PO PRN (13:09)
[2021-01-13] MEDS ORDERED: ALUMINUM/MAGNESIUM SUSP 30 ML UDC PO PRN (13:09)
[2021-01-13] MEDS ORDERED: BISMUTH SUBSALICYLATE LIQD 236 ML PO PRN (13:09)
[2021-01-13] MEDS ORDERED: MAGNESIUM HYDROXIDE SUSP 30 ML UDC PO PRN (13:09)
[2021-01-13] MEDS ORDERED: OLANZapine 10 MG TAB PO PRN (14:22)
--- NOTE | 2021-01-13 14:26 | History & Physical ---
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 smoker Substance History History of cannabis and shrooms, recent history of substance use continues to be unknown. Personal History Living Arrangements: Home (with parents in [place]) Highest Grade Completed: College (Reports a BS in [employer]) Employment Status: Unemployed Marital Status: Single Beliefs That Will Affect Care: None Patient History Medical History Schizoaffective disorder Social History Smoking Status: Current some day smoker Tobacco Type: Cigarettes Second Hand Exposure: No; Hx Alcohol Use: Yes Alcohol type: beer, wine and hard liquor Hx Substance Use: No Preferred Language: Bengali Communication Ability: Effective Botany Technician Required: No Beliefs That Will Affect Care: None Current Living Situation: Parent Feels Safe at Home: Yes Assistive Devices: None Review of Systems Review of Systems: Constitutional: denied Cardiovascular: denied Respiratory: denied Gastrointestinal: denied Neurological: denied Psychiatric: denies symptoms other than stated above Total of at least 10 systems reviewed, pertinent positives as above and in HPI. Physical Exam Psychiatric: Orientation: alert, oriented x 3 and + guarded (superficially cooperative) Apperance: appropriately dressed, appropriately groomed and appeared stated age Tall, slender male, laying on bed in no acute distress. Pt is appropriately dressed for clinical setting, still wearing paper scrubs. Light brown hair appears clean, decently styled. No obvious tattoos or piercings. Level of hygiene/grooming appear adequate. Eye Contact: + poor eye contact (staring up at ceiling for duration of conversation) Motor Behavior: no abnormal motor movements (observed while laying on bed) Speech: + abnormal rate/rhythm/volume of speech (delayed responses, brief answers, monotone) Affect: + flat affect; + mood not congruent with affect Mood: no depressed mood and no anxious mood "I'm doing good, my mood is fine" Thought Process: + thought blocking, + circumstantial thought process and + concrete thought process Thought Content: + preoccupation, + paranoid and + delusions Suicidal Thoughts: denies suicidal thoughts, denies suicidal plan and denies suicidal intent Homicidal Thoughts: denies homicidal thoughts Hallucinations: no auditory hallucinations and no visual hallucinations Cognition: attention grossly intact and language grossly intact Insight: + impaired insight Judgement: + impaired judgement Exam Statement: A physical exam was performed on the medical floor prior to admission to the unit by Dr. Debo Abdi DO. I accept that physical as correct/medical clearance for the inpatient physical exam. Results & Data ([facility]) Current Inpatient Medications Current Inpatient Medications: Current Inpatient Medications Acetaminophen (Acetaminophen 325 Mg Tab) 650 mg PO Q4H PRN PRN Reason: Headache or Minor Fever Stop: 02/12/21 13:08 Al Hydrox/Mg Hydrox/Simethicone (Aluminum/Magnesium Susp 30 Ml Udc) 30 ml PO Q4H PRN PRN Reason: GI Upset Stop: 02/12/21 13:08 Bismuth Subsalicylate (Bismuth Subsalicylate Liqd 236 Ml) 15 ml PO PRN PRN PRN Reason: Loose Stool Stop: 02/12/21 13:08 Hydroxyzine HCl (Hydroxyzine Hcl 25 Mg Tab) 50 mg PO HSZ PRN PRN Reason: Insomnia Stop: 02/12/21 13:08 Hydroxyzine HCl (Hydroxyzine Hcl 25 Mg Tab) 25 mg PO Q4H PRN PRN Reason: Anxiety Stop: 02/12/21 13:08 Magnesium Hydroxide (Magnesium Hydroxide Susp 30 Ml Udc) 30 ml PO DAILY PRN PRN Reason: Constipation Stop: 02/12/21 13:08 Olanzapine (Olanzapine 10 Mg Tab) 10 mg PO BID MATT Stop: 02/12/21 20:59 Olanzapine (Olanzapine 10 Mg Tab) 10 mg PO DAILY PRN PRN Reason: agitation/psychosis Stop: 02/12/21 14:21 Sodium Chloride (Sodium Chloride 0.65% Na Soln 45 Ml ([place])) 1 - 2 sprays NA PRN PRN PRN Reason: Nasal Dryness/Congestion Stop: 02/12/21 13:08
[2021-01-13] MEDS ORDERED: OLANZapine 10 MG TAB PO SCH (21:00)
[2021-01-14] MEDS ORDERED: haloperidoL 5 MG TAB PO PRN (08:28)
[2021-01-14] MEDS ORDERED: HALOPERIDOL LACTATE 5 MG/ML 1 ML VIAL IM PRN (08:28)
[2021-01-14] MEDS ORDERED: BENZTROPINE MESYLATE 1 MG TAB PO PRN (08:28)
--- NOTE | 2021-01-14 08:35 | Psychiatric Progress Note ---
Date of Service January 14, 2021 Impression / Recommendations (1) Acute psychosis: - Italic sections refer to daily care summary from medical floor admission - 01/03 -patient is a poor historian, reports indicate he may have been started on Abilify Maintena while hospitalized in [place], but timeline unknown. He is agreed to sign a release and I have asked the nurse on the floor to obtain that so that we can get those records. We will also attempt to get records from his outpatient psychiatrist, Dr. Price. -If he is refusing to take antipsychotic medications, recommend medications over objection, as he has responded to antipsychotic medication in the past, and psychotic symptoms are unlikely to remit without antipsychotic treatment. Additionally, he is severely disabled as a result of his psychosis, is unable to provide for his own basic needs, and places both himself and others at risk of harm if his symptoms remain untreated. -Given his history of nonadherence and severity of symptoms with untreated mental illness, will recommend ongoing involuntary commitment with transition to an IOC at discharge. He would benefit from case management and therapy as well. -Offer olanzapine 10 mg p.o./IM as needed for acute psychosis, as he has been on this medication before and tolerated it. -Consider initiation of a mood stabilizer such as Depakote, which can be given IV over objection if he remains unwilling for medications. 01/04 -The patient has stated that he was given Abilify Maintena intramuscularly fairly recently, but there is some reason to believe that this may not be accurate. It is noted that the patient's father said that he has not observed a ny changes in the patient's behaviors and other symptoms subsequent to the reported dose of Abilify. -Although the patient says that he has not been using neither cannabis nor hallucinogenic mushrooms recently, he is not considered a reliable performance improvement manager. His tox screen at admission was negative for occult blood, but the test was not specific for hallucinogens. Accordingly, while I would doubt that the entire constellation of problems observed are related to substance use, this cannot be ruled out as a mitigating factor. -Today, the patient reports that he will refuse to take Abilify because he says that he is "allergic" to it. When asked to describe the allergy, he replied by saying that Abilify makes him feel "weird," and he says that he feels certain that it interferes with his sleep. The patient reports that he has taken olanzapine (Zyprexa) and has tolerated that well. He also suggest that he thinks that it "helps." However, he cannot exactly say how it helps. -Today, the patient says that he is embarrassed about the fact that he was "running around outside" while naked, and that he was masturbating in public. However, he has difficulty saying why that should be an issue, other than to repeatedly say, "it is bad." At the same time, and the period of time that immediately proceeded our telephonic contact the patient was reportedly openly masturbating in front of his one-to-one janitorial assistant and, also reportedly, the patient had invited the one-to-one janitorial assistant to either masturbate together with the patient or to allow the patient to masturbate him. Furthermore, the patient indicated that he felt this behavior was reconciled because he had awakened in a "sexual place." Accordingly, what initially had suggested improving insight is abrogated by his ongoing inappropriate and dyscontrol behaviors. -Given the fact the patient may have an unspecified dose of Abilify Maintena on board, reportedly administered on 12/19/2020, and given that the patient may need to receive his olanzapine by intramuscular injection if he continues to periodically refused to take it voluntarily (see med over objection first and second opinions), will reduce the dose of olanzapine from 10 mg 3 times a day to olanzapine 10 mg twice a day by mouth, and will order medications over objection in the form of olanzapine 10 mg IM twice a day. The dose can be titrated as indicated. 01/05--review of available records (most recent [place] pending) note dx of bipolar and/or schizoaffective bipolar type. Records state concussion/no head injuries so family was contacted as amount of preoccupation with masturbating seemed out of proportion to hypersexuality from becca. No hx of hyperorality so doubt [place] Dean. Had multiple concussions in high school had to leave football and switched to soccer. symptom onset in college so doubt orbitofrontal syndrome. 01/07--303 granted. still trying to confirm date of Abilify injection (or if received). Invega seemed more amenable option than Haldol dec but family confirms poor response to Risperdal and preference toward Abilify. For now Zyprexa is stabilizing patient. Reviewed with family that no local clinics administer the IM. 01/08 - Pt is religiously preoccupied and reporting thoughts that are consistent with ongoing delusions. He is now reporting he thinks he can "do things on my own" and is not particularly interested in outpatient treatment - Pt is declining medication changes. Although it is helpful that he is tolerating olanzapine and denies concerning side effects, he is unfortunately very resistant to adjusting medications to allow for an DE LOS SANTOS option. He is unable to formulate a plan for how he plans to ensure compliance with an oral medication and therefore remains at risk of noncompliance, destabilization, frequent hospitalizations or injury/ as a result of psychosis. - Pt strongly encouraged to consider therapy and case management services. 01/09 - Continue current medication regimen, though consider need for further titration of olanzapine. Patient is not clearly verbalizing any yarsani preoccupation but seems to still be disorganized and mildly thought blocked. He continues to demonstrate poor insight into his mental health condition and need for treatment. - Will plan to schedule a family meeting to involve parents - as we will need to begin discussing safety recommendations and outpatient supports - Considering 304 IOC due to poor insight, history of medication noncompliance, and seriousness of patient's condition 01/10 - Infection control reporting patient could be cleared for referral to a psychiatric unit as soon as 01/13/21. - Continue as above - thoughts continue to be disorganized, ongoing yarsani preoccupation. Pt continues to have poor insight into the severity of his condition and on a few occasions indicated that he may begin refusing his oral medications (2-physician opinions documented on chart for medications over objection if this should occur). - Offered to adjust dosing of olanzapine due to reports of daytime fatigue, patient declining at this time. Consider need for titration of the medication if thoughts do not continue to clear. - Anticipate need for inpatient psychiatric treatment once cleared medically to join the inpatient milieu setting - Considering 304 IOC, meeting scheduled with [facility] to discuss case on 01/16 01/11 - Continue as above. We did receive reports that patient does continue to engage in sexually inappropriate behavior. We are encouraging staff to redirect patient in these situations and offer alternative activities. Pt reports feeling some control over this behavior and express apologies. - Continue olanzapine - consider need for further titration - Anticipate clearance from isolation precautions on 01/16, and then will consider for admission to our unit for continued psychiatric treatment - Likely will require 304 IOC. 01/12 - Continue as above - anticipate discharge from the medical floor tomorrow, with subsequent admission to our unit to continue psychiatric treatment. - Pt reports appropriate behavior, reviewed some of the expectations regarding behavior on our unit as well. 01/13 - Continue olanzapine 10mg BID - discuss case further during treatment team tomorrow. - Admitted to a locked inpatient behavioral health unit, on q15 minute safety checks - Encourage medication initiation/adjustments as indicated - Encourage participation in group and recreational therapies - Gather collateral information from outpatient providers - Suggest family meeting to involve outpatient supports in safety planning - Arrange appropriate aftercare 01/14 -File for 304 involuntary commitment hearing to be held 01/16. Consider the need for referral to [facility] for long-term inpatient treatment versus diversion to an involuntary outpatient commitment. -Patient has been seen by 2 physicians for medications over objection, and although he has taken oral medications at times here in the hospital, has consistently stated that he does not believe he needs medication or psychiatric treatment, and will not continue it after leaving the hospital. We are therefore recommending an long-acting injectable antipsychotic. Multiple medications have been reviewed with him and he has refused all of them. We will discontinue olanzapine as it is not available as an DE LOS SANTOS, and start haloperidol 10 mg twice daily p.o., with an IM backup for refusal, with a plan to transition to Haldol Decanoate once an effective dose is established. -Treatment planning meeting with [facility] scheduled for 01/16 after commitment hearing. (2) Noncompliance with medication regimen: - Italic sections refer to daily care summary from medical floor admission - Recommend an DE [facility] S[facility]OS due to nonadherence with oral medication, need to obtain additional information about recent treatment before we can explore options. Father reports they were told he got Abilify Maintena on 12/19/2020, and due to tight receptor binding it may be difficult to get an adequate response from other dopaminergic medications until it is out of his system 01/04/21 -The patient is saying that he will refuse to take Abilify either orally or by injection of a depot form of aripiprazole. The plan is to stabilize the patient on olanzapine, and at that point we may be able to asked the patient to reconsider Abilify given reports that he has responded favorably to Abilify in the past. Alternatively, he could be converted to Invega Sustenna or Haldol decanoate, in view of his acknowledge long history of medication nonadherence 01/05/21--offered zydus, prefers pills and is compliant last 2 doses. 01/06--father states that he was trying to put Abilify in patient's cereal in days leading up to admission. 01/08 - Has been taking scheduled doses of olanzapine BID; however, unwilling for medication changes or to explore options for Suraj. 01/09 - 01/12 - Remains unwilling to consider DE LOS SANTOS options to promote medication compliance - Considering a 304 IOC 01/13 - Continue as above - patient remains resistant to an DE LOS SANTOS, now reporting the concern is related to fear of needles. - Pt stated today that he does not desire for medications to be a part of his treatment plan. - Medications over objection orders in place from assessments completed while patient was on the medical floor. (3) Exhibitionist behavior: 01/13 - These concerns were addressed by our staff during patient's medical floor admission. Pt had continued to frequently masturbate during his time on the medical floor, even occasionally propositioning his 1:1 staff. - Pt was informed that this behavior cannot be tolerated on our unit - sierra matthews in a milieu setting. - Continue to redirect patient and offer more appropriate coping strategies should this behavior continue. (4) Tick bite: Treatment Impression per hospitalist staff: - Received doxy prophylaxis during beginning of admission when tick was removed. Monitor for rickettsial illness.No issues at this time. Patient was counseled on signs and symptoms to watch for and verbalized understanding with intent to comply. 01/13 - Will continue to monitor for signs/symptoms of infection or disease related to tick bite. Monitor vitals including temperature daily as per usual protocol. Interval History Identifying Information YURIY COLLINS is a 30-year-old M who currently lives in [place] with his parents, has a reported history of schizoaffective disorder and treatment noncompliance, and was admitted on 01/13/21 14:07 on a 303 involuntary commitment for acute psychosis. He was initially admitted medically due to COVID + in ER and need for isolation precautions from 01/02/21 - 01/13/21. Chief Complaint "Going okay". Review of Systems Sleep Information Total Hours of Sleep: 10 Meal Information Percent Meal Consumed - Dinner: 100 Subjective Subjective Patient was seen & assessed and interval progress reviewed with treatment team. Staff reported he refused to sign releases for his outpatient psychiatrist, stating he did not know who he was and had not seen him before (although outpatient records indicate he recently had an appointment with Dr. Price), and continues to state he does not need medication or psychiatric treatment. He was minimally cooperative with the social work assessment, stating he did not need a piano case maker and did not want to sign ROIs. He has repeatedly stated he did not need medication, and did not want to take any medication. He declined groups yesterday. On my assessment today, he states he has been spending his time walking around the unit "trying to find a Bible." He describes his mood as "okay," reports good sleep and appetite, and denies anxiety. When asked about auditory hallucinations of voices, he states "I guess I stopped pursuing those, I realized I was not supposed to be outside naked." He says he is "disappointed" about the events that led to his admission, because he thinks people will be mad at him. He admits that he displayed similar behavior in [place] (negative masturbating in public), which also led to involuntary hospitalization there, but does not believe that his behavior or symptoms are a sign of mental illness. He cannot say how he would manage these urges if they should occur again. He remains unwilling to medication, stating "it comes down to how I want to live my life, eventually I want to be drug-free." When discussing treatment recommendations, he says "this could've been caused by a virus," and is unable to engage in a logical discussion of treatment recommendations. He was informed of the recommendations for a 304 involuntary commitment, and of the options for [facility] referral for long-term inpatient treatment versus diversion to involuntary outpatient treatment. Reviewed the details of the treatment recommendations, including a long-acting injectable antipsychotic (due to his history of nonadherence with oral medication and repeated statements that he does not need nor will he take medication), as well as outpatient follow-up with a psychiatrist, therapist, and piano case maker. He maintains "I thought maybe I could do it on my own." Physical Exam Psychiatric Orientation: alert and cooperative Apperance: appropriately dressed, appropriately groomed and appeared stated age Thin white male appearing his stated age. Dressed in scrub pants and a T-shirt, with short brown hair. Adequate hygiene and grooming. Seated on the bed in no acute distress. Eye Contact: + poor eye contact Motor Behavior: steady gait and station and no abnormal motor movements Soft-spoken, normal rate and tone. Affect: + blunted affect Mood: no depressed mood and no anxious mood "Okay." Thought Process: goal directed thought process Irrational thought process Thought Content: + cognitive distortions and + compulsions Suicidal Thoughts: denies suicidal thoughts Homicidal Thoughts: denies homicidal thoughts Hallucinations: no auditory hallucinations and no visual hallucinations Cognition: attention grossly intact and language grossly intact; + recent memory not intact Estimated Intelligence: average estimated intelligence Insight: + poor insight Judgement: + poor judgement Vital Signs (Past 24 Hours) Last Vital Signs Temp 36.5 C 01/14/21 06:34 Pulse 86 01/14/21 06:35 Resp 16 01/14/21 06:34 BP 98/63 L 01/14/21 06:35 Results & Data ([facility]) Current Inpatient Medications Current Inpatient Medications: Current Inpatient Medications Acetaminophen (Acetaminophen 325 Mg Tab) 650 mg PO Q4H PRN PRN Reason: Headache or Minor Fever Stop: 02/12/21 13:08 Al Hydrox/Mg Hydrox/Simethicone (Aluminum/Magnesium Susp 30 Ml Udc) 30 ml PO Q4H PRN PRN Reason: GI Upset Stop: 02/12/21 13:08 Benztropine Mesylate (Benztropine Mesylate 1 Mg Tab) 1 mg PO Q4H PRN PRN Reason: EPS Stop: 02/13/21 08:27 Bismuth Subsalicylate (Bismuth Subsalicylate Liqd 236 Ml) 15 ml PO PRN PRN PRN Reason: Loose Stool Stop: 02/12/21 13:08 Haloperidol (Haloperidol 5 Mg Tab) 10 mg PO Q6H PRN PRN Reason: psychosis or agitation Stop: 02/13/21 08:27 Haloperidol (Haloperidol 5 Mg Tab) 10 mg PO BID MATT Stop: 02/13/21 08:59 Haloperidol Lactate (Haloperidol Lactate 5 Mg/Ml 1 Ml Vial) 10 mg IM Q6H PRN PRN Reason: psychosis or agitation Stop: 02/13/21 08:27 Hydroxyzine HCl (Hydroxyzine Hcl 25 Mg Tab) 50 mg PO HSZ PRN PRN Reason: Insomnia Stop: 02/12/21 13:08 Hydroxyzine HCl (Hydroxyzine Hcl 25 Mg Tab) 25 mg PO Q4H PRN PRN Reason: Anxiety Stop: 02/12/21 13:08 Magnesium Hydroxide (Magnesium Hydroxide Susp 30 Ml Udc) 30 ml PO DAILY PRN PRN Reason: Constipation Stop: 02/12/21 13:08 Sodium Chloride (Sodium Chloride 0.65% Na Soln 45 Ml ([place])) 1 - 2 sprays NA PRN PRN PRN Reason: Nasal Dryness/Congestion Stop: 02/12/21 13:08 Mental Health & Subst Abuse Tx Psychiatrist Date of Appointment with Psychiatrist: 01/28/21 Time of Appointment with Psychiatrist: 4:20pm Machine Bobbin Winder Name of Machine Bobbin Winder: encourage referral Post Discharge Appointments Primary Care Physician Name Of Family Doctor: Dr. Campos Date of Appointment with PCP: 01/16/21 Time of Appointment with PCP: 11:20
[2021-01-14] MEDS: haloperidoL 5 MG TAB PO SCH ×3 (08:55→20:58)
--- NOTE | 2021-01-15 09:00 | Psychiatric Progress Note ---
Date of Service January 15, 2021 Impression / Recommendations (1) Acute psychosis: - Italic sections refer to daily care summary from medical floor admission - 01/03 -patient is a poor historian, reports indicate he may have been started on Abilify Maintena while hospitalized in [place], but timeline unknown. He is agreed to sign a release and I have asked the nurse on the floor to obtain that so that we can get those records. We will also attempt to get records from his outpatient psychiatrist, Dr. Price. -If he is refusing to take antipsychotic medications, recommend medications over objection, as he has responded to antipsychotic medication in the past, and psychotic symptoms are unlikely to remit without antipsychotic treatment. Additionally, he is severely disabled as a result of his psychosis, is unable to provide for his own basic needs, and places both himself and others at risk of harm if his symptoms remain untreated. -Given his history of nonadherence and severity of symptoms with untreated mental illness, will recommend ongoing involuntary commitment with transition to an IOC at discharge. He would benefit from case management and therapy as well. -Offer olanzapine 10 mg p.o./IM as needed for acute psychosis, as he has been on this medication before and tolerated it. -Consider initiation of a mood stabilizer such as Depakote, which can be given IV over objection if he remains unwilling for medications. 01/04 -The patient has stated that he was given Abilify Maintena intramuscularly fairly recently, but there is some reason to believe that this may not be accurate. It is noted that the patient's father said that he has not observed a ny changes in the patient's behaviors and other symptoms subsequent to the reported dose of Abilify. 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 His tox screen at admission was negative for occult blood, but the test was not specific for hallucinogens. Accordingly, while I would doubt that the entire constellation of problems observed are related to substance use, this cannot be ruled out as a mitigating factor. -Today, the patient reports that he will refuse to take Abilify because he says that he is "allergic" to it. When asked to describe the allergy, he replied by saying that Abilify makes him feel "weird," and he says that he feels certain that it interferes with his sleep. The patient reports that he has taken olanzapine (Zyprexa) and has tolerated that well. He also suggest that he thinks that it "helps." However, he cannot exactly say how it helps. -Today, the patient says that he is embarrassed about the fact that he was "running around outside" while naked, and that he was masturbating in public. However, he has difficulty saying why that should be an issue, other than to repeatedly say, "it is bad." At the same time, and the period of time that immediately proceeded our telephonic contact the patient was reportedly openly masturbating in front of his one-to-one assistant athletic trainer and, also reportedly, the patient had invited the one-to-one assistant athletic trainer to either masturbate together with the patient or to allow the patient to masturbate him. Furthermore, the patient indicated that he felt this behavior was reconciled because he had awakened in a "sexual place." Accordingly, what initially had suggested improving insight is abrogated by his ongoing inappropriate and dyscontrol behaviors. -Given the fact the patient may have an unspecified dose of Abilify Maintena on board, reportedly administered on 12/19/2020, and given that the patient may need to receive his olanzapine by intramuscular injection if he continues to periodically refused to take it voluntarily (see med over objection first and second opinions), will reduce the dose of olanzapine from 10 mg 3 times a day to olanzapine 10 mg twice a day by mouth, and will order medications over objection in the form of olanzapine 10 mg IM twice a day. The dose can be titrated as indicated. 01/05--review of available records (most recent [place] pending) note dx of bipolar and/or schizoaffective bipolar type. Records state concussion/no head injuries so family was contacted as amount of preoccupation with masturbating seemed out of proportion to hypersexuality from becca. No hx of hyperorality so doubt [facility]. Had multiple concussions in high school had to leave football and switched to soccer. symptom onset in college so doubt orbitofrontal syndrome. 01/07--303 granted. still trying to confirm date of Abilify injection (or if received). Invega seemed more amenable option than Haldol dec but family confirms poor response to Risperdal and preference toward Abilify. For now Zyprexa is stabilizing patient. Reviewed with family that no local clinics administer the IM. 01/08 - Pt is religiously preoccupied and reporting thoughts that are consistent with ongoing delusions. He is now reporting he thinks he can "do things on my own" and is not particularly interested in outpatient treatment - Pt is declining medication changes. Although it is helpful that he is tolerating olanzapine and denies concerning side effects, he is unfortunately very resistant to adjusting medications to allow for an DE OLS SANTOS option. He is unable to formulate a plan for how he plans to ensure compliance with an oral medication and therefore remains at risk of noncompliance, destabilization, frequent hospitalizations or injury/ as a result of psychosis. - Pt strongly encouraged to consider therapy and case management services. 01/09 - Continue current medication regimen, though consider need for further titration of olanzapine. Patient is not clearly verbalizing any christianity preoccupation but seems to still be disorganized and mildly thought blocked. He continues to demonstrate poor insight into his mental health condition and need for treatment. - Will plan to schedule a family meeting to involve parents - as we will need to begin discussing safety recommendations and outpatient supports - Considering 304 IOC due to poor insight, history of medication noncompliance, and seriousness of patient's condition 01/10 - Infection control reporting patient could be cleared for referral to a psychiatric unit as soon as 01/13/21. - Continue as above - thoughts continue to be disorganized, ongoing christianity preoccupation. Pt continues to have poor insight into the severity of his condition and on a few occasions indicated that he may begin refusing his oral medications (2-physician opinions documented on chart for medications over objection if this should occur). - Offered to adjust dosing of olanzapine due to reports of daytime fatigue, patient declining at this time. Consider need for titration of the medication if thoughts do not continue to clear. - Anticipate need for inpatient psychiatric treatment once cleared medically to join the inpatient milieu setting - Considering 304 IOC, meeting scheduled with [facility] to discuss case on 01/16 01/11 - Continue as above. We did receive reports that patient does continue to engage in sexually inappropriate behavior. We are encouraging staff to redirect patient in these situations and offer alternative activities. Pt reports feeling some control over this behavior and express apologies. - Continue olanzapine - consider need for further titration - Anticipate clearance from isolation precautions on 01/16, and then will consider for admission to our unit for continued psychiatric treatment - Likely will require 304 IOC. 01/12 - Continue as above - anticipate discharge from the medical floor tomorrow, with subsequent admission to our unit to continue psychiatric treatment. - Pt reports appropriate behavior, reviewed some of the expectations regarding behavior on our unit as well. 01/13 - Continue olanzapine 10mg BID - discuss case further during treatment team tomorrow. - Admitted to a locked inpatient behavioral health unit, on q15 minute safety checks - Encourage medication initiation/adjustments as indicated - Encourage participation in group and recreational therapies - Gather collateral information from outpatient providers - Suggest family meeting to involve outpatient supports in safety planning - Arrange appropriate aftercare 01/14 -File for 304 involuntary commitment hearing to be held 01/16. Consider the need for referral to [facility] for [facility]-term inpatient treatment versus diversion to an involuntary outpatient commitment. -Patient has been seen by 2 physicians for medications over objection, and although he has taken oral medications at times here in the hospital, has consistently stated that he does not believe he needs medication or psychiatric treatment, and will not continue it after leaving the hospital. We are therefore recommending an long-acting injectable antipsychotic. Multiple medications have been reviewed with him and he has refused all of them. We will discontinue olanzapine as it is not available as an DE LOS SANTOS, and start haloperidol 10 mg twice daily p.o., with an IM backup for refusal, with a plan to transition to Haldol Decanoate once an effective dose is established. -Treatment planning meeting with [facility] scheduled for 01/16 after commitment hearing. 01/15 - Continue haloperidol 10mg BID - patient has been taking medications orally, though with some reluctance. IM form remains available for meds over objection if necessary - Will order fasting glucose and lipid panel for tomorrow - as no record of labs being done while in [place] - We were able to clarify with new records that patient did, in fact, receive Abilify Maintena on 12/20 while inpatient in [place]. - 304 hearing tomorrow; [facility] meeting to follow to discuss discharge planning (2) Noncompliance with medication regimen: - Italic sections refer to daily care summary from medical floor admission - Recommend an DE LOS SANTOS due to nonadherence with oral medication, need to obtain a dditional information about recent treatment before we can explore options. Father reports they were told he got Abilify Maintena on 12/19/2020, and due to tight receptor binding it may be difficult to get an adequate response from other dopaminergic medications until it is out of his system 01/04/21 -The patient is saying that he will refuse to take Abilify either orally or by injection of a depot form of aripiprazole. The plan is to stabilize the patient on olanzapine, and at that point we may be able to asked the patient to reconsider Abilify given reports that he has responded favorably to Abilify in the past. Alternatively, he could be converted to Invega Sustenna or Haldol decanoate, in view of his acknowledge long history of medication nonadherence 01/05/21--offered zydus, prefers pills and is compliant last 2 doses. 01/06--father states that he was trying to put Abilify in patient's cereal in days leading up to admission. 01/08 - Has been taking scheduled doses of olanzapine BID; however, unwilling for medication changes or to explore options for Suraj. 01/09 - 01/12 - Remains unwilling to consider DE LOS SANTOS options to promote medication compliance - Considering a 304 IOC 01/13 - Continue as above - patient remains resistant to an DE LOS SANTOS, now reporting the concern is related to fear of needles. - Pt stated today that he does not desire for medications to be a part of his treatment plan. - Medications over objection orders in place from assessments completed while patient was on the medical floor. 01/15 - Transitioned to haloperidol yesterday to allow for stabilization on a medication that can be given as an DE LOS SANTOS (3) Exhibitionist behavior: 01/13 - These concerns were addressed by our staff during patient's medical floor admission. Pt had continued to frequently masturbate during his time on the medical floor, even occasionally propositioning his 1:1 staff. - Pt was informed that this behavior cannot be tolerated on our unit - especially in a milieu setting. - Continue to redirect patient and offer more appropriate coping strategies should this behavior continue. (4) Tick bite: Treatment Impression per hospitalist staff: - Received doxy prophylaxis during beginning of admission when tick was removed. Monitor for rickettsial illness.No issues at this time. Patient was counseled on signs and symptoms to watch for and verbalized understanding with intent to comply. 01/13 - Will continue to monitor for signs/symptoms of infection or disease related to tick bite. Monitor vitals including temperature daily as per usual protocol. Interval History Identifying Information YURIY COLLINS is a 30-year-old M who currently lives in [place] with his parents, has a reported history of schizoaffective disorder and treatment noncompliance, and was admitted on 01/13/21 14:07 on a 303 involuntary commitment for acute psychosis. He was initially admitted medically due to COVID + in ER and need for isolation precautions from 01/02/21 - 01/13/21. Chief Complaint "Um, fine I guess." Review of Systems Notes Constitutional: reports mild fatigue Cardiovascular: denied Respiratory: denied Gastrointestinal: denied Neurological: denied Psychiatric: denies symptoms other than stated above Total of at least 10 systems reviewed, pertinent positives as above and in HPI. Sleep Information Total Hours of Sleep: 7 Sleep Comments: pt on q-15 minute checks Meal Information Percent Meal Consumed - Breakfast: 100 Percent Meal Consumed - Lunch: 100 Percent Meal Consumed - Dinner: 100 Subjective Subjective Patient was seen & assessed and interval progress reviewed with nursing and social work. Staff report the patient has been isolative, attending very few groups. Participation in those groups was limited and often unrelated to topic being discussed. Pt is scheduled for a 304 hearing tomorrow morning, with county meeting to follow to discuss discharge planning. Pt was seen today to assess progress since admission. Pt was found in his room, sitting quietly and staring out the window. He rarely looked at this provider while talking. Pt reported he is "fine, I guess." He denied acute concerns and was brief and vague with responses to other questions. He admits he does not feel the haloperidol is "as good as other medications", but could not provide clear examples of why he believes this - spending a few seconds thinking and then stating "nevermind." The patient was reminded of treatment goals, and concern for his limited supports outside of the hospital. He does admit he is concerned it will "take a long time to build trust back." This provider explained that one example of how to work toward this is to maintain consistency with treatment, demonstrating we are motivated toward addressing the issues that led to lost trust. Pt appeared irritable and had little to say today. He denied SI/HI and hallucinations. He would report vague confusion at times during conversation, but was unable to verbalize any concrete questions that this provider could directly address. Physical Exam Psychiatric Orientation: alert, oriented x 3 and + guarded (only superficially cooperative, limited engagement in conversation) Apperance: appropriately dressed, appropriately groomed and appeared stated age Eye Contact: + poor eye contact Motor Behavior: no abnormal motor movements (observed while sitting upright on bed) Speech: nonspontaneous, only vague and brief responses to questions Affect: + irritable affect; + mood not congruent with affect Mood: no depressed mood and no anxious mood Thought Process: + concrete thought process (and rigid to the point of being irriational at times) Thought Content: + cognitive distortions Suicidal Thoughts: denies suicidal thoughts and denies suicidal intent Homicidal Thoughts: denies homicidal thoughts Hallucinations: no auditory hallucinations and no visual hallucinations Cognition: attention grossly intact and language grossly intact Estimated Intelligence: consistent with education level Insight: + poor insight Judgement: + poor judgement Vital Signs (Past 24 Hours) Last Vital Signs Temp 36.4 C L 01/15/21 06:34 Pulse 72 01/15/21 06:35 Resp 16 01/15/21 06:34 BP 95/57 L 01/15/21 06:35 Results & Data ([facility]) Current Inpatient Medications Current Inpatient Medications: Current Inpatient Medications Acetaminophen (Acetaminophen 325 Mg Tab) 650 mg PO Q4H PRN PRN Reason: Headache or Minor Fever Stop: 02/12/21 13:08 Al Hydrox/Mg Hydrox/Simethicone (Aluminum/Magnesium Susp 30 Ml Udc) 30 ml PO Q4H PRN PRN Reason: GI Upset Stop: 02/12/21 13:08 Benztropine Mesylate (Benztropine Mesylate 1 Mg Tab) 1 mg PO Q4H PRN PRN Reason: EPS Stop: 02/13/21 08:27 Bismuth Subsalicylate (Bismuth Subsalicylate Liqd 236 Ml) 15 ml PO PRN PRN PRN Reason: Loose Stool Stop: 02/12/21 13:08 Haloperidol (Haloperidol 5 Mg Tab) 10 mg PO Q6H PRN PRN Reason: psychosis or agitation Stop: 02/13/21 08:27 Haloperidol (Haloperidol 5 Mg Tab) 10 mg PO BID MATT Stop: 02/13/21 08:59 Last Admin: 01/14/21 20:58 Dose: 10 mg Documented by: Haloperidol Lactate (Haloperidol Lactate 5 Mg/Ml 1 Ml Vial) 10 mg IM Q6H PRN PRN Reason: psychosis or agitation Stop: 02/13/21 08:27 Hydroxyzine HCl (Hydroxyzine Hcl 25 Mg Tab) 50 mg PO HSZ PRN PRN Reason: Insomnia Stop: 02/12/21 13:08 Hydroxyzine HCl (Hydroxyzine Hcl 25 Mg Tab) 25 mg PO Q4H PRN PRN Reason: Anxiety Stop: 02/12/21 13:08 Magnesium Hydroxide (Magnesium Hydroxide Susp 30 Ml Udc) 30 ml PO DAILY PRN PRN Reason: Constipation Stop: 02/12/21 13:08 Sodium Chloride (Sodium Chloride 0.65% Na Soln 45 Ml ([place])) 1 - 2 sprays NA PRN PRN PRN Reason: Nasal Dryness/Congestion Stop: 02/12/21 13:08 Mental Health & Subst Abuse Tx Psychiatrist Name of Psychiatrist: [facility] Date of Appointment with Psychiatrist: 01/28/21 Time of Appointment with Psychiatrist: 4:20 pm Roll Forger Name of Roll Forger: [facility] Phone Number for Roll Forger: [phone] Post Discharge Appointments Primary Care Physician Name Of Family Doctor: Nafisa [facility] Date of Appointment with PCP: 01/16/21 Time of Appointment with PCP: 11:20 a.m. Provider Appointment Comment: [address] [place], [place] Contact Information Discharge Discharge Address: [address] [address]
[2021-01-15] MEDS: haloperidoL 5 MG TAB PO SCH ×2 (09:30→20:18)
[2021-01-16] MEDS: haloperidoL 5 MG TAB PO SCH (08:24)
--- NOTE | 2021-01-16 09:15 | Psychiatric Progress Note ---
Date of Service January 16, 2021 Impression / Recommendations Impression Patient remains disorganized, with difficulty manipulating information, irrational thought process, and complete anosognosia, continuing to state he does not have a mental illness or need treatment or medication. He is taking medication here with strong support and assistance from staff, but would not continue it if he were discharged. We are therefore recommending a 304 IOC and DE LOS SANTOS. 304 hearing held today and granted. (1) Acute psychosis: - Italic sections refer to daily care summary from medical floor admission - 01/03 -patient is a poor historian, reports indicate he may have been started on Abilify Maintena while hospitalized in [place], but timeline unknown. He is agreed to sign a release and I have asked the nurse on the floor to obta in that so that we can get those records. We will also attempt to get records from his outpatient psychiatrist, Dr. Price. -If he is refusing to take antipsychotic medications, recommend medications over objection, as he has responded to antipsychotic medication in the past, and psychotic symptoms are unlikely to remit without antipsychotic treatment. Additionally, he is severely disabled as a result of his psychosis, is unable to provide for his own basic needs, and places both himself and others at risk of harm if his symptoms remain untreated. -Given his history of nonadherence and severity of symptoms with untreated mental illness, will recommend ongoing involuntary commitment with transition to an IOC at discharge. He would benefit from case management and therapy as well. -Offer olanzapine 10 mg p.o./IM as needed for acute psychosis, as he has been on this medication before and tolerated it. -Consider initiation of a mood stabilizer such as Depakote, which can be given IV over objection if he remains unwilling for medications. 01/04 -The patient has stated that he was given Abilify Maintena intramuscularly fairly recently, but there is some reason to believe that this may not be accurate. It is noted that the patient's father said that he has not observed any changes in the patient's behaviors and other symptoms subsequent to the reported dose of Abilify. 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 His tox screen at admission was negative for occult blood, but the test was not specific for hallucinogens. Accordingly, while I would doubt that the entire constellation of problems observed are related to substance use, this cannot be ruled out as a mitigating factor. -Today, the patient reports that he will refuse to take Abilify because he says that he is "allergic" to it. When asked to describe the allergy, he replied by saying that Abilify makes him feel "weird," and he says that he feels certain that it interferes with his sleep. The patient reports that he has taken olanzapine (Zyprexa) and has tolerated that well. He also suggest that he t hinks that it "helps." However, he cannot exactly say how it helps. -Today, the patient says that he is embarrassed about the fact that he was "running around outside" while naked, and that he was masturbating in public. However, he has difficulty saying why that should be an issue, other than to repeatedly say, "it is bad." At the same time, and the period of time that immediately proceeded our telephonic contact the patient was reportedly openly masturbating in front of his one-to-one medical record assistant and, also reportedly, the patient had invited the one-to-one medical record assistant to either masturbate together with the patient or to allow the patient to masturbate him. Furthermore, the patient indicated that he felt this behavior was reconciled because he had awakened in a "sexual place." Accordingly, what initially had suggested improving insight is abrogated by his ongoing inappropriate and dyscontrol behaviors. -Given the fact the patient may have an unspecified dose of Abilify Maintena on board, reportedly administered on 12/19/2020, and given that the patient may need to receive his olanzapine by intramuscular injection if he continues to periodically refused to take it voluntarily (see med over objection first and second opinions), will reduce the dose of olanzapine from 10 mg 3 times a day to olanzapine 10 mg twice a day by mouth, and will order medications over objection in the form of olanzapine 10 mg IM twice a day. The dose can be titrated as indicated. 01/05--review of available records (most recent [place] pending) note dx of bipolar and/or schizoaffective bipolar type. Records state concussion/no head injuries so family was contacted as amount of preoccupation with masturbating seemed out of proportion to hypersexuality from becca. No hx of hyperorality so doubt [facility]. Had multiple concussions in high school had to leave football and switched to soccer. symptom onset in college so doubt orbitofrontal syndrome. 01/07--303 granted. still trying to confirm date of Abilify injection (or if received). Invega seemed more amenable option than Haldol dec but family confirms poor response to Risperdal and preference toward Abilify. For now Estrella wise is stabilizing patient. Reviewed with family that no local clinics administer the IM. 01/08 - Pt is religiously preoccupied and reporting thoughts that are consistent with ongoing delusions. He is now reporting he thinks he can "do things on my own" and is not particularly interested in outpatient treatment - Pt is declining medication changes. Although it is helpful that he is tolerating olanzapine and denies concerning side effects, he is unfortunately very resistant to adjusting medications to allow for an DE LOS SANTOS option. He is unable to formulate a plan for how he plans to ensure compliance with an oral medication and therefore remains at risk of noncompliance, destabilization, frequent hospitalizations or injury/ as a result of psychosis. - Pt strongly encouraged to consider therapy and case management services. 01/09 - Continue current medication regimen, though consider need for further titration of olanzapine. Patient is not clearly verbalizing any mosque preoccupation but seems to still be disorganized and mildly thought blocked. He continues to demonstrate poor insight into his mental health condition and need for treatment. - Will plan to schedule a family meeting to involve parents - as we will need to begin discussing safety recommendations and outpatient supports - Considering 304 IOC due to poor insight, history of medication noncompliance, and seriousness of patient's condition 01/10 - Infection control reporting patient could be cleared for referral to a psychiatric unit as soon as 01/13/21. - Continue as above - thoughts continue to be disorganized, ongoing mosque preoccupation. Pt continues to have poor insight into the severity of his condition and on a few occasions indicated that he may begin refusing his oral medications (2-physician opinions documented on chart for medications over objection if this should occur). - Offered to adjust dosing of olanzapine due to reports of daytime fatigue, patient declining at this time. Consider need for titration of the medication if thoughts do not continue to clear. - Anticipate need for inpatient psychiatric treatment once cleared medically to join the inpatient milieu setting - Considering 304 IOC, meeting scheduled with [facility] to discuss case on 01/16 01/11 - Continue as above. We did receive reports that patient does continue to engage in sexually inappropriate behavior. We are encouraging staff to redirect patient in these situations and offer alternative activities. Pt reports feeling some control over this behavior and express apologies. - Continue olanzapine - consider need for further titration - Anticipate clearance from isolation precautions on 01/16, and then will consider for admission to our unit for continued psychiatric treatment - Likely will require 304 IOC. 01/12 - Continue as above - anticipate discharge from the medical floor tomorrow, with subsequent admission to our unit to continue psychiatric treatment. - Pt reports appropriate behavior, reviewed some of the expectations regarding behavior on our unit as well. 01/13 - Continue olanzapine 10mg BID - discuss case further during treatment team tomorrow. - Admitted to a locked inpatient behavioral health unit, on q15 minute safety checks - Encourage medication initiation/adjustments as indicated - Encourage participation in group and recreational therapies - Gather collateral information from outpatient providers - Suggest family meeting to involve outpatient supports in safety planning - Arrange appropriate aftercare 01/14 -File for 304 involuntary commitment hearing to be held 01/16. Consider the need for referral to [facility] for long-term inpatient treatment versus diversion to an involuntary outpatient commitment. -Patient has been seen by 2 physicians for medications over objection, and although he has taken oral medications at times here in the hospital, has consistently stated that he does not believe he needs medication or psychiatric treatment, and will not continue it after leaving the hospital. We are therefore recommending an long-acting injectable antipsychotic. Multiple medications have been reviewed with him and he has refused all of them. We will discontinue olanzapine as it is not available as an DE LOS SANTOS, and start haloperidol 10 mg twice daily p.o., with an IM backup for refusal, with a plan to transition to Haldol Decanoate once an effective dose is established. -Treatment planning meeting with [facility] scheduled for 01/16 after commitment hearing. 01/15 - Continue haloperidol 10mg BID - patient has been taking medications orally, though with some reluctance. IM form remains available for meds over objection if necessary - Will order fasting glucose and lipid panel for tomorrow - as no record of labs being done while in [place] - We were able to clarify with new records that patient did, in fact, receive Abilify Maintena on 12/20 while inpatient in [place]. - 304 hearing tomorrow; [facility] meeting to follow to discuss discharge planning 01/16 - Pt reporting poor effect with Haldol and requesting a different medication. Discussed trial of paliperidone (as Abilify Maintena was ineffective), and discussed risks, benefits and potential side effects. He agreed to a trial, discontinued Haldol and started paliperidone 3mg daily for tomorrow. Continue Haldol IM for refusal of PO. If effective, transition to Invega Sustenna. - Fasting labs for monitoring on atypical antipsychotic: Glucose 99, FLP normal with the exception of cholesterol 220. Ongoing monitoring as an outpatient. - Patient continues to refuse to sign [facility], so we have not yet arranged outpatient treatment. Now that there is a [address], we will proceed with discharge planning. Family meeting scheduled with patient, parents, and social services specialist for Thursday. (2) Noncompliance with medication regimen: - Italic sections refer to daily care summary from medical floor admission - Recommend an DE LOS SANTOS due to nonadherence with oral medication, need to obtain additional information about recent treatment before we can explore options. Father reports they were told he got Abilify Maintena on 12/19/2020, and due to tight receptor binding it may be difficult to get an adequate response from other dopaminergic medications until it is out of his system 01/04/21 -The patient is saying that he will refuse to take Abilify either orally or by injection of a depot form of aripiprazole. The plan is to stabilize the patient on olanzapine, and at that point we may be able to asked the patient to reconsider Abilify given reports that he has responded favorably to Abilify in the past. Alternatively, he could be converted to Invega Sustenna or Haldol decanoate, in view of his acknowledge long history of medication nonadherence 01/05/21--offered zydus, prefers pills and is compliant last 2 doses. 01/06--father states that he was trying to put Abilify in patient's cereal in days leading up to admission. 01/08 - Has been taking scheduled doses of olanzapine BID; however, unwilling for medication changes or to explore options for Suraj. 01/09 - 01/12 - Remains unwilling to consider DE LOS SANTOS options to promote medication compliance - Considering a 304 IOC 01/13 - Continue as above - patient remains resistant to an DE LOS SANTOS, now reporting the concern is related to fear of needles. - Pt stated today that he does not desire for medications to be a part of his treatment plan. - Medications over objection orders in place from assessments completed while patient was on the medical floor. 01/15 - Transitioned to haloperidol yesterday to allow for stabilization on a medication that can be given as an DE LOS SANTOS 01/06 -At patient's request, discontinue Haldol and start trial of Invega, with plan to transition to Invega Sustenna if effective and well-tolerated. -304 hearing held and commitment granted. (3) Exhibitionist behavior: 01/13 - These concerns were addressed by our staff during patient's medical floor admission. Pt had continued to frequently masturbate during his time on the medical floor, even occasionally propositioning his 1:1 staff. - Pt was informed that this behavior cannot be tolerated on our unit - especially in a milieu setting. - Continue to redirect patient and offer more appropriate coping strategies should this behavior continue. (4) Tick bite: Treatment Impression per hospitalist staff: - Received doxy prophylaxis during beginning of admission when tick was removed. Monitor for rickettsial illness.No issues at this time. Patient was counseled on signs and symptoms to watch for and verbalized understanding with intent to comply. 01/13 - Will continue to monitor for signs/symptoms of infection or disease related to tick bite. Monitor vitals including temperature daily as per usual protocol. Risk Factors Assessment Male: Yes : Yes Do You Have Access To A Gun?: Yes Health Problems: No Mental Health Diagnoses: Yes Substance Use Disorders: No Previous Psychiatric Hospitalization: Yes Hopelessness: No Smoker: No Protective Factors Assessment Faith Beliefs: Yes : No Responsible for Young Children: No Employed: No Stable Relationships: No Supportive Family: Yes Good Rapport with Provider: No Interval History Identifying Information YURIY COLLINS is a 30-year-old M who currently lives in [place] with his parents, has a reported history of schizoaffective disorder and treatment noncompliance, and was admitted on 01/13/21 14:07 on a 303 involuntary comm itment for acute psychosis. He is on a 304 involuntary commitment as of 01/16/2021. He was initially admitted medically due to COVID + in ER and need for isolation precautions from 01/02/21 - 01/13/21. Chief Complaint "Not very well". Review of Systems Sleep Information Total Hours of Sleep: 7.75 Sleep Comments: pt on q-15 minute checks Meal Information Percent Meal Consumed - Breakfast: 100 Percent Meal Consumed - Lunch: 100 Percent Meal Consumed - Dinner: 25 Nutrition Comment: stated not feeling well Subjective Subjective Patient was seen & assessed and interval progress reviewed with treatment team. Staff report he went to group therapy, but only spoke a couple of words. He spends most of his time isolating in his room. He continues to be uncooperative with treatment, refused to sign releases for case management or outpatient psychiatry and therapy referrals yesterday, and although he has been taking oral Haldol 10 mg twice daily, has repeatedly stated he does not want to take medication, and referred to it is "poison." He spoke to his father on the phone, and told nursing staff that people were "telling me to do those things before I came here," referencing his public nudity and masturbation. On my assessment, he reports he does not feel well, which he attributes to Haldol, stating he felt sad starting with his first dose, and also reports headache, insomnia, lack of energy and feeling "uncomfortable." He does not want to take the Haldol any longer, but is willing to discuss other medications, and agreed to paliperidone. He continues to state he does not want medications or mental health treatment, does not think he has a mental illness, and did not want the social services specialist to refer him to outpatient treatment as "I didn't want to get involved in that." He then testified at his 304 hearing that no one had talked t o him about changing medication, although we had just had that conversation approximately 15 minutes prior to the hearing. Discharge planning meeting held with [facility] staff given need for comprehensive outpatient services and 304 [facility] d/t h/o nonadherence and repeated hospitalizations. Physical Exam Psychiatric Orientation: alert Apperance: appropriately dressed, appropriately groomed and appeared stated age Eye Contact: + poor eye contact Motor Behavior: steady gait and station and no abnormal motor movements Slowed, minimal` Affect: + blunted affect "Not good," "sad" Thought Process: + concrete thought process Thought Content: + compulsions (to disrobe and masturbate) and + thought insertion (thoughts of masturbating) Suicidal Thoughts: denies suicidal thoughts Homicidal Thoughts: denies homicidal thoughts Hallucinations: no auditory hallucinations and no visual hallucinations Cognition: attention grossly intact and language grossly intact; + recent memory not intact Insight: + poor insight Judgement: + poor judgement Vital Signs (Past 24 Hours) Last Vital Signs Temp 36.9 C 01/16/21 06:39 Pulse 112 H 01/16/21 06:40 Resp 16 01/16/21 06:39 BP 124/79 01/16/21 06:40 Results & Data ([facility]) Laboratory Results Laboratory Results - last 24 hr 01/16/21 08:22 Fasting Glucose Pending Triglycerides Pending Cholesterol Pending LDL Cholesterol, Calc Pending VLDL Cholesterol, Calc Pending HDL Cholesterol Pending Cholesterol/HDL Ratio Pending Current Inpatient Medications Current Inpatient Medications: Current Inpatient Medications Acetaminophen (Acetaminophen 325 Mg Tab) 650 mg PO Q4H PRN PRN Reason: Headache or Minor Fever Stop: 02/12/21 13:08 Al Hydrox/Mg Hydrox/Simethicone (Aluminum/Magnesium Susp 30 Ml Udc) 30 ml PO Q4H PRN PRN Reason: GI Upset Stop: 02/12/21 13:08 Benztropine Mesylate (Benztropine Mesylate 1 Mg Tab) 1 mg PO Q4H PRN PRN Reason: EPS Stop: 02/13/21 08:27 Bismuth Subsalicylate (Bismuth Subsalicylate Liqd 236 Ml) 15 ml PO PRN PRN PRN Reason: Loose Stool Stop: 02/12/21 13:08 Haloperidol (Haloperidol 5 Mg Tab) 10 mg PO Q6H PRN PRN Reason: psychosis or agitation Stop: 02/13/21 08:27 Haloperidol (Haloperidol 5 Mg Tab) 10 mg PO BID MATT Stop: 02/13/21 08:59 Last Admin: 01/16/21 08:24 Dose: 10 mg Documented by: Haloperidol Lactate (Haloperidol Lactate 5 Mg/Ml 1 Ml Vial) 10 mg IM Q6H PRN PRN Reason: psychosis or agitation Stop: 02/13/21 08:27 Hydroxyzine HCl (Hydroxyzine Hcl 25 Mg Tab) 50 mg PO HSZ PRN PRN Reason: Insomnia Stop: 02/12/21 13:08 Hydroxyzine HCl (Hydroxyzine Hcl 25 Mg Tab) 25 mg PO Q4H PRN PRN Reason: Anxiety Stop: 02/12/21 13:08 Magnesium Hydroxide (Magnesium Hydroxide Susp 30 Ml Udc) 30 ml PO DAILY PRN PRN Reason: Constipation Stop: 02/12/21 13:08 Sodium Chloride (Sodium Chloride 0.65% Na Soln 45 Ml ([place])) 1 - 2 sprays NA PRN PRN PRN Reason: Nasal Dryness/Congestion Stop: 02/12/21 13:08 Mental Health & Subst Abuse Tx Psychiatrist Name of Psychiatrist: [facility] Psychiatrist's Date of Appointment with Psychiatrist: 01/28/21 Time of Appointment with Psychiatrist: 4:20 pm Day Camp Counselor Name of Day Camp Counselor: [employer] [facility] Phone Number for Day Camp Counselor: [phone] Post Discharge Appointments Primary Care Physician Name Of Family Doctor: Nafisa Campos [facility] Date of Appointment with PCP: 01/16/21 Time of Appointment with PCP: 11:20 a.m. [facility] [phone] [facility] Information Discharge Discharge Address: [address] [address], [place] [address]
[2021-01-16 09:24] LABS: Glucose Fasting 99 mg/dl (70-99)
[2021-01-16 09:31] LABS: Chol HDL Ratio 3; Cholesterol 220 mg/dl (0-200); HDL Cholesterol 67 mg/dl; LDL Cholesterol Calculated 130 mg/dl; Triglycerides 117 mg/dl (0-150); VLDL Cholesterol 23 mg/dl
[2021-01-16] MEDS ORDERED: HALOPERIDOL LACTATE 5 MG/ML 1 ML VIAL IM PRN (10:01)
[2021-01-17] MEDS: PALIPERIDONE 3 MG TABCR PO SCH (08:37)
--- NOTE | 2021-01-17 09:38 | Psychiatric Progress Note ---
Date of Service January 17, 2021 Impression / Recommendations Impression Patient remains disorganized, with difficulty manipulating information, irrational thought process, and complete anosognosia, continuing to state he does not have a mental illness or need treatment or medication. He is taking medication here with strong support and assistance from staff, but would not continue it if he were discharged. We are therefore recommending a 304 IOC and DE LOS SANTOS. 304 hearing held on 01/16 and granted. (1) Acute psychosis: - Italic sections refer to daily care summary from medical floor admission - 01/03 -patient is a poor historian, reports indicate he may have been started on Abilify Maintena while hospitalized in [place], but timeline unknown. He is agreed to sign a release and I have asked the nurse on the floor to o btain that so that we can get those records. We will also attempt to get records from his outpatient psychiatrist, Dr. Price. -If he is refusing to take antipsychotic medications, recommend medications over objection, as he has responded to antipsychotic medication in the past, and psychotic symptoms are unlikely to remit without antipsychotic treatment. Additionally, he is severely disabled as a result of his psychosis, is unable to provide for his own basic needs, and places both himself and others at risk of harm if his symptoms remain untreated. -Given his history of nonadherence and severity of symptoms with untreated mental illness, will recommend ongoing involuntary commitment with transition to an IOC at discharge. He would benefit from case management and therapy as well. -Offer olanzapine 10 mg p.o./IM as needed for acute psychosis, as he has been on this medication before and tolerated it. -Consider initiation of a mood stabilizer such as Depakote, which can be given IV over objection if he remains unwilling for medications. 01/04 -The patient has stated that he was given Abilify Maintena intramuscularly fairly recently, but there is some reason to believe that this may not be accurate. It is noted that the patient's father said that he has not observed any changes in the patient's behaviors and other symptoms subsequent to the reported dose of Abilify. 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 His tox screen at admission was negative for occult blood, but the test was not specific for hallucinogens. Accordingly, while I would doubt that the entire constellation of problems observed are related to substance use, this cannot be ruled out as a mitigating factor. -Today, the patient reports that he will refuse to take Abilify because he says that he is "allergic" to it. When asked to describe the allergy, he replied by saying that Abilify makes him feel "weird," and he says that he feels certain that it interferes with his sleep. The patient reports that he has taken olanzapine (Zyprexa) and has tolerated that well. He also suggest that he thinks that it "helps." However, he cannot exactly say how it helps. -Today, the patient says that he is embarrassed about the fact that he was "running around outside" while naked, and that he was masturbating in public. However, he has difficulty saying why that should be an issue, other than to repeatedly say, "it is bad." At the same time, and the period of time that immediately proceeded our telephonic contact the patient was reportedly openly masturbating in front of his one-to-one customer marketing assistant and, also reportedly, the patient had invited the one-to-one customer marketing assistant to either masturbate together with the patient or to allow the patient to masturbate him. Furthermore, the patient indicated that he felt this behavior was reconciled because he had awakened in a "sexual place." Accordingly, what initially had suggested improving insight is abrogated by his ongoing inappropriate and dyscontrol behaviors. -Given the fact the patient may have an unspecified dose of Abilify Maintena on board, reportedly administered on 12/19/2020, and given that the patient may need to receive his olanzapine by intramuscular injection if he continues to periodically refused to take it voluntarily (see med over objection first and second opinions), will reduce the dose of olanzapine from 10 mg 3 times a day to olanzapine 10 mg twice a day by mouth, and will order medications over objection in the form of olanzapine 10 mg IM twice a day. The dose can be titrated as indicated. 01/05--review of available records (most recent [place] pending) note dx of bipolar and/or schizoaffective bipolar type. Records state concussion/no head injuries so family was contacted as amount of preoccupation with masturbating seemed out of proportion to hypersexuality from becca. No hx of hyperorality so doubt [facility]. Had multiple concussions in high school had to leave football and switched to soccer. symptom onset in college so doubt orbitofrontal syndrome. 01/07--303 granted. still trying to confirm date of Abilify injection (or if received). Invega seemed more amenable option than Haldol dec but family confirms poor response to Risperdal and preference toward Abilify. For now Zyprexa is stabilizing patient. Reviewed with family that no local clinics administer the IM. 01/08 - Pt is religiously preoccupied and reporting thoughts that are consistent with ongoing delusions. He is now reporting he thinks he can "do things on my own" and is not particularly interested in outpatient treatment - Pt is declining medication changes. Although it is helpful that he is tolerating olanzapine and denies concerning side effects, he is unfortunately very resistant to adjusting medications to allow for an DE LOS SANTOS option. He is unable to formulate a plan for how he plans to ensure compliance with an oral medication and therefore remains at risk of noncompliance, destabilization, frequent hospitalizations or injury/ as a result of psychosis. - Pt strongly encouraged to consider therapy and case management services. 01/09 - Continue current medication regimen, though consider need for further titration of olanzapine. Patient is not clearly verbalizing any orthodox preoccupation but seems to still be disorganized and mildly thought blocked. He continues to demonstrate poor insight into his mental health condition and need for treatment. - Will plan to schedule a family meeting to involve parents - as we will need to begin discussing safety recommendations and outpatient supports - Considering 304 IOC due to poor insight, history of medication noncompliance, and seriousness of patient's condition 01/10 - Infection control reporting patient could be cleared for referral to a psychiatric unit as soon as 01/13/21. - Continue as above - thoughts continue to be disorganized, ongoing orthodox preoccupation. Pt continues to have poor insight into the severity of his condition and on a few occasions indicated that he may begin refusing his oral medications (2-physician opinions documented on chart for medications over objection if this should occur). - Offered to adjust dosing of olanzapine due to reports of daytime fatigue, patient declining at this time. Consider need for titration of the medication if thoughts do not continue to clear. - Anticipate need for inpatient psychiatric treatment once cleared medically to join the inpatient milieu setting - Considering 304 IOC, meeting scheduled with [facility] to discuss case on 01/16 01/11 - Continue as above. We did receive reports that patient does continue to engage in sexually inappropriate behavior. We are encouraging staff to redirect patient in these situations and offer alternative activities. Pt reports feeling some control over this behavior and express apologies. - Continue olanzapine - consider need for further titration - Anticipate clearance from isolation precautions on 01/16, and then will consider for admission to our unit for continued psychiatric treatment - Likely will require 304 IOC. 01/12 - Continue as above - anticipate discharge from the medical floor tomorrow, with subsequent admission to our unit to continue psychiatric treatment. - Pt reports appropriate behavior, reviewed some of the expectations regarding behavior on our unit as well. 01/13 - Continue olanzapine 10mg BID - discuss case further during treatment team tomorrow. - Admitted to a locked inpatient behavioral health unit, on q15 minute safety checks - Encourage medication initiation/adjustments as indicated - Encourage participation in group and recreational therapies - Gather collateral information from outpatient providers - Suggest family meeting to involve outpatient supports in safety planning - Arrange appropriate aftercare 01/14 -File for 304 involuntary commitment hearing to be held 01/16. Consider the need for referral to [facility] for long-term inpatient treatment versus diversion to an involuntary outpatient commitment. -Patient has been seen by 2 physicians for medications over objection, and although he has taken oral medications at times here in the hospital, has consistently stated that he does not believe he needs medication or psychiatric treatment, and will not continue it after leaving the hospital. We are therefore recommending an long-acting injectable antipsychotic. Multiple medications have been reviewed with him and he has refused all of them. We will discontinue olanzapine as it is not available as an DE LOS SANTOS, and start haloperidol 10 mg twice daily p.o., with an IM backup for refusal, with a plan to transition to Haldol Decanoate once an effective dose is established. -Treatment planning meeting with [facility] scheduled for 01/16 after commitment hearing. 01/15 - Continue haloperidol 10mg BID - patient has been taking medications orally, though with some reluctance. IM form remains available for meds over objection if necessary - Will order fasting glucose and lipid panel for tomorrow - as no record of labs being done while in [place] - We were able to clarify with new records that patient did, in fact, receive Abilify Maintena on 12/20 while inpatient in [place]. - 304 hearing tomorrow; [facility] [place] meeting to follow to discuss discharge planning 01/16 - Pt reporting poor effect with Haldol and requesting a different medication. Discussed trial of paliperidone (as Abilify Maintena was ineffective), and discussed risks, benefits and potential side effects. He agreed to a trial, discontinued Haldol and started paliperidone 3mg daily for tomorrow. Continue Haldol IM for refusal of PO. If effective, transition to Invega Sustenna. - Fasting labs for monitoring on atypical antipsychotic: Glucose 99, FLP normal with the exception of cholesterol 220. Ongoing monitoring as an outpatient. - Patient continues to refuse [facility], so we have not yet arranged outpatient treatment. Now that there is a [address], we will proceed with discharge planning. Family meeting scheduled with patient, parents, and psychosocial rehabilitation counselor for Thursday. 01/17 - Continue trial of paliperidone - kept dosing at 3mg for tomorrow due to patient reporting side effects, however, it will likely need continued titration. Haloperidol is ordered for refusal of oral medication and patient is continuing to show little commitment to medications retirement. - Family meeting with parents scheduled for tomorrow, [facility] staff is attempting to meet with patient again tomorrow afternoon - [address] requires involvement of full spectrum of outpaitent psychiatric services; however, patient is resistant to these services (2) Noncompliance with medication regimen: - Italic sections refer to daily care summary from medical floor admission - Recommend an DE LOS SANTOS due to nonadherence with oral medication, need to obtain additional information about recent treatment before we can explore options. Father reports they were told he got Abilify Maintena on 12/19/2020, and due to tight receptor binding it may be difficult to get an adequate response from other dopaminergic medications until it is out of his system 01/04/21 -The patient is saying that he will refuse to take Abilify either orally or by injection of a depot form of aripiprazole. The plan is to stabilize the patient on olanzapine, and at that point we may be able to asked the patient to reconsider Abilify given reports that he has responded favorably to Abilify in the past. Alternatively, he could be converted to Invega Sustenna or Haldol decanoate, in view of his acknowledge long history of medication nonadherence 01/05/21--offered zydus, prefers pills and is compliant last 2 doses. 01/06--father states that he was trying to put Abilify in patient's cereal in days leading up to admission. 01/08 - Has been taking scheduled doses of olanzapine BID; however, unwilling for medication changes or to explore options for Suraj. 01/09 - 01/12 - Remains unwilling to consider DE LOS SANTOS options to promote medication compliance - Considering a 304 IOC 01/13 - Continue as above - patient remains resistant to an DE LOS SANTOS, now reporting the concern is related to fear of needles. - Pt stated today that he does not desire for medications to be a part of his treatment plan. - Medications over objection orders in place from assessments completed while patient was on the medical floor. 01/15 - Transitioned to haloperidol yesterday to allow for stabilization on a medication that can be given as an DE LOS SANTOS 01/16 -At patient's request, discontinue Haldol and start trial of Invega, with plan to transition to Invega Sustenna if effective and well-tolerated. -304 hearing held and commitment granted. (3) Exhibitionist behavior: 01/13 - These concerns were addressed by our staff during patient's medical floor admission. Pt had continued to frequently masturbate during his time on the medical floor, even occasionally propositioning his 1:1 staff. - Pt was informed that this behavior cannot be tolerated on our unit - especially in a milieu setting. - Continue to redirect patient and offer more appropriate coping strategies sh ould this behavior continue. 01/17 - No concerns related to this history here on the unit; however, patient is continue to display poor insight with limited commitment to treatment. There are ongoing concerns related to safety and legal consequences if is psychosis is not adequately treated and he is not committed to continued treatment after discharge. (4) Tick bite: Treatment Impression per hospitalist staff: - Received doxy prophylaxis during beginning of admission when tick was removed. Monitor for rickettsial illness.No issues at this time. Patient was counseled on signs and symptoms to watch for and verbalized understanding with intent to comply. 01/13 - Will continue to monitor for signs/symptoms of infection or disease related to tick bite. Monitor vitals including temperature daily as per usual protocol. Risk Factors Assessment Male: Yes : Yes Do You Have Access To A Gun?: Yes Health Problems: No Mental Health Diagnoses: Yes Substance Use Disorders: No Previous Psychiatric Hospitalization: Yes Hopelessness: No Smoker: No Protective Factors Assessment Zoroastrian Beliefs: Yes : No Responsible for Young Children: No Employed: No Stable Relationships: No Supportive Family: Yes Good Rapport with Provider: No Interval History Identifying Information YURIY COLLINS is a 30-year-old M who currently lives in [place] with his parents, has a reported history of schizoaffective disorder and treatment noncompliance, and was admitted on 01/13/21 14:07 on a 303 involuntary commitment for acute psychosis. He is on a 304 involuntary commitment as of 01/16/2021. He was initially admitted medically due to COVID + in ER and need for isolation precautions from 01/02/21 - 01/13/21. Chief Complaint "Um...the new medication. I'm having trouble with it again." Review of Systems Notes Constitutional: reports fatigue, headache (declining medications) Cardiovascular: denied Respiratory: denied Gastrointestinal: denied Neurological: denied Psychiatric: denies symptoms other than stated above Total of at least 10 systems reviewed, pertinent positives as above and in HPI. Sleep Information Total Hours of Sleep: 8 Sleep Comments: pt on q-15 minute checks Meal Information Percent Meal Consumed - Breakfast: 100 Percent Meal Consumed - Lunch: 100 Percent Meal Consumed - Dinner: 100 Nutrition Comment: stated not feeling well Subjective Subjective Patient was seen & assessed and interval progress reviewed with nursing and social work. Staff report the patient attended some groups yesterday, but limited participation. He met with [facility] staff yesterday, but declined to sign p aperwork and still believes he does not need outpatient treatment. Meeting to be held with patient's parents tomorrow. Pt was switched to Invega yesterday, receiving first dose this morning - reporting to multiple staff that he is losing his vision and he can't read. Staff evaluated these claims which do not seem to be reality-based. Pt was seen today to assess progress since admission. He begins our conversation by talking about "the new medication. I'm having trouble with it again." Pt reports concern that he is unable to concentrate to read and states "I just have a feeling that it will give me insomnia tonight and that tomorrow will be worse." He does report a headache, but declined numerous offers to take pain medications to treat this. Pt states his primary concern is that he would be unable to work based on how he is feeling right now. This provider offered education on medication changes, that often our body requires time to adjust to new medicines and that we cannot predict long-term side effects after the first dose. Pt continues to verbalize hesitation to continue the medication, but would not agree to any reasonable alternatives - "I had a break from medications last night so we could switch this morning, and I slept well. I think it would be better to continue with no medications and see how things go." This provider attempted to emphasize concern related to patient's behaviors on admission, and that without adequate treatment our team is concerned about continued safety or possibly even legal concerns. Pt remains unable to fully process this concern or the severity of his symptoms. He denies SI/HI but does admit to continued depression. Pt denied other needs at this time. Physical Exam Psychiatric Orientation: alert and + guarded (polite, but uncooperative) Apperance: appropriately dressed, appropriately groomed and appeared stated age Eye Contact: + poor eye contact Motor Behavior: steady gait and station and no abnormal motor movements Speech: delayed responses, minimal Affect: + depressed affect Mood: + depressed mood Thought Process: + thought blocking and + concrete thought process; + thought process not linear or logical Thought Content: + preoccupation (with perceived adverse effects to medications) and + thought insertion (masturbating) Suicidal Thoughts: denies suicidal thoughts Homicidal Thoughts: denies homicidal thoughts Hallucinations: no auditory hallucinations and no visual hallucinations though would not be surprised if patient was truly experiencing hallucinations based on his behavior Cognition: attention grossly intact and language grossly intact; + recent memory not intact Insight: + poor insight Judgement: + poor judgement Vital Signs (Past 24 Hours) Last Vital Signs Temp 36.5 C 01/17/21 07:00 Pulse 101 H 01/17/21 07:01 Resp 16 01/17/21 07:00 BP 118/77 01/17/21 07:01 Results & Data ([facility]) Current Inpatient Medications Current Inpatient Medications: Current Inpatient Medications Acetaminophen (Acetaminophen 325 Mg Tab) 650 mg PO Q4H PRN PRN Reason: Headache or Minor Fever Stop: 02/12/21 13:08 Al Hydrox/Mg Hydrox/Simethicone (Aluminum/Magnesium Susp 30 Ml Udc) 30 ml PO Q4H PRN PRN Reason: GI Upset Stop: 02/12/21 13:08 Benztropine Mesylate (Benztropine Mesylate 1 Mg Tab) 1 mg PO Q4H PRN PRN Reason: EPS Stop: 02/13/21 08:27 Bismuth Subsalicylate (Bismuth Subsalicylate Liqd 236 Ml) 15 ml PO PRN PRN PRN Reason: Loose Stool Stop: 02/12/21 13:08 Haloperidol Lactate (Haloperidol Lactate 5 Mg/Ml 1 Ml Vial) 10 mg IM Q6H PRN PRN Reason: psychosis or agitation, or ref Stop: 02/13/21 08:27 Hydroxyzine HCl (Hydroxyzine Hcl 25 Mg Tab) 50 mg PO HSZ PRN PRN Reason: Insomnia Stop: 02/12/21 13:08 Hydroxyzine HCl (Hydroxyzine Hcl 25 Mg Tab) 25 mg PO Q4H PRN PRN Reason: Anxiety Stop: 02/12/21 13:08 Magnesium Hydroxide (Magnesium Hydroxide Susp 30 Ml Udc) 30 ml PO DAILY PRN PRN Reason: Constipation Stop: 02/12/21 13:08 Paliperidone (Paliperidone 3 Mg Tabcr) 3 mg PO DAILY MATT Stop: 02/16/21 08:59 Last Admin: 01/17/21 08:37 Dose: 3 mg Documented by: Sodium Chloride (Sodium Chloride 0.65% Na Soln 45 Ml ([place])) 1 - 2 sprays NA PRN PRN PRN Reason: Nasal Dryness/Congestion Stop: 02/12/21 13:08 Mental Health & Subst Abuse Tx Psychiatrist Name of Psychiatrist: Kathi Psychiatrist's Date of Appointment with Psychiatrist: 01/28/21 Time of Appointment with Psychiatrist: 4:20 pm Psychiatric Appointment Comment: [id number] PA Therapist Name of Therapist: Kathi Therapist's Therapy Appointment Comment: [id number] PA Auto Slip Cover Installer Name of Auto Slip Cover Installer: [employer] Phone Number for Auto Slip Cover Installer: [phone] Post Discharge Appointments Primary Care Physician Name Of Family Doctor: Nafisa Campos [facility] Date of Appointment with PCP: 02/01/21 Time of Appointment with PCP: 11:20 a.m. Provider [facility]ment [facility] [address] [facility] Contact Information Discharge Discharge Address: [address] [address], [place] [address]
[2021-01-18] MEDS: PALIPERIDONE 3 MG TABCR PO SCH (08:49)
[2021-01-18] MEDS ORDERED: OLANZapine 10 MG/2.1 ML SDV IM PRN (11:36)
[2021-01-18] MEDS ORDERED: TRIHEXYPHENIDYL HCL 2 MG TAB PO STA (12:00)
--- NOTE | 2021-01-18 12:10 | Psychiatric Progress Note ---
Date of Service January 18, 2021 Impression / Recommendations Impression Patient remains disorganized, with difficulty manipulating information, irrational thought process, and complete anosognosia, continuing to state he does not have a mental illness or need treatment or medication. He is taking medication here with strong support and assistance from staff, but would not continue it if he were discharged. We are therefore recommending a 304 IOC and DE LOS SANTOS. 304 hearing held on 01/16 and granted.It has been confirmed that the patient received a dose of Abilify Maintena on 12/20/2020. It does not appear that Abilify may not has been particularly effective in controlling the patient' s behaviors and symptoms, given the fact that he was only approximately a week or 2 "out" from the Abilify Maintena injection when he exhibited the symptoms that led to the current admission. He seems not to respond particularly well to haloperidol and complained extensively about side effects. Similarly, a starting dose of Invega 3 mg a day has resulted in the patient making persistent and somewhat strident complaints of side effects that include worsening anxiety, restlessness, and "legs not working right." He says that Abilify was "all right," but it does not appear that Abilify has been particularly effective given the fact that he was given a dose of Abilify Maintena not long before he was admitted. Both the patient and the staff are in agreement that he did seem to respond favorably to olanzapine 10 mg a day. The patient said that he felt that it helped with his depression and that he was not experiencing terrible side effects. Because of his long history of nonadherence with medications and a history of dangerous behaviors while off medications we have set a goal of getting the patient stabilized on a medication that can be converted to a long- acting depot form. Our first goal, however, will be to stabilize the patient Psychiatrically. (1) Acute psychosis: - Italic sections refer to daily care summary from medical floor admission - 01/03 -patient is a poor historian, reports indicate he may have been started on Abilify Maintena while hospitalized in [place], but timeline unknown. He is agreed to sign a release and I have asked the nurse on the floor to obtain that so that we can get those records. We will also attempt to get records from his outpatient psychiatrist, Dr. Price. -If he is refusing to take antipsychotic medications, recommend medications over objection, as he has responded to antipsychotic medication in the past, and psychotic symptoms are unlikely to remit without antipsychotic treatment. Additionally, he is severely disabled as a result of his psychosis, is unable to provide for his own basic needs, and places both himself and others at risk of harm if his symptoms remain untreated. -Given his history of nonadherence and severity of symptoms with untreated mental illness, will recommend ongoing involuntary commitment with transition to an C at discharge. He would benefit from case management and therapy as well. -Offer olanzapine 10 mg p.o./IM as needed for acute psychosis, as he has been on this medication before and tolerated it. -Consider initiation of a mood stabilizer such as Depakote, which can be given IV over objection if he remains unwilling for medications. 01/04 -The patient has stated that he was given Abilify Maintena intramuscularly fairly recently, but there is some reason to believe that this may not be accurate. It is noted that the patient's father said that he has not observed any changes in the patient's behaviors and other symptoms subsequent to the reported dose of Abilify. 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 H is tox screen at admission was negative for occult blood, but the test was not specific for hallucinogens. Accordingly, while I would doubt that the entire constellation of problems observed are related to substance use, this cannot be ruled out as a mitigating factor. -Today, the patient reports that he will refuse to take Abilify because he says that he is "allergic" to it. When asked to describe the allergy, he replied by saying that Abilify makes him feel "weird," and he says that he feels certain that it interferes with his sleep. The patient reports that he has taken olanzapine (Zyprexa) and has tolerated that well. He also suggest that he thinks that it "helps." However, he cannot exactly say how it helps. -Today, the patient says that he is embarrassed about the fact that he was "running around outside" while naked, and that he was masturbating in public. 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 Furthermore, the patient indicated that he felt this behavior was reconciled because he had awakened in a "sexual place." Accordingly, what initially had suggested improving insight is abrogated by his ongoing inappropriate and dyscontrol behaviors. -Given the fact the patient may have an unspecified dose of Abilify Maintena on board, reportedly administered on 12/19/2020, and given that the patient may need to receive his olanzapine by intramuscular injection if he continues to periodically refused to take it voluntarily (see med over objection first and second opinions), will reduce the dose of olanzapine from 10 mg 3 times a day to olanzapine 10 mg twice a day by mouth, and will order medications over objection in the form of olanzapine 10 mg IM twice a day. The dose can be titrated as indicated. 01/05--review of available records (most recent [place] pending) note dx of bipolar and/or schizoaffective bipolar type. Records state concussion/no head injuries so family was contacted as amount of preoccupation with masturbating seemed out of proportion to hypersexuality from becca. No hx of hyperorality so doubt [facility]. Had multiple concussions in high school had to leave football and switched to soccer. symptom onset in college so doubt orbitofrontal syndrome. 01/07--303 granted. still trying to confirm date of Abilify injection (or if received). Invega seemed more amenable option than Haldol dec but family confirms poor response to Risperdal and preference toward Abilify. For now Zyprexa is stabilizing patient. Reviewed with family that no local clinics administer the IM. 01/08 - Pt is religiously preoccupied and reporting thoughts that are consistent with ongoing delusions. He is now reporting he thinks he can "do things on my own" and is not particularly interested in outpatient treatment - Pt is declining medication changes. Although it is helpful that he is tolerating olanzapine and denies concerning side effects, he is unfortunately very resistant to adjusting medications to allow for an DE LOS SANTOS option. He is u nable to formulate a plan for how he plans to ensure compliance with an oral medication and therefore remains at risk of noncompliance, destabilization, frequent hospitalizations or injury/ as a result of psychosis. - Pt strongly encouraged to consider therapy and case management services. 01/09 - Continue current medication regimen, though consider need for further titration of olanzapine. Patient is not clearly verbalizing any sikhism preoccupation but seems to still be disorganized and mildly thought blocked. He continues to demonstrate poor insight into his mental health condition and need for treatment. - Will plan to schedule a family meeting to involve parents - as we will need to begin discussing safety recommendations and outpatient supports - Considering 304 IOC due to poor insight, history of medication noncompliance, and seriousness of patient's condition 01/10 - Infection control reporting patient could be cleared for referral to a psychiatric unit as soon as 01/13/21. - Continue as above - thoughts continue to be disorganized, ongoing sikhism preoccupation. Pt continues to have poor insight into the severity of his condition and on a few occasions indicated that he may begin refusing his oral medications (2-physician opinions documented on chart for medications over objection if this should occur). - Offered to adjust dosing of olanzapine due to reports of daytime fatigue, patient declining at this time. Consider need for titration of the medication if thoughts do not continue to clear. - Anticipate need for inpatient psychiatric treatment once cleared medically to join the inpatient milieu setting - Considering 304 IOC, meeting scheduled with [facility] to discuss case on 01/16 01/11 - Continue as above. We did receive reports that patient does continue to engage in sexually inappropriate behavior. We are encouraging staff to redirect patient in these situations and offer alternative activities. Pt reports feeling some control over this behavior and express apologies. - Continue olanzapine - consider need for further titration - Anticipate clearance from isolation precautions on 01/16, and then will consider for admission to our unit for continued psychiatric treatment - Likely will require 304 IOC. 01/12 - Continue as above - anticipate discharge from the medical floor tomorrow, with subsequent admission to our unit to continue psychiatric treatment. - Pt reports appropriate behavior, reviewed some of the expectations regarding behavior on our unit as well. 01/13 - Continue olanzapine 10mg BID - discuss case further during treatment team tomorrow. - Admitted to a locked inpatient behavioral health unit, on q15 minute safety checks - Encourage medication initiation/adjustments as indicated - Encourage participation in group and recreational therapies - Gather collateral information from outpatient providers - Suggest family meeting to involve outpatient supports in safety planning - Arrange appropriate aftercare 01/14 -File for 304 involuntary commitment hearing to be held 01/16. Consider the need for referral to [facility] for long-term inpatient treatment versus diversion to an involuntary outpatient commitment. -Patient has been seen by 2 physicians for medications over objection, and although he has taken oral medications at times here in the hospital, has consistently stated that he does not believe he needs medication or psychiatric treatment, and will not continue it after leaving the hospital. We are therefore recommending an long-acting injectable antipsychotic. Multiple medications have been reviewed with him and he has refused all of them. We will discontinue olanzapine as it is not available as an DE LOS SANTOS, and start haloperidol 10 mg twice daily p.o., with an IM backup for refusal, with a plan to transition to Haldol Decanoate once an effective dose is established. -Treatment planning meeting with [facility] scheduled for 01/16 after commitment hearing. 01/15 - Continue haloperidol 10mg BID - patient has been taking medications orally, though with some reluctance. IM form remains available for meds over objection if necessary - Will order fasting glucose and lipid panel for tomorrow - as no record of labs being done while in [place] - We were able to clarify with new records that patient did, in fact, receive Abilify Maintena on 12/20 while inpatient in [place]. - 304 hearing tomorrow; [facility] meeting to follow to discuss discharge planning 01/16 - Pt reporting poor effect with Haldol and requesting a different medication. Discussed trial of paliperidone (as Abilify Maintena was ineffective), and discussed risks, benefits and potential side effects. He agreed to a trial, discontinued Haldol and started paliperidone 3mg daily for tomorrow. Continue Haldol IM for refusal of PO. If effective, transition to Invega Sustenna. - Fasting labs for monitoring on atypical antipsychotic: Glucose 99, FLP normal with the exception of cholesterol 220. Ongoing monitoring as an outpatient. - Patient continues to refuse to sign releases for [facility] and [facility], so we have not yet arranged outpatient treatment. Now that there is a [address], we will proceed with discharge planning. Family meeting scheduled with patient, parents, and licensed clinical social worker for Thursday. 01/17 - Continue trial of paliperidone - kept dosing at 3mg for tomorrow due to patient reporting side effects, however, it will likely need continued titration. Haloperidol is ordered for refusal of oral medication and patient is continuing to show little commitment to medications jail. - Family meeting with parents scheduled for tomorrow, [facility] staff is attempting to meet with patient again tomorrow afternoon - [address] requires involvement of full spectrum of outpaitent psychiatric services; however, patient is resistant to these services 01/18 -The patient continues to complain fairly strikingly of intolerable side effects that he associates with Invega. These side effects may be considered consistent with extraparametal side effects, and the patient does exhibit cogwheel rigidity on examination. We talked to him about the possibility of using an antiparkinsonian agent to manage the side effects, but the patient seemed absolutely adamant that he does not wish to take Invega any further. Of the medications that can be given in a depot form, he said that he felt that Abilify would be the one that he would choose, although it, too, reportedly causes difficult side effects and, furthermore, does not necessarily seem to have been particularly effective in his case.He does not speak positively about his experience with Zyprexa, and this is consistent with staff observation during the brief period during which she was taking Zyprexa. After discussion with the treatment team and with the patient, we agreed to restart olanzapine (Zyprexa) at 10 mg daily. We will also add an anti his parkinsonian agent, first as a test, and then is a standing order to guard against extrapyramidal side effects. -The patient has made reference to feeling depressed for several weeks now. The treatment team agrees that he appears depressed. His complaint is "anxiety that leads to depression," and endorses feeling "sad," and hopeless. The patient also has mood congruent delusions that include delusion that he has "been sent to hell," and will be "tortured" forever. Within this context, we will offer the patient a trial of the antidepressant/antianxiety medication venlafaxine extended release beginning at 37.5 mg and titrated carefully and with caution given our working diagnosis of schizophrenia versus schizoaffective disorder. (2) Noncompliance with medication regimen: - Italic sections refer to daily care summary from medical floor admission - Recommend an DE LOS SANTOS due to nonadherence with oral medication, need to obtain additional information about recent treatment before we can explore options. Father reports they were told he got Abilify Maintena on 12/19/2020, and due to tight receptor binding it may be difficult to get an adequate response from other dopaminergic medications until it is out of his system 01/04/21 -The patient is saying that he will refuse to take Abilify either orally or by injection of a depot form of aripiprazole. The plan is to stabilize the patient on olanzapine, and at that point we may be able to asked the patient to reconsider Abilify given reports that he has responded favorably to Abilify in the past. Alternatively, he could be converted to Invega Sustenna or Haldol decanoate, in view of his acknowledge long history of medication nonadherence 01/05/21--offered zydus, prefers pills and is compliant last 2 doses. 01/06--father states that he was trying to put Abilify in patient's cereal in days leading up to admission. 01/08 - Has been taking scheduled doses of olanzapine BID; however, unwilling for medication changes or to explore options for Suraj. 01/09 - 01/12 - Remains unwilling to consider DE LOS SANTOS options to promote medication compliance - Considering a 304 IOC 01/13 - Continue as above - patient remains resistant to an DE LOS SANTOS, now reporting the concern is related to fear of needles. - Pt stated today that he does not desire for medications to be a part of his treatment plan. - Medications over objection orders in place from assessments completed while patient was on the medical floor. 01/15 - Transitioned to haloperidol yesterday to allow for stabilization on a medication that can be given as an DE LOS SANTOS 01/16 -At patient's request, discontinue Haldol and start trial of Invega, with plan to transition to Invega Sustenna if effective and well-tolerated. -304 hearing held and commitment granted. 01/18 -As above, we have been trying to find a medication that can be given to him orally, with the goal of stabilizing on that medication and then converting him to a depot form of the medication. Unfortunately, he seems not to have responded favorably to haloperidol, the also seems not to respond favorably to a low dose of Invega, and he had received a dose of Abilify Maintena not long before his admission to [facility], a circumstance that would seem to suggest that he was not responding favorably to aripiprazole, or was not currently responding favorably to aripiprazole. Furthermore, the patient complains persistently of intolerable side effects that he associates with Invega and haloperidol. He also references aripiprazole, but says that of the 3 medications aripiprazole has been the least likely to cause severe side effects. He reiterates that sometimes keeps him awake at night. Accordingly, while our goal is to find a depot medication that may work, for now we have decided to aggressively treat the patient's condition with Zyprexa, medication that he says has worked well for him and that helps with his "anxiety and depression." We will also add an antiparkinsonian agent given the fact that the patient complains of restlessness, which she refers to his anxiety, and does exhibit EPS such as cogwheeling on examination. Possibly, once the patient is stabilized psychiatrically we can reintroduce the idea of a medication that can be given in the depot form, combined with an antiparkinsonian agent (if that proves to be the source of the patient's multiple complaints of side effects). (3) Exhibitionist behavior: 01/13 - These concerns were addressed by our staff during patient's medical floor admission. Pt had continued to frequently masturbate during his time on the medical floor, even occasionally propositioning his 1:1 staff. - Pt was informed that this behavior cannot be tolerated on our unit - especially in a milieu setting. - Continue to redirect patient and offer more appropriate coping strategies should this behavior continue. 01/17 - No concerns related to this history here on the unit; however, patient is continue to display poor insight with limited commitment to treatment. There are ongoing concerns related to safety and legal consequences if is psychosis is not adequately treated and he is not committed to continued treatment after discharge. 01/18 - Given the patient's primary psychiatric diagnosis, it would be somewhat difficult to give the patient a concurrent diagnosis of the paraphilia e xhibitionism. He tells us that he went outside in the nude and masturbated in front of other people because he was given a "message" that they wanted him to do that and that it would somehow relieve the tension that he was feeling in his chest and abdomen. He also said, "I do not get off" on the idea of having people watch me masturbate. However, he also acknowledges that he was significantly more sexually aroused once he had what he considers to be an audience. In any event, we are focusing with the patient the fact that these behaviors can lead to legal trouble, or possibly even more significantly, to violence from those persons to take exception to his behavior. The patient indicated understanding and registered a sense of regret. (4) Tick bite: Treatment Impression per hospitalist staff: - Received doxy prophylaxis during beginning of admission when tick was removed. Monitor for rickettsial illness.No issues at this time. Patient was counseled on signs and symptoms to watch for and verbalized understanding with intent to comply. 01/13 - Will continue to monitor for signs/symptoms of infection or disease related to tick bite. Monitor vitals including temperature daily as per usual protocol. 01/18 -There are no current symptoms of Lyme disease. Risk Factors Assessment Male: Yes : Yes Do You Have Access To A Gun?: Yes Health Problems: No Mental Health Diagnoses: Yes Substance Use Disorders: No Previous Psychiatric Hospitalization: Yes Hopelessness: No Smoker: No Protective Factors Assessment Temple Beliefs: Yes : No Responsible for Young Children: No Employed: No Stable Relationships: No Supportive Family: Yes Good Rapport with Provider: No Interval History Identifying Information YURIY COLLINS is a 30-year-old M who currently lives in [place] with his parents, has a reported history of schizoaffective disorder and treatment noncompliance, and was admitted on 01/13/21 14:07 on a 303 involuntary commitment for acute psychosis. He is on a 304 involuntary commitment as of 01/16/2021. He was initially admitted medically due to COVID + in ER and need for isolation precautions from 01/02/21 - 01/13/21. Chief Complaint "I do not have schizophrenia.". Review of Systems Sleep Information Total Hours of Sleep: 7.5 Sleep Comments: pt on q-15 minute checks Meal Information Percent Meal Consumed - Breakfast: 100 Percent Meal Consumed - Lunch: 75 Percent Meal Consumed - Dinner: 100 Nutrition Comment: stated not feeling well Subjective Subjective Patient was seen & assessed and interval progress reviewed with treatment team. I met individually with the patient in order to assess his current mental status, evaluate his response to treatment, coordinate any necessary changes in the patient's treatment regimen with the patient, and address issues questions and concerns that may arise. The patient began by spontaneously telling me that he does not have schizophrenia and does not agree with the diagnosis. I suggested that we focus on those symptoms that he would like to address, and he quickly began complaining of medication side effects, specifically to Invega. He described feeling "nervous" and endorsed the word "restless." He also said that he felt as if his legs were not "working right," and that this was making him anxious. On examination he does seem to have cogwheeling. The patient was able to be redirected to discuss specific psychiatric symptoms. He endorsed that he has been feeling both anxious and he has, because of the anxiety he has been feeling somewhat depressed. I reflected that he does appear to be somewhat depressed. He notes that he feels it "could be the medicine," but that he often does become depressed. We discussed the circumstances that had led to his psychiatric admission. He tells a somewhat different story than he had told previously. Today, he says that he was Indoors and was feeling a significant amount of tension in his chest and abdomen "like a triangle,". He notes that he attempted to masturbate several times but was not able to reach orgasm. Accordingly, he went outside and was able to successfully masturbate in front of other people. He tells me that he knew that the other people wanted him to do that because of "messages" that he had received. When asked if he receives the message is by hearing them, he turned his head slightly, look into an empty corner, tilted his head slightly, and replied "no, not really." The patient then began to spontaneously talk about the "blue chip law," that involves the insertion of electronic chips and people to monitor them against breaking the law. He says that the law that they monitor for with the blue chip involves the fact that "sitting on a refrigerator in your yard is illegal and you can get arrested for that."The patient also [place] [facility] [place] [facility] so that he can serve time for his criminal behavior. I assured the patient that as far as I know no charges were being placed, but I reminded him that he could get himself in quite a bit of trouble for disrobing in public and masturbating in publiceither with the law, or the family member of a child who May inadvertently be a witness. The patient assures me that he was not trying to "get off" sexually by being exhibition asked. But, the combination of fresh air and what he thought was a while coming audience was sexually invigorating for him. We talked about his long history of nonadherence with medications, combined with his history of multiple psychiatric admissions and multiple episodes of seriously problematic and dangerous behaviors.I explained that our current position is that he is not safe to leave the hospital because of his recent behaviors, his history of nonadherence with medications, and his similar refusal to cooperate with outpatient psychiatric treatment. We also reminded him that he has "disappeared" regularly And traveled across the country. The patient replied by saying, "all take the medicine by mouth. I promise." However, he was also able, seemingly, to understand when I told him that at this point his assurances could not be excepted or trusted by us given his history of making similar promises and then violating them. I told him that we really felt that he needs to be on a long-acting psychiatric medication and injectable depot form. He tells us that he is strongly against this idea and reiterates "I do not have schizophrenia." I explained that these medications are used for a number of different purposes and not just for schizophrenia. He was wondering if we would consider an antidepressant. He also reports that of all the medicines he is taking he felt that Zyprexa was one that helped "with depression and anxiety." It was explained to him that this does not come in a long-term or depot form, and essentially we were looking at either haloperidol, Abilify, or Invega. (Risperidone was deliberately not mentioned.) The patient said of these, he would prefer Abilify. We talked about the fact that it is possible that Invega may be causing extraparametal side effects, and these were described to him. Currently, he said that he would agree to a stat dose of Artane. He was also given a choice of an intramuscular injection, but said that he would prefer to take it by mouth. Physical Exam Psychiatric Orientation: alert, oriented x 3 and cooperative Apperance: appropriately dressed and appropriately groomed Eye Contact: + poor eye contact Motor Behavior: + psychomotor retardation The patient's speech was soft, deep, low, and generally nonspontaneous. Affect: + blunted affect Mood: + depressed mood and + anxious mood Thought Process: + looseness of associations Thought Content: + delusions Suicidal Thoughts: denies suicidal plan and denies suicidal intent; + reports suicidal thoughts Patient reports that he had thoughts of suicide several days ago when he tried to tie a noose with his bed sheets. He claims that he told staff that he was "practicing" tying a knot and that he was just trying to make a sort of pillow that he could use for comfort, but that he had been considering hanging himself. The patient reports that these thoughts have subsequently resolved. He also agrees to notify staff if the thoughts return. Homicidal Thoughts: denies homicidal thoughts Hallucinations: + auditory hallucinations (Although the patient denies this, he has given several indications and sign) Cognition: recent memory grossly intact, remote memory grossly intact and language grossly intact Estimated Intelligence: + above average estimated intelligence Insight: + poor insight Judgement: + severely impaired judgement Vital Signs (Past 24 Hours) Last Vital Signs Temp 36.6 C 01/18/21 06:44 Pulse 103 H 01/18/21 06:45 Resp 16 01/18/21 06:44 BP 111/69 01/18/21 06:45 Results & Data ([facility]) Current Inpatient Medications Current Inpatient Medications: Current Inpatient Medications Acetaminophen (Acetaminophen 325 Mg Tab) 650 mg PO Q4H PRN PRN Reason: Headache or Minor Fever Stop: 02/12/21 13:08 Al Hydrox/Mg Hydrox/Simethicone (Aluminum/Magnesium Susp 30 Ml Udc) 30 ml PO Q4H PRN PRN Reason: GI Upset Stop: 02/12/21 13:08 Benztropine Mesylate (Benztropine Mesylate 1 Mg Tab) 1 mg PO Q4H PRN PRN Reason: EPS Stop: 02/13/21 08:27 Bismuth Subsalicylate (Bismuth Subsalicylate Liqd 236 Ml) 15 ml PO PRN PRN PRN Reason: Loose Stool Stop: 02/12/21 13:08 Haloperidol Lactate (Haloperidol Lactate 5 Mg/Ml 1 Ml Vial) 10 mg IM Q6H PRN PRN Reason: psychosis or agitation, or ref Stop: 02/13/21 08:27 Hydroxyzine HCl (Hydroxyzine Hcl 25 Mg Tab) 50 mg PO HSZ PRN PRN Reason: Insomnia Stop: 02/12/21 13:08 Hydroxyzine HCl (Hydroxyzine Hcl 25 Mg Tab) 25 mg PO Q4H PRN PRN Reason: Anxiety Stop: 02/12/21 13:08 Magnesium Hydroxide (Magnesium Hydroxide Susp 30 Ml Udc) 30 ml PO DAILY PRN PRN Reason: Constipation Stop: 02/12/21 13:08 Olanzapine (Olanzapine 10 Mg Tab) 10 mg PO QAM MATT Stop: 02/17/21 11:44 Olanzapine (Olanzapine 10 Mg/2.1 Ml Sdv) 10 mg IM PRN PRN PRN Reason: Refusal of PO Olanzapine Stop: 02/17/21 11:35 Sodium Chloride (Sodium Chloride 0.65% Na Soln 45 Ml ([place])) 1 - 2 sprays NA PRN PRN PRN Reason: Nasal Dryness/Congestion Stop: 02/12/21 13:08 Trihexyphenidyl HCl (Trihexyphenidyl Hcl 2 Mg Tab) 2 mg PO NOW STA Stop: 01/18/21 11:56 Venlafaxine HCl (Venlafaxine Hcl Xr 37.5 Mg Capxr) 37.5 mg PO QAM MATT Stop: 02/17/21 11:59 Mental Health & Subst Abuse Tx Psychiatrist Name of Psychiatrist: [facility] Psych[facility] Date of Appointment with Psychiatrist: 01/28/21 Time of Appointment with Psychiatrist: 4:20 pm Psychiatric Appointment Comment: [phone] Therapist Name of Therapist: [facility] The[facility]ist[facility] Therapy Appointment Comment: [phone] PA Bundle Tier And Labeler Name of Bundle Tier And Labeler: [employer] Phone Number for Bundle Tier And Labeler: [phone] Post Discharge Appointments Primary Care Physician Name Of Family Doctor: Nafisa Campos [facility] Date of Appointment with PCP: 02/01/21 Time of Appointment with PCP: 11:20 a.m. Provider Appointment Comment: [phone] [facility], [place] Contact Information Discharge Discharge Address[place] [address] [address], [place], [place] [address]
[2021-01-18] MEDS: OLANZapine 10 MG TAB PO SCH (12:36)
[2021-01-18] MEDS: VENLAFAXINE HCL XR 37.5 MG CAPXR PO SCH (12:37)
[2021-01-18] MEDS: TRIHEXYPHENIDYL HCL 2 MG TAB PO SCH (21:08)
[2021-01-19] MEDS: TRIHEXYPHENIDYL HCL 2 MG TAB PO SCH ×2 (08:47→21:01)
[2021-01-19] MEDS: OLANZapine 10 MG TAB PO SCH ×2 (08:47→21:02)
[2021-01-19] MEDS: VENLAFAXINE HCL XR 37.5 MG CAPXR PO SCH (08:47)
--- NOTE | 2021-01-19 14:29 | Psychiatric Progress Note ---
Date of Service January 19, 2021 Impression / Recommendations Impression Patient remains disorganized, with difficulty manipulating information, irrational thought process, and complete anosognosia, continuing to state he does not have a mental illness or need treatment or medication. He is taking medication here with strong support and assistance from staff, but would not continue it if he were discharged. We are therefore recommending a 304 IOC and DE LOS SANTOS. 304 hearing held on 01/16 and granted.It has been confirmed that the patient received a dose of Abilify Maintena on 12/20/2020. It does not appear that Abilify may not has been particularly effective in controlling the patient' s behaviors and symptoms, given the fact that he was only approximately a week or 2 "out" from the Abilify Maintena injection when he exhibited the symptoms that led to the current admission. He seems not to respond particularly well to haloperidol and complained extensively about side effects. Similarly, a starting dose of Invega 3 mg a day has resulted in the patient making persistent and somewhat strident complaints of side effects that include worsening anxiety, restlessness, and "legs not working right." He says that Abilify was "all right," but it does not appear that Abilify has been particularly effective given the fact that he was given a dose of Abilify Maintena not long before he was admitted. Both the patient and the staff are in agreement that he did seem to respond favorably to olanzapine 10 mg a day. The patient said that he felt that it helped with his depression and that he was not experiencing terrible side effects. Because of his long history of nonadherence with medications and a history of dangerous behaviors while off medications we have set a goal of getting the patient stabilized on a medication that can be converted to a long- acting depot form. Our first goal, however, will be to stabilize the patient Psychiatrically. (1) Acute psychosis: - Italic sections refer to daily care summary from medical floor admission - 01/03 -patient is a poor historian, reports indicate he may have been started on Abilify Maintena while hospitalized in [place], but timeline unknown. He is agreed to sign a release and I have asked the nurse on the floor to obtain that so that we can get those records. We will also attempt to get records from his outpatient psychiatrist, Dr. Price. -If he is refusing to take antipsychotic medications, recommend medications over objection, as he has responded to antipsychotic medication in the past, and psychotic symptoms are unlikely to remit without antipsychotic treatment. Additionally, he is severely disabled as a result of his psychosis, is unable to provide for his own basic needs, and places both himself and others at risk of harm if his symptoms remain untreated. -Given his history of nonadherence and severity of symptoms with untreated mental illness, will recommend ongoing involuntary commitment with transition to an C at discharge. He would benefit from case management and therapy as well. -Offer olanzapine 10 mg p.o./IM as needed for acute psychosis, as he has been on this medication before and tolerated it. -Consider initiation of a mood stabilizer such as Depakote, which can be given IV over objection if he remains unwilling for medications. 01/04 -The patient has stated that he was given Abilify Maintena intramuscularly fairly recently, but there is some reason to believe that this may not be accurate. It is noted that the patient's father said that he has not observed any changes in the patient's behaviors and other symptoms subsequent to the reported dose of Abilify. 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 H is tox screen at admission was negative for occult blood, but the test was not specific for hallucinogens. Accordingly, while I would doubt that the entire constellation of problems observed are related to substance use, this cannot be ruled out as a mitigating factor. -Today, the patient reports that he will refuse to take Abilify because he says that he is "allergic" to it. When asked to describe the allergy, he replied by saying that Abilify makes him feel "weird," and he says that he feels certain that it interferes with his sleep. The patient reports that he has taken olanzapine (Zyprexa) and has tolerated that well. He also suggest that he thinks that it "helps." However, he cannot exactly say how it helps. -Today, the patient says that he is embarrassed about the fact that he was "running around outside" while naked, and that he was masturbating in public. However, he has difficulty saying why that should be an issue, other than to repeatedly say, "it is bad." At the same time, and the period of time that immediately proceeded our telephonic contact the patient was reportedly openly masturbating in front of his one-to-one process assistant and, also reportedly, the patient had invited the one-to-one process assistant to either masturbate together with the patient or to allow the patient to masturbate him. Furthermore, the patient indicated that he felt this behavior was reconciled because he had awakened in a "sexual place." Accordingly, what initially had suggested improving insight is abrogated by his ongoing inappropriate and dyscontrol behaviors. -Given the fact the patient may have an unspecified dose of Abilify Maintena on board, reportedly administered on 12/19/2020, and given that the patient may need to receive his olanzapine by intramuscular injection if he continues to periodically refused to take it voluntarily (see med over objection first and second opinions), will reduce the dose of olanzapine from 10 mg 3 times a day to olanzapine 10 mg twice a day by mouth, and will order medications over objection in the form of olanzapine 10 mg IM twice a day. The dose can be titrated as indicated. 01/05--review of available records (most recent [place] pending) note dx of bipolar and/or schizoaffective bipolar type. Records state concussion/no head injuries so family was contacted as amount of preoccupation with masturbating seemed out of proportion to hypersexuality from becca. No hx of hyperorality so doubt [facility]. Had multiple concussions in high school had to leave football and switched to soccer. symptom onset in college so doubt orbitofrontal syndrome. 01/07--303 granted. still trying to confirm date of Abilify injection (or if received). Invega seemed more amenable option than Haldol dec but family confirms poor response to Risperdal and preference toward Abilify. For now Zyprexa is stabilizing patient. Reviewed with family that no local clinics administer the IM. 01/08 - Pt is religiously preoccupied and reporting thoughts that are consistent with ongoing delusions. He is now reporting he thinks he can "do things on my own" and is not particularly interested in outpatient treatment - Pt is declining medication changes. Although it is helpful that he is tolerating olanzapine and denies concerning side effects, he is unfortunately very resistant to adjusting medications to allow for an DE LOS SANTOS option. He is u nable to formulate a plan for how he plans to ensure compliance with an oral medication and therefore remains at risk of noncompliance, destabilization, frequent hospitalizations or injury/ as a result of psychosis. - Pt strongly encouraged to consider therapy and case management services. 01/09 - Continue current medication regimen, though consider need for further titration of olanzapine. Patient is not clearly verbalizing any buddhism preoccupation but seems to still be disorganized and mildly thought blocked. He continues to demonstrate poor insight into his mental health condition and need for treatment. - Will plan to schedule a family meeting to involve parents - as we will need to begin discussing safety recommendations and outpatient supports - Considering 304 IOC due to poor insight, history of medication noncompliance, and seriousness of patient's condition 01/10 - Infection control reporting patient could be cleared for referral to a psychiatric unit as soon as 01/13/21. - Continue as above - thoughts continue to be disorganized, ongoing buddhism preoccupation. Pt continues to have poor insight into the severity of his condition and on a few occasions indicated that he may begin refusing his oral medications (2-physician opinions documented on chart for medications over objection if this should occur). - Offered to adjust dosing of olanzapine due to reports of daytime fatigue, patient declining at this time. Consider need for titration of the medication if thoughts do not continue to clear. - Anticipate need for inpatient psychiatric treatment once cleared medically to join the inpatient milieu setting - Considering 304 IOC, meeting scheduled with [facility] to discuss case on 01/16 01/11 - Continue as above. We did receive reports that patient does continue to engage in sexually inappropriate behavior. We are encouraging staff to redirect patient in these situations and offer alternative activities. Pt reports feeling some control over this behavior and express apologies. - Continue olanzapine - consider need for further titration - Anticipate clearance from isolation precautions on 01/16, and then will consider for admission to our unit for continued psychiatric treatment - Likely will require 304 IOC. 01/12 - Continue as above - anticipate discharge from the medical floor tomorrow, with subsequent admission to our unit to continue psychiatric treatment. - Pt reports appropriate behavior, reviewed some of the expectations regarding behavior on our unit as well. 01/13 - Continue olanzapine 10mg BID - discuss case further during treatment team tomorrow. - Admitted to a locked inpatient behavioral health unit, on q15 minute safety checks - Encourage medication initiation/adjustments as indicated - Encourage participation in group and recreational therapies - Gather collateral information from outpatient providers - Suggest family meeting to involve outpatient supports in safety planning - Arrange appropriate aftercare 01/14 -File for 304 involuntary commitment hearing to be held 01/16. Consider the need for referral to [facility] for long-term inpatient treatment versus diversion to an involuntary outpatient commitment. -Patient has been seen by 2 physicians for medications over objection, and although he has taken oral medications at times here in the hospital, has consistently stated that he does not believe he needs medication or psychiatric treatment, and will not continue it after leaving the hospital. We are therefore recommending an long-acting injectable antipsychotic. Multiple medications have been reviewed with him and he has refused all of them. We will discontinue olanzapine as it is not available as an DE LOS SANTOS, and start haloperidol 10 mg twice daily p.o., with an IM backup for refusal, with a plan to transition to Haldol Decanoate once an effective dose is established. -Treatment planning meeting with [facility] scheduled for 01/16 after commitment hearing. 01/15 - Continue haloperidol 10mg BID - patient has been taking medications orally, though with some reluctance. IM form remains available for meds over objection if necessary - Will order fasting glucose and lipid panel for tomorrow - as no record of labs being done while in [place] - We were able to clarify with new records that patient did, in fact, receive Abilify Maintena on 12/20 while inpatient in [place]. - 304 hearing tomorrow; [facility] meeting to follow to discuss discharge planning 01/16 - Pt reporting poor effect with Haldol and requesting a different medication. Discussed trial of paliperidone (as Abilify Maintena was ineffective), and discussed risks, benefits and potential side effects. He agreed to a trial, discontinued Haldol and started paliperidone 3mg daily for tomorrow. Continue Haldol IM for refusal of PO. If effective, transition to Invega Sustenna. - Fasting labs for monitoring on atypical antipsychotic: Glucose 99, FLP normal with the exception of cholesterol 220. Ongoing monitoring as an outpatient. - Patient continues to refuse to sign releases for [facility] and [facility], so we have not yet arranged outpatient treatment. Now that there is a [address], we will proceed with discharge planning. Family meeting scheduled with patient, parents, and social studies department chair for Thursday. 01/17 - Continue trial of paliperidone - kept dosing at 3mg for tomorrow due to patient reporting side effects, however, it will likely need continued titration. Haloperidol is ordered for refusal of oral medication and patient is continuing to show little commitment to medications penitentiary. - Family meeting with parents scheduled for tomorrow, [facility] staff is attempting to meet with patient again tomorrow afternoon - [address] requires involvement of full spectrum of outpaitent psychiatric services; however, patient is resistant to these services 01/18 -The patient continues to complain fairly strikingly of intolerable side effects that he associates with Invega. These side effects may be considered consistent with extraparametal side effects, and the patient does exhibit cogwheel rigidity on examination. We talked to him about the possibility of using an antiparkinsonian agent to manage the side effects, but the patient seemed absolutely adamant that he does not wish to take Invega any further. Of the medications that can be given in a depot form, he said that he felt that Abilify would be the one that he would choose, although it, too, reportedly causes difficult side effects and, furthermore, does not necessarily seem to have been particularly effective in his case.He does not speak positively about his experience with Zyprexa, and this is consistent with staff observation during the brief period during which she was taking Zyprexa. After discussion with the treatment team and with the patient, we agreed to restart olanzapine (Zyprexa) at 10 mg daily. We will also add an anti his parkinsonian agent, first as a test, and then is a standing order to guard against extrapyramidal side effects. -The patient has made reference to feeling depressed for several weeks now. The treatment team agrees that he appears depressed. His complaint is "anxiety that leads to depression," and endorses feeling "sad," and hopeless. The patient also has mood congruent delusions that include delusion that he has "been sent to hell," and will be "tortured" forever. Within this context, we will offer the patient a trial of the antidepressant/antianxiety medication venlafaxine extended release beginning at 37.5 mg and titrated carefully and with caution given our working diagnosis of schizophrenia versus schizoaffective disorder. 01/19--reviewed. retitrating Zyprexa. EPS resolved. Artane may be able to be tapered over time. Monitor for emergent hypomania on SNRI. (2) Noncompliance with medication regimen: - Italic sections refer to daily care summary from medical floor admission - Recommend an DE LOS SANTOS due to nonadherence with oral medication, need to obtain additional information about recent treatment before we can explore options. Father reports they were told he got Abilify Maintena on 12/19/2020, and due to tight receptor binding it may be difficult to get an adequate response from other dopaminergic medications until it is out of his system 01/04/21 -The patient is saying that he will refuse to take Abilify either orally or by injection of a depot form of aripiprazole. The plan is to stabilize the patient on olanzapine, and at that point we may be able to asked the patient to reconsider Abilify given reports that he has responded favorably to Abilify in the past. Alternatively, he could be converted to Invega Sustenna or Haldol decanoate, in view of his acknowledge long history of medication nonadherence 01/05/21--offered zydus, prefers pills and is compliant last 2 doses. 01/06--father states that he was trying to put Abilify in patient's cereal in days leading up to admission. 01/08 - Has been taking scheduled doses of olanzapine BID; however, unwilling for medication changes or to explore options for Suraj. 01/09 - 01/12 - Remains unwilling to consider DE LOS SANTOS options to promote medication compliance - Considering a 304 IOC 01/13 - Continue as above - patient remains resistant to an DE LOS SANTOS, now reporting the concern is related to fear of needles. - Pt stated today that he does not desire for medications to be a part of his treatment plan. - Medications over objection orders in place from assessments completed while patient was on the medical floor. 01/15 - Transitioned to haloperidol yesterday to allow for stabilization on a medication that can be given as an DE LOS SANTOS 01/16 -At patient's request, discontinue Haldol and start trial of Invega, with plan to transition to Invega Sustenna if effective and well-tolerated. -304 hearing held and commitment granted. 01/18 -As above, we have been trying to find a medication that can be given to him orally, with the goal of stabilizing on that medication and then converting him to a depot form of the medication. Unfortunately, he seems not to have responded favorably to haloperidol, the also seems not to respond favorably to a low dose of Invega, and he had received a dose of Abilify Maintena not long before his admission to [facility], a circumstance that would seem to suggest that he was not responding favorably to aripiprazole, or was not currently responding favorably to aripiprazole. Furthermore, the patient complains persistently of intolerable side effects that he associates with Invega and haloperidol. He also references aripiprazole, but says that of the 3 medications aripiprazole has been the least likely to cause severe side effects. He reiterates that sometimes keeps him awake at night. Accordingly, while our goal is to find a depot medication that may work, for now we have decided to aggressively treat the patient's condition with Zyprexa, medication that he says has worked well for him and that helps with his "anxiety and depression." We will also add an antiparkinsonian agent given the fact that the patient complains of restlessness, which she refers to his anxiety, and does exhibit EPS such as cogwheeling on examination. Possibly, once the patient is stabilized psychiatrically we can reintroduce the idea of a medication that can be given in the depot form, combined with an antiparkinsonian agent (if that proves to be the source of the patient's multiple complaints of side effects). Reviewed 01/19/21. (3) Exhibitionist behavior: 01/13 - These concerns were addressed by our staff during patient's medical floor admission. Pt had continued to frequently masturbate during his time on the medical floor, even occasionally propositioning his 1:1 staff. - Pt was informed that this behavior cannot be tolerated on our unit - especially in a milieu setting. - Continue to redirect patient and offer more appropriate coping strategies should this behavior continue. 01/17 - No concerns related to this history here on the unit; however, patient is continue to display poor insight with limited commitment to treatment. There are ongoing concerns related to safety and legal consequences if is psychosis is not adequately treated and he is not committed to continued treatment after discharge. 01/18 - Given the patient's primary psychiatric diagnosis, it would be somewhat difficult to give the patient a concurrent diagnosis of the paraphilia exhibitionism. He tells us that he went outside in the nude and masturbated in front of other people because he was given a "message" that they wanted him to do that and that it would somehow relieve the tension that he was feeling in his chest and abdomen. He also said, "I do not get off" on the idea of having people watch me masturbate. However, he also acknowledges that he was significantly more sexually aroused once he had what he considers to be an audience. In any event, we are focusing with the patient the fact that these behaviors can lead to legal trouble, or possibly even more significantly, to violence from those persons to take exception to his behavior. The patient indicated understanding and registered a sense of regret. Reviewed 01/19/21. (4) Tick bite: Treatment Impression per hospitalist staff: - Received doxy prophylaxis during beginning of admission when tick was removed. Monitor for rickettsial illness.No issues at this time. Patient was counseled on signs and symptoms to watch for and verbalized understanding with intent to comply. 01/13 - Will continue to monitor for signs/symptoms of infection or disease related to tick bite. Monitor vitals including temperature daily as per usual protocol. 01/18 -There are no current symptoms of Lyme disease. Reviewed 01/19/21. Risk Factors Assessment Male: Yes : Yes Do You Have Access To A Gun?: Yes Health Problems: No Mental Health Diagnoses: Yes Substance Use Disorders: No Previous Psychiatric Hospitalization: Yes Hopelessness: No Smoker: No Protective Factors Assessment Evangelical Beliefs: Yes : No Responsible for Young Children: No Employed: No Stable Relationships: No Supportive Family: Yes Good Rapport with Provider: No Interval History Identifying Information YURIY COLLINS is a 30-year-old M who currently lives in [place] with his parents, has a reported history of schizoaffective disorder and treatment noncompliance, and was admitted on 01/13/21 14:07 on a 303 involuntary commitment for acute psychosis. He is on a 304 involuntary commitment as of 01/16/2021. He was initially admitted medically due to COVID + in ER and need for isolation precautions from 01/02/21 - 01/13/21. Reviewed 01/19/21. Chief Complaint "yeah I like Zyprexa, no leg stuff". Review of Systems Sleep Information Total Hours of Sleep: 7.25 Sleep Comments: pt on q-15 minute checks Meal Information Percent Meal Consumed - Breakfast: 100 Percent Meal Consumed - Lunch: 100 Percent Meal Consumed - Dinner: 100 Nutrition Comment: per meal record Subjective Subjective Patient was seen & assessed and interval progress reviewed with nursing and social work. A little tired with restart Zyprexa but "I feel calm/good and want to be back on the twice a day". States he is willing to take Zyprexa by mouth as an outpatient. He doesn't anticipate is causing conflict with parents. Did ask a therapeutic staff if they could go on a date sometime but overall no hypersexuality or inappropriate comments. Rather minimal and robotic in responses, unclear how much his insight has actually improved. Physical Exam Psychiatric Orientation: alert Apperance: appropriately groomed Eye Contact: + fair eye contact Motor Behavior: no abnormal motor movements soft speech, non spontaneous Affect: + blunted affect Mood: + depressed mood Thought Process: + concrete thought process Thought Content: no delusions Suicidal Thoughts: denies suicidal thoughts Homicidal Thoughts: denies homicidal thoughts Hallucinations: no auditory hallucinations and no visual hallucinations Cognition: attention grossly intact and language grossly intact Insight: + poor insight Judgement: + poor judgement Vital Signs (Past 24 Hours) Last Vital Signs Temp 36.4 C L 01/19/21 06:46 Pulse 90 01/19/21 06:46 Resp 17 01/19/21 06:46 BP 107/56 L 01/19/21 06:46 Results & Data ([facility]) Current Inpatient Medications Current Inpatient Medications: Current Inpatient Medications Acetaminophen (Acetaminophen 325 Mg Tab) 650 mg PO Q4H PRN PRN Reason: Headache or Minor Fever Stop: 02/12/21 13:08 Al Hydrox/Mg Hydrox/Simethicone (Aluminum/Magnesium Susp 30 Ml Udc) 30 ml PO Q4H PRN PRN Reason: GI Upset Stop: 02/12/21 13:08 Benztropine Mesylate (Benztropine Mesylate 1 Mg Tab) 1 mg PO Q4H PRN PRN Reason: EPS Stop: 02/13/21 08:27 Bismuth Subsalicylate (Bismuth Subsalicylate Liqd 236 Ml) 15 ml PO PRN PRN PRN Reason: Loose Stool Stop: 02/12/21 13:08 Haloperidol Lactate (Haloperidol Lactate 5 Mg/Ml 1 Ml Vial) 10 mg IM Q6H PRN PRN Reason: psychosis or agitation, or ref Stop: 02/13/21 08:27 Hydroxyzine HCl (Hydroxyzine Hcl 25 Mg Tab) 50 mg PO HSZ PRN PRN Reason: Insomnia Stop: 02/12/21 13:08 Hydroxyzine HCl (Hydroxyzine Hcl 25 Mg Tab) 25 mg PO Q4H PRN PRN Reason: Anxiety Stop: 02/12/21 13:08 Magnesium Hydroxide (Magnesium Hydroxide Susp 30 Ml Udc) 30 ml PO DAILY PRN PRN Reason: Constipation Stop: 02/12/21 13:08 Olanzapine (Olanzapine 10 Mg Tab) 10 mg PO QAM MATT Stop: 02/17/21 11:44 Last Admin: 01/19/21 08:47 Dose: 10 mg Documented by: Olanzapine (Olanzapine 10 Mg/2.1 Ml Sdv) 10 mg IM PRN PRN PRN Reason: Refusal of PO Olanzapine Stop: 02/17/21 11:35 Sodium Chloride (Sodium Chloride 0.65% Na Soln 45 Ml ([place])) 1 - 2 sprays NA PRN PRN PRN Reason: Nasal Dryness/Congestion Stop: 02/12/21 13:08 Trihexyphenidyl HCl (Trihexyphenidyl Hcl 2 Mg Tab) 4 mg PO BID MATT Stop: 02/17/21 20:59 Last Admin: 01/19/21 08:47 Dose: 4 mg Documented by: Venlafaxine HCl (Venlafaxine Hcl Xr 37.5 Mg Capxr) 37.5 mg PO QAM MATT Stop: 02/17/21 11:59 Last Admin: 01/19/21 08:47 Dose: 37.5 mg Documented by: Mental Health & Subst Abuse Tx Psychiatrist Name of Psychiatrist: Kathi Psychiatrist's Date of Appointment with Psychiatrist: 01/28/21 Time of Appointment with Psychiatrist: 4:20 pm Psychiatric Appointment Comment: [id number]esha Negrete PA Therapist Name of Therapist: Kathi Therapist's Therapy Appointment Comment: [phone] Kesha Negrete PA Senior Security Architect Name of Senior Security Architect: [employer] Phone Number for Senior Security Architect: [phone] Post Discharge Appointments Primary Care Physician Name Of Family Doctor: Nafisa Campos Primary Care Date of Appointment with PCP: 02/01/21 Time of Appointment with PCP: 11:20 a.m. Provider App[facility]ment [facility] [phone] [facility] Contact Information Discharge Discharge Address: [address] [address], [place] [address]
[2021-01-20] MEDS: OLANZapine 10 MG TAB PO SCH ×2 (08:28→20:53)
[2021-01-20] MEDS: TRIHEXYPHENIDYL HCL 2 MG TAB PO SCH ×2 (08:28→20:53)
[2021-01-20] MEDS: VENLAFAXINE HCL XR 37.5 MG CAPXR PO SCH (08:28)
--- NOTE | 2021-01-20 14:27 | Psychiatric Progress Note ---
Date of Service January 20, 2021 Impression / Recommendations Impression Patient remains disorganized, with difficulty manipulating information, irrational thought process, and complete anosognosia, continuing to state he does not have a mental illness or need treatment or medication. He is taking medication here with strong support and assistance from staff, but would not continue it if he were discharged. We are therefore recommending a 304 IOC and [place]. 304 hearing held on 01/16 and granted.It has been confirmed that the patient received a dose of Abilify Maintena on 12/20/2020. It does not appear that Abilify may not has been particularly effective in controlling the patient 's behaviors and symptoms, given the fact that he was only approximately a week or 2 "out" from the Abilify Maintena injection when he exhibited the symptoms that led to the current admission. He seems not to respond particularly well to haloperidol and complained extensively about side effects. Similarly, a starting dose of Invega 3 mg a day has resulted in the patient making persistent and somewhat strident complaints of side effects that include worsening anxiety, restlessness, and "legs not working right." He says that Abilify was "all right," but it does not appear that Abilify has been particularly effective given the fact that he was given a dose of Abilify Maintena not long before he was admitted. Both the patient and the staff are in agreement that he did seem to respond favorably to olanzapine 10 mg a day. The patient said that he felt that it helped with his depression and that he was not experiencing terrible side effects. Because of his long history of nonadherence with medications and a history of dangerous behaviors while off medications we have set a goal of getting the patient stabilized on a medication that can be converted to a long- acting depot form. Our first goal, however, will be to stabilize the patient Psychiatrically. Reviewed 01/20/21--improving Plan: continue current med and treatment plan. Risk Factors Assessment Male: Yes : Yes Do You Have Access To A Gun?: Yes Health Problems: No Mental Health Diagnoses: Yes Substance Use Disorders: No Previous Psychiatric Hospitalization: Yes Hopelessness: No Smoker: No Protective Factors Assessment Pentecostal Beliefs: Yes : No Responsible for Young Children: No Employed: No Stable Relationships: No Supportive Family: Yes Good Rapport with Provider: No Interval History Identifying Information YURIY COLLINS is a 30-year-old M who currently lives in [place] with his parents, has a reported history of schizoaffective disorder and treatment noncompliance, and was admitted on 01/13/21 14:07 on a 303 involuntary commitment for acute psychosis. He is on a 304 involuntary commitment as of 01/16/2021. He was initially admitted medically due to COVID + in ER and need for isolation precautions from 01/02/21 - 01/13/21. Reviewed 01/19/21. Chief Complaint "I'm feeling calmer". Review of Systems Sleep Information Total Hours of Sleep: 8 Sleep Comments: pt on q-15 minute checks Meal Information Percent Meal Consumed - Breakfast: 90 Percent Meal Consumed - Lunch: 100 Percent Meal Consumed - Dinner: 100 Nutrition Comment: per meal record Subjective Subjective Patient was seen & assessed and interval progress reviewed with nursing and social work. denies any akathisia or recurrence of SI. Physical Exam Psychiatric Orientation: alert Apperance: appropriately dressed and appropriately groomed Eye Contact: + fair eye contact Motor Behavior: no abnormal motor movements non spontaneous speech 1-on-1, more interactive with groups. Affect: + constricted affect Mood: no depressed mood Thought Process: + concrete thought process Thought Content: reality based without delusions Suicidal Thoughts: denies suicidal thoughts Homicidal Thoughts: denies homicidal thoughts Hallucinations: no auditory hallucinations and no visual hallucinations Insight: + poor insight Judgement: + poor judgement Vital Signs (Past 24 Hours) Last Vital Signs Temp 36.4 C L 01/20/21 06:56 Pulse 80 01/20/21 06:56 Resp 17 01/20/21 06:56 BP 127/77 01/20/21 06:56 Results & Data ([facility]) Current Inpatient Medications Current Inpatient Medications: Current Inpatient Medications Acetaminophen (Acetaminophen 325 Mg Tab) 650 mg PO Q4H PRN PRN Reason: Headache or Minor Fever Stop: 02/12/21 13:08 Al Hydrox/Mg Hydrox/Simethicone (Aluminum/Magnesium Susp 30 Ml Udc) 30 ml PO Q4H PRN PRN Reason: GI Upset Stop: 02/12/21 13:08 Benztropine Mesylate (Benztropine Mesylate 1 Mg Tab) 1 mg PO Q4H PRN PRN Reason: EPS Stop: 02/13/21 08:27 Bismuth Subsalicylate (Bismuth Subsalicylate Liqd 236 Ml) 15 ml PO PRN PRN PRN Reason: Loose Stool Stop: 02/12/21 13:08 Haloperidol Lactate (Haloperidol Lactate 5 Mg/Ml 1 Ml Vial) 10 mg IM Q6H PRN PRN Reason: psychosis or agitation, or ref Stop: 02/13/21 08:27 Hydroxyzine HCl (Hydroxyzine Hcl 25 Mg Tab) 50 mg PO HSZ PRN PRN Reason: Insomnia Stop: 02/12/21 13:08 Hydroxyzine HCl (Hydroxyzine Hcl 25 Mg Tab) 25 mg PO Q4H PRN PRN Reason: Anxiety Stop: 02/12/21 13:08 Magnesium Hydroxide (Magnesium Hydroxide Susp 30 Ml Udc) 30 ml PO DAILY PRN PRN Reason: Constipation Stop: 02/12/21 13:08 Olanzapine (Olanzapine 10 Mg/2.1 Ml Sdv) 10 mg IM PRN PRN PRN Reason: Refusal of PO Olanzapine Stop: 02/17/21 11:35 Olanzapine (Olanzapine 10 Mg Tab) 10 mg PO BID MATT Stop: 02/18/21 20:59 Last Admin: 01/20/21 08:28 Dose: 10 mg Documented by: Sodium Chloride (Sodium Chloride 0.65% Na Soln 45 Ml ([place])) 1 - 2 sprays NA PRN PRN PRN Reason: Nasal Dryness/Congestion Stop: 02/12/21 13:08 Trihexyphenidyl HCl (Trihexyphenidyl Hcl 2 Mg Tab) 4 mg PO BID MATT Stop: 02/17/21 20:59 Last Admin: 01/20/21 08:28 Dose: 4 mg Documented by: Venlafaxine HCl (Venlafaxine Hcl Xr 37.5 Mg Capxr) 37.5 mg PO QAM MATT Stop: 02/17/21 11:59 Last Admin: 01/20/21 08:28 Dose: 37.5 mg Documented by: Mental Health & Subst Abuse Tx Psychiatrist Name of Psychiatrist: Kathi Psychiatrist's Date of Appointment with Psychiatrist: 01/28/21 Time of Appointment with Psychiatrist: 4:20 pm Psychiatric Appointment Comment: [id number] Kesha Negrete PA Therapist Name of Therapist: Kathi Therapist's Therapy Appointment Comment: [phone]es[address] Negrete PA Sap Bw Architect Name of Sap Bw Architect: [employer] Phone Number for Sap Bw Architect: [phone] Post Discharge Appointments Primary Care Physician Name Of Family Doctor: Nafisa Campos Primary Care Date of Appointment with PCP: 02/01/21 Time of Appointment with PCP: 11:20 a.m. Provider Appointment Comment: [address] NguyenKesha Bray PA Contact Information Discharge Discharge Address: [address] [address], [place] [address]
[2021-01-21] MEDS: TRIHEXYPHENIDYL HCL 2 MG TAB PO SCH ×2 (08:30→21:10)
[2021-01-21] MEDS: OLANZapine 10 MG TAB PO SCH ×2 (08:31→21:10)
[2021-01-21] MEDS: VENLAFAXINE HCL XR 37.5 MG CAPXR PO SCH (08:31)
--- NOTE | 2021-01-21 14:46 | Psychiatric Progress Note ---
Date of Service January 21, 2021 Impression / Recommendations Impression Patient remains disorganized, with difficulty manipulating information, irrational thought process, and complete anosognosia, continuing to state he does not have a mental illness or need treatment or medication. He is taking medication here with strong support and assistance from staff, but would not continue it if he were discharged. We are therefore recommending a 304 IOC and [place]. 304 hearing held on 01/16 and granted.It has been confirmed that the patient received a dose of Abilify Maintena on 12/20/2020. It does not appear that Abilify may not has been particularly effective in controlling the patient 's behaviors and symptoms, given the fact that he was only approximately a week or 2 "out" from the Abilify Maintena injection when he exhibited the symptoms that led to the current admission. He seems not to respond particularly well to haloperidol and complained extensively about side effects. Similarly, a starting dose of Invega 3 mg a day has resulted in the patient making persistent and somewhat strident complaints of side effects that include worsening anxiety, restlessness, and "legs not working right." He says that Abilify was "all right," but it does not appear that Abilify has been particularly effective given the fact that he was given a dose of Abilify Maintena not long before he was admitted. Both the patient and the staff are in agreement that he did seem to respond favorably to olanzapine 10 mg a day. The patient said that he felt that it helped with his depression and that he was not experiencing terrible side effects. Because of his long history of nonadherence with medications and a history of dangerous behaviors while off medications we have set a goal of getting the patient stabilized on a medication that can be converted to a long- acting depot form. Our first goal, however, will be to stabilize the patient Psychiatrically. Reviewed 01/21/21--improving Plan: continue current med and treatment plan, had suicide attempte on unit <1 week ago so needs to remain inpatient for longer monitoring and additional planning around outpatient commitment. Risk Factors Assessment Male: Yes : Yes Do You Have Access To A Gun?: Yes Health Problems: No Mental Health Diagnoses: Yes Substance Use Disorders: No Previous Psychiatric Hospitalization: Yes Hopelessness: No Smoker: No Protective Factors Assessment Jain Beliefs: Yes : No Responsible for Young Children: No Employed: No Stable Relationships: No Supportive Family: Yes Good Rapport with Provider: No Interval History Identifying Information YURIY COLLINS is a 30-year-old M who currently lives in [place] with his parents, has a reported history of schizoaffective disorder and treatment noncompliance, and was admitted on 01/13/21 14:07 on a 303 involuntary commitment for acute psychosis. He is on a 304 involuntary commitment as of 01/16/2021. He was initially admitted medically due to COVID + in ER and need for isolation precautions from 01/02/21 - 01/13/21. Reviewed 01/19/21. Chief Complaint "I like how I feel now". Review of Systems Sleep Information Total Hours of Sleep: 8 Sleep Comments: pt on q-15 minute checks Meal Information Percent Meal Consumed - Breakfast: 100 Percent Meal Consumed - Lunch: 100 Percent Meal Consumed - Dinner: 100 Nutrition Comment: per meal record Subjective Subjective Patient was seen & assessed and interval progress reviewed with treatment team. has been calm and cooperative, verbalizes willingness to continue PO meds. Physical Exam Psychiatric Orientation: alert, oriented x 3 and cooperative Apperance: appropriately dressed and appropriately groomed Eye Contact: + fair eye contact Motor Behavior: steady gait and station and no abnormal motor movements Affect: + constricted affect Mood: + anxious mood; no depressed mood Thought Process: + concrete thought process Thought Content: reality based without delusions Suicidal Thoughts: denies suicidal thoughts, denies suicidal plan and denies suicidal intent Homicidal Thoughts: denies homicidal thoughts Hallucinations: no auditory hallucinations and no visual hallucinations Cognition: language grossly intact Estimated Intelligence: + above average estimated intelligence Insight: + impaired insight Judgement: + impaired judgement Vital Signs (Past 24 Hours) Last Vital Signs Temp 36.5 C 01/21/21 06:00 Pulse 96 H 01/21/21 06:50 Resp 16 01/21/21 06:00 BP 107/65 01/21/21 06:50 Results & Data ([facility]) Current Inpatient Medications Current Inpatient Medications: Current Inpatient Medications Acetaminophen (Acetaminophen 325 Mg Tab) 650 mg PO Q4H PRN PRN Reason: Headache or Minor Fever Stop: 02/12/21 13:08 Al Hydrox/Mg Hydrox/Simethicone (Aluminum/Magnesium Susp 30 Ml Udc) 30 ml PO Q4H PRN PRN Reason: GI Upset Stop: 02/12/21 13:08 Benztropine Mesylate (Benztropine Mesylate 1 Mg Tab) 1 mg PO Q4H PRN PRN Reason: EPS Stop: 02/13/21 08:27 Bismuth Subsalicylate (Bismuth Subsalicylate Liqd 236 Ml) 15 ml PO PRN PRN PRN Reason: Loose Stool Stop: 02/12/21 13:08 Haloperidol Lactate (Haloperidol Lactate 5 Mg/Ml 1 Ml Vial) 10 mg IM Q6H PRN PRN Reason: psychosis or agitation, or ref Stop: 02/13/21 08:27 Hydroxyzine HCl (Hydroxyzine Hcl 25 Mg Tab) 50 mg PO HSZ PRN PRN Reason: Insomnia Stop: 02/12/21 13:08 Hydroxyzine HCl (Hydroxyzine Hcl 25 Mg Tab) 25 mg PO Q4H PRN PRN Reason: Anxiety Stop: 02/12/21 13:08 Magnesium Hydroxide (Magnesium Hydroxide Susp 30 Ml Udc) 30 ml PO DAILY PRN PRN Reason: Constipation Stop: 02/12/21 13:08 Olanzapine (Olanzapine 10 Mg/2.1 Ml Sdv) 10 mg IM PRN PRN PRN Reason: Refusal of PO Olanzapine Stop: 02/17/21 11:35 Olanzapine (Olanzapine 10 Mg Tab) 10 mg PO BID MATT Stop: 02/18/21 20:59 Last Admin: 01/21/21 08:31 Dose: 10 mg Documented by: Sodium Chloride (Sodium Chloride 0.65% Na Soln 45 Ml ([place])) 1 - 2 sprays NA PRN PRN PRN Reason: Nasal Dryness/Congestion Stop: 02/12/21 13:08 Trihexyphenidyl HCl (Trihexyphenidyl Hcl 2 Mg Tab) 4 mg PO BID MATT Stop: 02/17/21 20:59 Last Admin: 01/21/21 08:30 Dose: 4 mg Documented by: Venlafaxine HCl (Venlafaxine Hcl Xr 37.5 Mg Capxr) 37.5 mg PO QAM MATT Stop: 02/17/21 11:59 Last Admin: 01/21/21 08:31 Dose: 37.5 mg Documented by: Mental Health & Subst Abuse Tx Psychiatrist Name of Psychiatrist: Kathi Psychiatrist's Date of Appointment with Psychiatrist: 01/28/21 Time of Appointment with Psychiatrist: 4:20 pm Psychiatric Appointment Comment: [phone] Kesha Negrete PA Therapist Name of Therapist: Kathi Therapist's Therapy Appointment Comment: [phone] Kesha Negrete PA Mushroom Picker Name of Mushroom Picker: [employer] - Bill Phone Number for Mushroom Picker: [phone] Post Discharge Appointments Primary Care Physician Name Of Family Doctor: Nafisa Campos Primary Care Date of Appointment with PCP: 02/01/21 Time of Appointment with PCP: 11:20 a.m. Provider Appointment Comment[facility] [address] [facility] Contact Information Discharge Discharge Address: [address] [address]
--- NOTE | 2021-01-22 08:58 | Psychiatric Progress Note ---
Date of Service January 22, 2021 Impression / Recommendations Impression Patient remains disorganized, with difficulty manipulating information, irrational thought process, and complete anosognosia, continuing to state he does not have a mental illness or need treatment or medication. He is taking medication here with strong support and assistance from staff, but would not continue it if he were discharged. We are therefore recommending a 304 IOC and DE LOS SANTOS. 304 hearing held on 01/16 and granted.It has been confirmed that the patient received a dose of Abilify Maintena on 12/20/2020. It does not appear that Abilify may not has been particularly effective in controlling the patient 's behaviors and symptoms, given the fact that he was only approximately a week or 2 "out" from the Abilify Maintena injection when he exhibited the symptoms that led to the current admission. He seems not to respond particularly well to haloperidol and complained extensively about side effects. Similarly, a starting dose of Invega 3 mg a day has resulted in the patient making persistent and somewhat strident complaints of side effects that include worsening anxiety, restlessness, and "legs not working right." He says that Abilify was "all right," but it does not appear that Abilify has been particularly effective given the fact that he was given a dose of Abilify Maintena not long before he was admitted. Both the patient and the staff are in agreement that he did seem to respond favorably to olanzapine 10 mg a day. The patient said that he felt that it helped with his depression and that he was not experiencing terrible side effects. Because of his long history of nonadherence with medications and a history of dangerous behaviors while off medications we have set a goal of getting the patient stabilized on a medication that can be converted to a long- acting depot form. Our first goal, however, will be to stabilize the patient Psychiatrically. (1) Acute psychosis: - Italic sections refer to daily care summary from medical floor admission - 01/03 -patient is a poor historian, reports indicate he may have been started on Abilify Maintena while hospitalized in [place], but timeline unknown. He is agreed to sign a release and I have asked the nurse on the floor to obtain that so that we can get those records. We will also attempt to get records from his outpatient psychiatrist, Dr. Price. -If he is refusing to take antipsychotic medications, recommend medications over objection, as he has responded to antipsychotic medication in the past, and psychotic symptoms are unlikely to remit without antipsychotic treatment. Additionally, he is severely disabled as a result of his psychosis, is unable to provide for his own basic needs, and places both himself and others at risk of harm if his symptoms remain untreated. -Given his history of nonadherence and severity of symptoms with untreated mental illness, will recommend ongoing involuntary commitment with transition to an C at discharge. He would benefit from case management and therapy as well. -Offer olanzapine 10 mg p.o./IM as needed for acute psychosis, as he has been on this medication before and tolerated it. -Consider initiation of a mood stabilizer such as Depakote, which can be given IV over objection if he remains unwilling for medications. 01/04 -The patient has stated that he was given Abilify Maintena intramuscularly fair ly recently, but there is some reason to believe that this may not be accurate. It is noted that the patient's father said that he has not observed any changes in the patient's behaviors and other symptoms subsequent to the reported dose of Abilify. 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 His tox screen at admission was negative for occult blood, but the test was not specific for hallucinogens. Accordingly, while I would doubt that the entire constellation of problems observed are related to substance use, this cannot be ruled out as a mitigating factor. -Today, the patient reports that he will refuse to take Abilify because he says that he is "allergic" to it. When asked to describe the allergy, he replied by saying that Abilify makes him feel "weird," and he says that he feels certain that it interferes with his sleep. The patient reports that he has taken olanzapine (Zyprexa) and has tolerated that well. He also suggest that he thinks that it "helps." However, he cannot exactly say how it helps. -Today, the patient says that he is embarrassed about the fact that he was "running around outside" while naked, and that he was masturbating in public. However, he has difficulty saying why that should be an issue, other than to repeatedly say, "it is bad." At the same time, and the period of time that immediately proceeded our telephonic contact the patient was reportedly openly masturbating in front of his one-to-one museum assistant and, also reportedly, the patient had invited the one-to-one museum assistant to either masturbate together with the patient or to allow the patient to masturbate him. Furthermore, the patient indicated that he felt this behavior was reconciled because he had awakened in a "sexual place." Accordingly, what initially had suggested improving insight is abrogated by his ongoing inappropriate and dyscontrol behaviors. -Given the fact the patient may have an unspecified dose of Abilify Maintena on board, reportedly administered on 12/19/2020, and given that the patient may need to receive his olanzapine by intramuscular injection if he continues to periodically refused to take it voluntarily (see med over objection first and second opinions), will reduce the dose of olanzapine from 10 mg 3 times a day to olanzapine 10 mg twice a day by mouth, and will order medications over objection in the form of olanzapine 10 mg IM twice a day. The dose can be titrated as indicated. 01/05--review of available records (most recent [place] pending) note dx of bipolar and/or schizoaffective bipolar type. Records state concussion/no head injuries so family was contacted as amount of preoccupation with masturbating seemed out of proportion to hypersexuality from becca. No hx of hyperorality so doubt [facility]. Had multiple concussions in high school had to leave football and switched to soccer. symptom onset in college so doubt orbitofrontal syndrome. 01/07--303 granted. still trying to confirm date of Abilify injection (or if received). Invega seemed more amenable option than Haldol dec but family confirms poor response to Risperdal and preference toward Abilify. For now Zyprexa is stabilizing patient. Reviewed with family that no local clinics administer the IM. 01/08 - Pt is religiously preoccupied and reporting thoughts that are consistent with ongoing delusions. He is now reporting he thinks he can "do things on my own" and is not particularly interested in outpatient treatment - Pt is declining medication changes. Although it is helpful that he is tolerating olanzapine and denies concerning side effects, he is unfortunately very resistant to adjusting medications to allow for an DE LOS SANTOS option. He is unable to formulate a plan for how he plans to ensure compliance with an oral medication and therefore remains at risk of noncompliance, destabilization, frequent hospitalizations or injury/ as a result of psychosis. - Pt strongly encouraged to consider therapy and case management services. 01/09 - Continue current medication regimen, though consider need for further titration of olanzapine. Patient is not clearly verbalizing any mormon preoccupation but seems to still be disorganized and mildly thought blocked. He continues to demonstrate poor insight into his mental health condition and need for treatment. - Will plan to schedule a family meeting to involve parents - as we will need to begin discussing safety recommendations and outpatient supports - Considering 304 IOC due to poor insight, history of medication noncompliance, and seriousness of patient's condition 01/10 - Infection control reporting patient could be cleared for referral to a psychiatric unit as soon as 01/13/21. - Continue as above - thoughts continue to be disorganized, ongoing mormon preoccupation. Pt continues to have poor insight into the severity of his condition and on a few occasions indicated that he may begin refusing his oral medications (2-physician opinions documented on chart for medications over objection if this should occur). - Offered to adjust dosing of olanzapine due to reports of daytime fatigue, patient declining at this time. Consider need for titration of the medication if thoughts do not continue to clear. - Anticipate need for inpatient psychiatric treatment once cleared medically to join the inpatient milieu setting - Considering 304 IOC, meeting scheduled with [facility] to discuss case on 01/16 01/11 - Continue as above. We did receive reports that patient does continue to engage in sexually inappropriate behavior. We are encouraging staff to redirect patient in these situations and offer alternative activities. Pt reports feeling some control over this behavior and express apologies. - Continue olanzapine - consider need for further titration - Anticipate clearance from isolation precautions on 01/16, and then will consider for admission to our unit for continued psychiatric treatment - Likely will require 304 IOC. 01/12 - Continue as above - anticipate discharge from the medical floor tomorrow, with subsequent admission to our unit to continue psychiatric treatment. - Pt reports appropriate behavior, reviewed some of the expectations regarding behavior on our unit as well. 01/13 - Continue olanzapine 10mg BID - discuss case further during treatment team tomorrow. - Admitted to a locked inpatient behavioral health unit, on q15 minute safety checks - Encourage medication initiation/adjustments as indicated - Encourage participation in group and recreational therapies - Gather collateral information from outpatient providers - Suggest family meeting to involve outpatient supports in safety planning - Arrange appropriate aftercare 01/14 -File for 304 involuntary commitment hearing to be held 01/16. Consider the need for referral to [facility] for long-term inpatient treatment versus diversion to an involuntary outpatient commitment. -Patient has been seen by 2 physicians for medications over objection, and although he has taken oral medications at times here in the hospital, has consistently stated that he does not believe he needs medication or psychiatric treatment, and will not continue it after leaving the hospital. We are therefore recommending an long-acting injectable antipsychotic. Multiple medi cations have been reviewed with him and he has refused all of them. We will discontinue olanzapine as it is not available as an DE LOS SANTOS, and start haloperidol 10 mg twice daily p.o., with an IM backup for refusal, with a plan to transition to Haldol Decanoate once an effective dose is established. -Treatment planning meeting with [facility] scheduled for 01/16 after commitment hearing. 01/15 - Continue haloperidol 10mg BID - patient has been taking medications orally, though with some reluctance. IM form remains available for meds over objection if necessary - Will order fasting glucose and lipid panel for tomorrow - as no record of labs being done while in [place] - We were able to clarify with new records that patient did, in fact, receive Abilify Maintena on 12/20 while inpatient in [place]. - 304 hearing tomorrow; [facility] to discuss discharge planning 01/16 - Pt reporting poor effect with Haldol and requesting a different medication. Discussed trial of paliperidone (as Abilify Maintena was ineffective), and discussed risks, benefits and potential side effects. He agreed to a trial, discontinued Haldol and started paliperidone 3mg daily for tomorrow. Continue Haldol IM for refusal of PO. If effective, transition to Invega Sustenna. - Fasting labs for monitoring on atypical antipsychotic: Glucose 99, FLP normal with the exception of cholesterol 220. Ongoing monitoring as an outpatient. - Patient continues to refuse to sign releases for [facility] and [facility], so we have not yet arranged outpatient treatment. Now that there is a [address], we will proceed with discharge planning. Family meeting scheduled with patient, parents, and manager social for Thursday. 01/17 - Continue trial of paliperidone - kept dosing at 3mg for tomorrow due to patient reporting side effects, however, it will likely need continued titration. Haloperidol is ordered for refusal of oral medication and patient is continuing to show little commitment to medications fci. - Family meeting with parents scheduled for tomorrow, [facility] staff is attempting to meet with patient again tomorrow afternoon - [address] requires involvement of full spectrum of outpaitent psychiatric services; however, patient is resistant to these services 01/18 -The patient continues to complain fairly strikingly of intolerable side effects that he associates with Invega. These side effects may be considered consistent with extraparametal side effects, and the patient does exhibit cogwheel rigidity on examination. We talked to him about the possibility of using an antiparkinsonian agent to manage the side effects, but the patient seemed absolutely adamant that he does not wish to take Invega any further. Of the medications that can be given in a depot form, he said that he felt that Abilify would be the one that he would choose, although it, too, reportedly causes difficult side effects and, furthermore, does not necessarily seem to have been particularly effective in his case.He does not speak positively about his experience with Zyprexa, and this is consistent with staff observation during the brief period during which she was taking Zyprexa. After discussion with the treatment team and with the patient, we agreed to restart olanzapine (Zyprexa) at 10 mg daily. We will also add an anti his parkinsonian agent, first as a test, and then is a standing order to guard against extrapyramidal side effects. -The patient has made reference to feeling depressed for several weeks now. The treatment team agrees that he appears depressed. His complaint is "anxiety that leads to depression," and endorses feeling "sad," and hopeless. The patient also has mood congruent delusions that include delusion that he has "been sent to hell," and will be "tortured" forever. Within this context, we will offer the patient a trial of the antidepressant/antianxiety medication venlafaxine extended release beginning at 37.5 mg and titrated carefully and with caution given our working diagnosis of schizophrenia versus schizoaffective disorder. 01/19--reviewed. retitrating Zyprexa. EPS resolved. Artane may be able to be tapered over time. Monitor for emergent hypomania on SNRI. 01/20--reviewed. continue current med and treatment plan. 01/21--reviewed. continue current med and treatment plan, had suicide attempte on unit <1 week ago so needs to remain inpatient for longer monitoring and additional planning around outpatient commitment. Risk Factors Assessment 01/22 - Continue olanzapine 10mg BID. Will discontinue scheduled Artane, as symptoms of EPS were not reported for the lengthy time the patient had previously been taking olanzapine. Will keep 2mg prn doses available up to BID as needed for side effects to antipsychotic medications. - Pt reports mood is improved, but continues to present as flat - Continue to engage outpatient supports, working toward 304 [facility]. (2) Noncompliance with medication regimen: - Italic sections refer to daily care summary from medical floor admission - Recommend an DE LOS SANTOS due to nonadherence with oral medication, need to obtain additional information about recent treatment before we can explore options. Father reports they were told he got Abilify Maintena on 12/19/2020, and due to tight receptor binding it may be difficult to get an adequate response from other dopaminergic medications until it is out of his system 01/04/21 -The patient is saying that he will refuse to take Abilify either orally or by injection of a depot form of aripiprazole. The plan is to stabilize the patient on olanzapine, and at that point we may be able to asked the patient to reconsider Abilify given reports that he has responded favorably to Abilify in the past. Alternatively, he could be converted to Invega Sustenna or Haldol decanoate, in view of his acknowledge long history of medication nonadherence 01/05/21--offered zydus, prefers pills and is compliant last 2 doses. 01/06--father states that he was trying to put Abilify in patient's cereal in days leading up to admission. 01/08 - Has been taking scheduled doses of olanzapine BID; however, unwilling for medication changes or to explore options for Suraj. 01/09 - 01/12 - Remains unwilling to consider DE LOS SANTOS options to promote medication compliance - Considering a 304 IOC 01/13 - Continue as above - patient remains resistant to an DE LOS SANTOS, now reporting the concern is related to fear of needles. - Pt stated today that he does not desire for medications to be a part of his treatment plan. - Medications over objection orders in place from assessments completed while patient was on the medical floor. 01/15 - Transitioned to haloperidol yesterday to allow for stabilization on a medication that can be given as an DE LOS SANTOS 01/16 -At patient's request, discontinue Haldol and start trial of Invega, with plan to transition to Invega Sustenna if effective and well-tolerated. -304 hearing held and commitment granted. 01/18 -As above, we have been trying to find a medication that can be given to him orally, with the goal of stabilizing on that medication and then converting him to a depot form of the medication. Unfortunately, he seems not to have responded favorably to haloperidol, the also seems not to respond favorably to a low dose of Invega, and he had received a dose of Abilify Maintena not long before his admission to [facility], a circumstance that would seem to suggest that he was not responding favorably to aripiprazole, or was not currently responding favorably to aripiprazole. Furthermore, the patient complains persistently of intolerable side effects that he associates with Invega and haloperidol. He also references aripiprazole, but says that of the 3 medications aripiprazole has been the least likely to cause severe side effects. He reiterates that sometimes keeps him awake at night. Accordingly, while our goal is to find a depot medication that may work, for now we have decided to aggressively treat the patient's condition with Zyprexa, medication that he says has worked well for him and that helps with his "anxiety and depression." We will also add an antiparkinsonian agent given the fact that the patient complains of restlessness, which she refers to his anxiety, and does exhibit EPS such as cogwheeling on examination. Possibly, once the patient is stabilized psychiatrically we can reintroduce the idea of a medication that can be given in the depot form, combined with an antiparkinsonian agent (if that proves to be the source of the patient's multiple complaints of side effects). Reviewed 01/19/21. (3) Exhibitionist behavior: 01/13 - These concerns were addressed by our staff during patient's medical floor admission. Pt had continued to frequently masturbate during his time on the medical floor, even occasionally propositioning his 1:1 staff. - Pt was informed that this behavior cannot be tolerated on our unit - especially in a milieu setting. - Continue to redirect patient and offer more appropriate coping strategies should this behavior continue. 01/17 - No concerns related to this history here on the unit; however, patient is continue to display poor insight with limited commitment to treatment. There are ongoing concerns related to safety and legal consequences if is psychosis is not adequately treated and he is not committed to continued treatment after discharge. 01/18 - Given the patient's primary psychiatric diagnosis, it would be somewhat di fficult to give the patient a concurrent diagnosis of the paraphilia exhibitionism. He tells us that he went outside in the nude and masturbated in front of other people because he was given a "message" that they wanted him to do that and that it would somehow relieve the tension that he was feeling in his chest and abdomen. He also said, "I do not get off" on the idea of having people watch me masturbate. However, he also acknowledges that he was significantly more sexually aroused once he had what he considers to be an audience. In any event, we are focusing with the patient the fact that these behaviors can lead to legal trouble, or possibly even more significantly, to violence from those persons to take exception to his behavior. The patient indicated understanding and registered a sense of regret. Reviewed 01/19/21. (4) Tick bite: Treatment Impression per hospitalist staff: - Received doxy prophylaxis during beginning of admission when tick was removed. Monitor for rickettsial illness.No issues at this time. Patient was counseled on signs and symptoms to watch for and verbalized understanding with intent to comply. 01/13 - Will continue to monitor for signs/symptoms of infection or disease related to tick bite. Monitor vitals including temperature daily as per usual protocol. 01/18 -There are no current symptoms of Lyme disease. Reviewed 01/19 Risk Factors Assessment Male: Yes : Yes Do You Have Access To A Gun?: Yes Health Problems: No Mental Health Diagnoses: Yes Substance Use Disorders: No Previous Psychiatric Hospitalization: Yes Hopelessness: No Smoker: No Protective Factors Assessment Buddhism Beliefs: Yes : No Responsible for Young Children: No Employed: No Stable Relationships: No Supportive Family: Yes Good Rapport with Provider: No Interval History Identifying Information YURIY COLLINS is a 30-year-old M who currently lives in [place] with his parents, has a reported history of schizoaffective disorder and treatment noncompliance, and was admitted on 01/13/21 14:07 on a 303 involuntary commitment for acute psychosis. He is on a 304 involuntary commitment as of 01/16/2021. He was initially admitted medically due to COVID + in ER and need fo r isolation precautions from 01/02/21 - 01/13/21. Chief Complaint "Um, better." Review of Systems Notes Constitutional: reports improved sleep Cardiovascular: denied Respiratory: denied Gastrointestinal: denied Neurological: denied Psychiatric: denies symptoms other than stated above Total of at least 10 systems reviewed, pertinent positives as above and in HPI. Sleep Information Total Hours of Sleep: 8 Sleep Comments: pt on q-15 minute checks Meal Information Percent Meal Consumed - Breakfast: 100 Percent Meal Consumed - Lunch: 100 Percent Meal Consumed - Dinner: 100 Nutrition Comment: per meal record Subjective Subjective Patient was seen & assessed and interval progress reviewed with nursing and social work. Staff report the patient has continued with slow improvements. Plan is for 304 IOC discharge when appropriate. Pt is to have a meeting with his telephonic case manager on 01/25. Pt was seen today to assess progress since admission. Pt admits that he is feeling better, though initially cannot provide specifically regarding what he feels has improved. When given multiple choice options, the patient eventually admits his sleep has improved and headaches have resolved. Pt had also believed that he was losing his vision when given haloperidol/paliperidone, which he states has improved. Mood is reported to be improved, although the patient is still presenting as flat with limited investment in conversation. Pt continues to deny SI/HI. He denies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
[2021-01-22] MEDS: TRIHEXYPHENIDYL HCL 2 MG TAB PO SCH (09:03)
[2021-01-22] MEDS: VENLAFAXINE HCL XR 37.5 MG CAPXR PO SCH (09:03)
[2021-01-22] MEDS: OLANZapine 10 MG TAB PO SCH ×2 (09:04→21:09)
[2021-01-22] MEDS ORDERED: TRIHEXYPHENIDYL HCL 2 MG TAB PO PRN (10:21)
[2021-01-23] MEDS: OLANZapine 10 MG TAB PO SCH (08:44)
[2021-01-23] MEDS: VENLAFAXINE HCL XR 37.5 MG CAPXR PO SCH (08:44)
--- NOTE | 2021-01-23 09:42 | Psychiatric Progress Note ---
Date of Service January 23, 2021 Impression / Recommendations Impression Patient remains disorganized, with thought blocking, delusions of persecution, compulsive masturbation, and anosognosia. He is taking medication here with strong support and assistance from staff, and is refusing recommendations for a long-acting injectable antipsychotic. He is on a 304 involuntary commitment and will be transitioned to an IOC at discharge. He has failed a trial of aripiprazole/Abilify Maintena, and complained extensively about side effects to haloperidol and Invega. He has been tolerating olanzapine and venlafaxine XR, and we will continue to titrate them to target psychotic and depressive symptoms. Inpatient treatment remains medically necessary due to the severity of symptoms and risk for suicide or unintentional harm to himself as a result of severe psychosis, lack of insight, and depression with suicide attempt on the unit (made a noose out of a sheet). (1) Acute psychosis: - Italic sections refer to daily care summary from medical floor admission - 01/03 -patient is a poor historian, reports indicate he may have been started on Abilify Maintena while hospitalized in [place], but timeline unknown. He is agreed to sign a release and I have asked the nurse on the floor to obtain that so that we can get those records. We will also attempt to get records from his outpatient psychiatrist, Dr. Price. -If he is refusing to take antipsychotic medications, recommend medications over objection, as he has responded to antipsychotic medication in the past, and psychotic symptoms are unlikely to remit without antipsychotic treatment. Additionally, he is severely disabled as a result of his psychosis, is unable to provide for his own basic needs, and places both himself and others at risk of harm if his symptoms remain untreated. -Given his history of nonadherence and severity of symptoms with untreated mental illness, will recommend ongoing involuntary commitment with transition to an IOC at discharge. He would benefit from case management and therapy as well. -Offer olanzapine 10 mg p.o./IM as needed for acute psychosis, as he has been on this medication before and tolerated it. -Consider initiation of a mood stabilizer such as Depakote, which can be given IV over objection if he remains unwilling for medications. 01/04 -The patient has stated that he was given Abilify Maintena intramuscularly fairly recently, but there is some reason to believe that this may not be accurate. It is noted that the patient's father said that he has not observed any changes in the patient's behaviors and other symptoms subsequent to the reported dose of Abilify. -Although the patient says that he has not been using neither cannabis nor hallucinogenic mushrooms recently, he is not considered a reliable hansard reporter. His tox screen at admission was negative for occult blood, but the test was not specific for hallucinogens. Accordingly, while I would doubt that the entire constellation of problems observed are related to substance use, this cannot be ruled out as a mitigating factor. -Today, the patient reports that he will refuse to take Abilify because he says that he is "allergic" to it. When asked to describe the allergy, he replied by saying that Abilify makes him feel "weird," and he says that he feels certain that it interferes with his sleep. The patient reports that he has taken olanzapine (Zyprexa) and has tolerated that well. He also suggest that he thinks that it "helps." However, he cannot exactly say how it helps. -Today, the patient says that he is embarrassed about the fact that he was "running around outside" while naked, and that he was masturbating in public. 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 Furthermore, the patient indicated that he felt this behavior was reconciled because he had awakened in a "sexual place." Accordingly, what initially had suggested improving insight is abrogated by his ongoing inappropriate and dyscontrol behaviors. -Given the fact the patient may have an unspecified dose of Abilify Maintena on board, reportedly administered on 12/19/2020, and given that the patient may need to receive his olanzapine by intramuscular injection if he continues to periodically refused to take it voluntarily (see med over objection first and second opinions), will reduce the dose of olanzapine from 10 mg 3 times a day to olanzapine 10 mg twice a day by mouth, and will order medications over objection in the form of olanzapine 10 mg IM twice a day. The dose can be titrated as indicated. 01/05--review of available records (most recent [place] pending) note dx of bipolar and/or schizoaffective bipolar type. Records state concussion/no head injuries so family was contacted as amount of preoccupation with masturbating seemed out of proportion to hypersexuality from becca. No hx of hyperorality so doubt Staceyer Jermaine. Had multiple concussions in high school had to leave football and switched to soccer. symptom onset in college so doubt orbitofrontal syndrome. 01/07--303 granted. still trying to confirm date of Abilify injection (or if received). Invega seemed more amenable option than Haldol dec but family confirms poor response to Risperdal and preference toward Abilify. For now Zyprexa is stabilizing patient. Reviewed with family that no local clinics administer the IM. 01/08 - Pt is religiously preoccupied and reporting thoughts that are consistent with ongoing delusions. He is now reporting he thinks he can "do things on my own" and is not particularly interested in outpatient treatment - Pt is declining medication changes. Although it is helpful that he is tolerating olanzapine and denies concerning side effects, he is unfortunately very resistant to adjusting medications to allow for an DE LOS SANTOS option. He is unable to formulate a plan for how he plans to ensure compliance with an oral medication and therefore remains at risk of noncompliance, destabilization, frequent hospitalizations or injury/ as a result of psychosis. - Pt strongly encouraged to consider therapy and case management services. 01/09 - Continue current medication regimen, though consider need for further titration of olanzapine. Patient is not clearly verbalizing any roman catholic preoccupation but seems to still be disorganized and mildly thought blocked. He continues to demonstrate poor insight into his mental health condition and need for treatment. - Will plan to schedule a family meeting to involve parents - as we will need to begin discussing safety recommendations and outpatient supports - Considering 304 IOC due to poor insight, history of medication noncompliance, and seriousness of patient's condition 01/10 - Infection control reporting patient could be cleared for referral to a psychiatric unit as soon as 01/13/21. - Continue as above - thoughts continue to be disorganized, ongoing roman catholic preoccupation. Pt continues to have poor insight into the severity of his condition and on a few occasions indicated that he may begin refusing his oral medications (2-physician opinions documented on chart for medications over objection if this should occur). - Offered to adjust dosing of olanzapine due to reports of daytime fatigue, patient declining at this time. Consider need for titration of the medication if thoughts do not continue to clear. - Anticipate need for inpatient psychiatric treatment once cleared medically to join the inpatient milieu setting - Considering 304 IOC, meeting scheduled with [facility] to discuss case on 01/16 01/11 - Continue as above. We did receive reports that patient does continue to engage in sexually inappropriate behavior. We are encouraging staff to redirect patient in these situations and offer alternative activities. Pt reports feeling some control over this behavior and express apologies. - Continue olanzapine - consider need for further titration - Anticipate clearance from isolation precautions on 01/16, and then will consider for admission to our unit for continued psychiatric treatment - Likely will require 304 IOC. 01/12 - Continue as above - anticipate discharge from the medical floor tomorrow, with subsequent admission to our unit to continue psychiatric treatment. - Pt reports appropriate behavior, reviewed some of the expectations regarding behavior on our unit as well. 01/13 - Continue olanzapine 10mg BID - discuss case further during treatment team tomorrow. - Admitted to a locked inpatient behavioral health unit, on q15 minute safety checks - Encourage medication initiation/adjustments as indicated - Encourage participation in group and recreational therapies - Gather collateral information from outpatient providers - Suggest family meeting to involve outpatient supports in safety planning - Arrange appropriate aftercare 01/14 -File for 304 involuntary commitment hearing to be held 01/16. Consider the need for referral to [facility] for long-term inpatient treatment versus diversion to an involuntary outpatient commitment. -Patient has been seen by 2 physicians for medications over objection, and although he has taken oral medications at times here in the hospital, has consistently stated that he does not believe he needs medication or psychiatric treatment, and will not continue it after leaving the hospital. We are therefore recommending an long-acting injectable antipsychotic. Multiple medications have been reviewed with him and he has refused all of them. We will discontinue olanzapine as it is not available as an DE LOS SANTOS, and start haloperidol 10 mg twice daily p.o., with an IM backup for refusal, with a plan to transition to Haldol Decanoate once an effective dose is established. -Treatment planning meeting with [facility] scheduled for 01/16 after commitment hearing. 01/15 - Continue haloperidol 10mg BID - patient has been taking medications orally, though with some reluctance. IM form remains available for meds over objection if necessary - Will order fasting glucose and lipid panel for tomorrow - as no record of labs being done while in [place] - We were able to clarify with new records that patient did, in fact, receive Abilify Maintena on 12/20 while inpatient in [place]. - 304 hearing tomorrow; [facility] 01/16 - Pt reporting poor effect with Haldol and requesting a different medication. Discussed trial of paliperidone (as Abilify Maintena was ineffective), and discussed risks, benefits and potential side effects. He agreed to a trial, discontinued Haldol and started paliperidone 3mg daily for tomorrow. Continue Haldol IM for refusal of PO. If effective, transition to Invega Sustenna. - Fasting labs for monitoring on atypical antipsychotic: Glucose 99, FLP normal with the exception of cholesterol 220. Ongoing monitoring as an outpatient. - Patient continues to refuse to sign releases for [facility] and [facility], so we have not yet arranged outpatient treatment. Now that there is a [address], we will proceed with discharge planning. Family meeting scheduled with patient, parents, and manager social responsibility for Thursday. 01/17 - Continue trial of paliperidone - kept dosing at 3mg for tomorrow due to patient reporting side effects, however, it will likely need continued titration. Haloperidol is ordered for refusal of oral medication and patient is continuing to show little commitment to medications skilled nursing. - Family meeting with parents scheduled for tomorrow, [facility] staff is attempting to meet with patient again tomorrow afternoon - [address] which requires involvement of full spectrum of outpaitent psychiatric services; however, patient is resistant to these services 01/18 -The patient continues to complain fairly strikingly of intolerable side effects that he associates with Invega. These side effects may be considered consistent with extraparametal side effects, and the patient does exhibit cogwheel rigidity on examination. We talked to him about the possibility of using an antiparkinsonian agent to manage the side effects, but the patient seemed absolutely adamant that he does not wish to take Invega any further. Of the medications that can be given in a depot form, he said that he felt that Abilify would be the one that he would choose, although it, too, reportedly causes difficult side effects and, furthermore, does not necessarily seem to have been particularly effective in his case.He does not speak positively about his experience with Zyprexa, and this is consistent with staff observation during the brief period during which she was taking Zyprexa. After discussion with the treatment team and with the patient, we agreed to restart olanzapine (Zyprexa) at 10 mg daily. We will also add an anti his parkinsonian agent, first as a test, and then is a standing order to guard against extrapyramidal side effects. -The patient has made reference to feeling depressed for several weeks now. The treatment team agrees that he appears depressed. His complaint is "anxiety that leads to depression," and endorses feeling "sad," and hopeless. The patient also has mood congruent delusions that include delusion that he has "been sent to hell," and will be "tortured" forever. Within this context, we will offer the patient a trial of the antidepressant/antianxiety medication venlafaxine extended release beginning at 37.5 mg and titrated carefully and with caution given our working diagnosis of schizophrenia versus schizoaffective disorder. 01/19--reviewed. retitrating Zyprexa. EPS resolved. Artane may be able to be tapered over time. Monitor for emergent hypomania on SNRI. 01/20--reviewed. continue current med and treatment plan. 01/21--reviewed. continue current med and treatment plan, had suicide attempte on unit <1 week ago so needs to remain inpatient for longer monitoring and additional planning around outpatient commitment. Risk Factors Assessment 01/22 - Continue olanzapine 10mg BID. Will discontinue scheduled Artane, as symptoms of EPS were not reported for the lengthy time the patient had previously been taking olanzapine. Will keep 2mg prn doses available up to BID as needed for side effects to antipsychotic medications. - Pt reports mood is improved, but continues to present as flat - Continue to engage outpatient supports, working toward [address] [place] [id number]. 01/23 -ongoing psychosis and depression, continue to titrate medications and increase olanzapine to 15 mg twice daily and venlafaxine XR to 75 mg (2) Noncompliance with medication regimen: - Italic sections refer to daily care summary from medical floor admission - Recommend an DE LOS SANTOS due to nonadherence with oral medication, need to obtain additional information about recent treatment before we can explore options. Father reports they were told he got Abilify Maintena on 12/19/2020, and due to tight receptor binding it may be difficult to get an adequate response from other dopaminergic medications until it is out of his system 01/04/21 -The patient is saying that he will refuse to take Abilify either orally or by injection of a depot form of aripiprazole. The plan is to stabilize the patient on olanzapine, and at that point we may be able to asked the patient to reconsider Abilify given reports that he has responded favorably to Abilify in the past. Alternatively, he could be converted to Invega Sustenna or Haldol decanoate, in view of his acknowledge long history of medication nonadherence 01/05/21--offered zydus, prefers pills and is compliant last 2 doses. 01/06--father states that he was trying to put Abilify in patient's cereal in days leading up to admission. 01/08 - Has been taking scheduled doses of olanzapine BID; however, unwilling for medication changes or to explore options for Suraj. 01/09 - 01/12 - Remains unwilling to consider DE LOS SANTOS options to promote medication compliance - Considering a 304 IOC 01/13 - Continue as above - patient remains resistant to an DE LOS SANTOS, now reporting the concern is related to fear of needles. - Pt stated today that he does not desire for medications to be a part of his treatment plan. - Medications over objection orders in place from assessments completed while patient was on the medical floor. 01/15 - Transitioned to haloperidol yesterday to allow for stabilization on a medication that can be given as an DE LOS SANTOS 01/16 -At patient's request, discontinue Haldol and start trial of Invega, with plan to transition to Invega Sustenna if effective and well-tolerated. -304 hearing held and commitment granted. 01/18 -As above, we have been trying to find a medication that can be given to him orally, with the goal of stabilizing on that medication and then converting him to a depot form of the medication. Unfortunately, he seems not to have responded favorably to haloperidol, the also seems not to respond favorably to a low dose of Invega, and he had received a dose of Abilify Maintena not long before his admission to [facility], a circumstance that would seem to suggest that he was not responding favorably to aripiprazole, or was not currently responding favorably to aripiprazole. Furthermore, the patient complains persistently of intolerable side effects that he associates with Invega and haloperidol. He also references aripiprazole, but says that of the 3 medications aripiprazole has been the least likely to cause severe side effects. He reiterates that sometimes keeps him awake at night. Accordingly, while our goal is to find a depot medication that may work, for now we have decided to aggressively treat the patient's condition with Zyprexa, medication that he says has worked well for him and that helps with his "anxiety and depression." We will also add an antiparkinsonian agent given the fact that the patient complains of restlessness, which she refers to his anxiety, and does exhibit EPS such as cogwheeling on examination. Possibly, once the patient is stabilized psychiatrically we can reintroduce the idea of a medication that can be given in the depot form, combined with an antiparkinsonian agent (if that proves to be the source of the patient's multiple complaints of side effects). Reviewed 01/19/21. (3) Exhibitionist behavior: 01/13 - These concerns were addressed by our staff during patient's medical floor admission. Pt had continued to frequently masturbate during his time on the medical floor, even occasionally propositioning his 1:1 staff. - Pt was informed that this behavior cannot be tolerated on our unit - especially in a milieu setting. - Continue to redirect patient and offer more appropriate coping strategies should this behavior continue. 01/17 - No concerns related to this history here on the unit; however, patient is continue to display poor insight with limited commitment to treatment. There are ongoing concerns related to safety and legal consequences if is psychosis is not adequately treated and he is not committed to continued treatment after discharge. 01/18 - Given the patient's primary psychiatric diagnosis, it would be somewhat difficult to give the patient a concurrent diagnosis of the paraphilia exhibitionism. He tells us that he went outside in the nude and masturbated in front of other people because he was given a "message" that they wanted him to do that and that it would somehow relieve the tension that he was feeling in his chest and abdomen. He also said, "I do not get off" on the idea of having people watch me masturbate. However, he also acknowledges that he was significantly more sexually aroused once he had what he considers to be an audience. In any event, we are focusing with the patient the fact that these behaviors can lead to legal trouble, or possibly even more significantly, to violence from those persons to take exception to his behavior. The patient indicated understanding and registered a sense of regret. Reviewed 01/19/21. (4) Tick bite: Treatment Impression per hospitalist staff: - Received doxy prophylaxis during beginning of admission when tick was removed. Monitor for rickettsial illness.No issues at this time. Patient was counseled on signs and symptoms to watch for and verbalized understanding with intent to comply. 01/13 - Will continue to monitor for signs/symptoms of infection or disease related to tick bite. Monitor vitals including temperature daily as per usual protocol. 01/18 -There are no current symptoms of Lyme disease. Reviewed 01/19 Risk Factors Assessment Male: Yes : Yes Do You Have Access To A Gun?: Yes Health Problems: No Mental Health Diagnoses: Yes Substance Use Disorders: No Previous Psychiatric Hospitalization: Yes Hopelessness: No Smoker: No Protective Factors Assessment Gnosticism Beliefs: Yes : No Responsible for Young Children: No Employed: No Stable Relationships: No Supportive Family: Yes Good Rapport with Provider: No Interval History Identifying Information YURIY COLLINS is a 30-year-old M who currently lives in [place] with his parents, has a reported history of schizoaffective disorder and treatment noncompliance, and was admitted on 01/13/21 14:07 on a 303 involuntary commitm ent for acute psychosis. He is on a 304 involuntary commitment as of 01/16/2021. He was initially admitted medically due to COVID + in ER and need for isolation precautions from 01/02/21 - 01/13/21. Chief Complaint "I guess I don't know ". Review of Systems Sleep Information Total Hours of Sleep: 8 Sleep Comments: pt on q-15 minute checks Meal Information Percent Meal Consumed - Breakfast: 100 Percent Meal Consumed - Lunch: 100 Percent Meal Consumed - Dinner: 10 Nutrition Comment: per meal record Subjective Subjective Patient was seen & assessed and interval progress reviewed with treatment team. Staff report he has been masturbating frequently in his room, has minimal interactions with staff or peers, with slowed and delayed responses. He attended some groups, but came late and sat on the periphery with little participation. He appears thought blocked. He is taking medication as prescribed. On my assessment, he answers questions superficially, sometimes with unrelated or odd answers, for example when asked to describe his mood, says "quaint." When asked to describe further, he states "understanding." He often takes a long time to answer questions, then stops midsentence, stating he does not know. He was somewhat resistant to attempts to explore his thought process and content, referenced "thoughts involving other people, just situations, conflicts.... Well, I shouldn't say that." He references "my relatives, and inviting someone into my family. I don't want to say it, it might make the person mad, don't want to go any further into it." He reports fears that someone has poisoned him in the past and will try to poison him again in the future, stating that he believes this person is mad at him "over something I did in the past." He says this person "knows me personally," but he does not know them. He thinks that they will try to harm him because "they did it once before, they wouldn't mind doing it again." He reports suspicions that there was poison and coffee that his father made, "but I don't like to talk about that." He says he has not shared these fears with his family, and does not like to talk about the things he is thinking. He says he will probably deal with it by just making all of his meals himself. Discussed the concept of reality testing, and he was not sure if there was anyone he would trust or be able to talk to about his thoughts. He reports mood is more down and depressed because "I upset myself this morning." He cannot explain this further. He does report that he is tolerating the Zyprexa well, is no longer having headaches, and feels his sleep is improving. Physical Exam Psychiatric Orientation: alert and cooperative But guarded and a limited historian. Apperance: appropriately dressed Thin white male appearing his stated age. Dressed in long pants with the cuffs rolled up mid vu, will socks, and a longsleeved shirt. Adequate hygiene and grooming. Seated in no acute distress. Only brief eye contact. Motor Behavior: steady gait and station and no abnormal motor movements Soft-spoken, delayed speech, long pauses at times, does not always finish sentences. Affect: + depressed affect, + constricted affect and mood congruent with affect Mood: + depressed mood Thought Process: + thought blocking Vague statements, at times answers with unrelated or bizarre statements, often does not complete sentences or stops himself and says he does not know the answer, or does not want to talk about it. Thought Content: + paranoid, + delusions, + thought insertion and + persecution Suicidal Thoughts: denies suicidal thoughts Homicidal Thoughts: denies homicidal thoughts Patient denies hallucinations, but appears very internally preoccupied, and cannot rule out hallucinations. Cognition: language grossly intact; + attention not intact Insight: + limited insight Judgement: + limited judgement Vital Signs (Past 24 Hours) Last Vital Signs Temp 36.4 C L 01/23/21 06:00 Pulse 69 01/23/21 06:00 Resp 16 01/23/21 06:00 BP 100/68 01/23/21 06:30 Results & Data ([facility]) Current Inpatient Medications Current Inpatient Medications: Current Inpatient Medications Acetaminophen (Acetaminophen 325 Mg Tab) 650 mg PO Q4H PRN PRN Reason: Headache or Minor Fever Stop: 02/12/21 13:08 Al Hydrox/Mg Hydrox/Simethicone (Aluminum/Magnesium Susp 30 Ml Udc) 30 ml PO Q4H PRN PRN Reason: GI Upset Stop: 02/12/21 13:08 Benztropine Mesylate (Benztropine Mesylate 1 Mg Tab) 1 mg PO Q4H PRN PRN Reason: EPS Stop: 02/13/21 08:27 Bismuth Subsalicylate (Bismuth Subsalicylate Liqd 236 Ml) 15 ml PO PRN PRN PRN Reason: Loose Stool Stop: 02/12/21 13:08 Haloperidol Lactate (Haloperidol Lactate 5 Mg/Ml 1 Ml Vial) 10 mg IM Q6H PRN PRN Reason: psychosis or agitation, or ref Stop: 02/13/21 08:27 Hydroxyzine HCl (Hydroxyzine Hcl 25 Mg Tab) 50 mg PO HSZ PRN PRN Reason: Insomnia Stop: 02/12/21 13:08 Hydroxyzine HCl (Hydroxyzine Hcl 25 Mg Tab) 25 mg PO Q4H PRN PRN Reason: Anxiety Stop: 02/12/21 13:08 Magnesium Hydroxide (Magnesium Hydroxide Susp 30 Ml Udc) 30 ml PO DAILY PRN PRN Reason: Constipation Stop: 02/12/21 13:08 Olanzapine (Olanzapine 10 Mg/2.1 Ml Sdv) 10 mg IM PRN PRN PRN Reason: Refusal of PO Olanzapine Stop: 02/17/21 11:35 Olanzapine (Olanzapine 10 Mg Tab) 10 mg PO BID MATT Stop: 02/18/21 20:59 Last Admin: 01/23/21 08:44 Dose: 10 mg Documented by: Sodium Chloride (Sodium Chloride 0.65% Na Soln 45 Ml (Letha)) 1 - 2 sprays NA PRN PRN PRN Reason: Nasal Dryness/Congestion Stop: 02/12/21 13:08 Trihexyphenidyl HCl (Trihexyphenidyl Hcl 2 Mg Tab) 2 mg PO BID PRN PRN Reason: EPS Stop: 02/17/21 20:59 Venlafaxine HCl (Venlafaxine Hcl Xr 37.5 Mg Capxr) 37.5 mg PO QAM MATT Stop: 02/17/21 11:59 Last Admin: 01/23/21 08:44 Dose: 37.5 mg Documented by: Mental Health & Subst Abuse Tx Psychiatrist Name of Psychiatrist: [facility] Date of Appointment with Psychiatrist: 01/28/21 Time of Appointment with Psychiatrist: 4:20 pm Psychiatric Appointment Comment: [address], [id number] Therapist Name of Therapist: Kathi Therapist's Therapy Appointment Comment: [address] [id number] Gang T[employer]er Name of Gang T[employer]er: [employer] - Bill Phone Number for Gang T[employer]er: [phone] Post Discharge Appointments Primary Care Physician Name Of Family Doctor: Nafisa Campos [facility] Date of Appointment with PCP: 02/01/21 Time of Appointment with PCP: 11:20 a.m. [facility] [address] [facility] Dis[facility] Dis[facility] Address: [address] [address]
[2021-01-23] MEDS: OLANZapine 5 MG TABLET PO SCH (21:30)
[2021-01-24] MEDS: OLANZapine 5 MG TABLET PO SCH ×2 (09:05→20:47)
[2021-01-24] MEDS: VENLAFAXINE HCL XR 75 MG CAPXR PO SCH (09:05)
--- NOTE | 2021-01-24 10:22 | Psychiatric Progress Note ---
Date of Service January 24, 2021 Impression / Recommendations Impression Patient remains disorganized, with thought blocking, delusions of persecution, compulsive masturbation, and anosognosia. He is taking medication here with strong support and assistance from staff, and is refusing recommendations for a long-acting injectable antipsychotic. He is on a 304 involuntary commitment and will be transitioned to an IOC at discharge. He has failed a trial of aripiprazole/Abilify Maintena, and complained extensively about side effects to haloperidol and Invega. He has been tolerating olanzapine and venlafaxine XR, and we will continue to titrate them to target psychotic and depressive symptoms. Inpatient treatment remains medically necessary due to the severity of symptoms and risk for suicide or unintentional harm to himself as a result of severe psychosis, lack of insight, and depression with suicide attempt on the unit (made a noose out of a sheet). (1) Acute psychosis: - Italic sections refer to daily care summary from medical floor admission - 01/03 -patient is a poor historian, reports indicate he may have been started on Abilify Maintena while hospitalized in [place], but timeline unknown. He is agreed to sign a release and I have asked the nurse on the floor to obtain that so that we can get those records. We will also attempt to get records from his outpatient psychiatrist, Dr. Price. -If he is refusing to take antipsychotic medications, recommend medications over objection, as he has responded to antipsychotic medication in the past, and psychotic symptoms are unlikely to remit without antipsychotic treatment. Additionally, he is severely disabled as a result of his psychosis, is unable to provide for his own basic needs, and places both himself and others at risk of harm if his symptoms remain untreated. -Given his history of nonadherence and severity of symptoms with untreated mental illness, will recommend ongoing involuntary commitment with transition to an IOC at discharge. He would benefit from case management and therapy as well. -Offer olanzapine 10 mg p.o./IM as needed for acute psychosis, as he has been on this medication before and tolerated it. -Consider initiation of a mood stabilizer such as Depakote, which can be given IV over objection if he remains unwilling for medications. 01/04 -The patient has stated that he was given Abilify Maintena intramuscularly fairly recently, but there is some reason to believe that this may not be accurate. It is noted that the patient's father said that he has not observed any changes in the patient's behaviors and other symptoms subsequent to the reported dose of Abilify. 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 His tox screen at admission was negative for occult blood, but the test was not specific for hallucinogens. Accordingly, while I would doubt that the entire constellation of problems observed are related to substance use, this cannot be ruled out as a mitigating factor. -Today, the patient reports that he will refuse to take Abilify because he says that he is "allergic" to it. When asked to describe the allergy, he replied by saying that Abilify makes him feel "weird," and he says that he feels certain that it interferes with his sleep. The patient reports that he has taken olanzapine (Zyprexa) and has tolerated that well. He also suggest that he thinks that it "helps." However, he cannot exactly say how it helps. -Today, the patient says that he is embarrassed about the fact that he was "running around outside" while naked, and that he was masturbating in public. However, he has difficulty saying why that should be an issue, other than to repeatedly say, "it is bad." At the same time, and the period of time that immediately proceeded our telephonic contact the patient was reportedly openly masturbating in front of his one-to-one legal document assistant and, also reportedly, [facility] invited the one-to-one legal document assistant to either masturbate together with the patient or to allow the patient to masturbate him. Furthermore, the patient indicated that he felt this behavior was reconciled because he had awakened in a "sexual place." Accordingly, what initially had suggested improving insight is abrogated by his ongoing inappropriate and dyscontrol behaviors. -Given the fact the patient may have an unspecified dose of Abilify Maintena on board, reportedly administered on 12/19/2020, and given that the patient may need to receive his olanzapine by intramuscular injection if he continues to periodically refused to take it voluntarily (see med over objection first and second opinions), will reduce the dose of olanzapine from 10 mg 3 times a day to olanzapine 10 mg twice a day by mouth, and will order medications over objection in the form of olanzapine 10 mg IM twice a day. The dose can be titrated as indicated. 01/05--review of available records (most recent [place] pending) note dx of bipolar and/or schizoaffective bipolar type. Records state concussion/no head injuries so family was contacted as amount of preoccupation with masturbating seemed out of proportion to hypersexuality from becca. No hx of hyperorality so doubt Staceyer Jermaine. Had multiple concussions in high school had to leave football and switched to soccer. symptom onset in college so doubt orbitofrontal syndrome. 01/07--303 granted. still trying to confirm date of Abilify injection (or if received). Invega seemed more amenable option than Haldol dec but family confirms poor response to Risperdal and preference toward Abilify. For now Zyprexa is stabilizing patient. Reviewed with family that no local clinics administer the IM. 01/08 - Pt is religiously preoccupied and reporting thoughts that are consistent with ongoing delusions. He is now reporting he thinks he can "do things on my own" and is not particularly interested in outpatient treatment - Pt is declining medication changes. Although it is helpful that he is tolerating olanzapine and denies concerning side effects, he is unfortunately very resistant to adjusting medications to allow for an DE LOS SANTOS option. He is unable to formulate a plan for how he plans to ensure compliance with an oral medication and therefore remains at risk of noncompliance, destabilization, frequent hospitalizations or injury/ as a result of psychosis. - Pt strongly encouraged to consider therapy and case management services. 01/09 - Continue current medication regimen, though consider need for further titration of olanzapine. Patient is not clearly verbalizing any adventism preoccupation but seems to still be disorganized and mildly thought blocked. He continues to demonstrate poor insight into his mental health condition and need for treatment. - Will plan to schedule a family meeting to involve parents - as we will need to begin discussing safety recommendations and outpatient supports - Considering 304 IOC due to poor insight, history of medication noncompliance, and seriousness of patient's condition 01/10 - Infection control reporting patient could be cleared for referral to a psychiatric unit as soon as 01/13/21. - Continue as above - thoughts continue to be disorganized, ongoing adventism preoccupation. Pt continues to have poor insight into the severity of his condition and on a few occasions indicated that he may begin refusing his oral medications (2-physician opinions documented on chart for medications over objection if this should occur). - Offered to adjust dosing of olanzapine due to reports of daytime fatigue, patient declining at this time. Consider need for titration of the medication if thoughts do not continue to clear. - Anticipate need for inpatient psychiatric treatment once cleared medically to join the inpatient milieu setting - Considering 304 IOC, meeting scheduled with [facility] to discuss case on 01/16 01/11 - Continue as above. We did receive reports that patient does continue to engage in sexually inappropriate behavior. We are encouraging staff to redirect patient in these situations and offer alternative activities. Pt reports feeling some control over this behavior and express apologies. - Continue olanzapine - consider need for further titration - Anticipate clearance from isolation precautions on 01/16, and then will consider for admission to our unit for continued psychiatric treatment - Likely will require 304 IOC. 01/12 - Continue as above - anticipate discharge from the medical floor tomorrow, with subsequent admission to our unit to continue psychiatric treatment. - Pt reports appropriate behavior, reviewed some of the expectations regarding behavior on our unit as well. 01/13 - Continue olanzapine 10mg BID - discuss case further during treatment team tomorrow. - Admitted to a locked inpatient behavioral health unit, on q15 minute safety checks - Encourage medication initiation/adjustments as indicated - Encourage participation in group and recreational therapies - Gather collateral information from outpatient providers - Suggest family meeting to involve outpatient supports in safety planning - Arrange appropriate aftercare 01/14 -File for 304 involuntary commitment hearing to be held 01/16. Consider the need for referral to [facility] for long-term inpatient treatment versus diversion to an involuntary outpatient commitment. -Patient has been seen by 2 physicians for medications over objection, and although he has taken oral medications at times here in the hospital, has consistently stated that he does not believe he needs medication or psychiatric treatment, and will not continue it after leaving the hospital. We are therefore recommending an long-acting injectable antipsychotic. Multiple medications have been reviewed with him and he has refused all of them. We will discontinue olanzapine as it is not available as an DE LOS SANTOS, and start haloperidol 10 mg twice daily p.o., with an IM backup for refusal, with a plan to transition to Haldol Decanoate once an effective dose is established. -Treatment planning meeting with [facility] scheduled for 01/16 after commitment hearing. 01/15 - Continue haloperidol 10mg BID - patient has been taking medications orally, though with some reluctance. IM form remains available for meds over objection if necessary - Will order fasting glucose and lipid panel for tomorrow - as no record of labs being done while in [place] - We were able to clarify with new records that patient did, in fact, receive Abilify Maintena on 12/20 while inpatient in [place]. - [facility] tomorrow[facility] 01/16 - Pt reporting poor effect with Haldol and requesting a different medication. Discussed trial of paliperidone (as Abilify Maintena was ineffective), and discussed risks, benefits and potential side effects. He agreed to a trial, discontinued Haldol and started paliperidone 3mg daily for tomorrow. Continue Haldol IM for refusal of PO. If effective, transition to Invega Sustenna. - Fasting labs for monitoring on atypical antipsychotic: Glucose 99, FLP normal with the exception of cholesterol 220. Ongoing monitoring as an outpatient. - Patient continues to refuse to sign releases for [facility] and Kathi, so we have not yet arranged outpatient treatment. Now that there is a [address], we will proceed with discharge planning. Family meeting scheduled with patient, parents, and social media manager for Thursday. 01/17 - Continue trial of paliperidone - kept dosing at 3mg for tomorrow due to patient reporting side effects, however, it will likely need continued titration. Haloperidol is ordered for refusal of oral medication and patient is continuing to show little commitment to medications detention. - Family meeting with parents scheduled for tomorrow, [facility] staff is attempting to meet with patient again tomorrow afternoon - [address] which requires involvement of full spectrum of outpaitent psychiatric services; however, patient is resistant to these services 01/18 -The patient continues to complain fairly strikingly of intolerable side effects that he associates with Invega. These side effects may be considered consistent with extraparametal side effects, and the patient does exhibit cogwheel rigidity on examination. We talked to him about the possibility of using an antiparkinsonian agent to manage the side effects, but the patient seemed absolutely adamant that he does not wish to take Invega any further. Of the medications that can be given in a depot form, he said that he felt that Abilify would be the one that he would choose, although it, too, reportedly causes difficult side effects and, furthermore, does not necessarily seem to have been particularly effective in his case.He does not speak positively about his experience with Zyprexa, and this is consistent with staff observation during the brief period during which she was taking Zyprexa. After discussion with the treatment team and with the patient, we agreed to restart olanzapine (Zyprexa) at 10 mg daily. We will also add an anti his parkinsonian agent, first as a test, and then is a standing order to guard against extrapyramidal side effects. -The patient has made reference to feeling depressed for several weeks now. The treatment team agrees that he appears depressed. His complaint is "anxiety that leads to depression," and endorses feeling "sad," and hopeless. The patient also has mood congruent delusions that include delusion that he has "been sent to hell," and will be "tortured" forever. Within this context, we will offer the patient a trial of the antidepressant/antianxiety medication venlafaxine extended release beginning at 37.5 mg and titrated carefully and with caution given our working diagnosis of schizophrenia versus schizoaffective disorder. 01/19--reviewed. retitrating Zyprexa. EPS resolved. Artane may be able to be tapered over time. Monitor for emergent hypomania on SNRI. 01/20--reviewed. continue current med and treatment plan. 01/21--reviewed. continue current med and treatment plan, had suicide attempte on unit <1 week ago so needs to remain inpatient for longer monitoring and additional planning around outpatient commitment. Risk Factors Assessment 01/22 - Continue olanzapine 10mg BID. Will discontinue scheduled Artane, as symptoms of EPS were not reported for the lengthy time the patient had previously been taking olanzapine. Will keep 2mg prn doses available up to BID as needed for side effects to antipsychotic medications. - Pt reports mood is improved, but continues to present as flat - Continue to engage outpatient supports, working toward [address] [place] [address]. 01/23 -ongoing psychosis and depression, continue to titrate medications and increase olanzapine to 15 mg twice daily and venlafaxine XR to 75 mg 01/24 - Continue medication changes made yesterday - olanzapine 15mg BID and venlafaxine XR 75 - Pt continues to be thought blocked with ongoing psychosis - admitted to paranoia and persecutory delusions - Meeting with telephonic case manager tomorrow (2) Noncompliance with medication regimen: - Italic sections refer to daily care summary from medical floor admission - Recommend an DE LOS SANTOS due to nonadherence with oral medication, need to obtain additional information about recent treatment before we can explore options. Father reports they were told he got Abilify Maintena on 12/19/2020, and due to tight receptor binding it may be difficult to get an adequate response from other dopaminergic medications until it is out of his system 01/04/21 -The patient is saying that he will refuse to take Abilify either orally or by injection of a depot form of aripiprazole. The plan is to stabilize the patient on olanzapine, and at that point we may be able to asked the patient to reconsider Abilify given reports that he has responded favorably to Abilify in the past. Alternatively, he could be converted to Invega Sustenna or Haldol decanoate, in view of his acknowledge long history of medication nonadherence 01/05/21--offered zydus, prefers pills and is compliant last 2 doses. 01/06--father states that he was trying to put Abilify in patient's cereal in days leading up to admission. 01/08 - Has been taking scheduled doses of olanzapine BID; however, unwilling for medication changes or to explore options for Suraj. 01/09 - 01/12 - Remains unwilling to consider DE LOS SANTOS options to promote medication compliance - Considering a 304 [facility] 01/13 - Continue as above - patient remains resistant to an DE LOS SANTOS, now reporting the concern is related to fear of needles. - Pt stated today that he does not desire for medications to be a part of his treatment plan. - Medications over objection orders in place from assessments completed while patient was on the medical floor. 01/15 - Transitioned to haloperidol yesterday to allow for stabilization on a medication that can be given as an DE LOS SANTOS 01/16 -At patient's request, discontinue Haldol and start trial of Invega, with plan to transition to Invega Sustenna if effective and well-tolerated. -304 hearing held and commitment granted. 01/18 -As above, we have been trying to find a medication that can be given to him orally, with the goal of stabilizing on that medication and then converting him to a depot form of the medication. Unfortunately, he seems not to have responded favorably to haloperidol, the also seems not to respond favorably to a low dose of Invega, and he had received a dose of Abilify Maintena not long before his admission to [facility], a circumstance that would seem to suggest that he was not responding favorably to aripiprazole, or was not currently responding favorably to aripiprazole. Furthermore, the patient complains persistently of intolerable side effects that he associates with Invega and haloperidol. He also references aripiprazole, but says that of the 3 medications aripiprazole has been the least likely to cause severe side effects. He reiterates that sometimes keeps him awake at night. Accordingly, while our goal is to find a depot medication that may work, for now we have decided to aggressively treat the patient's condition with Zyprexa, medication that he says has worked well for him and that helps with his "anxiety and depression." We will also add an antiparkinsonian agent given the fact that the patient complains of restlessness, which she refers to his anxiety, and does exhibit EPS such as cogwheeling on examination. Possibly, once the patient is stabilized psychiatrically we can reintroduce the idea of a medication that can be given in the depot form, combined with an antiparkinsonian agent (if that proves to be the source of the patient's multiple complaints of side effects). Reviewed 01/19/21. (3) Exhibitionist behavior: 01/13 - These concerns were addressed by our staff during patient's medical floor admission. Pt had continued to frequently masturbate during his time on the medical floor, even occasionally propositioning his 1:1 staff. - Pt was informed that this behavior cannot be tolerated on our unit - especially in a milieu setting. - Continue to redirect patient and offer more appropriate coping strategies should this behavior continue. 01/17 - No concerns related to this history here on the unit; however, patient is continue to display poor insight with limited commitment to treatment. There are ongoing concerns related to safety and legal consequences if is psychosis is not adequately treated and he is not committed to continued treatment after discharge. 01/18 - Given the patient's primary psychiatric diagnosis, it would be somewhat difficult to give the patient a concurrent diagnosis of the paraphilia exhibitionism. He tells us that he went outside in the nude and masturbated in front of other people because he was given a "message" that they wanted him to do that and that it would somehow relieve the tension that he was feeling in his chest and abdomen. He also said, "I do not get off" on the idea of having people watch me masturbate. However, he also acknowledges that he was significantly more sexually aroused once he had what he considers to be an audience. In any event, we are focusing with the patient the fact that these b ehaviors can lead to legal trouble, or possibly even more significantly, to violence from those persons to take exception to his behavior. The patient indicated understanding and registered a sense of regret. Reviewed 01/19/21. (4) Tick bite: Treatment Impression per hospitalist staff: - Received doxy prophylaxis during beginning of admission when tick was removed. Monitor for rickettsial illness.No issues at this time. Patient was counseled on signs and symptoms to watch for and verbalized understanding with intent to comply. 01/13 - Will continue to monitor for signs/symptoms of infection or disease related to tick bite. Monitor vitals including temperature daily as per usual protocol. 01/18 -There are no current symptoms of Lyme disease. Reviewed 01/19 Risk Factors Assessment Male: Yes : Yes Do You Have Access To A Gun?: Yes Health Problems: No Mental Health Diagnoses: Yes Substance Use Disorders: No Previous Psychiatric Hospitalization: Yes Hopelessness: No Smoker: No Protective Factors Assessment Restorationist Beliefs: Yes : No Responsible for Young Children: No Employed: No Stable Relationships: No Supportive Family: Yes Good Rapport with Provider: No Interval History Identifying Information YUIRY COLLINS is a 30-year-old M who currently lives in [place] with his parents, has a reported history of schizoaffective disorder and treatment noncompliance, and was admitted on 01/13/21 14:07 on a 303 involuntary commitment for acute psychosis. He is on a 304 involuntary commitment as of 01/16/2021. He was initially admitted medically due to COVID + in ER and need for isolation precautions from 01/02/21 - 01/13/21. Chief Complaint "I'm feeling fine." Review of Systems Notes Constitutional: mild sedation Cardiovascular: denied Respiratory: denied Gastrointestinal: denied Neurological: denied Psychiatric: denies symptoms other than stated above Total of at least 10 systems reviewed, pertinent positives as above and in HPI. Sleep Information Total Hours of Sleep: 8 Sleep Comments: pt on q-15 minute checks Meal Information Percent Meal Consumed - Breakfast: 100 Percent Meal Consumed - Lunch: 100 Percent Meal Consumed - Dinner: 100 Nutrition Comment: per meal record Subjective Subjective Patient was seen & assessed and interval progress reviewed with nursing and social work. Staff report the patient has been attending groups, but with limited participation and often on the periphery. He rated his mood a 7/10 but could not identify a feeling word. He is reported to still be thought blocked and appears psychotic. Medications were titrated yesterday due to this concern. Pt was seen today to assess progress since admission. Pt states initially that he is "feeling fine." He responded to most questions with vague and somewhat dismissive answers. He was sharing concern with the questions asked of him during community meeting, specifically wondering why we would ask "needs from the group." Pt states "if I'm worried about tempers rising or things like that, I would imagine it would be addressed immediately, but I guess I don't know..." This provider attempted to ask follow-up questions to make sense of his thought process, but pt was unable to provide any clearer information. 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 He also may have potential to work with his brother. This provider commented on the patient appearing as though he had a lot on his mind. Pt stated "Yeah, I guess. There are things I want to say, but I guess I don't think I need to now." This provider encouraged the patient to open up so that support could be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
[2021-01-25] MEDS: OLANZapine 5 MG TABLET PO SCH ×2 (08:59→21:20)
[2021-01-25] MEDS: VENLAFAXINE HCL XR 75 MG CAPXR PO SCH (09:01)
--- NOTE | 2021-01-25 17:18 | Psychiatric Progress Note ---
Date of Service January 25, 2021 Impression / Recommendations Impression Patient remains disorganized, with thought blocking, delusions of persecution, compulsive masturbation, and anosognosia. He is taking medication here with strong support and assistance from staff, and is refusing recommendations for a long-acting injectable antipsychotic. He is on a 304 involuntary commitment and will be transitioned to an C at discharge. He has failed a trial of aripiprazole/Abilify Maintena, and complained extensively about side effects to haloperidol and Invega. He has been tolerating olanzapine and venlafaxine XR, and we will continue to titrate them to target psychotic and depressive symptoms. Inpatient treatment remains medically necessary due to the severity of symptoms and risk for suicide or unintentional harm to himself as a result of severe psychosis, lack of insight, and depression with suicide attempt on the unit (made a noose out of a sheet). With time, the patient's affect has brightened somewhat, although he generally demonstrates a constricted affect with attenuated expressions. His motor movements have become more fluid, and cogwheel rigidity noted earlier has resolved in response to antiparkinsonian medications. He also reports that his mood has improved and that he is feeling "more comfortable." The patient has tolerated gradual increases in his dosages of olanzapine and venlafaxine and notes that he is not aware of any side effects, apart from "maybe a little drowsiness." (1) Acute psychosis: - Italic sections refer to daily care summary from medical floor admission - 01/03 -patient is a poor historian, reports indicate he may have been started on Abilify Maintena while hospitalized in [place], but timeline unknown. He is agreed to sign a release and I have asked the nurse on the floor to obtain that so that we can get those records. We will also attempt to get records from his outpatient psychiatrist, Dr. Price. -If he is refusing to take antipsychotic medications, recommend medications over objection, as he has responded to antipsychotic medication in the past, and psychotic symptoms are unlikely to remit without antipsychotic treatment. Additionally, he is severely disabled as a result of his psychosis, is unable to provide for his own basic needs, and places both himself and others at risk of harm if his symptoms remain untreated. -Given his history of nonadherence and severity of symptoms with untreated mental illness, will recommend ongoing involuntary commitment with transition to an IOC at discharge. He would benefit from case management and therapy as well. -Offer olanzapine 10 mg p.o./IM as needed for acute psychosis, as he has been on this medication before and tolerated it. -Consider initiation of a mood stabilizer such as Depakote, which can be given IV over objection if he remains unwilling for medications. 01/04 -The patient has stated that he was given Abilify Maintena intramuscularly fairly recently, but there is some reason to believe that this may not be accurate. It is noted that the patient's father said that he has not observed any changes in the patient's behaviors and other symptoms subsequent to the reported dose of Abilify. -Although the patient says that he has not been using neither cannabis nor hallucinogenic mushrooms recently, he is not considered a reliable rn telephone triage. His tox screen at admission was negative for occult blood, but the test was not specific for hallucinogens. Accordingly, while I would doubt that the entire constellation of problems observed are related to substance use, this cannot be ruled out as a mitigating factor. -Today, the patient reports that he will refuse to take Abilify because he says that he is "allergic" to it. When asked to describe the allergy, he replied by saying that Abilify makes him feel "weird," and he says that he feels certain that it interferes with his sleep. The patient reports that he has taken olanzapine (Zyprexa) and has tolerated that well. He also suggest that he thinks that it "helps." However, he cannot exactly say how it helps. -Today, the patient says that he is embarrassed about the fact that he was "running around outside" while naked, and that he was masturbating in public. However, he has difficulty saying why that should be an issue, other than to repeatedly say, "it is bad." At the same time, and the period of time that immediately proceeded our telephonic contact the patient was reportedly openly masturbating in front of his one-to-one general assistant and, also reportedly, the patient had invited the one-to-one general assistant to either masturbate together with the patient or to allow the patient to masturbate him. Furthermore, the patient indicated that he felt this behavior was reconciled because he had awakened in a "sexual place." Accordingly, what initially had suggested improving insight is abrogated by his ongoing inappropriate and dyscontrol behaviors. -Given the fact the patient may have an unspecified dose of Abilify Maintena on board, reportedly administered on 12/19/2020, and given that the patient may need to receive his olanzapine by intramuscular injection if he continues to periodically refused to take it voluntarily (see med over objection first and second opinions), will reduce the dose of olanzapine from 10 mg 3 times a day to olanzapine 10 mg twice a day by mouth, and will order medications over objection in the form of olanzapine 10 mg IM twice a day. The dose can be titrated as indicated. 01/05--review of available records (most recent [place] pending) note dx of bipolar and/or schizoaffective bipolar type. Records state concussion/no head injuries so family was contacted as amount of preoccupation with masturbating seemed out of proportion to hypersexuality from becca. No hx of hyperorality so doubt [facility]. Had multiple concussions in high school had to leave football and switched to soccer. symptom onset in college so doubt orbitofrontal syndrome. 01/07--303 granted. still trying to confirm date of Abilify injection (or if received). Invega seemed more amenable option than Haldol dec but family confirms poor response to Risperdal and preference toward Abilify. For now Zyprexa is stabilizing patient. Reviewed with family that no local clinics administer the IM. 01/08 - Pt is religiously preoccupied and reporting thoughts that are consistent with ongoing delusions. He is now reporting he thinks he can "do things on my own" and is not particularly interested in outpatient treatment - Pt is declining medication changes. Although it is helpful that he is tolerating olanzapine and denies concerning side effects, he is unfortunately very resistant to adjusting medications to allow for an DE LOS SANTOS option. He is unable to formulate a plan for how he plans to ensure compliance with an oral medication and therefore remains at risk of noncompliance, destabilization, frequent hospitalizations or injury/ as a result of psychosis. - Pt strongly encouraged to consider therapy and case management services. 01/09 - Continue current medication regimen, though consider need for further titration of olanzapine. Patient is not clearly verbalizing any evangelical preoccupation but seems to still be disorganized and mildly thought blocked. He continues to demonstrate poor insight into his mental health condition and need for treatment. - Will plan to schedule a family meeting to involve parents - as we will need to begin discussing safety recommendations and outpatient supports - Considering 304 IOC due to poor insight, history of medication noncompliance, and seriousness of patient's condition 01/10 - Infection control reporting patient could be cleared for referral to a psychiatric unit as soon as 01/13/21. - Continue as above - thoughts continue to be disorganized, ongoing evangelical preoccupation. Pt continues to have poor insight into the severity of his condition and on a few occasions indicated that he may begin refusing his oral medications (2-physician opinions documented on chart for medications over objection if this should occur). - Offered to adjust dosing of olanzapine due to reports of daytime fatigue, patient declining at this time. Consider need for titration of the medication if thoughts do not continue to clear. - Anticipate need for inpatient psychiatric treatment once cleared medically to join the inpatient milieu setting - Considering 304 IOC, meeting scheduled with [facility] to discuss case on 01/16 01/11 - Continue as above. We did receive reports that patient does continue to engage in sexually inappropriate behavior. We are encouraging staff to redirect patient in these situations and offer alternative activities. Pt reports feeling some control over this behavior and express apologies. - Continue olanzapine - consider need for further titration - Anticipate clearance from isolation precautions on 01/16, and then will consider for admission to our unit for continued psychiatric treatment - Likely will require 304 IOC. 01/12 - Continue as above - anticipate discharge from the medical floor tomorrow, with subsequent admission to our unit to continue psychiatric treatment. - Pt reports appropriate behavior, reviewed some of the expectations regarding behavior on our unit as well. 01/13 - Continue olanzapine 10mg BID - discuss case further during treatment team tomorrow. - Admitted to a locked inpatient behavioral health unit, on q15 minute safety checks - Encourage medication initiation/adjustments as indicated - Encourage participation in group and recreational therapies - Gather collateral information from outpatient providers - Suggest family meeting to involve outpatient supports in safety planning - Arrange appropriate aftercare 01/14 -File for 304 involuntary commitment hearing to be held 01/16. Consider the need for referral to [facility] for long-term inpatient treatment versus diversion to an involuntary outpatient commitment. -Patient has been seen by 2 physicians for medications over objection, and although he has taken oral medications at times here in the hospital, has consistently stated that he does not believe he needs medication or psychiatric treatment, and will not continue it after leaving the hospital. We are therefore recommending an long-acting injectable antipsychotic. Multiple medications have been reviewed with him and he has refused all of them. We will discontinue olanzapine as it is not available as an DE LOS SANTOS, and start haloperidol 10 mg twice daily p.o., with an IM backup for refusal, with a plan to transition to Haldol Decanoate once an effective dose is established. -Treatment planning meeting with [facility] scheduled for 01/16 after commitment hearing. 01/15 - Continue haloperidol 10mg BID - patient has been taking medications orally, though with some reluctance. IM form remains available for meds over objection if necessary - Will order fasting glucose and lipid panel for tomorrow - as no record of labs being done while in [place] - We were able to clarify with new records that patient did, in fact, receive Abilify Maintena on 12/20 while inpatient in [place]. - 304 hearing tomorrow[facility] 01/16 - Pt reporting poor effect with Haldol and requesting a different medication. Discussed trial of paliperidone (as Abilify Maintena was ineffective), and discussed risks, benefits and potential side effects. He agreed to a trial, discontinued Haldol and started paliperidone 3mg daily for tomorrow. Continue Haldol IM for refusal of PO. If effective, transition to Invega Sustenna. - Fasting labs for monitoring on atypical antipsychotic: Glucose 99, FLP normal with the exception of cholesterol 220. Ongoing monitoring as an outpatient. - Patient continues to refuse to sign releases for [facility] and [facility], so we have not yet arranged outpatient treatment. Now that there is a [address], we will proceed with discharge planning. Family meeting scheduled with patient, parents, and social media senior associate for Thursday. 01/17 - Continue trial of paliperidone - kept dosing at 3mg for tomorrow due to patient reporting side effects, however, it will likely need continued titration. Haloperidol is ordered for refusal of oral medication and patient is continuing to show little commitment to medications emt intermediate. - Family meeting with parents scheduled for tomorrow, [facility] staff is attempting to meet with patient again tomorrow afternoon - [address] requires involvement of full spectrum of outpaitent psychiatric services; however, patient is resistant to these services 01/18 -The patient continues to complain fairly strikingly of intolerable side effects that he associates with Invega. These side effects may be considered consistent with extraparametal side effects, and the patient does exhibit cogwheel rigidity on examination. We talked to him about the possibility of using an antiparkinsonian agent to manage the side effects, but the patient seemed absolutely adamant that he does not wish to take Invega any further. Of the medications that can be given in a depot form, he said that he felt that Abilify would be the one that he would choose, although it, too, reportedly causes difficult side effects and, furthermore, does not necessarily seem to have been particularly effective in his case.He does not speak positively about his experience with Zyprexa, and this is consistent with staff observation during the brief period during which she was taking Zyprexa. After discussion with the treatment team and with the patient, we agreed to restart olanzapine (Zyprexa) at 10 mg daily. We will also add an anti his parkinsonian agent, first as a test, and then is a standing order to guard against extrapyramidal side effects. -The patient has made reference to feeling depressed for several weeks now. The treatment team agrees that he appears depressed. His complaint is "anxiety that leads to depression," and endorses feeling "sad," and hopeless. The patient also has mood congruent delusions that include delusion that he has "been sent to hell," and will be "tortured" forever. Within this context, we will offer the patient a trial of the antidepressant/antianxiety medication venlafaxine extended release beginning at 37.5 mg and titrated carefully and with caution given our working diagnosis of schizophrenia versus schizoaffective disorder. 01/19--reviewed. retitrating Zyprexa. EPS resolved. Artane may be able to be tapered over time. Monitor for emergent hypomania on SNRI. 01/20--reviewed. continue current med and treatment plan. 01/21--reviewed. continue current med and treatment plan, had suicide attempte on unit <1 week ago so needs to remain inpatient for longer monitoring and ad ditional planning around outpatient commitment. Risk Factors Assessment 01/22 - Continue olanzapine 10mg BID. Will discontinue scheduled Artane, as symptoms of EPS were not reported for the lengthy time the patient had previously been taking olanzapine. Will keep 2mg prn doses available up to BID as needed for side effects to antipsychotic medications. - Pt reports mood is improved, but continues to present as flat - Continue to engage outpatient supports, working toward [address] [place] [address]. 01/23 -ongoing psychosis and depression, continue to titrate medications and increase olanzapine to 15 mg twice daily and venlafaxine XR to 75 mg 01/24 - Continue medication changes made yesterday - olanzapine 15mg BID and venlafaxine XR 75 - Pt continues to be thought blocked with ongoing psychosis - admitted to paranoia and persecutory delusions - Meeting with insurance case manager tomorrow 01/25 -Continue olanzapine 15 mg twice daily. Increase venlafaxine XR to a dose of 112.5 mg and monitor for possible exacerbation of psychotic symptoms. -Today, the patient does not give voiced any persecutory delusions, apart from telling me that it seemed logical to him that "were all going to " so that he should masturbate in the nude, while in public. (2) Noncompliance with medication regimen: - Italic sections refer to daily care summary from medical floor admission - Recommend an DE LOS SANTOS due to nonadherence with oral medication, need to obtain additional information about recent treatment before we can explore options. Father reports they were told he got Abilify Maintena on 12/19/2020, and due to tight receptor binding it may be difficult to get an adequate response from other dopaminergic medications until it is out of his system 01/04/21 -The patient is saying that he will refuse to take Abilify either orally or by injection of a depot form of aripiprazole. The plan is to stabilize the patient on olanzapine, and at that point we may be able to asked the patient to reconsider Abilify given reports that he has responded favorably to Abilify in the past. Alternatively, he could be converted to Invega Sustenna or Haldol decanoate, in view of his acknowledge long history of medication nonadherence 01/05/21--offered zydus, prefers pills and is compliant last 2 doses. 4/4--father states that he was trying to put Abilify in patient's cereal in days leading up to admission. 01/08 - Has been taking scheduled doses of olanzapine BID; however, unwilling for medication changes or to explore options for Suraj. 01/09 - 01/12 - Remains unwilling to consider DE LOS SANTOS options to promote medication compliance - Considering a 304 IOC 01/13 - Continue as above - patient remains resistant to an DE LOS SANTOS, now reporting the concern is related to fear of needles. - Pt stated today that he does not desire for medications to be a part of his treatment plan. - Medications over objection orders in place from assessments completed while patient was on the medical floor. 01/15 - Transitioned to haloperidol yesterday to allow for stabilization on a medication that can be given as an DE LOS SANTOS 01/16 -At patient's request, discontinue Haldol and start trial of Invega, with plan to transition to Invega Sustenna if effective and well-tolerated. -304 hearing held and commitment granted. 01/18 -As above, we have been trying to find a medication that can be given to him orally, with the goal of stabilizing on that medication and then converting him to a depot form of the medication. Unfortunately, he seems not to have responded favorably to haloperidol, the also seems not to respond favorably to a low dose of Invega, and he had received a dose of Abilify Maintena not long before his admission to [facility], a circumstance that would seem to suggest that he was not responding favorably to aripiprazole, or was not currently responding favorably to aripiprazole. Furthermore, the patient complains persistently of intolerable side effects that he associates with Invega and haloperidol. He also references aripiprazole, but says that of the 3 medications aripiprazole has been the least likely to cause severe side effects. He reiterates that sometimes keeps him awake at night. Accordingly, while our goal is to find a depot medication that may work, for now we have decided to aggressively treat the patient's condition with Zyprexa, medication that he says has worked well for him and that helps with his "anxiety and depression." We will also add an antiparkinsonian agent given the fact that the patient complains of restlessness, which she refers to his anxiety, and does exhibit EPS such as cogwheeling on examination. Possibly, once the patient is stabilized psychiatrically we can reintroduce the idea of a medication that can be given in the depot form, combined with an antiparkinsonian agent (if that proves to be the source of the patient's multiple complaints of side effects). Reviewed 01/19/21. 01/25 -As noted in number times above, the original plan had been to place the patient on a long-acting depot form of an antipsychotic given his demonstrated history of nonadherence with medications. Today, the patient says that he understands that continued nonadherence with medications after discharge from hospital, followed by periods of heightened psychosis and dangerous behaviors places him at risk for a determination that he requires a longer term psychiatric hospitalization, such as is available in the [facility] psychiatric facilities. The patient says that he is motivated to avoid this, and he says that he has a plan to remain adherent with his medications on an outpatient basis is to ask his parents to contact "a doctor or the police" if he stops taking his medications on an outpatient basis. He adds that he understands that this could be and he has to come back to the hospital. The patient does have some insight into his illness at this point. He understands that his behavior prior to admission was both dangerous and "pretty confused." He also acknowledges current psychiatric symptoms such as some persistent depression. -The patient convincingly reports that he is not having any thoughts of suicide and says that he is looking forward to being able to go home, possibly next week, with a plan to work with his [place]." (3) Exhibitionist behavior: Does not01/13 - These concerns were addressed by our staff during patient's medical floor admission. Pt had continued to frequently masturbate during his time on the medical floor, even occasionally propositioning his 1:1 staff. - Pt was informed that this behavior cannot be tolerated on our unit - especially in a milieu setting. - Continue to redirect patient and offer more appropriate coping strategies should this behavior continue. 01/17 - No concerns related to this history here on the unit; however, patient is continue to display poor insight with limited commitment to treatment. There are ongoing concerns related to safety and legal consequences if is psychosis is not adequately treated and he is not committed to continued treatment after discharge. 01/18 - Given the patient's primary psychiatric diagnosis, it would be somewhat difficult to give the patient a concurrent diagnosis of the paraphilia exhibitionism. He tells us that he went outside in the nude and masturbated in front of other people because he was given a "message" that they wanted him to do that and that it would somehow relieve the tension that he was feeling in his chest and abdomen. He also said, "I do not get off" on the idea of having people watch me masturbate. However, he also acknowledges that he was significantly more sexually aroused once he had what he considers to be an audience. In any event, we are focusing with the patient the fact that these behaviors can lead to legal trouble, or possibly even more significantly, to violence from those persons to take exception to his behavior. The patient indicated understanding and registered a sense of regret. 01/25 -Today, the patient confirms that he has not generally found the idea of exposing his genitalia in public to be sexually arousing. He does note that on the day in question he was frustrated because he was not able to become sexually aroused and that once he thought that he was being given a message that other people wanted him to come outside, naked, and masturbate publicly he did find it arousing, sexually. However, he continues to insist that this is not part of a larger pattern. The patient reports that, in the hospital, he has been able to masturbate privately to the point of orgasm on 2 occasions. (4) Tick bite: Treatment Impression per hospitalist staff: - Received doxy prophylaxis during beginning of admission when tick was removed. Monitor for rickettsial illness.No issues at this time. Patient was counseled on signs and symptoms to watch for and verbalized understanding with intent to comply. 01/13 - Will continue to monitor for signs/symptoms of infection or disease related to tick bite. Monitor vitals including temperature daily as per usual protocol. 01/18 -There are no current symptoms of Lyme disease. Reviewed 01/19 Risk Factors Assessment Male: Yes : Yes Do You Have Access To A Gun?: Yes Health Problems: No Mental Health Diagnoses: Yes Substance Use Disorders: No Previous Psychiatric Hospitalization: Yes Hopelessness: No Smoker: No Protective Factors Assessment Scientologist Beliefs: Yes : No Responsible for Young Children: No Employed: No Stable Relationships: No Supportive Family: Yes Good Rapport with Provider: No Interval History Identifying Information YURIY COLLINS is a 30-year-old M who currently lives in [place] with his parents, has a reported history of schizoaffective disorder and treatment noncompliance, and was admitted on 01/13/21 14:07 on a 303 involuntary commitment for acute psychosis. He is on a 304 involuntary commitment as of 01/16/2021. He was initially admitted medically due to COVID + in ER and need for isolation precautions from 01/02/21 - 01/13/21. Chief Complaint "I think I'm doing better". Review of Systems Sleep Information Total Hours of Sleep: 8 Sleep Comments: pt on q-15 minute checks Meal Information Percent Meal Consumed - Breakfast: 75 Percent Meal Consumed - Lunch: 100 Percent Meal Consumed - Dinner: 100 Nutrition Comment: per meal record Subjective Subjective Patient was seen & assessed and interval progress reviewed with treatment team. I met individually with the patient in order to assess his current mental status, evaluate his response to treatment, make any necessary changes in the patient's treatment regimen and coordination with the patient and address issues, questions and concerns that may arise. The patient began by telling me, somewhat hesitantly, that he believes that he is doing "better." I asked him if he might be saying that because it is his goal to be discharged, and he looks to me directly in the eye and assured me that he was saying it because he feels its true. He does acknowledge that he still has "some depression," but says that it has lifted significantly. We talked about various concerns that he has been having, and the patient tells me that he is a little worried about his future. He notes that in he is not yet established a career. 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 When I invited the patient to talk about his understanding of the reason he was hospitalized psychiatrically he essentially repeated what he has previously said. This time, he said "I was feeling certain tightness or stiffness." Within that context, he noted feeling anxious or restless, and it occurred to him that he might gain some relief through achieving an orgasm. However, he was not able to arouse himself sexually. Around that time, he said that he began receiving "messages" or signals" that other people wanted him to come outside, take his clothes off, and masturbated in front of them. He seemed reluctant to talk about the nature of the "messages" or "signals," and, instead, he simply said several times, I guess I could just tell, I thought I could tell." The patient then said, inexplicably, "were all going to , so it seemed like the best thing to do at the time." When ask if he understood why people might have been upset about that behavior, he replied, "yes. I am very ashamed of myself. I am really embarrassed about it." With some prompting, he was able to say that he recognized that it could have been frightened or disturbed other people and he also said that he realizes now that the "signals" or "messages" that he thought he was getting at the time were not real. He notes that he is sleeping well, and is not feeling particularly restless or stiff. He denies blurred vision, xerostomia, and urinary retention. Physical Exam Psychiatric Orientation: alert, oriented x 3 and oriented to person Apperance: appropriately dressed and appropriately groomed Eye Contact: + fair eye contact Motor Behavior: + psychomotor retardation; n EPS He does appear more animated with more fluid motor movements than he did a week ago when I last evaluated him. The patient speech remains somewhat soft, slow, and low pitched. Affect: + constricted affect The patient does smile appropriately several times during the encounter. Mood: + depressed mood ("But better.") Thought Process: + looseness of associations The patient's associations are occasionally loose and, but are generally goal- directed. Thought Content: reality based without delusions Suicidal Thoughts: denies suicidal thoughts and denies suicidal plan Homicidal Thoughts: denies homicidal thoughts and denies homicidal plan Hallucinations: no auditory hallucinations As above, the patient has reference to getting "messages" from people that caused him to think that he needed to disrobe and masturbate publicly. Today, he says, "the only messages I get from outside or when my parents call in the. That is the only time." Cognition: recent memory grossly intact and remote memory grossly intact; + attention not intact The patient is easily distracted. Estimated Intelligence: + above average estimated intelligence Insight: + limited insight Judgement: + fair judgement Vital Signs (Past 24 Hours) Last Vital Signs Temp 36.5 C 01/25/21 06:00 Pulse 109 H 01/25/21 06:37 Resp 16 01/25/21 06:00 BP 100/62 01/25/21 06:37 Results & Data ([facility]) Current Inpatient Medications Current Inpatient Medications: Current Inpatient Medications Acetaminophen (Acetaminophen 325 Mg Tab) 650 mg PO Q4H PRN PRN Reason: Headache or Minor Fever Stop: 02/12/21 13:08 Al Hydrox/Mg Hydrox/Simethicone (Aluminum/Magnesium Susp 30 Ml Udc) 30 ml PO Q4H PRN PRN Reason: GI Upset Stop: 02/12/21 13:08 Benztropine Mesylate (Benztropine Mesylate 1 Mg Tab) 1 mg PO Q4H PRN PRN Reason: EPS Stop: 02/13/21 08:27 Bismuth Subsalicylate (Bismuth Subsalicylate Liqd 236 Ml) 15 ml PO PRN PRN PRN Reason: Loose Stool Stop: 02/12/21 13:08 Haloperidol Lactate (Haloperidol Lactate 5 Mg/Ml 1 Ml Vial) 10 mg IM Q6H PRN PRN Reason: psychosis or agitation, or ref Stop: 02/13/21 08:27 Hydroxyzine HCl (Hydroxyzine Hcl 25 Mg Tab) 50 mg PO HSZ PRN PRN Reason: Insomnia Stop: 02/12/21 13:08 Hydroxyzine HCl (Hydroxyzine Hcl 25 Mg Tab) 25 mg PO Q4H PRN PRN Reason: Anxiety Stop: 02/12/21 13:08 Magnesium Hydroxide (Magnesium Hydroxide Susp 30 Ml Udc) 30 ml PO DAILY PRN PRN Reason: Constipation Stop: 02/12/21 13:08 Olanzapine (Olanzapine 10 Mg/2.1 Ml Sdv) 10 mg IM PRN PRN PRN Reason: Refusal of PO Olanzapine Stop: 02/17/21 11:35 Olanzapine (Olanzapine 5 Mg Tablet) 15 mg PO BID MATT Stop: 02/22/21 20:59 Last Admin: 01/25/21 08:59 Dose: 15 mg Documented by: Sodium Chloride (Sodium Chloride 0.65% Na Soln 45 Ml ([place])) 1 - 2 sprays NA PRN PRN PRN Reason: Nasal Dryness/Congestion Stop: 02/12/21 13:08 Trihexyphenidyl HCl (Trihexyphenidyl Hcl 2 Mg Tab) 2 mg PO BID PRN PRN Reason: EPS Stop: 02/17/21 20:59 Venlafaxine HCl (Venlafaxine Hcl Xr 75 Mg Capxr) 75 mg PO QAM MATT Stop: 02/23/21 08:59 Last Admin: 01/25/21 09:01 Dose: 75 mg Documented by: Mental Health & Subst Abuse Tx Psychiatrist Name of Psychiatrist: [facility] Date of Appointment with Psychiatrist: 01/30/21 Time of Appointment with Psychiatrist: 1:30 p.m Psychiatric Appointment Comment: Telehealth Therapist Name of Therapist: [facility] Date of Therapist Appointment: 01/30/21 Time of Therapist Appointment: 1:30 p.m Therapy Appointment Comment: Telehealth Fiberglass Insulation Installer Name of Fiberglass Insulation Installer: [employer] [facility] Phone Number for Fiberglass Insulation Installer: [phone] Date of Appointment with Fiberglass Insulation Installer: 01/30/21 Time of Appointment with Fiberglass Insulation Installer: 3:00 p.m. Case Management Appointment Comment: Will meet you at your home Post Discharge Appointments Primary Care Physician Name Of Family Doctor: [facility] Date of Appointment with PCP: 02/01/21 Time of Appointment with PCP: 11:20 a.m. [facility] Information Dis[facility] Dis[facility] Address: [address] [address]
--- NOTE | 2021-01-26 07:00 | Psychiatric Progress Note ---
Date of Service January 26, 2021 Impression / Recommendations Impression Patient remains disorganized, with thought blocking, but improved delusions of persecution, compulsive masturbation, and insight/willingness to take medications. He has failed a trial of aripiprazole/Abilify Maintena, and complained extensively about side effects to haloperidol and Invega. He has been tolerating olanzapine and venlafaxine XR, and we will continue to titrate them to target psychotic and depressive symptoms. He is on a 304 involuntary commitment and will be transitioned to an IOC at discharge. Inpatient treatment remains medically necessary due to the severity of symptoms and risk for suicide or unintentional harm to himself as a result of severe psychosis, lack of insight, and depression with suicide attempt on the unit (made a noose out of a sheet). (1) Acute psychosis: - Italic sections refer to daily care summary from medical floor admission - 01/03 -patient is a poor historian, reports indicate he may have been sta rted on Abilify Maintena while hospitalized in [place], but timeline unknown. He is agreed to sign a release and I have asked the nurse on the floor to obtain that so that we can get those records. We will also attempt to get records from his outpatient psychiatrist, Dr. Price. -If he is refusing to take antipsychotic medications, recommend medications over objection, as he has responded to antipsychotic medication in the past, and psychotic symptoms are unlikely to remit without antipsychotic treatment. Additionally, he is severely disabled as a result of his psychosis, is unable to provide for his own basic needs, and places both himself and others at risk of harm if his symptoms remain untreated. -Given his history of nonadherence and severity of symptoms with untreated mental illness, will recommend ongoing involuntary commitment with transition to an IOC at discharge. He would benefit from case management and therapy as well. -Offer olanzapine 10 mg p.o./IM as needed for acute psychosis, as he has been on this medication before and tolerated it. -Consider initiation of a mood stabilizer such as Depakote, which can be given IV over objection if he remains unwilling for medications. 01/04 -The patient has stated that he was given Abilify Maintena intramuscularly fairly recently, but there is some reason to believe that this may not be accurate. It is noted that the patient's father said that he has not observed any changes in the patient's behaviors and other symptoms subsequent to the reported dose of Abilify. 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 His tox screen at admission was negative for occult blood, but the test was not specific for hallucinogens. Accordingly, while I would doubt that the entire constellation of problems observed are related to substance use, this cannot be ruled out as a mitigating factor. -Today, the patient reports that he will refuse to take Abilify because he says that he is "allergic" to it. When asked to describe the allergy, he replied by saying that Abilify makes him feel "weird," and he says that he feels certain that it interferes with his sleep. The patient reports that he has taken olanzapine (Zyprexa) and has tolerated that well. He also suggest that he thinks that it "helps." However, he cannot exactly say how it helps. -Today, the patient says that he is embarrassed about the fact that he was "running around outside" while naked, and that he was masturbating in public. 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 Furthermore, the patient indicated that he felt this behavior was reconciled because he had awakened in a "sexual place." Accordingly, what initially had suggested improving insight is abrogated by his ongoing inappropriate and dyscontrol behaviors. -Given the fact the patient may have an unspecified dose of Abilify Maintena on board, reportedly administered on 12/19/2020, and given that the patient may need to receive his olanzapine by intramuscular injection if he continues to periodically refused to take it voluntarily (see med over objection first and second opinions), will reduce the dose of olanzapine from 10 mg 3 times a day to olanzapine 10 mg twice a day by mouth, and will order medications over objection in the form of olanzapine 10 mg IM twice a day. The dose can be titrated as indicated. 01/05--review of available records (most recent [place] pending) note dx of bipolar and/or schizoaffective bipolar type. Records state concussion/no head injuries so family was contacted as amount of preoccupation with masturbating seemed out of proportion to hypersexuality from becca. No hx of hyperorality so doubt [facility]. Had multiple concussions in high school had to leave football and switched to soccer. symptom onset in college so doubt orbitofrontal syndrome. 01/07--303 granted. still trying to confirm date of Abilify injection (or if received). Invega seemed more amenable option than Haldol dec but family confirms poor response to Risperdal and preference toward Abilify. For now Zyprexa is stabilizing patient. Reviewed with family that no local clinics administer the IM. 01/08 - Pt is religiously preoccupied and reporting thoughts that are consistent with ongoing delusions. He is now reporting he thinks he can "do things on my own" and is not particularly interested in outpatient treatment - Pt is declining medication changes. Although it is helpful that he is tolerating olanzapine and denies concerning side effects, he is unfortunately very resistant to adjusting medications to allow for an DE LOS SANTOS option. He is unable to formulate a plan for how he plans to ensure compliance with an oral medication and therefore remains at risk of noncompliance, destabilization, frequent hospitalizations or injury/ as a result of psychosis. - Pt strongly encouraged to consider therapy and case management services. 01/09 - Continue current medication regimen, though consider need for further titration of olanzapine. Patient is not clearly verbalizing any orthodox preoccupation but seems to still be disorganized and mildly thought blocked. He continues to demonstrate poor insight into his mental health condition and need for treatment. - Will plan to schedule a family meeting to involve parents - as we will need to begin discussing safety recommendations and outpatient supports - Considering 304 IOC due to poor insight, history of medication noncompliance, and seriousness of patient's condition 01/10 - Infection control reporting patient could be cleared for referral to a psychiatric unit as soon as 01/13/21. - Continue as above - thoughts continue to be disorganized, ongoing orthodox preoccupation. Pt continues to have poor insight into the severity of his condition and on a few occasions indicated that he may begin refusing his oral medications (2-physician opinions documented on chart for medications over objection if this should occur). - Offered to adjust dosing of olanzapine due to reports of daytime fatigue, patient declining at this time. Consider need for titration of the medication if thoughts do not continue to clear. - Anticipate need for inpatient psychiatric treatment once cleared medically to join the inpatient milieu setting - Considering 304 IOC, meeting scheduled with [facility] to discuss case on 01/16 01/11 - Continue as above. We did receive reports that patient does continue to engage in sexually inappropriate behavior. We are encouraging staff to redirect patient in these situations and offer alternative activities. Pt reports feeling some control over this behavior and express apologies. - Continue olanzapine - consider need for further titration - Anticipate clearance from isolation precautions on 01/16, and then will consider for admission to our unit for continued psychiatric treatment - Likely will require 304 IOC. 01/12 - Continue as above - anticipate discharge from the medical floor tomorrow, with subsequent admission to our unit to continue psychiatric treatment. - Pt reports appropriate behavior, reviewed some of the expectations regarding behavior on our unit as well. 01/13 - Continue olanzapine 10mg BID - discuss case further during treatment team tomorrow. - Admitted to a locked inpatient behavioral health unit, on q15 minute safety checks - Encourage medication initiation/adjustments as indicated - Encourage participation in group and recreational therapies - Gather collateral information from outpatient providers - Suggest family meeting to involve outpatient supports in safety planning - Arrange appropriate aftercare 01/14 -File for 304 involuntary commitment hearing to be held 01/16. Consider the need for referral to [facility] for long-term inpatient treatment versus diversion to an involuntary outpatient commitment. -Patient has been seen by 2 physicians for medications over objection, and although he has taken oral medications at times here in the hospital, has consistently stated that he does not believe he needs medication or psychiatric treatment, and will not continue it after leaving the hospital. We are therefore recommending an long-acting injectable antipsychotic. Multiple medications have been reviewed with him and he has refused all of them. We will discontinue olanzapine as it is not available as an DE LOS SANTOS, and start haloperidol 10 mg twice daily p.o., with an IM backup for refusal, with a plan to transition to Haldol Decanoate once an effective dose is established. -Treatment planning meeting with [facility] scheduled for 01/16 after commitment hearing. 01/15 - Continue haloperidol 10mg BID - patient has been taking medications orally, though with some reluctance. IM form remains available for meds over objection if necessary - Will order fasting glucose and lipid panel for tomorrow - as no record of labs being done while in [place] - We were able to clarify with new records that patient did, in fact, receive Abilify Maintena on 12/20 while inpatient in [place]. - 304 hearing tomorrow; [facility] meeting to follow to discuss discharge planning 01/16 - Pt reporting poor effect with Haldol and requesting a different medication. Discussed trial of paliperidone (as Abilify Maintena was ineffective), and discussed risks, benefits and potential side effects. He agreed to a trial, discontinued Haldol and started paliperidone 3mg daily for tomorrow. Continue Haldol IM for refusal of PO. If effective, transition to Invega Sustenna. - Fasting labs for monitoring on atypical antipsychotic: Glucose 99, FLP normal with the exception of cholesterol 220. Ongoing monitoring as an outpatient. - Patient continues to refuse to sign releases for [facility] and [facility], so we have not yet arranged outpatient treatment. Now that there is a [address], we will proceed with discharge planning. Family meeting scheduled with patient, parents, and social professionals for Thursday. 01/17 - Continue trial of paliperidone - kept dosing at 3mg for tomorrow due to patient reporting side effects, however, it will likely need continued titration. Haloperidol is ordered for refusal of oral medication and patient is continuing to show little commitment to medications rat exterminator. - Family meeting with parents scheduled for tomorrow, [facility] staff is attempting to meet with patient again tomorrow afternoon - [address] which requires involvement of full spectrum of outpaitent psychiatric services; however, patient is resistant to these services 01/18 -The patient continues to complain fairly strikingly of intolerable side effects that he associates with Invega. These side effects may be considered consistent with extraparametal side effects, and the patient does exhibit cogwheel rigidity on examination. We talked to him about the possibility of using an antiparkinsonian agent to manage the side effects, but the patient seemed absolutely adamant that he does not wish to take Invega any further. Of the medications that can be given in a depot form, he said that he felt that Abilify would be the one that he would choose, although it, too, reportedly causes difficult side effects and, furthermore, does not necessarily seem to have been particularly effective in his case.He does not speak positively about his experience with Zyprexa, and this is consistent with staff observation during the brief period during which she was taking Zyprexa. After discussion with the treatment team and with the patient, we agreed to restart olanzapine (Zyprexa) at 10 mg daily. We will also add an anti his parkinsonian agent, first as a test, and then is a standing order to guard against extrapyramidal side effects. -The patient has made reference to feeling depressed for several weeks now. The treatment team agrees that he appears depressed. His complaint is "anxiety that leads to depression," and endorses feeling "sad," and hopeless. The patient al so has mood congruent delusions that include delusion that he has "been sent to hell," and will be "tortured" forever. Within this context, we will offer the patient a trial of the antidepressant/antianxiety medication venlafaxine extended release beginning at 37.5 mg and titrated carefully and with caution given our working diagnosis of schizophrenia versus schizoaffective disorder. 01/19--reviewed. retitrating Zyprexa. EPS resolved. Artane may be able to be tapered over time. Monitor for emergent hypomania on SNRI. 01/20--reviewed. continue current med and treatment plan. 01/21--reviewed. continue current med and treatment plan, had suicide attempt on unit <1 week ago so needs to remain inpatient for longer monitoring and additional planning around outpatient commitment. Risk Factors Assessment 01/22 - Continue olanzapine 10mg BID. Will discontinue scheduled Artane, as symptoms of EPS were not reported for the lengthy time the patient had previously been taking olanzapine. Will keep 2mg prn doses available up to BID as needed for side effects to antipsychotic medications. - Pt reports mood is improved, but continues to present as flat - Continue to engage outpatient supports, working toward [address] [place] [address]. 01/23 -ongoing psychosis and depression, continue to titrate medications and increase olanzapine to 15 mg twice daily and venlafaxine XR to 75 mg 01/24 - Continue medication changes made yesterday - olanzapine 15mg BID and venlafaxine XR 75 - Pt continues to be thought blocked with ongoing psychosis - admitted to paranoia and persecutory delusions - Meeting with case coordinator tomorrow 01/25 -Continue olanzapine 15 mg twice daily. Increase venlafaxine XR to a dose of 112.5 mg and monitor for possible exacerbation of psychotic symptoms. -Today, the patient does not give voiced any persecutory delusions, apart from telling me that it seemed logical to him that "were all going to " so that he should masturbate in the nude, while in public. 01/26 -Continue current meds, continue discharge planning (2) Noncompliance with medication regimen: - Italic sections refer to daily care summary from medical floor admission - Recommend an DE LOS SANTOS due to nonadherence with oral medication, need to obtain additional information about recent treatment before we can explore options. Father reports they were told he got Abilify Maintena on 12/19/2020, and due to tight receptor binding it may be difficult to get an adequate response from other dopaminergic medications until it is out of his system 01/04/21 -The patient is saying that he will refuse to take Abilify either orally or by injection of a depot form of aripiprazole. The plan is to stabilize the patient on olanzapine, and at that point we may be able to asked the patient to reconsider Abilify given reports that he has responded favorably to Abilify in the past. Alternatively, he could be converted to Invega Sustenna or Haldol decanoate, in view of his acknowledge long history of medication nonadherence 01/05/21--offered zydus, prefers pills and is compliant last 2 doses. 01/06--father states that he was trying to put Abilify in patient's cereal in days leading up to admission. 01/08 - Has been taking scheduled doses of olanzapine BID; however, unwilling for medication changes or to explore options for Suraj. 01/09 - 01/12 - Remains unwilling to consider DE LOS SANTOS options to promote medication compliance - Considering a 304 [facility] 01/13 - Continue as above - patient remains resistant to an DE LOS SANTOS, now reporting the concern is related to fear of needles. - Pt stated today that he does not desire for medications to be a part of his treatment plan. - Medications over objection orders in place from assessments completed while patient was on the medical floor. 01/15 - Transitioned to haloperidol yesterday to allow for stabilization on a medication that can be given as an DE LOS SANTOS 01/16 -At patient's request, discontinue Haldol and start trial of Invega, with plan to transition to Invega Sustenna if effective and well-tolerated. -304 hearing held and commitment granted. 01/18 -As above, we have been trying to find a medication that can be given to him orally, with the goal of stabilizing on that medication and then converting him to a depot form of the medication. Unfortunately, he seems not to have responded favorably to haloperidol, the also seems not to respond favorably to a low dose of Invega, and he had received a dose of Abilify Maintena not long before his admission to [facility], a circumstance that would seem to suggest that he was not responding favorably to aripiprazole, or was not currently responding favorably to aripiprazole. Furthermore, the patient complains persistently of intolerable side effects that he associates with Invega and haloperidol. He also references aripiprazole, but says that of the 3 medications aripiprazole has been the least likely to cause severe side effects. He reiterates that sometimes keeps him awake at night. Accordingly, while our goal is to find a depot medication that may work, for now we have decided to aggressively treat the patient's condition with Zyprexa, medication that he says has worked well for him and that helps with his "anxiety and depression." We will also add an antiparkinsonian agent given the fact that the patient complains of restlessness, which she refers to his anxiety, and does exhibit EPS such as cogwheeling on examination. Possibly, once the patient is stabilized psychiatrically we can reintroduce the idea of a medication that can be given in the depot form, combined with an antiparkinsonian agent (if that proves to be the source of the patient's multiple complaints of side effects). Reviewed 01/19/21. 01/25 -As noted in number times above, the original plan had been to place the patient on a long-acting depot form of an antipsychotic given his demonstrated history of nonadherence with medications. Today, the patient says that he understands that continued nonadherence with medications after discharge from hospital, followed by periods of heightened psychosis and dangerous behaviors places him at risk for a determination that he requires a longer term psychiatric hospitalization, such as is available in the [facility] psychiatric facilities. The patient says that he is motivated to avoid this, and he says that he has a plan to remain adherent with his medications on an outpatient basis is to ask his parents to contact "a doctor or the police" if he stops taking his medications on an outpatient basis. He adds that he understands that this could be and he has to come back to the hospital. The patient does have some insight into his illness at this point. He understands that his behavior prior to admission was both dangerous and "pretty confused." He also acknowledges current psychiatric symptoms such as some persistent depression. 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 Pt had continued to frequently masturbate during his time on the medical floor, even occasionally propositioning his 1:1 staff. - Pt was informed that this behavior cannot be tolerated on our unit - especially in a milieu setting. - Continue to redirect patient and offer more appropriate coping strategies should this behavior continue. 01/17 - No concerns related to this history here on the unit; however, patient is continue to display poor insight with limited commitment to treatment. There are ongoing concerns related to safety and legal consequences if is psychosis is not adequately treated and he is not committed to continued treatment after discharge. 01/18 - Given the patient's primary psychiatric diagnosis, it would be somewhat difficult to give the patient a concurrent diagnosis of the paraphilia exhibitionism. He tells us that he went outside in the nude and masturbated in front of other people because he was given a "message" that they wanted him to do that and that it would somehow relieve the tension that he was feeling in his chest and abdomen. He also said, "I do not get off" on the idea of having people watch me masturbate. However, he also acknowledges that he was significantly more sexually aroused once he had what he considers to be an audience. In any event, we are focusing with the patient the fact that these behaviors can lead to legal trouble, or possibly even more significantly, to violence from those persons to take exception to his behavior. The patient indicated understanding and registered a sense of regret. 01/25 -Today, the patient confirms that he has not generally found the idea of exposing his genitalia in public to be sexually arousing. He does note that on the day in question he was frustrated because he was not able to become sexually aroused and that once he thought that he was being given a message that other jesse bose wanted him to come outside, naked, and masturbate publicly he did find it arousing, sexually. However, he continues to insist that this is not part of a larger pattern. The patient reports that, in the hospital, he has been able to masturbate privately to the point of orgasm on 2 occasions. (4) Tick bite: Treatment Impression per hospitalist staff: - Received doxy prophylaxis during beginning of admission when tick was removed. Monitor for rickettsial illness. No issues at this time. Patient was counseled on signs and symptoms to watch for and verbalized understanding with intent to comply. 01/13 - Will continue to monitor for signs/symptoms of infection or disease related to tick bite. Monitor vitals including temperature daily as per usual protocol. 01/18 -There are no current symptoms of Lyme disease. Reviewed 01/19 Risk Factors Assessment Male: Yes : Yes Do You Have Access To A Gun?: Yes Health Problems: No Mental Health Diagnoses: Yes Substance Use Disorders: No Previous Psychiatric Hospitalization: Yes Hopelessness: No Smoker: No Protective Factors Assessment Gnosticism Beliefs: Yes : No Responsible for Young Children: No Employed: No Stable Relationships: No Supportive Family: Yes Good Rapport with Provider: No Interval History Identifying Information YURIY COLLINS is a 30-year-old M who currently lives in [place] with his parents, has a reported history of schizoaffective disorder and treatment noncompliance, and was admitted on 01/13/21 14:07 on a 303 involuntary commitment for acute psychosis. He is on a 304 involuntary commitment as of 01/16/2021. He was initially admitted medically due to COVID + in ER and need for isolation precautions from 01/02/21 - 01/13/21. Chief Complaint "Okay". Review of Systems Sleep Information Total Hours of Sleep: 8.5 Sleep Comments: pt on q-15 minute checks Meal Information Percent Meal Consumed - Breakfast: 75 Percent Meal Consumed - Lunch: 100 Percent Meal Consumed - Dinner: 100 Nutrition Comment: per meal record Subjective Subjective Patient was seen & assessed and interval progress reviewed with nursing and social work. Staff report he is taking medication, remains thought blocked and superficial in his answers, and met with his new case coordinator. He attended some groups, but declines others, and tends to isolate in his room. He appears pained and uncomfortable much of the time, but denies any distress. He has been taking his medications as ordered. On my assessment, he was seen in his room, and had declined community meeting. He states his mood is "okay, fine," and improved from last week, which he attributes to changes in medication. He javan es problems with appetite and sleep. He rates his mood a 6-7 out of 10, and denies suicidal thoughts. He denies hallucinations, but continues to struggle to express thoughts, at times answering with unrelated or disorganized information. He denies urges to masturbate in public. He has been talking to his family about plans for after he is discharged, including going to visit his family in [place]. When asked about his meeting with his new case coordinator which occurred yesterday, he said he has forgotten all about it, and cannot recall what they discussed. He thinks he will do well with medication adherence after discharge, stating he does not mind the medications that he is on. When asked if he is having side effects, he states "I might be able to give you an answer in an hour or 2." Physical Exam Psychiatric Orientation: alert and cooperative (Remains a limited historian, although improved from earlier in stay) Apperance: appropriately dressed, appropriately groomed and appeared stated age Eye Contact: + fair eye contact Motor Behavior: steady gait and station and no abnormal motor movements Minimal, monotone Affect: + blunted affect; + mood not congruent with affect "fine" Thought Process: goal directed thought process and + thought blocking Thought Content: + cognitive distortions Suicidal Thoughts: denies suicidal thoughts Homicidal Thoughts: denies homicidal thoughts Hallucinations: no auditory hallucinations and no visual hallucinations Cognition: attention grossly intact and language grossly intact; + recent memory not intact Insight: + fair insight Judgement: + fair judgement Vital Signs (Past 24 Hours) Last Vital Signs Temp 36.6 C 01/26/21 06:44 Pulse 91 H 01/26/21 06:45 Resp 16 01/26/21 06:44 BP 87/52 L 01/26/21 06:45 Results & Data ([facility]) Current Inpatient Medications Current Inpatient Medications: Current Inpatient Medications Acetaminophen (Acetaminophen 325 Mg Tab) 650 mg PO Q4H PRN PRN Reason: Headache or Minor Fever Stop: 02/12/21 13:08 Al Hydrox/Mg Hydrox/Simethicone (Aluminum/Magnesium Susp 30 Ml Udc) 30 ml PO Q4H PRN PRN Reason: GI Upset Stop: 02/12/21 13:08 Benztropine Mesylate (Benztropine Mesylate 1 Mg Tab) 1 mg PO Q4H PRN PRN Reason: EPS Stop: 02/13/21 08:27 Bismuth Subsalicylate (Bismuth Subsalicylate Liqd 236 Ml) 15 ml PO PRN PRN PRN Reason: Loose Stool Stop: 02/12/21 13:08 Haloperidol Lactate (Haloperidol Lactate 5 Mg/Ml 1 Ml Vial) 10 mg IM Q6H PRN PRN Reason: psychosis or agitation, or ref Stop: 02/13/21 08:27 Hydroxyzine HCl (Hydroxyzine Hcl 25 Mg Tab) 50 mg PO HSZ PRN PRN Reason: Insomnia Stop: 02/12/21 13:08 Hydroxyzine HCl (Hydroxyzine Hcl 25 Mg Tab) 25 mg PO Q4H PRN PRN Reason: Anxiety Stop: 02/12/21 13:08 Magnesium Hydroxide (Magnesium Hydroxide Susp 30 Ml Udc) 30 ml PO DAILY PRN PRN Reason: Constipation Stop: 02/12/21 13:08 Olanzapine (Olanzapine 10 Mg/2.1 Ml Sdv) 10 mg IM PRN PRN PRN Reason: Refusal of PO Olanzapine Stop: 02/17/21 11:35 Olanzapine (Olanzapine 5 Mg Tablet) 15 mg PO BID MATT Stop: 02/22/21 20:59 Last Admin: 01/25/21 21:20 Dose: 15 mg Documented by: Sodium Chloride (Sodium Chloride 0.65% Na Soln 45 Ml ([place])) 1 - 2 sprays NA PRN PRN PRN Reason: Nasal Dryness/Congestion Stop: 02/12/21 13:08 Trihexyphenidyl HCl (Trihexyphenidyl Hcl 2 Mg Tab) 2 mg PO BID PRN PRN Reason: EPS Stop: 02/17/21 20:59 Venlafaxine HCl (Venlafaxine Hcl Xr 75 Mg Capxr) 75 mg PO QAM MATT Stop: 02/23/21 08:59 Last Admin: 01/25/21 09:01 Dose: 75 mg Documented by: Venlafaxine HCl (Venlafaxine Hcl Xr 37.5 Mg Capxr) 37.5 mg PO QAM MATT Stop: 02/25/21 08:59 Mental Health & Subst Abuse Tx Psychiatrist Name of Psychiatrist: [facility] Date of Appointment with Psychiatrist: 01/30/21 Time of Appointment with Psychiatrist: 1:30 p.m Psychiatric Appointment Comment: Telehealth Therapist Name of Therapist: [facility] Date of Therapist Appointment: 01/30/21 Time of Therapist Appointment: 1:30 p.m Therapy Appointment Comment: Telehealth Practice Specialist Name of Practice Specialist: [facility] Phone Number for Practice Specialist: [phone] Date of Appointment with Practice Specialist: 01/30/21 Time of Appointment with Practice Specialist: 3:00 p.m. Case Management Appointment Comment: Will meet you at your home Post Discharge Appointments Primary Care Physician Name Of Family Doctor: [facility] Date of Appointment with PCP: 02/01/21 Time of Appointment with PCP: 11:20 a.m. Provider Appointment Comment: [address] [place], [place] Contact Information Discharge Discharge Address: [address] [address]
[2021-01-26] MEDS: OLANZapine 5 MG TABLET PO SCH ×2 (09:33→20:33)
[2021-01-26] MEDS: VENLAFAXINE HCL XR 37.5 MG CAPXR PO SCH (09:33)
[2021-01-26] MEDS: VENLAFAXINE HCL XR 75 MG CAPXR PO SCH (09:33)
--- NOTE | 2021-01-27 06:54 | Psychiatric Progress Note ---
Date of Service January 27, 2021 Impression / Recommendations Impression Patient remains disorganized, with thought blocking, but improved delusions of persecution, compulsive masturbation, and insight/willingness to take medications. He has failed a trial of aripiprazole/Abilify Maintena, and complained extensively about side effects to haloperidol and Invega. He has been tolerating olanzapine and venlafaxine XR, and we will continue to titrate them to target psychotic and depressive symptoms. He is on a 304 involuntary commitment and will be transitioned to an IOC at discharge. Inpatient treatment remains medically necessary due to the severity of symptoms and risk for suicide or unintentional harm to himself as a result of severe psychosis, lack of insight, and depression with suicide attempt on the unit (made a noose out of a sheet). (1) Acute psychosis: - Italic sections refer to daily care summary from medical floor admission - 01/03 -patient is a poor historian, reports indicate he may have been sta rted on Abilify Maintena while hospitalized in [place], but timeline unknown. He is agreed to sign a release and I have asked the nurse on the floor to obtain that so that we can get those records. We will also attempt to get records from his outpatient psychiatrist, Dr. Price. -If he is refusing to take antipsychotic medications, recommend medications over objection, as he has responded to antipsychotic medication in the past, and psychotic symptoms are unlikely to remit without antipsychotic treatment. Additionally, he is severely disabled as a result of his psychosis, is unable to provide for his own basic needs, and places both himself and others at risk of harm if his symptoms remain untreated. -Given his history of nonadherence and severity of symptoms with untreated mental illness, will recommend ongoing involuntary commitment with transition to an IOC at discharge. He would benefit from case management and therapy as well. -Offer olanzapine 10 mg p.o./IM as needed for acute psychosis, as he has been on this medication before and tolerated it. -Consider initiation of a mood stabilizer such as Depakote, which can be given IV over objection if he remains unwilling for medications. 01/04 -The patient has stated that he was given Abilify Maintena intramuscularly fairly recently, but there is some reason to believe that this may not be accurate. It is noted that the patient's father said that he has not observed any changes in the patient's behaviors and other symptoms subsequent to the reported dose of Abilify. 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 His tox screen at admission was negative for occult blood, but the test was not specific for hallucinogens. Accordingly, while I would doubt that the entire constellation of problems observed are related to substance use, this cannot be ruled out as a mitigating factor. -Today, the patient reports that he will refuse to take Abilify because he says that he is "allergic" to it. When asked to describe the allergy, he replied by saying that Abilify makes him feel "weird," and he says that he feels certain that it interferes with his sleep. The patient reports that he has taken olanzapine (Zyprexa) and has tolerated that well. He also suggest that he thinks that it "helps." However, he cannot exactly say how it helps. -Today, the patient says that he is embarrassed about the fact that he was "running around outside" while naked, and that he was masturbating in public. However, he has difficulty saying why that should be an issue, other than to repeatedly say, "it is bad." At the same time, and the period of time that immediately proceeded our telephonic contact the patient was reportedly openly masturbating in front of his one-to-one medical research assistant and, also reportedly, the patient had invited the one-to-one medical research assistant to either masturbate together with the patient or to allow the patient to masturbate him. Furthermore, the patient indicated that he felt this behavior was reconciled because he had awakened in a "sexual place." Accordingly, what initially had suggested improving insight is abrogated by his ongoing inappropriate and dyscontrol behaviors. -Given the fact the patient may have an unspecified dose of Abilify Maintena on board, reportedly administered on 12/19/2020, and given that the patient may need to receive his olanzapine by intramuscular injection if he continues to periodically refused to take it voluntarily (see med over objection first and second opinions), will reduce the dose of olanzapine from 10 mg 3 times a day to olanzapine 10 mg twice a day by mouth, and will order medications over objection in the form of olanzapine 10 mg IM twice a day. The dose can be titrated as indicated. 01/05--review of available records (most recent [place] pending) note dx of bipolar and/or schizoaffective bipolar type. Records state concussion/no head injuries so family was contacted as amount of preoccupation with masturbating seemed out of proportion to hypersexuality from becca. No hx of hyperorality so doubt [facility]. Had multiple concussions in high school had to leave football and switched to soccer. symptom onset in college so doubt orbitofrontal syndrome. 01/07--303 granted. still trying to confirm date of Abilify injection (or if received). Invega seemed more amenable option than Haldol dec but family confirms poor response to Risperdal and preference toward Abilify. For now Zyprexa is stabilizing patient. Reviewed with family that no local clinics administer the IM. 01/08 - Pt is religiously preoccupied and reporting thoughts that are consistent with ongoing delusions. He is now reporting he thinks he can "do things on my own" and is not particularly interested in outpatient treatment - Pt is declining medication changes. Although it is helpful that he is tolerating olanzapine and denies concerning side effects, he is unfortunately very resistant to adjusting medications to allow for an DE LOS SANTOS option. He is unable to formulate a plan for how he plans to ensure compliance with an oral medication and therefore remains at risk of noncompliance, destabilization, frequent hospitalizations or injury/ as a result of psychosis. - Pt strongly encouraged to consider therapy and case management services. 01/09 - Continue current medication regimen, though consider need for further titration of olanzapine. Patient is not clearly verbalizing any presybeterian preoccupation but seems to still be disorganized and mildly thought blocked. He continues to demonstrate poor insight into his mental health condition and need for treatment. - Will plan to schedule a family meeting to involve parents - as we will need to begin discussing safety recommendations and outpatient supports - Considering 304 IOC due to poor insight, history of medication noncompliance, and seriousness of patient's condition 01/10 - Infection control reporting patient could be cleared for referral to a psychiatric unit as soon as 01/13/21. - Continue as above - thoughts continue to be disorganized, ongoing presybeterian preoccupation. Pt continues to have poor insight into the severity of his condition and on a few occasions indicated that he may begin refusing his oral medications (2-physician opinions documented on chart for medications over objection if this should occur). - Offered to adjust dosing of olanzapine due to reports of daytime fatigue, patient declining at this time. Consider need for titration of the medication if thoughts do not continue to clear. - Anticipate need for inpatient psychiatric treatment once cleared medically to join the inpatient milieu setting - Considering 304 IOC, meeting scheduled with [facility] to discuss case on 01/16 01/11 - Continue as above. We did receive reports that patient does continue to engage in sexually inappropriate behavior. We are encouraging staff to redirect patient in these situations and offer alternative activities. Pt reports feeling some control over this behavior and express apologies. - Continue olanzapine - consider need for further titration - Anticipate clearance from isolation precautions on 01/16, and then will consider for admission to our unit for continued psychiatric treatment - Likely will require 304 IOC. 01/12 - Continue as above - anticipate discharge from the medical floor tomorrow, with subsequent admission to our unit to continue psychiatric treatment. - Pt reports appropriate behavior, reviewed some of the expectations regarding behavior on our unit as well. 01/13 - Continue olanzapine 10mg BID - discuss case further during treatment team tomorrow. - Admitted to a locked inpatient behavioral health unit, on q15 minute safety checks - Encourage medication initiation/adjustments as indicated - Encourage participation in group and recreational therapies - Gather collateral information from outpatient providers - Suggest family meeting to involve outpatient supports in safety planning - Arrange appropriate aftercare 01/14 -File for 304 involuntary commitment hearing to be held 01/16. Consider the need for referral to [facility] for long-term inpatient treatment versus diversion to an involuntary outpatient commitment. -Patient has been seen by 2 physicians for medications over objection, and although he has taken oral medications at times here in the hospital, has consistently stated that he does not believe he needs medication or psychiatric treatment, and will not continue it after leaving the hospital. We are therefore recommending an long-acting injectable antipsychotic. Multiple medications have been reviewed with him and he has refused all of them. We will discontinue olanzapine as it is not available as an DE LOS SANTOS, and start haloperidol 10 mg twice daily p.o., with an IM backup for refusal, with a plan to transition to Haldol Decanoate once an effective dose is established. -Treatment planning meeting with [facility] scheduled for 01/16 after commitment hearing. 01/15 - Continue haloperidol 10mg BID - patient has been taking medications orally, though with some reluctance. IM form remains available for meds over objection if necessary - Will order fasting glucose and lipid panel for tomorrow - as no record of labs being done while in [place] - We were able to clarify with new records that patient did, in fact, receive Abilify Maintena on 12/20 while inpatient in [place]. - 304 hearing tomorrow; [facility] meeting to follow to discuss discharge planning 01/16 - Pt reporting poor effect with Haldol and requesting a different medication. Discussed trial of paliperidone (as Abilify Maintena was ineffective), and discussed risks, benefits and potential side effects. He agreed to a trial, discontinued Haldol and started paliperidone 3mg daily for tomorrow. Continue Haldol IM for refusal of PO. If effective, transition to Invega Sustenna. - Fasting labs for monitoring on atypical antipsychotic: Glucose 99, FLP normal with the exception of cholesterol 220. Ongoing monitoring as an outpatient. - Patient continues to refuse to sign releases for [facility] and [facility], so we have not yet arranged outpatient treatment. Now that there is a [address], we will proceed with discharge planning. Family meeting scheduled with patient, parents, and social media strategist for Thursday. 01/17 - Continue trial of paliperidone - kept dosing at 3mg for tomorrow due to patient reporting side effects, however, it will likely need continued titration. Haloperidol is ordered for refusal of oral medication and patient is continuing to show little commitment to medications technician terminal and repeater. - Family meeting with parents scheduled for tomorrow, [facility] staff is attempting to meet with patient again tomorrow afternoon - [address] requires involvement of full spectrum of outpaitent psychiatric services; however, patient is resistant to these services 01/18 -The patient continues to complain fairly strikingly of intolerable side effects that he associates with Invega. These side effects may be considered consistent with extraparametal side effects, and the patient does exhibit cogwheel rigidity on examination. We talked to him about the possibility of using an antiparkinsonian agent to manage the side effects, but the patient seemed absolutely adamant that he does not wish to take Invega any further. Of the medications that can be given in a depot form, he said that he felt that Abilify would be the one that he would choose, although it, too, reportedly causes difficult side effects and, furthermore, does not necessarily seem to have been particularly effective in his case.He does not speak positively about his experience with Zyprexa, and this is consistent with staff observation during the brief period during which she was taking Zyprexa. After discussion with the treatment team and with the patient, we agreed to restart olanzapine (Zyprexa) at 10 mg daily. We will also add an anti his parkinsonian agent, first as a test, and then is a standing order to guard against extrapyramidal side effects. -The patient has made reference to feeling depressed for several weeks now. The treatment team agrees that he appears depressed. His complaint is "anxiety that leads to depression," and endorses feeling "sad," and hopeless. The patient al so has mood congruent delusions that include delusion that he has "been sent to hell," and will be "tortured" forever. Within this context, we will offer the patient a trial of the antidepressant/antianxiety medication venlafaxine extended release beginning at 37.5 mg and titrated carefully and with caution given our working diagnosis of schizophrenia versus schizoaffective disorder. 01/19--reviewed. retitrating Zyprexa. EPS resolved. Artane may be able to be tapered over time. Monitor for emergent hypomania on SNRI. 01/20--reviewed. continue current med and treatment plan. 01/21--reviewed. continue current med and treatment plan, had suicide attempt on unit <1 week ago so needs to remain inpatient for longer monitoring and additional planning around outpatient commitment. Risk Factors Assessment 01/22 - Continue olanzapine 10mg BID. Will discontinue scheduled Artane, as symptoms of EPS were not reported for the lengthy time the patient had previously been taking olanzapine. Will keep 2mg prn doses available up to BID as needed for side effects to antipsychotic medications. - Pt reports mood is improved, but continues to present as flat - Continue to engage outpatient supports, working toward [address] [place] [address]. 01/23 -ongoing psychosis and depression, continue to titrate medications and increase olanzapine to 15 mg twice daily and venlafaxine XR to 75 mg 01/24 - Continue medication changes made yesterday - olanzapine 15mg BID and venlafaxine XR 75 - Pt continues to be thought blocked with ongoing psychosis - admitted to paranoia and persecutory delusions - Meeting with behavioral health case manager tomorrow 01/25 -Continue olanzapine 15 mg twice daily. Increase venlafaxine XR to a dose of 112.5 mg and monitor for possible exacerbation of psychotic symptoms. -Today, the patient does not give voiced any persecutory delusions, apart from telling me that it seemed logical to him that "were all going to " so that he should masturbate in the nude, while in public. 01/26 - 01/27 -Continue current meds, continue discharge planning (2) Noncompliance with medication regimen: - Italic sections refer to daily care summary from medical floor admission - Recommend an DE LOS SANTOS due to nonadherence with oral medication, need to obtain additional information about recent treatment before we can explore options. Father reports they were told he got Abilify Maintena on 12/19/2020, and due to tight receptor binding it may be difficult to get an adequate response from other dopaminergic medications until it is out of his system 01/04/21 -The patient is saying that he will refuse to take Abilify either orally or by injection of a depot form of aripiprazole. The plan is to stabilize the patient on olanzapine, and at that point we may be able to asked the patient to reconsider Abilify given reports that he has responded favorably to Abilify in the past. Alternatively, he could be converted to Invega Sustenna or Haldol decanoate, in view of his acknowledge long history of medication nonadherence 01/05/21--offered zydus, prefers pills and is compliant last 2 doses. 01/06--father states that he was trying to put Abilify in patient's cereal in days leading up to admission. 01/08 - Has been taking scheduled doses of olanzapine BID; however, unwilling for medication changes or to explore options for Suraj. 01/09 - 01/12 - Remains unwilling to consider DE LOS SANTOS options to promote medication compliance - Considering a 304 [facility] 01/13 - Continue as above - patient remains resistant to an DE LOS SANTOS, now reporting the concern is related to fear of needles. - Pt stated today that he does not desire for medications to be a part of his treatment plan. - Medications over objection orders in place from assessments completed while patient was on the medical floor. 01/15 - Transitioned to haloperidol yesterday to allow for stabilization on a medication that can be given as an DE LOS SANTOS 01/16 -At patient's request, discontinue Haldol and start trial of Invega, with plan to transition to Invega Sustenna if effective and well-tolerated. -304 hearing held and commitment granted. 01/18 -As above, we have been trying to find a medication that can be given to him orally, with the goal of stabilizing on that medication and then converting him to a depot form of the medication. Unfortunately, he seems not to have responded favorably to haloperidol, the also seems not to respond favorably to a low dose of Invega, and he had received a dose of Abilify Maintena not long before his admission to [facility], a circumstance that would seem to suggest that he was not responding favorably to aripiprazole, or was not currently responding favorably to aripiprazole. Furthermore, the patient complains persistently of intolerable side effects that he associates with Invega and haloperidol. He also references aripiprazole, but says that of the 3 medications aripiprazole has been the least likely to cause severe side effects. He reiterates that sometimes keeps him awake at night. Accordingly, while our goal is to find a depot medication that may work, for now we have decided to aggressively treat the patient's condition with Zyprexa, medication that he says has worked well for him and that helps with his "anxiety and depression." We will also add an antiparkinsonian agent given the fact that the patient complains of restlessness, which she refers to his anxiety, and does exhibit EPS such as cogwheeling on examination. Possibly, once the patient is stabilized psychiatrically we can reintroduce the idea of a medication that can be given in the depot form, combined with an antiparkinsonian agent (if that proves to be the source of the patient's multiple complaints of side effects). Reviewed 01/19/21. 01/25 -As noted in number times above, the original plan had been to place the patient on a long-acting depot form of an antipsychotic given his demonstrated history of nonadherence with medications. Today, the patient says that he understands that continued nonadherence with medications after discharge from hospital, followed by periods of heightened psychosis and dangerous behaviors places him at risk for a determination that he requires a longer term psychiatric hospitalization, such as is available [facility] the [facility]. The patient says that he is motivated to avoid this, and he says that he has a plan to remain adherent with his medications on an outpatient basis is to ask his parents to contact "a doctor or the police" if he stops taking his medications on an outpatient basis. He adds that he understands that this could be and he has to come back to the hospital. The patient does have some insight into his illness at this point. He understands that his behavior prior to admission was both dangerous and "pretty confused." He also acknowledges current psychiatric symptoms such as some persistent depression. 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 Pt had continued to frequently masturbate during his time on the medical floor, even occasionally propositioning his 1:1 staff. - Pt was informed that this behavior cannot be tolerated on our unit - especially in a milieu setting. - Continue to redirect patient and offer more appropriate coping strategies should this behavior continue. 01/17 - No concerns related to this history here on the unit; however, patient is continue to display poor insight with limited commitment to treatment. There are ongoing concerns related to safety and legal consequences if is psychosis is not adequately treated and he is not committed to continued treatment after discharge. 01/18 - Given the patient's primary psychiatric diagnosis, it would be somewhat difficult to give the patient a concurrent diagnosis of the paraphilia exhibitionism. He tells us that he went outside in the nude and masturbated in front of other people because he was given a "message" that they wanted him to do that and that it would somehow relieve the tension that he was feeling in his chest and abdomen. He also said, "I do not get off" on the idea of having people watch me masturbate. However, he also acknowledges that he was significantly more sexually aroused once he had what he considers to be an a udience. In any event, we are focusing with the patient the fact that these behaviors can lead to legal trouble, or possibly even more significantly, to violence from those persons to take exception to his behavior. The patient indicated understanding and registered a sense of regret. 01/25 -Today, the patient confirms that he has not generally found the idea of exposing his genitalia in public to be sexually arousing. He does note that on the day in question he was frustrated because he was not able to become sexually aroused and that once he thought that he was being given a message that other people wanted him to come outside, naked, and masturbate publicly he did find it arousing, sexually. However, he continues to insist that this is not part of a larger pattern. The patient reports that, in the hospital, he has been able to masturbate privately to the point of orgasm on 2 occasions. (4) Tick bite: Treatment Impression per hospitalist staff: - Received doxy prophylaxis during beginning of admission when tick was removed. Monitor for rickettsial illness. No issues at this time. Patient was counseled on signs and symptoms to watch for and verbalized understanding with intent to comply. 01/13 - Will continue to monitor for signs/symptoms of infection or disease related to tick bite. Monitor vitals including temperature daily as per usual protocol. 01/18 -There are no current symptoms of Lyme disease. Reviewed 01/19 Risk Factors Assessment Male: Yes : Yes Do You Have Access To A Gun?: Yes Health Problems: No Mental Health Diagnoses: Yes Substance Use Disorders: No Previous Psychiatric Hospitalization: Yes Hopelessness: No Smoker: No Protective Factors Assessment Worship Beliefs: Yes : No Responsible for Young Children: No Employed: No Stable Relationships: No Supportive Family: Yes Good Rapport with Provider: No Interval History Identifying Information YURIY COLLINS is a 30-year-old M who currently lives in [place] with his parents, has a reported history of schizoaffective disorder and treatment noncompliance, and was admitted on 01/13/21 14:07 on a 303 involuntary commitment for acute psychosis. He is on a 304 involuntary commitment as of 01/16/2021. He was initially admitted medically due to COVID + in ER and need for isolation precautions from 01/02/21 - 01/13/21. Chief Complaint "Okay, fine, I guess". Review of Systems Sleep Information Total Hours of Sleep: 8.5 Sleep Comments: pt on q-15 minute checks Meal Information Percent Meal Consumed - Breakfast: 100 Percent Meal Consumed - Lunch: 100 Percent Meal Consumed - Dinner: 100 Nutrition Comment: per meal record Subjective Subjective Patient was seen & assessed and interval progress reviewed with nursing and social work. He gives superficial answers to most questions, such as "fine," "okay." He says the groups are "okay," and that he cannot recall anything he has talked about in group, or even the topics of groups he has attended. He continues to say he does not recall meeting with his behavioral health case manager 2 days ago. He denies any concerns about his memory or cognition. He reports good sleep and appetite. He talked to his father on the phone this morning "about the plans he has for me when I get out of here, needs help moving a couch." He says he is looking forward to a trip to see relatives. He denies intrusive thoughts, hallucinations, urges to disrobe/masturbate, and suicidal and homicidal thoughts. He feels he will be ready for discharge tomorrow. Physical Exam Psychiatric Orientation: alert and cooperative (But limited historian, gives concrete, superficial answers) Apperance: appropriately dressed (Wearing the same clothes since admission), appropriately groomed and appeared stated age Eye Contact: + poor eye contact (Looking at the floor) Motor Behavior: no abnormal motor movements Low volume, soft-spoken Affect: + blunted affect; + mood not congruent with affect "Good" Thought Process: + concrete thought process Thought Content: reality based without delusions Suicidal Thoughts: denies suicidal thoughts Homicidal Thoughts: denies homicidal thoughts Hallucinations: no auditory hallucinations and no visual hallucinations Cognition: attention grossly intact and language grossly intact; + recent memory not intact Insight: + limited insight Judgement: + limited judgement Vital Signs (Past 24 Hours) Last Vital Signs Temp 36.5 C 01/27/21 06:35 Pulse 87 01/27/21 06:36 Resp 16 01/27/21 06:35 BP 99/65 L 01/27/21 06:36 Results & Data ([facility]) Current Inpatient Medications Current Inpatient Medications: Current Inpatient Medications Acetaminophen (Acetaminophen 325 Mg Tab) 650 mg PO Q4H PRN PRN Reason: Headache or Minor Fever Stop: 02/12/21 13:08 Al Hydrox/Mg Hydrox/Simethicone (Aluminum/Magnesium Susp 30 Ml Udc) 30 ml PO Q4H PRN PRN Reason: GI Upset Stop: 02/12/21 13:08 Benztropine Mesylate (Benztropine Mesylate 1 Mg Tab) 1 mg PO Q4H PRN PRN Reason: EPS Stop: 02/13/21 08:27 Bismuth Subsalicylate (Bismuth Subsalicylate Liqd 236 Ml) 15 ml PO PRN PRN PRN Reason: Loose Stool Stop: 02/12/21 13:08 Haloperidol Lactate (Haloperidol Lactate 5 Mg/Ml 1 Ml Vial) 10 mg IM Q6H PRN PRN Reason: psychosis or agitation, or ref Stop: 02/13/21 08:27 Hydroxyzine HCl (Hydroxyzine Hcl 25 Mg Tab) 50 mg PO HSZ PRN PRN Reason: Insomnia Stop: 02/12/21 13:08 Hydroxyzine HCl (Hydroxyzine Hcl 25 Mg Tab) 25 mg PO Q4H PRN PRN Reason: Anxiety Stop: 02/12/21 13:08 Magnesium Hydroxide (Magnesium Hydroxide Susp 30 Ml Udc) 30 ml PO DAILY PRN PRN Reason: Constipation Stop: 02/12/21 13:08 Olanzapine (Olanzapine 10 Mg/2.1 Ml Sdv) 10 mg IM PRN PRN PRN Reason: Refusal of PO Olanzapine Stop: 02/17/21 11:35 Olanzapine (Olanzapine 5 Mg Tablet) 15 mg PO BID MATT Stop: 02/22/21 20:59 Last Admin: 01/26/21 20:33 Dose: 15 mg Documented by: Sodium Chloride (Sodium Chloride 0.65% Na Soln 45 Ml ([place])) 1 - 2 sprays NA PRN PRN PRN Reason: Nasal Dryness/Congestion Stop: 02/12/21 13:08 Trihexyphenidyl HCl (Trihexyphenidyl Hcl 2 Mg Tab) 2 mg PO BID PRN PRN Reason: EPS Stop: 02/17/21 20:59 Venlafaxine HCl (Venlafaxine Hcl Xr 75 Mg Capxr) 75 mg PO QAM MATT Stop: 02/23/21 08:59 Last Admin: 01/26/21 09:33 Dose: 75 mg Documented by: Venlafaxine HCl (Venlafaxine Hcl Xr 37.5 Mg Capxr) 37.5 mg PO QAM MATT Stop: 02/25/21 08:59 Last Admin: 01/26/21 09:33 Dose: 37.5 mg Documented by: Mental Health & Subst Abuse Tx Psychiatrist Name of Psychiatrist: [facility] Date of Appointment with Psychiatrist: 01/30/21 Time of Appointment with Psychiatrist: 1:30 p.m Psychiatric Appointment Comment: Will schedule after your intake Therapist Name of Therapist: [facility] Date of Therapist Appointment: 01/30/21 Time of Therapist Appointment: 1:30 p.m Therapy Appointment Comment: Telehealth Auto Brake Mechanic Name of Auto Brake Mechanic: [employer] [facility] - Bill Phone Number for Auto Brake Mechanic: [phone] Date of Appointment with Auto Brake Mechanic: 01/30/21 Time of Appointment with Auto Brake Mechanic: 3:00 p.m. Case Management Appointment Comment: Will meet you at your home Post Discharge Appointments Primary Care Physician Name Of Family Doctor: Nafisa [facility] Date of Appointment with PCP: 02/01/21 Time of Appointment with PCP: 11:20 a.m. Provider [facility]ment [facility] [address] [address] [facility] Contact Information Dis[facility] Discharge Address: [address] [address]
[2021-01-27] MEDS: OLANZapine 5 MG TABLET PO SCH ×2 (09:24→20:40)
[2021-01-27] MEDS: VENLAFAXINE HCL XR 37.5 MG CAPXR PO SCH (09:25)
[2021-01-27] MEDS: VENLAFAXINE HCL XR 75 MG CAPXR PO SCH (09:25)
[2021-01-28] MEDS: OLANZapine 5 MG TABLET PO SCH (08:06)
[2021-01-28] MEDS: VENLAFAXINE HCL XR 75 MG CAPXR PO SCH (08:07)
[2021-01-28] MEDS: VENLAFAXINE HCL XR 37.5 MG CAPXR PO SCH (08:07)
--- NOTE | 2021-01-28 08:42 | Discharge Summary ---
Date of Service January 28, 2021 History of Present Illness History from initial psychiatric consultation on 01/03/21 - "Patient is known to us from a previous hospitalization on our unit in 2013, also on an involuntary commitment for psychosis. He was confused, disorganized, hallucinating, with ideas of reference, thought insertion and withdrawal, and thought blocking. He had a brain MRI which was negative, and was started on risperidone. He was a senior in college at the time, and was at home living with parents over the summer break. He was discharged to outpatient treatment at [facility]. He presented to the ER after he was found outside naked, masturbating, with hypersexual thoughts and behavior. He said he was not taking medications because he does not need them, and did not feel he needed inpatient treatment. His parents state that he was recently discharged from [facility] in [place] after he "took off" and police were looking for him. He returned home and was living with his parents on their farm, but left the farm yesterday and was found in town, openly masturbating in front of a neighbor, who called the police. His mother reported he had exposed himself to her that morning, and said he was told that she wanted him to do that. She believes he was having co mmand auditory hallucinations, although he denied them. He had not been sleeping and had demonstrated poor appetite, was extremely impulsive and appeared to be responding to internal stimuli. Parents believe his psychiatric symptoms started years ago when he was in college after he was diagnosed with Lyme's disease. He was placed on an involuntary commitment, and was then found to be Covid +, so was admitted to the Covid unit. He has been sexually preoccupied and inappropriate with hospital staff, asking them if they need semen samples, and a tick was found embedded in the side of his penis and was removed. Lovenox and doxycycline were ordered, but he is refusing to take them. My assessment was done by phone due to patient's COVID + status and lack of appropriate PPE for [facility] staff. He reports he started having "strange feelings" that he "needed to open myself back up," referencing his anus and needing to be naked. Yesterday he was "feeling extreme tightness in my body, and felt the need to be outside doing that." He states he "went outside, took my pants off, went out and masturbated in the street" in "[place]town [place] in the middle of the street." He says a bystander saw him and "called for help," during which time he continued to masturbate. He says he was hospitalized psychiatrically in [place] "for a similar thing" in December, because of "an idea came up, that I had to do it again, that I didn't do it quite right." He says he understands that masturbating in public is illegal but denies that he has any criminal charges. Says he was prescribed Zyprexa and Abilify in [place] and received an "Abilify shot," but thinks he is allergic to Abilify. He doesn't know if he has any outpatient providers, then says he "decided not to" follow up with outpatient treatment. He says he heard someone telling him to expose himself, but denies AVH currently. He reports good sleep, appetite and denies depressive and anxiety symptoms. He says he "messed up my understanding of who am I and what I want to do with myself, I still feel capable of being off medications." Staff contacted his father for collateral and he reported that the patient was relatively stable from [id number] while on aripiprazole. He returned to college and was able to complete his degree, and was seeing a psychiatrist named Dr. Jenkins. He decompensated in 2018, and was started on lithium. He was noncompliant with treatment and ultimately stopped all of his medications, and was discharged from care due to nonadherence. He later started seeing Dr. Price, who started him on Latuda. He often become sleep deprived and then psychotic, often with paranoia involving his parents, and often travels across the country while psychotic. In April 2020, he went to [place], abandoned his car, and was trying to break into homes. In November 2020 he wound up in [place], and then [place]. Parents filed a missing persons report and were ultimately able to locate him based on his debit card use. At some point he went to [place], was found walking naked in the desert, and was then hospitalized there from 12/04/2020-12/21/2020. They were told that he received Abilify Maintena on 12/19/2020, but question whether he actually got it, as he does not appear to be medicated and continues to have psychotic symptoms." Patient was seen today upon transfer to our unit from the medical floor, now able to be off isolation precautions per infection control. Pt was cooperative with transfer process and was admitted to a private room in our [facility] due to continued concerns about exhibitionist behaviors and frequent masturbation with occasional propositioning of staff on the medical floor. Pt is seen today in his room, patient laying on his bed - door to room kept open and interaction able to be visualized by staff in nurses' station through windows. Pt reports "I'm doing ok." This provider introduced herself, having previously only talked with the patient over the phone due to COVID-19 isolation restrictions. Pt denies any concerns today and is somewhat dismissive of conversation. He admits that he is feeling better since his initial presentation, with the only example of perceived improvement being "I don't feel all the tension in my body anymore." Pt denies ongoing hallucinations or the perception of delusions. When asked questions about his thought process, he does not identify that he was ever disorganized or confused. Pt was asked to consider his focus on "God's plan" and "returning to my childhood self", which were frequent statements he made earlier in his admission. 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 Pt reports he has a fear of needles and states "I don't see medications as part of my long-term plan." Pt then reported the belief that he would "grow out of my disorders." This provider reported that it was very unlikely he would "grow out of" the diagnoses he has been given in the past. He was informed, however, that with close follow-up with outpatient supports and appropriate medication management that he could live a reasonable and fulfilling life. Pt continues to state "I don't know why or how, but I just believe that this won't happen again." Pt denied SI/HI and hallucinations at this time. He denied other needs or concerns. Pt is agreeing at this time to continue his current medication regimen and was informed that his case would be reviewed further with our treatment team tomorrow morning. He continues to be a rather poor historian and somewhat disengaged with our conversation overall. Physical Exam Psychiatric Orientation: alert and cooperative Apperance: appropriately dressed, appropriately groomed and appeared stated age Lying on bed, awake, in no acute distress. Eye Contact: + fair eye contact Motor Behavior: steady gait and station and no abnormal motor movements Minimal, soft, monotone, slight delay. Affect: + flat affect "Feeling okay." Thought Process: goal directed thought process and + concrete thought process Some difficulty formulating thoughts, slowed. Thought Content: reality based without delusions (Denies paranoia, delusions of persecution) Suicidal Thoughts: denies suicidal thoughts Homicidal Thoughts: denies homicidal thoughts Hallucinations: no auditory hallucinations and no visual hallucinations Cognition: recent memory grossly intact, attention grossly intact and language grossly intact Insight: + limited insight Judgement: + limited judgement Vital Signs (Past 24 Hours) Last Vital Signs Temp 36.4 C L 01/28/21 06:37 Pulse 87 01/28/21 06:38 Resp 16 01/28/21 06:37 BP 96/58 L 01/28/21 06:38 Principal Diagnosis Schizophrenia Depression not otherwise specified History of treatment nonadherence Psychiatric Data Patient was hospitalized for 15 days on the U, after an 11-day hospitalization on the medical floor, as he presented with psychosis and was involuntarily committed, but tested Covid + in the ER so was admitted to the Covid unit. Initially he was started on olanzapine as needed, while collateral information and recent treatment history was gathered. It was ultimately determined that he had been hospitalized in [place] for psychosis, had left his parents home without notifying anyone, driven across country, and was nude and masturbating in public. While there he received Abilify Maintena on 12/20/2020, but per family he had been nonadherent with the oral Abilify overlap upon return home. He was quite resistant to antipsychotic medication, maintaining that he did not have a mental illness nor need medication. When he initially presented to the hospital, he continued to engage in inappropriate and hypersexual behavior, openly masturbating and making sexual comments to hospital staff. He demonstrated very poor insight and judgment, but no other symptoms consistent with becca, as he was calm, not hyperverbal or pressured, did not endorse racing thoughts, grandiosity, heightened energy, or decreased need for sleep. He instead described psychotic thought process, with thought insertion, disorganization, and blocking. A 303 hearing was held and granted on 01/07/2021, and a 304 hearing on 01/16/2021. He was seen by 2 physicians who recommended medications over objection, but ultimately agreed to take oral medications, and olanzapine 10 mg twice daily was scheduled. Once infection control cleared him to be transferred to the U, he transition to inpatient psychiatric treatment on 01/13/2021. Due to his ongoing assertion that he would not take oral medic ations outside of the hospital as he did not need them, olanzapine was discontinued and he was started on haloperidol 10 mg twice daily with a plan to transition to an DE LOS SANTOS if effective and well-tolerated. He felt the medication caused headaches and made him feel more depressed, so it was switched to paliperidone 3 mg daily, but he continued to report intolerable side effects, and had cogwheel rigidity on examination, so it was discontinued and he was placed back on olanzapine, which was titrated to 15 mg twice daily. His psychosis gradually improved, and he stated willingness to take medications orally after discharge, although there was some question as to his true commitment to ongoing outpatient treatment. EPS resolved, but Artane was ordered as needed. He was started on venlafaxine XR to target depressive symptoms, and reported gradual improvement in mood. He was calm and cooperative throughout his time on the unit, and although he attended some groups, participation was limited and he tended to isolate in his room during free time. Hypersexual behavior resolved and was minimal on the U, although at times staff found him masturbating in his room during checks, he did not expose himself or proposition others. He frequently spoke with his parents on the phone, who are supportive, and a family meeting was held with them and the high school social science teacher on 01/18/2021. They were updated by staff throughout his hospitalization, and were in agreement with the plan for the patient to return to live with them at discharge. He was referred to [facility] for psychiatry and therapy, and to the [facility] for case management, and met with his embedded case manager on the unit. He was transition to a 304 involuntary commitment at discharge. Day of Discharge Assessment Patient reports he is feeling "okay," and is excited about going home. He describes his mood is "good," and denies thoughts of harming himself or others, hallucinations, and intrusive thoughts. He denies urges or thoughts to disrobe or masturbate in public, and expresses understanding that that behavior is not acceptable and could result in arrest. He denies side effects to medications, and states understanding of the recommendations for ongoing outpatient treatment. He wants to know what will happen if he "wants to call off the outpatient treatment," and again explained that he is on an involuntary outpatient commitment, which means he must attend his appointments with his psychiatrist, therapist, and embedded case manager. He wants to know how often he will need to see his embedded case manager, and encouraged him to discuss that with him directly. He is looking forward to going home and spending time with his family. He denies any safety concerns with leaving the hospital. Transition of Care Transition Of Care Record: was reviewed with the patient Advance Directives Advance Directives Information Provided: Yes Advance Directives: No Mental Health Advance Directive: No Advance Directives on File: No Living Will: No Power of Labourers: No Advance Directives Reason:: Declines as Mental Health Visit. Risk Factors Assessment Risk factors were mitigated by admission to the inpatient unit, use of medication to target psychotic and mood symptoms, review of previous records, involving him in groups and therapy, providing psychoeducation about his diagnosis and the recommended treatment, involving his parents whom he lives with, referring him for outpatient treatment, and placing him on an involuntary commitment and IOC at discharge, due to history of nonadherence with treatment as of medications. Recommendations for an DE LOS SANTOS were made, but the patient stated a preference for olanzapine, which unfortunately not available as an DE LOS SANTOS. The patient has been calm and cooperative here, and although he initially was hypersexual and inappropriate, those behaviors have resolved and he is expressing understanding that he cannot disrobe and masturbate in public without facing potential legal consequences. He has been appropriate in his interactions with others, and although somewhat disengaged and isolative, he is consistently denied thoughts of harming himself or others, is denying hallucinations and intrusive thoughts, is performing ADLs independently, eating and sleeping well. He is no longer at acute risk of harm to himself or others, so can be managed as an outpatient at this time. Male: Yes : Yes Do You Have Access To A Gun?: Yes Health Problems: No Mental Health Diagnoses: Yes Substance Use Disorders: No Previous Attempt: No Family History of Suicide: No Previous Psychiatric Hospitalization: Yes Hopelessness: No Smoker: No Protective Factors Assessment Zoroastrian Beliefs: Yes : No Responsible for Young Children: No Employed: No Stable Relationships: No Supportive Family: Yes Good Rapport with Provider: No Tobacco Cessation at Discharge Tobacco Cessation Medication Prescribed at Discharge: Not Applicable/Non-Smoker Total Time Total Time Spent: Greater Than 30 Minutes Total Time Includes: Examination of the patient, Discharge Planning and Medication Reconciliation Discharge Data Lab Results 01/16/21 08:22 Fasting Glucose 99 Triglycerides 117 Cholesterol 220 H LDL Cholesterol, Calc 130 VLDL Cholesterol, Calc 23 HDL Cholesterol 67 Cholesterol/HDL Ratio 3 Hospital Course (1) Schizophrenia: - Italic sections refer to daily care summary from medical floor admission - 01/03 -patient is a poor historian, reports indicate he may have been started on Abilify Maintena while hospitalized in [place], but timeline unknown. He is agreed to sign a release and I have asked the nurse on the floor to obtain that so that we can get those records. We will also attempt to get records from his outpatient psychiatrist, Dr. Price. -If he is refusing to take antipsychotic medications, recommend medications over objection, as he has responded to antipsychotic medication in the past, and psychotic symptoms are unlikely to remit without antipsychotic treatment. Additionally, he is severely disabled as a result of his psychosis, is unable to provide for his own basic needs, and places both himself and others at risk of harm if his symptoms remain untreated. -Given his history of nonadherence and severity of symptoms with untreated mental illness, will recommend ongoing involuntary commitment with transition to an IOC at discharge. He would benefit from case management and therapy as well. -Offer olanzapine 10 mg p.o./IM as needed for acute psychosis, as he has been on this medication before and tolerated it. -Consider initiation of a mood stabilizer such as Depakote, which can be given IV over objection if he remains unwilling for medications. 4/2 -The patient has stated that he was given Abilify Maintena intramuscularly fairly recently, but there is some reason to believe that this may not be accurate. It is noted that the patient's father said that he has not observed any changes in the patient's behaviors and other symptoms subsequent to the reported dose of Abilify. 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 His tox screen at admission was negative for occult blood, but the test was not specific for hallucinogens. Accordingly, while I would doubt that the entire constellation of problems observed are related to substance use, this cannot be ruled out as a mitigating factor. -Today, the patient reports that he will refuse to take Abilify because he says that he is "allergic" to it. When asked to describe the allergy, he replied by saying that Abilify makes him feel "weird," and he says that he feels certain that it interferes with his sleep. The patient reports that he has taken olanzapine (Zyprexa) and has tolerated that well. He also suggest that he thinks that it "helps." However, he cannot exactly say how it helps. -Today, the patient says that he is embarrassed about the fact that he was "running around outside" while naked, and that he was masturbating in public. However, he has difficulty saying why that should be an issue, other than to repeatedly say, "it is bad." At the same time, and the period of time that immediately proceeded our telephonic contact the patient was reportedly openly masturbating in front of his one-to-one pediatric physician assistant and, also reportedly, the patient had invited the one-to-one pediatric physician assistant to either masturbate together with the patient or to allow the patient to masturbate him. Furthermore, the patient indicated that he felt this behavior was reconciled because he had awakened in a "sexual place." Accordingly, what initially had suggested improving insight is abrogated by his ongoing inappropriate and dyscontrol behaviors. -Given the fact the patient may have an unspecified dose of Abilify Maintena on board, reportedly administered on 12/19/2020, and given that the patient may need to receive his olanzapine by intramuscular injection if he continues to periodically refused to take it voluntarily (see med over objection first and second opinions), will reduce the dose of olanzapine from 10 mg 3 times a day to olanzapine 10 mg twice a day by mouth, and will order medications over objection in the form of olanzapine 10 mg IM twice a day. The dose can be titrated as indicated. 01/05--review of available records (most recent [place] pending) note dx of bipolar and/or schizoaffective bipolar type. Records state concussion/no head injuries so family was contacted as amount of preoccupation with masturbating seemed out of proportion to hypersexuality from becca. No hx of hyperorality so doubt [facility] Dean. Had multiple concussions in high school had to leave football and switched to soccer. symptom onset in college so doubt orbitofrontal syndrome. 01/07--303 granted. still trying to confirm date of Abilify injection (or if received). Invega seemed more amenable option than Haldol dec but family confirms poor response to Risperdal and preference toward Abilify. For now Zyprexa is stabilizing patient. Reviewed with family that no local clinics administer the IM. 01/08 - Pt is religiously preoccupied and reporting thoughts that are consistent with ongoing delusions. He is now reporting he thinks he can "do things on my own" and is not particularly interested in outpatient treatment - Pt is declining medication changes. Although it is helpful that he is tolerating olanzapine and denies concerning side effects, he is unfortunately very resistant to adjusting medications to allow for an DE LSO SANTOS option. He is unable to formulate a plan for how he plans to ensure compliance with an oral medication and therefore remains at risk of noncompliance, destabilization, frequent hospitalizations or injury/ as a result of psychosis. - Pt strongly encouraged to consider therapy and case management services. 01/09 - Continue current medication regimen, though consider need for further titration of olanzapine. Patient is not clearly verbalizing any uatsdin preoccupation but seems to still be disorganized and mildly thought blocked. He continues to demonstrate poor insight into his mental health condition and need for treatment. - Will plan to schedule a family meeting to involve parents - as we will need to begin discussing safety recommendations and outpatient supports - Considering 304 IOC due to poor insight, history of medication noncompliance, and seriousness of patient's condition 01/10 - Infection control reporting patient could be cleared for referral to a psychiatric unit as soon as 01/13/21. - Continue as above - thoughts continue to be disorganized, ongoing uatsdin preoccupation. Pt continues to have poor insight into the severity of his condition and on a few occasions indicated that he may begin refusing his oral medications (2-physician opinions documented on chart for medications over objection if this should occur). - Offered to adjust dosing of olanzapine due to reports of daytime fatigue, patient declining at this time. Consider need for titration of the medication if thoughts do not continue to clear. - Anticipate need for inpatient psychiatric treatment once cleared medically to join the inpatient milieu setting - Considering 304 IOC, meeting scheduled with [facility] to discuss case on 01/16 01/11 - Continue as above. We did receive reports that patient does continue to engage in sexually inappropriate behavior. We are encouraging staff to redirect patient in these situations and offer alternative activities. Pt reports feeling some control over this behavior and express apologies. - Continue olanzapine - consider need for further titration - Anticipate clearance from isolation precautions on 01/16, and then will consider for admission to our unit for continued psychiatric treatment - Likely will require 304 IOC. 01/12 - Continue as above - anticipate discharge from the medical floor tomorrow, with subsequent admission to our unit to continue psychiatric treatment. - Pt reports appropriate behavior, reviewed some of the expectations regarding behavior on our unit as well. 01/13 - Continue olanzapine 10mg BID - discuss case further during treatment team tomorrow. - Admitted to a locked inpatient behavioral health unit, on q15 minute safety checks - Encourage medication initiation/adjustments as indicated - Encourage participation in group and recreational therapies - Gather collateral information from outpatient providers - Suggest family meeting to involve outpatient supports in safety planning - Arrange appropriate aftercare 01/14 -File for 304 involuntary commitment hearing to be held 01/16. Consider the need for referral to [facility] for long-term inpatient treatment versus diversion to an involuntary outpatient commitment. -Patient has been seen by 2 physicians for medications over objection, and although he has taken oral medications at times here in the hospital, has consistently stated that he does not believe he needs medication or psychiatric treatment, and will not continue it after leaving the hospital. We are therefore recommending an long-acting injectable antipsychotic. Multiple medications have been reviewed with him and he has refused all of them. We will discontinue olanzapine as it is not available as an DE LOS SANTOS, and start haloperidol 10 mg twice daily p.o., with an IM backup for refusal, with a plan to transition to Haldol Decanoate once an effective dose is established. -Treatment planning meeting with [facility] scheduled for 01/16 after commitment hearing. 01/15 - Continue haloperidol 10mg BID - patient has been taking medications orally, though with some reluctance. IM form remains available for meds over objection if necessary - Will order fasting glucose and lipid panel for tomorrow - as no record of labs being done while in [place] - We were able to clarify with new records that patient did, in fact, receive Abilify Maintena on 12/20 while inpatient in [place]. - 304 hearing tomorrow[facility] myke nning 01/16 - Pt reporting poor effect with Haldol and requesting a different medication. Discussed trial of paliperidone (as Abilify Maintena was ineffective), and discussed risks, benefits and potential side effects. He agreed to a trial, discontinued Haldol and started paliperidone 3mg daily for tomorrow. Continue Haldol IM for refusal of PO. If effective, transition to Invega Sustenna. - Fasting labs for monitoring on atypical antipsychotic: Glucose 99, FLP normal with the exception of cholesterol 220. Ongoing monitoring as an outpatient. - Patient continues to refuse to sign releases for [facility] and [facility], so we have not yet arranged outpatient treatment. Now that there is a [address], we will proceed with discharge planning. Family meeting scheduled with patient, parents, and high school social science teacher for Thursday. 01/17 - Continue trial of paliperidone - kept dosing at 3mg for tomorrow due to patient reporting side effects, however, it will likely need continued titration . 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 - Family meeting with parents scheduled for tomorrow, [facility] staff is attempting to meet with patient again tomorrow afternoon - [address] which requires involvement of full spectrum of outpaitent psychiatric services; however, patient is resistant to these services 01/18 -The patient continues to complain fairly strikingly of intolerable side effects that he associates with Invega. These side effects may be considered consistent with extraparametal side effects, and the patient does exhibit cogwheel rigidity on examination. We talked to him about the possibility of using an antiparkinsonian agent to manage the side effects, but the patient seemed absolu tely adamant that he does not wish to take Invega any further. Of the medications that can be given in a depot form, he said that he felt that Abilify would be the one that he would choose, although it, too, reportedly causes difficult side effects and, furthermore, does not necessarily seem to have been particularly effective in his case.He does not speak positively about his experience with Zyprexa, and this is consistent with staff observation during the brief period during which she was taking Zyprexa. After discussion with the treatment team and with the patient, we agreed to restart olanzapine (Zyprexa) at 10 mg daily. We will also add an anti his parkinsonian agent, first as a test, and then is a standing order to guard against extrapyramidal side effects. -The patient has made reference to feeling depressed for several weeks now. The treatment team agrees that he appears depressed. His complaint is "anxiety that leads to depression," and endorses feeling "sad," and hopeless. The patient also has mood congruent delusions that include delusion that he has "been sent to hell," and will be "tortured" forever. Within this context, we will offer the patient a trial of the antidepressant/antianxiety medication venlafaxine extended release beginning at 37.5 mg and titrated carefully and with caution given our working diagnosis of schizophrenia versus schizoaffective disorder. 01/19--reviewed. retitrating Zyprexa. EPS resolved. Artane may be able to be tapered over time. Monitor for emergent hypomania on SNRI. 01/20--reviewed. continue current med and treatment plan. 01/21--reviewed. continue current med and treatment plan, had suicide attempt on unit <1 week ago so needs to remain inpatient for longer monitoring and additional planning around outpatient commitment. Risk Factors Assessment 01/22 - Continue olanzapine 10mg BID. Will discontinue scheduled Artane, as symptoms of EPS were not reported for the lengthy time the patient had previously been taking olanzapine. Will keep 2mg prn doses available up to BID as needed for side effects to antipsychotic medications. - Pt reports mood is improved, but continues to present as flat - Continue to engage outpatient supports, working toward 304 IOC. 01/23 -ongoing psychosis and depression, continue to titrate medications and increase olanzapine to 15 mg twice daily and venlafaxine XR to 75 mg 01/24 - Continue medication changes made yesterday - olanzapine 15mg BID and venlafaxine XR 75 - Pt continues to be thought blocked with ongoing psychosis - admitted to paranoia and persecutory delusions - Meeting with embedded case manager tomorrow 01/25 -Continue olanzapine 15 mg twice daily. Increase venlafaxine XR to a dose of 112.5 mg and monitor for possible exacerbation of psychotic symptoms. -Today, the patient does not give voiced any persecutory delusions, apart from telling me that it seemed logical to him that "were all going to " so that he should masturbate in the nude, while in public. 01/26 - 01/27 -Continue current meds, continue discharge planning 01/28 -discharged home with parents. Safety plan has been reviewed with them, guns secured. -Convert to a 304 IOC. Follow-up with [facility], psychiatrist, and therapist as scheduled. -Prescriptions issued for 30-day supply of Zyprexa and Effexor XR. If patient is nonadherent, recommend conversion to an DE LOS SANTOS antipsychotic. -Patient has been instructed not to drive until his symptoms has fully stabilized and he has been cleared by his outpatient physician. (2) Noncompliance with medication regimen: - Italic sections refer to daily care summary from medical floor admission - Recommend an DE LOS SANTOS due to nonadherence with oral medication, need to obtain additional information about recent treatment before we can explore options. Father reports they were told he got Abilify Maintena on 12/19/2020, and due to tight receptor binding it may be difficult to get an adequate response from other dopaminergic medications until it is out of his system 01/04/21 -The patient is saying that he will refuse to take Abilify either orally or by injection of a depot form of aripiprazole. The plan is to stabilize the patient on olanzapine, and at that point we may be able to asked the patient to reconsider Abilify given reports that he has responded favorably to Abilify in the past. Alternatively, he could be converted to Invega Sustenna or Haldol decanoate, in view of his acknowledge long history of medication nonadherence 01/05/21--offered zydus, prefers pills and is compliant last 2 doses. 01/06--father states that he was trying to put Abilify in patient's cereal in days leading up to admission. 01/08 - Has been taking scheduled doses of olanzapine BID; however, unwilling for medication changes or to explore options for Suraj. 01/09 - 01/12 - Remains unwilling to consider DE LOS SANTOS options to promote medication compliance - Considering a 304 IOC 01/13 - Continue as above - patient remains resistant to an DE LOS SANTOS, now reporting the concern is related to fear of needles. - Pt stated today that he does not desire for medications to be a part of his treatment plan. - Medications over objection orders in place from assessments completed while patient was on the medical floor. 01/15 - Transitioned to haloperidol yesterday to allow for stabilization on a medication that can be given as an DE LOS SANTOS 01/16 -At patient's request, discontinue Haldol and start trial of Invega, with plan to transition to Invega Sustenna if effective and well-tolerated. -304 hearing held and commitment granted. 01/18 -As above, we have been trying to find a medication that can be given to him orally, with the goal of stabilizing on that medication and then converting him to a depot form of the medication. Unfortunately, he seems not to have responded favorably to haloperidol, the also seems not to respond favorably to a low dose of Invega, and he had received a dose of Abilify Maintena not long before his admission to [facility], a circumstance that would seem to suggest that he was not responding favorably to aripiprazole, or was not currently responding favorably to aripiprazole. Furthermore, the patient complains persistently of intolerable side effects that he associates with Invega and haloperidol. He also references aripiprazole, but says that of the 3 medications aripiprazole has been the least likely to cause severe side effects. He reiterates that sometimes keeps him awake at night. Accordingly, while our goal is to find a depot medication that may work, for now we have decided to aggressively treat the patient's condition with Zyprexa, medication that he says has worked well for him and that helps with his "anxiety and depression." We will also add an antiparkinsonian agent given the fact that the patient complains of restlessness, which she refers to his anxiety, and does exhibit EPS such as cogwheeling on examination. Possibly, once the patient is stabilized psychiatrically we can reintroduce the idea of a medication that can be given in the depot form, combined with an antiparkinsonian agent (if that proves to be the source of the patient's multiple complaints of side effects). Reviewed 01/19/21. 01/25 -As noted in number times above, the original plan had been to place the patient on a long-acting depot form of an antipsychotic given his demonstrated history of nonadherence with medications. Today, the patient says that he understands that continued nonadherence with medications after discharge from hospital, followed by periods of heightened psychosis and dangerous behaviors places him at risk for a determination that he requires a longer term psychiatric hospitalization, such as is available in the [facility] psychiatric facilities. The patient says that he is motivated to avoid this, and he says that he has a plan to remain adherent with his medications on an outpatient basis is to ask his parents to contact "a doctor or the police" if he stops taking his medications on an outpatient basis. He adds that he understands that this could be and he has to come back to the hospital. The patient does have some insight into his illness at this point. He understands that his behavior prior to admission was both dangerous and "pretty confused." He also acknowledges current psychiatric symptoms such as some persistent depression. 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 Pt had continued to frequently masturbate during his time on the medical floor, even occasionally propositioning his 1:1 staff. - Pt was informed that this behavior cannot be tolerated on our unit - especial ly in a milieu setting. - Continue to redirect patient and offer more appropriate coping strategies should this behavior continue. 01/17 - No concerns related to this history here on the unit; however, patient is continue to display poor insight with limited commitment to treatment. There are ongoing concerns related to safety and legal consequences if is psychosis is not adequately treated and he is not committed to continued treatment after discharge. 01/18 - Given the patient's primary psychiatric diagnosis, it would be somewhat difficult to give the patient a concurrent diagnosis of the paraphilia exhibitionism. He tells us that he went outside in the nude and masturbated in front of other people because he was given a "message" that they wanted him to do that and that it would somehow relieve the tension that he was feeling in his chest and abdomen. He also said, "I do not get off" on the idea of having people watch me masturbate. However, he also acknowledges that he was sign ificantly more sexually aroused once he had what he considers to be an audience. In any event, we are focusing with the patient the fact that these behaviors can lead to legal trouble, or possibly even more significantly, to violence from those persons to take exception to his behavior. The patient indicated understanding and registered a sense of regret. 01/25 -Today, the patient confirms that he has not generally found the idea of exposing his genitalia in public to be sexually arousing. He does note that on the day in question he was frustrated because he was not able to become sexually aroused and that once he thought that he was being given a message that other people wanted him to come outside, naked, and masturbate publicly he did find it arousing, sexually. However, he continues to insist that this is not part of a larger pattern. The patient reports that, in the hospital, he has been able to masturbate privately to the point of orgasm on 2 occasions. (4) Tick bite: Treatment Impression per hospitalist staff: - Received doxy prophylaxis during beginning of admission when tick was removed. Monitor for rickettsial illness. No issues at this time. Patient was counseled on signs and symptoms to watch for and verbalized understanding with intent to comply. 01/13 - Will continue to monitor for signs/symptoms of infection or disease related to tick bite. Monitor vitals including temperature daily as per usual protocol. 01/18 -There are no current symptoms of Lyme disease. Reviewed 01/19 Mental Health & Subst Abuse Tx Psychiatrist Name of Psychiatrist: Kathi Psychiatrist's Date of Appointment with Psychiatrist: 01/30/21 Time of Appointment with Psychiatrist: 1:30 p.m Psychiatric Appointment Comment: Will schedule after your intake Therapist Name of Therapist: Kathi Therapist's Date of Therapist Appointment: 01/30/21 Time of Therapist Appointment: 1:30 p.m (consents), 2:00 p.m. (intake) Therapy Appointment Comment: Telehealth Proposal Writer Name of Proposal Writer: [facility] - Bill Phone Number for Proposal Writer: [phone] Date of Appointment with Proposal Writer: 01/30/21 Time of Appointment with Proposal Writer: 3:00 p.m. Case Management Appointment Comment: Will meet you at your home Post Discharge Appointments Primary Care Physician Name Of Family Doctor: Nafisa Campos Primary Care Date of Appointment with PCP: 02/01/21 Time of Appointment with PCP: 11:20 a.m. Provider Appointment Comment: [address] [place] [address] Smoking Cessation Counseling Tobacco Cessation Medication Prescribed at Discharge: Not Applicable/Non-Smoker Contact Information Discharge Discharge Address: [address] [address] Discharge Plan Discharge Items Patient Disposition: Home - Self-Care Reason For Visit: PYSCHOSIS, NOS Discharge Diagnosis: Schizophrenia Activity: Per Instructions section Non-emergency contact: Psychiatrist, Therapist and Unitizer Call non-emergency contact if: you have any medication questions and your symptoms worsen Follow-up/Referrals: Francisco Campos MD [Primary Care Provider] - Diet: Regular Addtl Attending Provider Instructions: SPECIAL CARE INSTRUCTIONS: 1. Follow through with your scheduled aftercare appointments. If unable to keep an appointment, please call to reschedule. You are being discharged on an involuntary outpatient commitment ("304"). Please see attached paperwork. 2. Take your medication only as prescribed. Medication should not be changed or stopped without the approval of your doctor. In the event of worsening symptoms or concerns about side effects, contact your doctor immediately. 3. Utilize new healthy coping skills, anger management skills, and stress management skills learned during your hospitalization. Journal feelings and process them with a support person. Identify stressors or situations that may result in relapse, deterioration or inappropriate behaviors and develop a plan to deal with those issues. 4. If your coping skills are ineffective and you are in crisis, contact your outpatient providers for direction. If unable to reach your providers, please call the [facility] CRISIS LINE AT , go to the [facility] walk-in center at [address], [address], [place], or go to the closest Emergency Room. 5. Avoid alcohol and un-prescribed drugs. 6. You have been provided with the Mental Health Advance Directives Pamphlet for your review. AFTERCARE APPOINTMENTS: * Please call your insurance company prior to your scheduled appointment to confirm your aftercare providers are covered. Take your insurance information to your appointments. WHO TO CALL AND WHEN: Medical Emergencies: For questions or emergencies related to your hospital stay, please contact the Inpatient Behavioral Health Unit at [phone]. A bakelite molder is on-call 27/04 for the Behavioral Health Unit for emergencies At any time you feel your situation is an emergency, you may also call 911 immediately. Pending Studies at Discharge: No Stand-Alone Forms: My [facility], Smoking Cessation Medications and DC Order Prescriptions: New olanzapine 15 mg tablet 15 mg PO BID Qty: 60 RF: 0 trihexyphenidyl 2 mg Tablet 2 mg PO BID PRN (Reason: EPS/dystonia) Qty: 14 RF: 0 venlafaxine 37.5 mg Capsule,Extended Release 24hr 37.5 mg PO QAM Qty: 30 RF: 0 venlafaxine 75 mg Capsule,Extended Release 24hr 75 mg PO QAM Qty: 30 RF: 0 Discontinued olanzapine 10 mg Tablet 10 mg PO BID Qty: 90 RF: 0 olanzapine 10 mg Tablet 10 mg PO Q8H PRNQty: 0 RF: 0 Discharge Orders: Discharge Order (Routine); Ordered 01/28/21 Ordered By: Gerri Miranda Admission Data Admit Date/Time: 01/13/21 14:07 Attending Provider: Gerri Miranda Admit Provider: Johanna Cain Primary Care Provider: Francisco Campos Other Interventions: Discharge Summary Assessment (RN) Last Done: 01/28/21 09:28 PSY Interdisciplinary Discharge Planning Last Done: 01/28/21 09:50 Coding Level of Care Code 86426 D/C day mgmt > 30 min Diagnoses Schizophrenia F20.9 Noncompliance with medication regimen Z91.14 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
--- NOTE | 2021-02-07 14:25 | Coding Query ---
CODING QUERY To promote full compliance with coding requirements relating to patient care, provider participation is requested in all cases of belt knife feeder uncertainty. Please assist us with the question(s) below: Coding Question(s): There is documentation of, "Patient was hospitalized for 15 days on the [facility], after an 11-day hospitalization on the medical floor, as he presented with psychosis and was involuntarily committed, but tested Covid + in the ER so was admitted to the Covid unit". Please specify below, regarding the COVID-19 diagnosis during this admission. ( ) COVID-19 was monitored/treated during this admission ( ) History of COVID-19 ( X) Other: Please Specify_transferred to [facility] following appropriate quarantine and negative covid test. Physician's Response(s): Thank you Apurva Ann Principal Diagnosis: "that condition established after study, to be chiefly responsible for occasioning the admission of the patient to the hospital for care." Co-Existing Principal Diagnosis: "when two or more diagnoses equally meet the criteria for principal diagnosis as determined by the circumstances of admission, diagnostic work up, and/or therapy provided, and the Alphabetic Index, Tabular List, or another coding guideline does not provide sequencing direction, any one of the diagnoses may be sequenced first." "When the physician has documented what appears to be a current diagnosis in the body of the record, but has not included the diagnosis in the final diagnostic statement, the physician should be asked whether the diagnosis should be added." (Source Coding [facility] 2 QTR90. p3-4) NAIN
== END 2021-01-28 11:00 | disposition home or self-care (01) | DRG 885 ==
LOC: 3S 14:07